=== PATIENT | male | born 1970 | race Caucasian/White ===

== ENCOUNTER 2023-08-24 19:55 | Inpatient (IN) ==
--- NOTE | 2023-08-24 20:44 | Emergency Department Note ---
Impression & Plan Suicidal ideation, Alcohol use disorder, Anemia ED Provider Note HISTORY OF PRESENT ILLNESS: Patient is a 53-year-old male presenting for suicidal ideation. Patient has a history of chronic alcoholism. Reports that he has been going through bouts of sobriety and then drinking again. He states that he has been trying to get into outpatient alcohol rehab and has had significant frustrations given his chronic medical problems. He reports a history of esophageal varices and epilepsy. He states that he became very frustrated with people on the phone at the different rehab facilities telling him that he could not be admitted to their facility. He states that "I would have shot or strangled them if I would have seen them in person." He states that this morning he was feeling so depressed and disappointed with his circumstances that he wanted to end his life. He reports that he wanted to kill himself by overdosing on heroin. Reports he is never taken opioids and never used heroin before, but "I would have used anyway I could to kill myself." He states that he has been sober for the last 5 days until 10 AM this morning when he drank "2 airplane bottles of vodka." He denies any previous suicide attempts. He has required inpatient psychiatric admission before, but does not disclose what his mental health diagnosis is. He denies any physical complaints, such as chest pain or shortness of breath. ROS: as above PHYSICAL EXAM: Constitutional: Patient appears in no acute distress. HENT: Head: Normocephalic and atraumatic. Eyes: EOMI, PERRL Mouth/Throat: Mucous membranes moist. Neck: Trachea midline. Neck supple. Musculoskeletal: No edema, tenderness or deformity noted. Skin: Warm and dry. No rash, erythema, pallor or cyanosis Psychiatric: Appropriate mood and affect for situation. Neurological: Alert and keenly responsive. CN II-XII grossly intact, moving all extremities equally and fully. MDM: - Vitals signs showed bradycardia - History obtained via patient. History as above. - Chronic conditions affecting care: Alcohol use disorder - Differential diagnoses include, but are not limited to: Depression; alcohol intoxication; drug intoxication; UTI - External medical records reviewed. Previous medical record was reviewed, as patient was seen in the emergency department on 08/14/2023 for hematemesis and upper GI bleed. He left AGAINST MEDICAL ADVICE at that time. His hemoglobin was 7.7. - Laboratory workup interpreted by myself showed slight leukopenia (WBC 4.55); anemia (Hgb 7.1 - stable from 08/14/2023 in which Hgb was 7.7); elevated BUN (27); hypocalcemia (Ca 8.5); negative alcohol/salicylate/acetaminophen levels - UA negative for infection - UDS positive for amphetamine, MDMA and barbiturates. - COVID negative - Patient given 25 mg PO Zyprexa in ER, as he was requesting something to "help me calm down." - Patient's previous ER visit note from 08/14/2023 is under . - [facility] casey saw operator discussed options with the patient. He reports that he wants to be discharged home to coordinate getting into a dual treatment program. However, [facility] casey saw operator did discuss that patient has an acute psychiatric pathology and would require inpatient admission. However, he is stating that "you can admit and then I will be discharged so I can go home and do what I said." Given the patient does express suicidal ideation with the plan, a 302 petition was filed by [facility] casey saw operator. Awaiting petition from [facility]. However, given patient's complex medical problems, will need medical admission and inpatient psychiatric consult. Patient does lack insight into his medical problems and his need for inpatient psychiatric admission. He did express suicidal ideation with the plan. High risk for self- harm if discharged. - Prior to disposition, patient's case was discussed with Dr. Li, with plan for 302 and admission to medicine service with psychiatric consult. ASSESSMENT AND PLAN: Diagnosis: suicidal ideation; alcohol use disorder; anemia Past Med/Surg History Problem List (Updated 08/25/23 @ 00:15 by Domi Charles MD) Anemia (Acute) Alcohol use disorder (Acute) Suicidal ideation (Acute) Social History Smoking Status: Current every day smoker Tobacco Type: Cigarettes Preferred Language: Spanish Feels Safe at Home: Yes Allergies Allergies Allergy/AdvReac Type Severity Reaction Status Date / Time haloperidol Allergy Unknown Hives Verified 08/24/23 20:55 metoclopramide Allergy Unknown Hives Verified 08/24/23 20:55 morphine Allergy Unknown Hives Verified 08/24/23 20:55 prochlorperazine Allergy Unknown Hives Verified 08/24/23 20:55 promethazine Allergy Unknown Hives Verified 08/24/23 20:55 Home Meds Home Medications Medication Instructions Recorded Confirmed divalproex 250 mg tablet,delayed 750 mg PO 1XD 08/24/23 08/24/23 release (Depakote) methylphenidate HCl 54 mg 54 mg PO DAILY 08/24/23 08/24/23 tablet,extended release 24 hr (Concerta) pantoprazole 40 mg tablet,delayed 40 mg PO DAILY 08/24/23 08/24/23 release (Protonix) venlafaxine 150 mg 150 mg PO DAILY 08/24/23 08/24/23 capsule,extended release 24 hr (Effexor XR) zolpidem 10 mg tablet (Ambien) 10 mg PO HS PRN Insomnia 08/24/23 08/24/23 Results & Data (ED) Vital Signs Vital Signs - 24 hr 08/24/23 20:02 08/24/23 22:00 08/25/23 00:07 Temperature 36.9 C Temperature Source Temporal Artery Scan Pulse Rate 53 L Pulse Rate [Finger] 77 76 Pulse Rhythm [Finger] Regular Pulse Strength [Finger] Normal Respiratory Rate 20 20 16 Respiratory Effort / Characteristics Non-Labored Spontaneous Respiratory Depth Normal Respiratory Pattern Regular Blood Pressure 135/76 Blood Pressure [Right Arm] 114/74 133/70 Blood Pressure Mean 95 Blood Pressure Mean [Right Arm] 87 91 Blood Pressure Position [Right Arm] Lying Pulse Oximetry 95 100 98 Oxygen Delivery Method Room Air Room Air Sepsis Recent Fever Within 48 Hours No Sepsis New/Unexplained Change in Mental Status N/A Sepsis Action Taken by Nursing No Action Required Laboratory Data 08/24/23 20:34 08/24/23 20:34 Lab Results 08/24/23 08/24/23 08/24/23 Range/Units 20:12 20:34 20:39 WBC 4.55 L (4.8-10.8) K/ul RBC 2.72 L (4.70-6.10) M/uL Hgb 7.1 L (14.0-18.0) g/dl Hct 23.7 L (42.0-52.0) % MCV 87.1 (80.0-100.0) fL MCH 26.1 (25.0-34.0) pg MCHC 30.0 L (32.0-36.0) g/dL RDW Std Deviation 53.8 H (36.4-46.3) fL RDW Coeff of Yeimy 16.9 H (11.5-14.5) % Plt Count 282 (130-400) K/uL MPV 9.5 (9.4-12.4) fL Immature Gran % (Auto) 0.2 % Neut % (Auto) 61.9 % Lymph % (Auto) 25.1 % [place] % (Auto) 7.7 % Eos % (Auto) 4.2 % Baso % (Auto) 0.9 % Neut # (Auto) 2.82 (1.40-6.50) K/uL Lymph # (Auto) 1.14 L (1.20-3.40) K/uL [place] # (Auto) 0.35 (0.11-0.59) K/uL Eos # (Auto) 0.19 (0.00-0.50) K/uL Baso # (Auto) 0.04 (0.00-0.20) K/uL Immature Gran # (Auto) 0.01 (0.01-0.20) K/uL Hypochromasia Present Sodium 138 (136-145) mmol/L Potassium 3.8 (3.5-5.1) mmol/L Chloride 108 H (98-107) mmol/L Carbon Dioxide 25 (21-32) mmol/L Anion Gap 5 (3-11) BUN 27 H (6-23) mg/dl Creatinine 0.74 (0.6-1.4) mg/dl Est Cr Clr Drug Dosing 103.4 ml/min Est GFR ( Amer) 122.1 ml/min Est GFR (Non-Af Amer) 105.3 ml/min BUN/Creatinine Ratio 36.5 H (10-20) Glucose 80 (70-99(Fasting)) mg/dl Calcium 8.5 L (8.6-10.3) mg/dl Total Bilirubin 0.2 (0.2-1.0) mg/dl AST 26 (13-39) U/L ALT 21 (7-52) U/L Alkaline Phosphatase 121 H (34-104) U/L Total Protein 6.3 (6.0-8.3) gm/dl Albumin 4.0 (3.4-5.0) gm/dl Globulin 2.3 L (2.5-4.0) gm/dl Albumin/Globulin Ratio 1.7 (0.9-2) TSH 1.070 (0.300-4.500) uIu/ml Urine Color Yellow Urine Appearance Clear (Clear) Urine pH 5.5 (4.5-7.5) Ur Specific [place] 1.021 (1.000-1.030) Urine Protein Negative (Negative) Urine Glucose (UA) Negative (Negative) Urine Ketones Negative (Negative) Urine Blood Negative (Negative) Urine Nitrite Negative (Negative) Urine Bilirubin Negative (Negative) Urine Urobilinogen Negative (Negative) Ur Leukocyte Esterase Negative (Negative) Salicylates < 3.0 L (3.0-30) mg/dl Urine Opiates Screen Neg (Neg) Ur Methadone, Qual Neg (Neg) Urine Fentanyl Screen Neg (Neg) Acetaminophen < 3 L (10-30) ug/ml Urine Barbiturates Pos H (Neg) Ur Phencyclidine (PCP) Neg (Neg) U Amphetamin/Meth Scrn Pos H (Neg) MDMA (Ecstasy) Screen Pos H (Neg) U Benzodiazepines Scrn Neg (Neg) Ur Cocaine Metabolite Neg (Neg) U Marijuana (THC) Screen Neg (Neg) Ethyl Alcohol mg/dL < 10.0 (<10.0) mg/dl SARS-CoV-2, RNA, NAAT NEGATIVE (NEGATIVE) Administered Medications Discontinued Medications Hydroxyzine HCl (Hydroxyzine Hcl 25 Mg Tab) 25 mg PO NOW STA Stop: 08/24/23 20:45 Last Admin: 08/24/23 20:57 Dose: 25 mg Documented By: TERI Discharge Plan Visit Data Chief Complaint: Mental Health Evaluation Stated Complaint: SUICIDAL IDEATION ED Provider: Domi Charles Discharge Problem: Suicidal ideation, Alcohol use disorder, Anemia Forms Stand Alone Forms: [facility], Suicide Prevention Resources Prescriptions Prescriptions: No Action divalproex [Depakote] 250 mg Tablet,Delayed Release (Dr/Ec) 750 mg PO 1XD venlafaxine [Effexor XR] 150 mg Capsule,Extended Release 24hr 150 mg PO DAILY methylphenidate HCl [Concerta] 54 mg Tablet Extended Release 24hr 54 mg PO DAILY pantoprazole [Protonix] 40 mg Tablet,Delayed Release (Dr/Ec) 40 mg PO DAILY zolpidem [Ambien] 10 mg Tablet 10 mg PO HS PRN (Reason: Insomnia) Referrals Referrals: PCP,NO [Primary Care Provider] -
[2023-08-24 20:52] LABS: Appearance Urine Clear (Clear); Bilirubin Urine Negative (Negative); Blood Urine Negative (Negative); Color Urine Yellow; Glucose Urine UA Negative (Negative); Ketones Urine Negative (Negative); Leukocyte Esterase Urine Negative (Negative); Nitrite Urine Negative (Negative); Protein Urine Negative (Negative); Specific Gravity Urine 1.021 (1.000-1.030); Urobilinogen Urine Negative (Negative); pH Urine 5.5 (4.5-7.5)
[2023-08-24] MEDS: hydrOXYzine HCl 25 MG TAB PO STA (20:57)
[2023-08-24 21:09] LABS: Acetaminophen < 3 ug/ml (10-30); Salicylate < 3.0 mg/dl (3.0-30)
[2023-08-24 21:10] LABS: Albumin Globulin Ratio 1.7 (0.9-2); BUN Creatinine Ratio 36.5 (10-20); Bilirubin,Total 0.2 mg/dl (0.2-1.0); Calcium 8.5 mg/dl (8.6-10.3); Creatinine Clr Calc Pharmacy 103.4 ml/min; Est GFR (African American) 122.1 ml/min; Est GFR (Non-African American) 105.3 ml/min; Globulin 2.3 gm/dl (2.5-4.0); Potassium 3.8 mmol/L (3.5-5.1); Total Protein 6.3 gm/dl (6.0-8.3)
[2023-08-24 21:23] LABS: Amphetamines+Metham, Urine Pos (Neg); Barbiturates, Urine Pos (Neg); Benzodiazepine, Urine Neg (Neg); Cocaine, Urine Neg (Neg); Fentanyl, Urine Neg (Neg); MDMA (Ecstacy), Urine Pos (Neg); Marijuana, Urine Neg (Neg); Methadone, Urine Neg (Neg); Opiate, Urine Neg (Neg); Phencyclidine, Urine Neg (Neg)
[2023-08-24 21:25] LABS: Basophils # (auto) 0.04 K/uL (0.00-0.20); Basophils % (auto) 0.9 %; Eosinophils # (auto) 0.19 K/uL (0.00-0.50); Eosinophils % (auto) 4.2 %; Hematocrit (blood only) 23.7 % (42.0-52.0); Hemoglobin 7.1 g/dl (14.0-18.0); Immature Granulocytes # (auto) 0.01 K/uL (0.01-0.20); Immature Granulocytes % (auto) 0.2 %; Lymphocytes # (auto) 1.14 K/uL (1.20-3.40); Lymphocytes % (auto) 25.1 %; Mean Corpuscular Hemoglobin 26.1 pg (25.0-34.0); Mean Corpuscular Volume 87.1 fL (80.0-100.0); Mean Platelet Volume 9.5 fL (9.4-12.4); Monocytes # (auto) 0.35 K/uL (0.11-0.59); Monocytes % (auto) 7.7 %; Neutrophils # (auto) 2.82 K/uL (1.40-6.50); Neutrophils % (auto) 61.9 %; Platelet Count 282 K/uL (130-400); RDW Coefficient of Variation 16.9 % (11.5-14.5); RDW Standard Deviation 53.8 fL (36.4-46.3); Red Blood Count 2.72 M/uL (4.70-6.10); Thyroid Stimulating Hormone 1.07 uIu/ml (0.300-4.500); White Blood Count 4.55 K/ul (4.8-10.8)
[2023-08-24 22:19] LABS: Hypochromasia Present
[2023-08-25] MEDS: PANTOprazole 40 MG TAB PO STA (00:33)
--- NOTE | 2023-08-25 01:48 | Emergency Department Note ---
ED Visit Note Patient was signed out to me at change of shift by Dr. Charles, pending completion of 302 petition for medical admission and psychiatric evaluation for suicidal thoughts. Of note, there was some difficulty emerging the patient's actual medical record with his current medical record, upon review the patient's hemoglobin on 08/13 was 7.7 and today it is 7.1. Patient does not report any significant GI bleeding recently. Patient presented with suicidal thoughts and stated that he intended to kill himself if he was discharged home by overdosing on heroin. Therefore 302 petition was filed. This was upheld and signed by myself. Patient appears to be mildly agitated on my evaluation, he is otherwise in no acute distress and is resting comfortably in bed. Patient's case was discussed with the on-call hospitalist for [facility], Dr. Scott, and the patient will be medically admitted given his lab abnormalities and we will obtain a psychiatric consult on the inpatient service. .
--- NOTE | 2023-08-25 02:41 | History & Physical Report ---
Date of Service August 25, 2023 Assessment & Plan (1) Suicidal ideation: Plan: Suicidality ADHD, anxiety/mood disorder, personality disorder Anemia, hemoglobin at baseline of 7 from last [facility] ER visit 2 weeks ago Patient refuses to answer queries regarding active GI bleed. PUD status post surgery esophageal varices as per records HCV seizure disorder NHL as per records history of DVT as per records ongoing tobacco/alcohol abuse Substance abuse OBS Medical telemetry Suicide precautions Psych consult re: suicidality PO S at risk protocol, DT precautions Nicotine patch as needed DVT prophylaxis. SCDs Re: GI bleed Full code Text document was generated using EXEND[employer] recognition software. It may contain grammatical or spelling errors. Kindly contact undersigned for clarification of any documentation item in question. History of Present Illness Chief Complaint: Want to end my life as per records Primary Care Provider: NO PCP PARTIAL CHART found under History obtained from ED staff and records. Patient on unreliable historian due to non-cooperation. Medical history significant for PUD status post surgery, esophageal varices as per records, HCV, seizure disorder, NHL as per records, history of DVT as per records, chronic anemia (baseline hemoglobin 8-9), ADHD, anxiety/mood disorder, personality disorder, substance abuse, ongoing tobacco/alcohol abuse. Recent [facility] confinement June 2023 for UGIB. No varices on EGD. Recent [facility] ER visit last 08/14/2023 for acute UGIB. Hemoglobin noted to be 7.7 Patient refused confinement. Subsequent [facility] [place] admission 08/15-08/19 as per records. Patient trying to get to alcohol rehab following [facility] [place]. Patient woke up yesterday morning feeling so depressed and wanting to end his life. Patient consulted [facility] ER. Patient adamantly refuses to talk to providers currently. Medical History as above Surgical History : Billroth procedure, bowel resection, hip surgery, lymphadenectomy Family History : Mood disorder Personal/Social history : Half pack daily, alcohol abuse Allergies Allergy/AdvReac Type Severity Reaction Status Date / Time haloperidol Allergy Unknown Hives Verified 08/24/23 20:55 metoclopramide Allergy Unknown Hives Verified 08/24/23 20:55 morphine Allergy Unknown Hives Verified 08/24/23 20:55 prochlorperazine Allergy Unknown Hives Verified 08/24/23 20:55 promethazine Allergy Unknown Hives Verified 08/24/23 20:55 Home Medications Medication Instructions Recorded Confirmed Type divalproex 250 mg tablet,delayed 750 mg PO 1XD 08/24/23 08/24/23 History release (Depakote) methylphenidate HCl 54 mg 54 mg PO DAILY 08/24/23 08/24/23 History tablet,extended release 24 hr (Concerta) pantoprazole 40 mg tablet,delayed 40 mg PO DAILY 08/24/23 08/24/23 History release (Protonix) venlafaxine 150 mg 150 mg PO DAILY 08/24/23 08/24/23 History capsule,extended release 24 hr (Effexor XR) zolpidem 10 mg tablet (Ambien) 10 mg PO HS PRN Insomnia 08/24/23 08/24/23 History Past Med/Surg History Problem List (Updated 08/25/23 @ 00:15 by Domi Charles MD) Anemia (Acute) Alcohol use disorder (Acute) Suicidal ideation (Acute) Social History Smoking Status: Current every day smoker Tobacco Type: Cigarettes Preferred Language: [place] Feels Safe at Home: Yes Gender Identity: Male Review of Systems Review of Systems: Could not be reliably obtained secondary to noncooperation Physical Exam Physical Exam: GENERAL: Unkempt, withdrawn, covering face with pillow, no respiratory distress SKIN: Pallor, warm HEENT: Pale palpebral conjunctivae, no ptosis, dry buccal mucosa NECK : Supple, no tenderness CHEST : CTA, no tenderness HEART : RRR, no obvious murmurs ABDOMEN: Some distention, nontender EXTREMITIES : No LE swelling/tenderness, no other conspicuous deformities noted NEUROLOGIC : incoherent, no facial asymmetry, gait and stance not assessed Results & Data Results & Data Vital Signs (Past 12 Hours) Vital Signs Temp Pulse Pulse Resp BP BP Pulse Ox 08/25/23 02:23 78 16 124/76 98 08/25/23 00:07 76 16 133/70 98 08/24/23 22:00 77 20 114/74 100 08/24/23 20:02 36.9 C 53 L 20 135/76 95 O2 Del Method 08/25/23 02:23 08/25/23 00:07 08/24/23 22:00 Room Air 08/24/23 20:02 Room Air Laboratory Results Laboratory Results WBC 4.55 K/ul (4.8-10.8) L 08/24/23 20:34 RBC 2.72 M/uL (4.70-6.10) L 08/24/23 20:34 Hgb 7.1 g/dl (14.0-18.0) L 08/24/23 20:34 Hct 23.7 % (42.0-52.0) L 08/24/23 20:34 MCV 87.1 fL (80.0-100.0) 08/24/23 20:34 MCH 26.1 pg (25.0-34.0) 08/24/23 20: MCHC 30.0 g/dL (32.0-36.0) L 08/24/23:34 RDW Std Deviation 53.8 fL (36.4-46.3) H 08/24/23 20:34 RDW Coeff of Yeimy 16.9 % (11.5-14.5) H 08/24/23:34 Plt Count 282 K/uL (130-400) 08/24/23:34 MPV 9.5 fL (9.4-12.4) 08/24/23 20:34 Immature Gran % (Auto) 0.2 % 08/24/23:34 Neut % (Auto) 61.9 % 08/24/23 20:34 Lymph % (Auto) 25.1 % 08/24/23 20:34 [place] % (Auto) 7.7 % 08/24/23 20:34 Eos % (Auto) 4.2 % 08/24/23:34 Baso % (Auto) 0.9 % 08/24/23:34 Neut # (Auto) 2.82 K/uL (1.40-6.50) 08/24/23 20:34 Lymph # (Auto) 1.14 K/uL (1.20-3.40) L 08/24/23 20:34 [place] # (Auto) 0.35 K/uL (0.11-0.59) 08/24/23 20:34 Eos # (Auto) 0.19 K/uL (0.00-0.50) 08/24/23 20:34 Baso # (Auto) 0.04 K/uL (0.00-0.20) 08/24/23 20:34 Immature Gran # (Auto) 0.01 K/uL (0.01-0.20) 08/24/23 20:34 Hypochromasia Present 08/24/23 20:34 Sodium 138 mmol/L (136-145) 08/24/23 20:34 Potassium 3.8 mmol/L (3.5-5.1) 08/24/23 20:34 Chloride 108 mmol/L (98-107) H 08/24/23 20:34 Carbon Dioxide 25 mmol/L (21-32) 08/24/23 20:34 Anion Gap 5 (3-11) 08/24/23 20:34 BUN 27 mg/dl (6-23) H 08/24/23 20:34 Creatinine 0.74 mg/dl (0.6-1.4) 08/24/23 20:34 Est Cr Clr Drug Dosing 103.4 ml/min 08/24/23 20:34 Est GFR ( Amer) 122.1 ml/min 08/24/23 20:34 Est GFR (Non-Af Amer) 105.3 ml/min 08/24/23 20:34 BUN/Creatinine Ratio 36.5 (10-20) H 08/24/23 20:34 Glucose 80 mg/dl (70-99(Fasting)) 08/24/23 20:34 Calcium 8.5 mg/dl (8.6-10.3) L 08/24/23 20:34 Total Bilirubin 0.2 mg/dl (0.2-1.0) 08/24/23 20:34 AST 26 U/L (13-39) 08/24/23 20:34 ALT 21 U/L (7-52) 08/24/23 20:34 Alkaline Phosphatase 121 U/L (34-104) H 08/24/23 20:34 Total Protein 6.3 gm/dl (6.0-8.3) 08/24/23 20:34 Albumin 4.0 gm/dl (3.4-5.0) 08/24/23 20:34 Globulin 2.3 gm/dl (2.5-4.0) L 08/24/23 20:34 Albumin/Globulin Ratio 1.7 (0.9-2) 08/24/23 20:34 TSH 1.070 uIu/ml (0.300-4.500) 08/24/23 20:34 Urine Color Yellow 08/24/23 20:39 Urine Appearance Clear (Clear) 08/24/23 20:39 Urine pH 5.5 (4.5-7.5) 08/24/23 20:39 Ur Specific [place] 1.021 (1.000-1.030) 08/24/23 20:39 Urine Protein Negative (Negative) 08/24/23 20:39 Urine Glucose (UA) Negative (Negative) 08/24/23 20:39 Urine Ketones Negative (Negative) 08/24/23 20:39 Urine Blood Negative (Negative) 08/24/23 20:39 Urine Nitrite Negative (Negative) 08/24/23 20:39 Urine Bilirubin Negative (Negative) 08/24/23 20:39 Urine Urobilinogen Negative (Negative) 08/24/23 20:39 Ur Leukocyte Esterase Negative (Negative) 08/24/23 20:39 Salicylates < 3.0 mg/dl (3.0-30) L 08/24/23 20:34 Urine Opiates Screen Neg (Neg) 08/24/23 20:39 Ur Methadone, Qual Neg (Neg) 08/24/23 20:39 Urine Fentanyl Screen Neg (Neg) 08/24/23 20:39 Acetaminophen < 3 ug/ml (10-30) L 08/24/23 20:34 Urine Barbiturates Pos (Neg) H 08/24/23 20:39 Ur Phencyclidine (PCP) Neg (Neg) 08/24/23 20:39 U Amphetamin/Meth Scrn Pos (Neg) H 08/24/23 20:39 MDMA (Ecstasy) Screen Pos (Neg) H 08/24/23 20:39 U Benzodiazepines Scrn Neg (Neg) 08/24/23 20:39 Ur Cocaine Metabolite Neg (Neg) 08/24/23 20:39 U Marijuana (THC) Screen Neg (Neg) 08/24/23 20:39 Ethyl Alcohol mg/dL < 10.0 mg/dl (<10.0) 08/24/23 20:34 SARS-CoV-2, RNA, NAAT NEGATIVE (NEGATIVE) 08/24/23 20:12 Diagnostic Findings EKG as per my interpretation :
[2023-08-25] MEDS ORDERED: LORazepam 1 MG in SYRINGE 0.5 ML IV PRN (02:48)
--- OUTSIDE RECORDS SUMMARY | 2023-08-25 04:59 | External Medical Summary | Continuity of Care Document ---
Author Name Unknown Organization [facility] Address [address] [place] [phone] Care Team Providers Care Tailer Off Name Role Phone Merlene Chino Primary Care Physician [phone] [id number] Date(s): 08/16/23 - 08/20/[address] [id number] [phone] Encounter Diagnosis Lower GI bleed(Discharge Diagnosis) - 08/17/23 Alcohol use with withdrawal(Discharge Diagnosis) - 08/17/23 Alcohol dependence with withdrawal, unspecified(Final) - Epilepsy, unspecified, not intractable, without status epilepticus(Final) - Blood alcohol level of 20-39 mg/100 ml(Final) - Esophagitis, unspecified with bleeding(Final) - Presence of unspecified artificial hip joint(Final) - Patient's other noncompliance with medication regimen for other reason(Final) - Personal history of Hodgkin lymphoma(Final) - Anxiety disorder, unspecified(Final) - Depression, unspecified(Final) - Gastritis, unspecified, with bleeding(Final) - Other [facility] (current) drug therapy(Final) - Nicotine dependence, unspecified, uncomplicated(Final) - Personality disorder, unspecified(Final) - Abnormal levels of other serum enzymes(Final) - Procedure and treatment not carried out because of patient's decision for other reasons(Final) - Headache, unspecified(Final) - 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) - Cocaine use, unspecified, uncomplicated(Final) - Other stimulant use, unspecified, uncomplicated(Final) - Other psychoactive substance abuse, uncomplicated(Final) - Discharge Disposition: Home or Self Care Attending Physician: MD Arreguin Priyanka Admitting Physician: MD Lars, Lynda Mosley Allergies, Adverse Reactions, Alerts Substance Criticality Severity Reaction Reaction Severity Status Reglan na Active promethazine Other Active Haldol na Active Compazine na Active Functional Status 08/20/23 History of Fall in Last 3 Months Robles N o Presence of Secondary Diagnosis Robles Ye s Use of Ambulatory Aid Robles None/bedrest /nurse assist IV/Heparin Lock Fall Risk Robles Yes Gait/Transferring Fall Risk Robles Weak Mental Status Fall Risk Robles Oriented t o own ability Robles Fall Risk Score 45 Robles Fall Risk Low Risk 08/20/23 Neurological Symptoms None ADLs Minimal assistance Facial Symmetry Symmetric Gait Unable to assess Swallowing Difficulty None Level of Consciousness Neuro Alert Speech Pattern Clear 08/20/23 Hallucinations Present None Medications cholecalciferol 25 mcg (1000 intl units) oral capsule Start: 06/24/23 3:52:00 PM EDT, 2 cap, PO, Daily, Disp# 60 cap, Refills: 2, Pharmacy: [facility] Start Date: 06/24/23 Status: Ordered Depakote ER 250 mg oral tablet, extended release Start: 06/24/23 3:47:00 PM EDT, 3 tab, PO, qhs Start Date: 06/24/23 Status: Ordered folic acid 1 mg oral tablet Start: 03/25/23 2:21:00 PM EST, 1 tab, PO, Daily, Disp# 30 tab, Refills: 0, Pharmacy: [facility] Start Date: 03/25/23 Status: Ordered mirtazapine 15 mg oral tablet Start: 08/17/23 11:00:00 AM EDT, 30 each, 0 Refill(s), take 1 tablet by mouth nightly -INDICATIONS: MAJOR DEPRESSIVE DISORDER Start Date: 08/17/23 Status: Ordered naloxone 4 mg/0.1 mL nasal spray Start: 05/25/22 1:15:00 PM EDT, intranasal, 1 Unknown, 1 Refill(s), Administer 1 spray into affectednostril(s) as needed (opiod reversal, may repeat every 2 to 3 | minutes alternate nostrils). Start Date: 05/25/22 Status: Ordered pantoprazole 40 mg oral delayed release tablet Start: 03/25/23 2:21:00 PM EST, 1 tab, PO, Daily, Disp# 30 tab, Refills: 0, Pharmacy: [facility] Start Date: 03/25/23 Status: Ordered thiamine 100 mg oral tablet Start: 03/25/23 2:21:00 PM EST, 1 tab, PO, Daily, Disp# 30 tab, Pharmacy: [facility] Start Date: 03/25/23 Status: Ordered Tylenol 325 mg oral tablet Start: 05/24/22 10:29:00 AM EDT, 2 tab, PO, q6h, Disp# 60 tab, Refills: 0, PRN: fever/mild pain (1-3), Pharmacy: [facility] #[id number] Start Date: 05/24/22 Status: Ordered venlafaxine 150 mg oral capsule, extended release Start: 03/25/23 2:22:00 PM EST, 1 cap, PO, Daily, Disp# 30 cap, Pharmacy: [facility] Start Date: 03/25/23 Stop Date: 04/24/23 Status: Ordered ZyrTEC 10 mg oral tablet Start: 06/24/23 5:02:00 PM EDT, 1 tab, PO, Daily Start Date: 06/24/23 Status: Ordered Mental Status 08/17/23 Communication Barrier Present No Primary Language Mongolian Problem List Condition Confirmation Course Effective Dates Status Health St atus Informant Alcohol withdrawal Confirmed Active Anxiety Confirmed Active ADHD Confirmed Active Depression Confirmed Active Epilepsy Confirmed Active GI bleed Confirmed Active Hodgkin lymphoma Confirmed Active Diagnosis Diagnosis Type Effective Dates Health Status Clinical Service Informant Lower GI bleed Discharge Diagnosis 08/17/23 Non-Specified Alcohol use with withdrawal Discharge Diagnosis 08/17/23 Non-Specified Procedures Procedure Date Related Diagnosis Body Site Status Esophagogastroduodenoscopy 1 05/21/22 Completed Esophagogastroduodenoscopy 2 02/13/22 Completed REVISE HIP JOINT REPLACEMENT Completed 1auto-populated from documented surgical case 2auto-populated from documented surgical case Results Laboratory List Name Date Complete Blood Count w Differential (CBC w Platelets and Diff) 08/20/23 Complete Blood Count w Differential (CBC w Platelets and Diff) 08/20/23 Comprehensive Metabolic Panel (CMP) Ferritin 08/20/23 Iron Profile 08/20/23 Complete Blood Count w Differential (CBC w Platelets and Diff) 08/19/23 Comprehensive Metabolic Panel (CMP) Complete Blood Count w Differential (CBC w Platelets and Diff) 08/18/23 Comprehensive Metabolic Panel (CMP) Drugs of Abuse w NO confirm, Urine (Urin e Drug Screen, NO confirm, in house) 08/17/23 Urine Analysis w/ Reflexed Microscopic. (Urinalysis w/ Reflexed Microscopic.) 08/17/23 Added on Lab order 08/17/23 Creatine Kinase, Total (CPK, Total) Ferritin 08/17/23 Reticulocyte Panel 08/17/23 Lactic Acid Level 08/17/23 MRSA Surveillance (Nasal Swab) 08/17/23 Alcohol Level (not Legal) (Ethanol Level (not Legal)) 08/17/23 Added on Lab order 08/17/23 Blood Type/Antibody Screen ( for possible transfusion) (Type and Screen (for possible transfusion)) 08/16/23 Lipase Level 08/16/23 Partial Thromboplastin Time (PTT) 08/16/23 Prothrombin Time w/ INR (PT/INR) 08/16/23 Valproic Acid Level (Depakote Level) 08/15 Alcohol Level (not Legal) (ETHANOL, MEDI BECKY) 08/16/23 Most recent to oldest [Reference Range]: 1 2 3 ABO/Rh O NEGATIVE (08/16/23 11:09 PM) Antibody Scr NEGATIVE (08/16/23 11:09 PM) Expires at 0600AM on 08/19/2023 (08/16/23 11:09 PM) # Units 0 (08/16/23 11:09 PM) R Number NRQ (08/16/23 11:09 PM) eGFR CKD-EPI [>60 mL/min/1.73 m2] >90 mL/min/1.73 m2 (08/20/23 9:19 AM) >90 mL/min/1.73 m2 (08/19/23 5:00 AM) >90 mL/min/1.73 m2 (08/18/23 4:43 AM) Methadone (u) NONE DETECTED (08/17/23 2:56 PM) U Buprenorph Lvl NONE DETECTED (08/17/23 2:56 PM) U Fentanyl Scr NONE DETECTED (08/17/23 2:56 PM) Request of Physician CBC CMP (08/17/23 4:36 AM) blood ethanol (08/16/23 11:10 PM) Action Taken YES (08/17/23 4:36 AM) YES (08/16/23 11:10 PM) Methadone Metabolite (u) NONE DETECTED (08/17/23 2:56 PM) Imm. Retics [5.0-25.0 %] 29.7 % *HI* (08/17/23 4:35 AM) Ovalocytes FEW (08/19/23 5:00 AM) Polychromasia INCREASED (08/20/23 9:19 AM) Platelet Morphology NORMAL (08/20/23 9:19 AM) NORMAL (08/19/23 5:00 AM) NORMAL (08/18/23 4:43 AM) Estimated CrCl 92.27 mL/min (08/20/23 10:14 AM) 80.74 mL/min (08/19/23 6:01 AM) 87.72 mL/min (08/18/23 5:36 AM) Retic Hgb [30.8-36.6 pg] 25.0 pg *LOW* (08/17/23 4:35 AM) Oxycodone (u) NONE DETECTED (08/17/23 2:56 PM) MPV [9.0-12.2 fL] REQUEST CREDITED fL 1 (08/20/23 9:20 AM) 9.6 fL (08/20/23 9:19 AM) 9.2 fL (08/19/23 5:00 AM) Immature Gran% REQUEST CREDITED % 2 (08/20/23 9:20 AM) 0.0 % (08/20/23 9:19 AM) 0.0 % (08/19/23 5:00 AM) Neut% REQUEST CREDITED % 3 (08/20/23 9:20 AM) 55.5 % (08/20/23 9:19 AM) 48.6 % (08/19/23 5:00 AM) Lymph% REQUEST CREDITED % 4 (08/20/23 9:20 AM) 33.6 % (08/20/23 9:19 AM) 40.9 % (08/19/23 5:00 AM) Brooke% REQUEST CREDITED % 5 (08/20/23 9:20 AM) 4.5 % (08/20/23 9:19 AM) 2.9 % (08/19/23 5:00 AM) Baso% REQUEST CREDITED % 6 (08/20/23 9:20 AM) 1.8 % (08/20/23 9:19 AM) 0.9 % (08/19/23 5:00 AM) Eos% REQUEST CREDITED % 7 (08/20/23 9:20 AM) 4.6 % (08/20/23 9:19 AM) 6.7 % (08/19/23 5:00 AM) Immat Gran, Abs [0-0.4 K/uL] REQUEST CREDITED K/uL 8 (08/20/23 9:20 AM) Immat Gran, Abs [0.0-0.4 K/uL] 0.00 K/uL (08/20/23 9:19 AM) 0.00 K/uL (08/19/23 5:00 AM) Neut, Abs [2.0-7.7 K/uL] REQUEST CREDITE D K/uL 9 (08/20/23 9:20 AM) 1.53 K/uL *LOW* (08/20/23 9:19 AM) 1.65 K/uL *LOW* (08/19/23 5:00 AM) Lymph, Abs [1.0-3.4 K/uL] REQUEST CREDIT ED K/uL 10 (08/20/23 9:20 AM) 0.93 K/uL *LOW* (08/20/23 9:19 AM) 1.39 K/uL (08/19/23 5:00 AM) Brooke, Abs [0-1.0 K/uL] REQUEST CREDITED K/uL 11 (08/20/23 9:20 AM) 0.12 K/uL (08/20/23 9:19 AM) 0.10 K/uL (08/19/23 5:00 AM) Baso, Abs [0-0.1 K/uL] REQUEST CREDITED K/uL 12 (08/20/23 9:20 AM) 0.05 K/uL (08/20/23 9:19 AM) 0.03 K/uL (08/19/23 5:00 AM) Eos, Abs [0-0.5 K/uL] REQUEST CREDITED K /uL 13 (08/20/23 9:20 AM) 0.13 K/uL (08/20/23 9:19 AM) 0.23 K/uL (08/19/23 5:00 AM) Type of Diff: REQUEST CREDITED 14 (08/20/23 9:20 AM) MANUAL (08/20/23 9:19 AM) MANUAL (08/19/23 5:00 AM) RBC Morphology NORMAL (08/18/23 4:43 AM) RDW [11.5-14.2 %] REQUEST CREDITED % 1 5 (08/20/23 9:20 AM) 17.2 % *HI* (08/20/23 9:19 AM) 17.2 % *HI* (08/19/23 5:00 AM) Component RED CELLS (08/16/23 11:09 PM) MRSA Surveillance, on Admission [MSND] MRSA detected *Abnormal* (08/17/23 4:35 AM) Anion Gap [5-14 mmol/L] 8 mmol/L (08/20/23 9:19 AM) 11 mmol/L (08/19/23 5:00 AM) 9 mmol/L (08/18/23 4:43 AM) Alb [3.5-5.2 g/dL] 3.7 g/dL (08/20/23 9:19 AM) 3.7 g/dL (08/19/23 5:00 AM) 3.6 g/dL (08/18/23 4:43 AM) EtOH med [<10 mg/dL] <10 mg/dL (08/17/23 4:35 AM) 38 mg/dL *HI* (08/16/23 11:09 PM) Alk Phos [40-130 unit/L] 109 unit/L 16 (08/20/23 9:19 AM) 129 unit/L 17 (08/19/23 5:00 AM) 131 unit/L 18 *HI* (08/18/23 4:43 AM) ALT [0-41 unit/L] 21 unit/L (08/20/23 9:19 AM) 20 unit/L (08/19/23 5:00 AM) 16 unit/L (08/18/23 4:43 AM) Amphetamines(u) PRESUMPTIVE POSITIVE DRUG RESULT 19 (08/17/23 2:56 PM) AST [0-40 unit/L] 26 unit/L (08/20/23 9:19 AM) 25 unit/L (08/19/23 5:00 AM) 26 unit/L (08/18/23 4:43 AM) Barbiturates(u) PRESUMPTIVE POSITIVE DRUG RESULT 20 (08/17/23 2:56 PM) Benzodiazepines(u) NONE DETECTED (08/17/23 2:56 PM) Bili (u) [NEG] NEGATIVE (08/17/23 2:56 PM) BUN [6-23 mg/dL] 15 mg/dL (08/20/23 9:19 AM) 20 mg/dL (08/19/23 5:00 AM) 18 mg/dL (08/18/23 4:43 AM) Ca [8.4-10.2 mg/dL] 8.3 mg/dL *LOW* (08/20/23:19 AM) 8.6 mg/dL (08/19/23 5:00 AM) 8.8 mg/dL (08/18/23 4:43 AM) CPK [39-308 unit/L] 403 unit/L *HI* (08/17/23 4:35 AM) Cl- [98-107 mmol/L] 103 mmol/L (08/20/23 9:19 AM) 106 mmol/L (08/19/23 5:00 AM) 107 mmol/L (08/18/23 4:43 AM) HCO3 [22-29 mmol/L] 27 mmol/L (08/20/23 9:19 AM) 25 mmol/L (08/19/23 5:00 AM) 25 mmol/L (08/18/23 4:43 AM) Cocaine(u) PRESUMPTIVE POSITIVE DRUG RESULT 21 (08/17/23 2:56 PM) Cret [0.70-1.30 mg/dL] 0.77 mg/dL (08/20/23 9:19 AM) 0.88 mg/dL (08/19/23 5:00 AM) 0.81 mg/dL (08/18/23 4:43 AM) Iron [50-158 ug/dL] 14 ug/dL *LOW* (08/20/23 9:19 AM) Ferritin [30.0-400.0 ng/mL] 8.8 ng/mL *LOW* (08/20/23 9:19 AM) 13.9 ng/mL *LOW* (08/17/23 4:35 AM) Glu [74-109 mg/dL] 110 mg/dL 22 *HI* (08/20/23 9:19 AM) 180 mg/dL 23 *HI* (08/19/23 5:00 AM) 85 mg/dL 24 (08/18/23 4:43 AM) Hct [39-48 %] REQUEST CREDITED % 2 5 (08/20/23 9:20 AM) 25.7 % *LOW* (08/20/23 9:19 AM) 25.5 % *LOW* (08/19/23 5:00 AM) Hgb [13.0-17.0 g/dL] REQUEST CREDITED g/ dL 26 (08/20/23 9:20 AM) 7.7 g/dL *LOW* (08/20/23 9:19 AM) 7.7 g/dL *LOW* (08/19/23 5:00 AM) INR [0.9-1.1] 1.0 27 (08/16/23 11:09 PM) K [3.5-5.1 mmol/L] 4.3 mmol/L (08/20/23 9:19 AM) 4.5 mmol/L (08/19/23 5:00 AM) 4.4 mmol/L (08/18/23 4:43 AM) Ketones [NEG mg/dL] NEGATIVE mg/dL (08/17/23 2:56 PM) Lactate [0.5-2.2 mmol/L] 0.9 mmol/L (08/17/23 4:35 AM) Lipase [13-60 unit/L] 16 unit/L (08/16/23 11:09 PM) Leuk Est [NEG] NEGATIVE (08/17/23 2:56 PM) Marijuana(u) NONE DETECTED (08/17/23 2:56 PM) MCH [28-33 pg] REQUEST CREDITED pg 28 (08/20/23 9:20 AM) 26.3 pg *LOW* (08/20/23 9:19 AM) 27.3 pg *LOW* (08/19/23 5:00 AM) MCHC [32-36 g/dL] REQUEST CREDITED g/d L 29 (08/20/23 9:20 AM) 30.0 g/dL *LOW* (08/20/23 9:19 AM) 30.2 g/dL *LOW* (08/19/23 5:00 AM) MCV [81-96 fL] REQUEST CREDITED fL 30 (08/20/23 9:20 AM) 87.7 fL (08/20/23 9:19 AM) 90.4 fL 31 (08/19/23 5:00 AM) Na [136-145 mmol/L] 138 mmol/L (08/20/23 9:19 AM) 142 mmol/L (08/19/23 5:00 AM) 141 mmol/L (08/18/23 4:43 AM) Nitrite (u) [NEG] NEGATIVE (08/17/23 2:56 PM) Opiates(u) NONE DETECTED (08/17/23 2:56 PM) Plts [150-350 K/uL] REQUEST CREDITED K/u L 32 (08/20/23 9:20 AM) 243 K/uL (08/20/23 9:19 AM) 263 K/uL (08/19/23 5:00 AM) PT [12.0-14.2 seconds] 13.0 seconds (08/16/23 11:09 PM) PTT [23-35 seconds] 32 seconds (08/16/23 11:09 PM) RBC [4.40-5.60 M/uL] REQUEST CREDITED M/ uL 33 (08/20/23 9:20 AM) 2.93 M/uL *LOW* (08/20/23 9:19 AM) 2.82 M/uL *LOW* (08/19/23 5:00 AM) Retics (abs) [16.7-96.7 K/uL] 44.8 K/uL (08/17/23 4:35 AM) Retic (%) [0.40-2.05 %] 1.54 % (08/17/23 4:35 AM) Fe Sat [14-50 %] 3 % *LOW* (08/20/23 9:19 AM) Smudge Cell [FEW] MODERATE *Abnormal* (08/19/23 5:00 AM) T Bili [0.0-1.2 mg/dL] 0.1 mg/dL (08/20/23 9:19 AM) 0.1 mg/dL (08/19/23 5:00 AM) 0.1 mg/dL (08/18/23 4:43 AM) Total IBC [250-400 ug/dL] 431 ug/dL *HI* (08/20/23 9:19 AM) Prot [6.4-8.3 g/dL] 5.9 g/dL *LOW* (08/20/23 9:19 AM) 5.9 g/dL *LOW* (08/19/23 5:00 AM) 6.0 g/dL *LOW* (08/18/23 4:43 AM) Transferrin [200-360 mg/dL] 365 mg/dL *HI* (08/20/23 9:19 AM) Appear (u) CLEAR (08/17/23 2:56 PM) Color (u) YELLOW (08/17/23 2:56 PM) Glu (u) [NEG mg/dL] NEGATIVE mg/dL (08/17/23 2:56 PM) Hgb (u) [NEG] NEGATIVE (08/17/23 2:56 PM) pH (u) [5.0-8.0 unit] 6.0 unit (08/17/23 2:56 PM) Prot (u) [NEG mg/dL] NEGATIVE mg/dL (08/17/23 2:56 PM) Urobili [0.1-1.0 EU/dL] 0.1-1.0 EU/dL (08/17/23 2:56 PM) SG [1.005-1.030] 1.008 (08/17/23 2:56 PM) Valproate [50-120 ug/mL] <3 ug/mL *LOW* (08/16/23 11:09 PM) WBC [4.0-10.4 K/uL] REQUEST CREDITED K/u L 34 (08/20/23 9:20 AM) 2.76 K/uL *LOW* (08/20/23 9:19 AM) 3.40 K/uL *LOW* (08/19/23 5:00 AM) 1Result Comment: DUPLICATE REQUEST 2Result Comment: DUPLICATE REQUEST 3Result Comment: DUPLICATE REQUEST 4Result Comment: DUPLICATE REQUEST 5Result Comment: DUPLICATE REQUEST 6Result Comment: DUPLICATE REQUEST 7Result Comment: DUPLICATE REQUEST 8Result Comment: DUPLICATE REQUEST 9Result Comment: DUPLICATE REQUEST 10Result Comment: DUPLICATE REQUEST 11Result Comment: DUPLICATE REQUEST 12Result Comment: DUPLICATE REQUEST 13Result Comment: DUPLICATE REQUEST 14Result Comment: DUPLICATE REQUEST 15Result Comment: DUPLICATE REQUEST 16Result Comment: Low levels of ALKP may indicate a deficiency in zinc, magnesium, or malnutritionbutcan also be an indicator of a rare genetic disease hypophosphatasia (HPP). 17Result Comment: Low levels of ALKP may indicate a deficiency in zinc, magnesium, or malnutritionbutcan also be an indicator of a rare genetic disease hypophosphatasia (HPP). 18Result Comment: Low levels of ALKP may indicate a deficiency in zinc, magnesium, or malnutritionbutcan also be an indicator of a rare genetic disease hypophosphatasia (HPP). 19Result Comment: Unconfirmed, intended for Medical treatment purposes only 20Result Comment: Unconfirmed, intended for Medical treatment purposes only 21Result Comment: Unconfirmed, intended for Medical treatment purposes only 22Result Comment: ADA recommendation for FASTING Serum/Plasma Glucose: Normal: 70-100 mg/dL Prediabetes: 100-125 mg/dL Diabetes: 126 mg/dL or higher 23Result Comment: ADA recommendation for FASTING Serum/Plasma Glucose: Normal: 70-100 mg/dL Prediabetes: 100-125 mg/dL Diabetes: 126 mg/dL or higher 24Result Comment: ADA recommendation for FASTING Serum/Plasma Glucose: Normal: 70-100 mg/dL Prediabetes: 100-125 mg/dL Diabetes: 126 mg/dL or higher 25Result Comment: DUPLICATE REQUEST 26Result Comment: DUPLICATE REQUEST 27Result Comment: Suggested therapeutic range for low-intensity Coumadin therapy for venous thromboembolism is INR 2.0-3.0 (ex: atrial fibrillation, history of TIA/stroke). For high risk patients, the suggested therapeutic range is INR 2.5-3.5 (ex: mechanical prosthetic valves). 28Result Comment: DUPLICATE REQUEST 29Result Comment: DUPLICATE REQUEST 30Result Comment: DUPLICATE REQUEST 31Result Comment: CHECKED 32Result Comment: DUPLICATE REQUEST 33Result Comment: DUPLICATE REQUEST 34Result Comment: DUPLICATE REQUEST Vital Signs Most recent to oldest [Reference Range]: 1 2 3 4 Height 170.2 cm (08/17/23 3:03 AM) 170.2 cm (08/16/23 10:06 PM) Patient Weight 56.4 kg (08/17/23 3:03 AM) 58.8 kg (08/16/23 10:06 PM) Body Mass Index 19.47 kg/m2 (08/17/23 3:03 AM) 20.3 kg/m2 (08/16/23 10:06 PM) Temperature [36.5-37.9 DegC] 36.6 DegC (08/20/23 7:55 AM) 36.1 DegC *LOW* (08/20/23 6:25 AM) 36.4 DegC *LOW* (08/20/23 12:41 AM) 36.4 DegC *LOW* (08/20/23 12:41 AM) Heart Rate 67 bpm (08/20/23 7:55 AM) 109 bpm (08/20/23 6:25 AM) 96 bpm (08/20/23 6:25 AM) Respiratory Rate 14 br/min (08/20/23 7:55 AM) 20 br/min (08/20/23 6:25 AM) 36 br/min (08/20/23 6:25 AM) Blood Pressure 100/64mmHg (08/20/23 7:55 AM) 119/83mmHg (08/20/23 6:25 AM) 111/69mmHg (08/20/23 12:41 AM) Mean Blood Pressure 76 mmHg (08/20/23 7:55 AM) 94 mmHg (08/20/23 6:25 AM) 81 mmHg (08/20/23 12:41 AM) Cuff Pulse Pressure 36 mmHg (08/20/23 7:55 AM) 36 mmHg (08/20/23 6:25 AM) 42 mmHg (08/20/23 12:41 AM) BP Location # 1 Right Arm (08/20/23 7:55 AM) Left Arm (08/20/23 6:25 AM) Left Arm (08/20/23 12:41 AM) Left Arm (08/20/23 12:41 AM) Social History Social History Type Response Smoking Status Current every day li ght smoker Sex Male History and physical note * MD Sousa John Charles: MODIFY MD Sousa John Charles: MODIFY DO Reyes Allison: MODIFY, MODIFY DO Reyes Allison: MODIFY, MODIFY Hang DO, Lynette: MODIFY, MODIFY Hang, DO, Lynette: MODIFY, MODIFY Hang, DO, Lynette: MODIFY, MODIFY Amy, , Lynette: MODIFY, MODIFY, PERFORM MD Yao Nadia: PERFORM, MODIFY MD Maximilian, Rebekah: MODIFY Event Display: .HP Authored Date: Name:LYNDA RM IV Patient Number:[id number] :1970 Date of Service:08/17/2023 Chief Complaint Hx of alcoholism and varices. pt reports stopped drinking alcohol about 3 days ago. pt reports having unwitnessed multiple seizures today. pt also states, "I have been shitting blood for the last 3 days." History of Present Illness Lynda Rm is a 53 y/o M with a PMH of alcohol use disorder c/b multiple hospitalizations for alcohol withdrawal within the past year and an unknown amount of prior alcohol withdrawal seizures, epilepsy with well-documented noncompliance with medications, GI bleed, Hodgkin lymphoma, andanxiety/ depression with prior SI/HI who presented on 08/17/2023 to [facility] ED for stooling parisa blood with onsetthree days ago. He explains that he drinks approximately 5-6 mini vodka bottles/day, last drink was08/16 at 1800, said prior to last drink could not remember much of his day other than 2 possible withdrawal seizures and an episode of urinary incontinence. He said that he felt confused afterward which is typical for him after having a seizure. He states that he has a history of alcohol withdrawal seizures andepilepsy but has not been taking his Depakote.He says he hadn't had alcohol in the last 3 days but after the seizures, he took about 2 mini bottles to try to help treat his withdrawal symptoms. He also notes a few days of hematochezia which is painless. He endorses myalgias, headache, anxiety at the time of my evaluation. He denies chest pain, SOB, abdominal pain, nausea, vomiting, diarrhea, constipation, leg swelling, rashes, wounds, and any other complaints. Patient was prompted to visit ED for alcohol detox. Of note, he left AMA on 08/05 after admission for alcohol detox. Drinking pattern: Drinks 5-6 mini bottles of vodkadaily. Has had multiple history of withdrawal including withdrawal seizures. Denies history of DTs. Last Drink:2 mini bottles at 6pm prior to arriving How much:5-6 mini bottles of vodka Prior history of withdrawal: Multiple episodes DTs:Denies Seizures: States history of numerous withdrawal seizures with last being on 08/15 Review of Systems Negative except as stated above. Physical Exam Vitals & Measurements T:37.0C HR:74(Monitored) RR:12 BP:141/92 SpO2:98% Oxygen Therapy:Room Air HT:170.2cm WT:58.8kg WT:58.800kg(Dosing) BMI:20.3 General:Ill appearing. In mild acute distress. Skin:Good turgor, no rash, or abrasions. HEENT:Normocephalic, atraumatic. Neck:Normal ROM. Heart:Regular rate and rhythm. S1 and S2 present. No murmurs, rubs, or gallops. No peripheral edema. Respiratory:Clear lung sounds bilaterally. No wheezes, rales, rhonchi. Normal respiratory effort. Abdomen:Soft, not distended, and no tenderness or guarding by palpation. Back:Spine normal without deformity or tenderness, no CVA tenderness. Neuro:Moving extremities spontaneously. Psychiatric: Tangential speech. Anxious affect. Assessment/Plan 53 y/o M with a PMH of alcohol use disorder c/b multiple hospitalizations for alcohol withdrawal within the past year and an unknown amount of prior alcohol withdrawal seizures, epilepsy with well-documented noncompliance with medications, GI bleed, Hodgkin lymphoma, andanxiety/depression with prior SI/HI who presented on 08/17/2023 to [facility] ED for alcohol detox and admitted to the ICU for several alcohol withdrawal with CIWA of 21. NEUROLOGIC/PYSCH #Alcohol Abuse/Withdrawal, high-risk d/t history of seizures #History of cocaine use BAL 38, last drink 08/16 @1600 -Initiate CIWA protocol -thiamine, folic acid, multivitamin, and vit D supplementation -consider lactic acid -IVF for hydration -fall, seizure, and aspiration precautions -active alcohol withdrawal phenobarbital protocol -consider CHRISS consult given patient is agreeable to it on admission -consider psych consult -Zofran PRN for nausea -continue to monitor on telemetry and cont. pulse ox -QTc interval 445 on last documented EKG 07/2023 -monitor CMP, Mg, Phos; replete electrolytes PRN -obtain CPK/lactic acid i/s/o unknown number of seizures/c/f rhabdomyolysis #Pain Management/Headache -15 mg Toradol PRN -tylenol PRN #Anxiety/Depression -endorsed prior SI/HI -consider psychiatry consult -home reg: venlafaxine 150 mg daily #Epilepsy -patientnon-compliant with valproate -seizure precautions -valproic acid level <3 -consider neurology consultationfor appropriate dosing CARDIOVASCULAR -No acute concerns at this time PULMONARY -No acute concerns at this time GASTROINTESTINAL/NUTRITION #Esophagitis/Gastritis #Concern for history of gastroparesis and esophageal varices #Concern for GI bleed -Upper GI endoscopy completed 05/20/2022 for c/f varices, but there was improper prep and study was aborted; on admission per ED had bleeding per rectum on BALAJI -onpantoprazole 40 mg IV BID RENAL -no acute concerns ENDOCRINE -No acute concerns HEME/ONC #Chronic normocytic Anemia -Hgb on admission: 8.1, MCV 86.5 -obtain reticulocyte panel -trendCBC INFECTIOUS DISEASE -Noacute concerns Feeding:low sodium diet Analgesia: none Sedation: none Thromboprophylaxis:SCD Head of bed elvation: >30 degrees Stress Ulcer prophylaxis:pantoprazole 40 IV BID Glucose control: none needed Dispo: MICU PT/OT: defer at this time Code status: FULL Attestation Discussed with house staff on rounds this am. Patient seen and examined by me. Labs and radiographic studies personally reviewed by me. Agree with evaluation and plan as above in addition to my comments below Patient seen and evaluated by me this morning in ER. On my evaluation he was very anxiouswith tangential thought process. No SI or HI. Earlier this morning he was given IV loading doses of phenobarbital foralcohol withdrawal and transition to p.o. phenobarbital. On my exam he tells me that he does feel likehe would benefit from additional IV phenobarbital, his Andrea score is very elevated, veryanxious. His hemoglobin is 7.8 down from a baseline several months ago around 10. He does reportintermittent episodes of bright red blood and clots per rectum, most recently 2 daysago. Reviewed old imaging with CAT scanin Junedemonstratingdilatedstomach. Had endoscopy performed last year however report seems thatit was of poor quality prep and was unable to be completed. Reading in the chart he has a history of cirrhosis though unclearwherethis diagnosis was made Impression -Alcohol withdrawal: Status post multiple doses of IV phenobarbital, transition to p.o. howeveronmy exam still very anxious with elevated Andrea score and ordered another dose of IV phenobarbital -History of alcohol use disorder:Hasundergone alcohol rehab in the past is interested in pursuing alcohol rehab and detox at this point. -History of seizure disorder onvalproate with reported issues of noncompliance, and low level onadmission -Anemia, secondary to acute blood loss. Chronically hemoglobin around 10 however now down to 7.8.No hemodynamic changes at this time. -Reported history of cirrhosis andvarices: Will have toget any additional outside hospital recordsto further evaluate this -Elevated CPK, will continue to trend Plan -Continue phenobarbital wean for alcohol withdrawal, rescue doses ofas needed IVphenobarbital -Continue thiamine and folate -Will discuss with neurology if we should restart home Depakote -Twice daily PPI -Closely monitor for any additional signs ofbleeding. Will consult GIfor further evaluation -Addiction medicine consult as patient is interested in detox Lynda Sousa MD Pulmonary and Critical Care Medicine Tigertext Enabled Problem List/Past Medical History Ongoing ADHD Alcohol withdrawal Anxiety Depression Epilepsy GI bleed Hodgkin lymphoma Procedure/Surgical History REVISE HIP JOINT REPLACEMENT| Laterality: Left Medications Inpatient pantoprazole(Protonix), 80 mg= 20 mL, IV Push, bid PHENobarbital, 260 mg= 2 mL, IV, q20min PHENobarbital, 130 mg= 1 mL, IV, q20min, PRN PHENobarbital, 64.8 mg= 2 tab, PO, q8h PHENobarbital, 32.4 mg= 1 tab, PO, q8h Home acetaminophen(Tylenol 325 mg oral tablet), 650 mg= 2 tab, PO, q6h, PRN cetirizine(ZyrTEC 10 mg oral tablet), 10 mg= 1 tab, PO, Daily cholecalciferol(cholecalciferol 25 mcg (1000 intl units) oral capsule), 50 mcg= 2 cap, PO, Daily, 2refills clindamycin(clindamycin 300 mg oral capsule), 300 mg= 1 cap, PO, q6h divalproex sodium(Depakote ER 250 mg oral tablet, extended release), 750 mg= 3 tab, PO, qhs folic acid(folic acid 1 mg oral tablet), 1 mg= 1 tab, PO, Daily naloxone(naloxone 4 mg/0.1 mL nasal spray), intranasal pantoprazole(pantoprazole 40 mg oral delayed release tablet), 40 mg= 1 tab, PO, Daily thiamine(thiamine 100 mg oral tablet), 100 mg= 1 tab, PO, Daily venlafaxine(venlafaxine 150 mg oral capsule, extended release), 150 mg= 1 cap, PO, Daily Allergies Compazinena Haldolna Reglanna promethazineOther Social History Smoking Status Current every day light smoker Electronic Signature on File Electronically Reviewed/Signed by: Rebekah Yao MD Author Signature Dt/Tm:08/17/2023 04:32 AM Resident Department of Pediatrics Electronically Reviewed/Signed by: Rebekah Yao MD Cosigner Signature Dt/Tm: 08/17/2023 06:20 AM Resident Department of Pediatrics Electronically Reviewed/Signed by: Solomon Bainsigner Signature Dt/Tm: 08/17/2023 11:30 AM Division of Pulmonary Medicine Electronically Reviewed/Signed by: DO Miguelangel Espinoer Signature Dt/Tm: 08/21/2023 04:38 PM Resident Division of Internal Medicine NO Addiction medicine Consult note * HEBERT Sharma Donald J: PERFORM Event Display: Addiction Medicine Consult Authored Date: [id number] ADDICTION MEDICINE CONSULTATION REPORT Name: LYNDA RM IV Patient Number: [id number] : 1970 Date of Service: 08/20/2023 Patient asked to speak to Addiction Medicine after declining to speak to [facility] D&A representatives from [facility] during the prior 2 evenings. Patient states he wants outpatient D&A treatment in [place] where he has relocated to since last [facility] admission. Patient advised to call [facility] for better advice on local resources. Patient terminated conversation. Primary Team advised. DJD This note is not for billing purposes. Electronic Signature on File Electronically Reviewed/Signed by: HEBERT Ho Author Signature Dt/Tm:08/20/2023 11:17AM Department of Psychiatry DJD .D/C Summary * MD Arreguin Priyanka: MODIFY MD Kallie, Addis: MODIFY Event Display: .D/C Summary Authored Date: [id number] [facility] For medical concerns, call: . Address: [address] [place] [address] [id number] (MOBILE) [phone] (ALTERNATE) :1970 . Date of Admission:08/16/2023 Date of Discharge:08/20/2023 Physician:MD Arreguin Priyanka Service:Internal Medicine Discharge Disposition:Home I,Michael Vann,am scribing for,and in the presence of Addis Arreguin MD. Primary Care Provider/Phone: HEBERT CHINO ANA M (BUSINESS) [phone] (FAX BUSINESS) Principal Diagnosis: Other Diagnoses: Alcohol use with withdrawal Lower GI bleed Major Tests and Procedures: Lab Results Test Name Test Result Date/Time Na 142 mmol/L 08/19/2023 05:00 EDT K 4.5 mmol/L 08/19/2023 05:00 EDT Cl- 106 mmol/L 08/19/2023 05:00 EDT HCO3 25 mmol/L 08/19/2023 05:00 EDT Anion Gap 11 mmol/L 08/19/2023 05:00 EDT BUN 20 mg/dL 08/19/2023 05:00 EDT Cret 0.88 mg/dL 08/19/2023 05:00 EDT Estimated CrCl 80.74 mL/min 08/19/2023 06:01 EDT eGFR CKD-EPI >90 mL/min/1.73 m2 08/19/2023 05:00 EDT Glu 180 mg/dL 08/19/2023 05:00 EDT Ca 8.6 mg/dL 08/19/2023 05:00 EDT WBC 3.40 K/uL 08/19/2023 05:00 EDT Hgb 7.7 g/dL 08/19/2023 05:00 EDT Hct 25.5 % 08/19/2023 05:00 EDT RBC 2.82 M/uL 08/19/2023 05:00 EDT MCV 90.4 fL 08/19/2023 05:00 EDT MCHC 30.2 g/dL 08/19/2023 05:00 EDT MCH 27.3 pg 08/19/2023 05:00 EDT RDW 17.2 % 08/19/2023 05:00 EDT Plts 263 K/uL 08/19/2023 05:00 EDT Platelet Morphology NORMAL 08/19/2023 05:00 EDT MPV 9.2 fL 08/19/2023 05:00 EDT Type of Diff: MANUAL 08/19/2023 05:00 EDT Immature Gran% 0.0 % 08/19/2023 05:00 EDT Neut% 48.6 % 08/19/2023 05:00 EDT Lymph% 40.9 % 08/19/2023 05:00 EDT Brooke% 2.9 % 08/19/2023 05:00 EDT Baso% 0.9 % 08/19/2023 05:00 EDT Eos% 6.7 % 08/19/2023 05:00 EDT Immat Gran, Abs 0.00 K/uL 08/19/2023 05:00 EDT Neut, Abs 1.65 K/uL 08/19/2023 05:00 EDT Lymph, Abs 1.39 K/uL 08/19/2023 05:00 EDT Brooke, Abs 0.10 K/uL 08/19/2023 05:00 EDT Baso, Abs 0.03 K/uL 08/19/2023 05:00 EDT Eos, Abs 0.23 K/uL 08/19/2023 05:00 EDT Smudge Cell MODERATE 08/19/2023 05:00 EDT RBC Morphology NORMAL 08/18/2023 04:43 EDT Ovalocytes FEW 08/19/2023 05:00 EDT ALT 20 unit/L 08/19/2023 05:00 EDT T Bili 0.1 mg/dL 08/19/2023 05:00 EDT Alk Phos 129 unit/L 08/19/2023 05:00 EDT AST 25 unit/L 08/19/2023 05:00 EDT Alb 3.7 g/dL 08/19/2023 05:00 EDT Prot 5.9 g/dL 08/19/2023 05:00 EDT Amphetamines(u) PRESUMPTIVE POSITIVE DRUG RESULT 08/17/2023 14:56 EDT Barbiturates(u) PRESUMPTIVE POSITIVE DRUG RESULT 08/17/2023 14:56 EDT Benzodiazepines(u) NONE DETECTED 08/17/2023 14:56 EDT Cocaine(u) PRESUMPTIVE POSITIVE DRUG RESULT 08/17/2023 14:56 EDT Marijuana(u) NONE DETECTED 08/17/2023 14:56 EDT Opiates(u) NONE DETECTED 08/17/2023 14:56 EDT U Buprenorph Lvl NONE DETECTED 08/17/2023 14:56 EDT Oxycodone (u) NONE DETECTED 08/17/2023 14:56 EDT U Fentanyl Scr NONE DETECTED 08/17/2023 14:56 EDT Methadone (u) NONE DETECTED 08/17/2023 14:56 EDT Methadone Metabolite (u) NONE DETECTED 08/17/2023 14:56 EDT Color (u) YELLOW 08/17/2023 14:56 EDT Appear (u) CLEAR 08/17/2023 14:56 EDT Glu (u) NEGATIVE 08/17/2023 14:56 EDT Bili (u) NEGATIVE 08/17/2023 14:56 EDT Ketones NEGATIVE 08/17/2023 14:56 EDT SG 1.008 08/17/2023 14:56 EDT Hgb (u) NEGATIVE 08/17/2023 14:56 EDT pH (u) 6.0 unit 08/17/2023 14:56 EDT Prot (u) NEGATIVE 08/17/2023 14:56 EDT Urobili 0.1-1.0 08/17/2023 14:56 EDT Nitrite (u) NEGATIVE 08/17/2023 14:56 EDT Leuk Est NEGATIVE 08/17/2023 14:56 EDT Brief History of Present Illness: Per H&P: Lynda Rm is a 53 y/o M with a PMH of alcohol use disorder c/b multiple hospitalizations for alcohol withdrawal within the past year and an unknown amount of prior alcohol withdrawalseizures, epilepsy with well- documented noncompliance with medications, GI bleed, Hodgkin lymphoma, andanxiety/depression with prior SI/HI who presented on 08/17/2023 to [facility] ED for stooling parisa blood with onset three days ago. He explains that he drinks approximately 5-6 mini vodka bottles/day, last drink was 08/16 at 1800, said prior to last drink could not remember much of his day other than 2 possible withdrawal seizures and an episode of urinary incontinence. He said that he felt confused afterward which is typical for him after having a seizure. He states that he has a history of alcoholwithdrawal seizures andepilepsy but has not been taking his Depakote.He says he hadn't had alcohol in the last 3 days but after the seizures, he took about 2 mini bottles to try to help treat his withdrawal symptoms. He also notes a few days of hematochezia which is painless. He endorses myalgias, headache, anxiety at the time of my evaluation. He denies chest pain, SOB, abdominal pain, nausea, vomiting, diarrhea, constipation, leg swelling, rashes, wounds, and any other complaints. Patient was prompted to visit ED for alcohol detox. Of note, he left AMA on 08/05 after admission for alcohol detox. Drinking pattern: Drinks 5-6 mini bottles of vodkadaily. Has had multiple history of withdrawal including withdrawal seizures. Denies history of DTs. Last Drink:2 mini bottles at 6pm prior to arriving How much:5-6 mini bottles of vodka Prior history of withdrawal: Multiple episodes DTs:Denies Seizures: States history of numerous withdrawal seizures with last being on 08/15 Hospital Course: Mr. Lynda Rm is a 53 y/o M with a PMHx of epilepsy with well-documented noncompliance with medications, GI bleed, Hodgkin lymphoma, anxiety/depression with prior SI/HI, and polysubstance use disorder including amphetamines, cocaine, and alcohol with hx of multiple hospitalizations for alcohol withdrawal and seizures who presented on 08/16 for alcohol detox and increased seizure frequency. Patient required admission to the ICU for severe alcohol withdrawal and was initiated on the phenobarbital protocol. Withdrawal symptoms have been well-controlled with transition from IV to PO Phenobarbital and has completed the taper. His valproate level was undetectable on admission; after conversation with neurology, he received a valproic acid load andis currentlyon his home regimen. Although he has a history of suicidality, he has denied active or passive SI currently. Hemoglobin has remained stable and patient denies any bloody/melanotic stools. Patient declined to have inpatient endoscop y/colonoscopy and prefers to follow up outpatient. Patient is medically ready for discharge. PLAN #Alcohol Abuse complicated by withdrawal; including hx of seizures. #History of cocaine and amphetamine use - S/P MICU stay for IV phenobarbital: transitioned to PO and completed taper. - Patient was evaluated by addiction medicine and wants to do an outpatient rehab. [facility] AT [phone] TO DISCUSS OPTIONS FOR OUTPATIENT REHAB PROGRAMS. - c/w Thiamine, folic acid, multivitamin, and vitamin D supplementation on discharge - #Acute on Chronic normocytic Anemia; concerns for GI bleed #H/o esophagitis/gastritis - Anemia isLikely multifactorial from ETOH use, iron deficiency, and chronic blood loss from lower GI bleed (no witnessed episodes).Baseline HB more recently is 8-9.(Previous baseline 9-10). - Patient refusedinpatient interventionsandwants to followupoutpatient.Remained hemodynamically stablewithoutanybloodystools oremesisinpatient.Advise PCPf/u. CHRONIC MEDICAL CONDITIONS #Anxiety/Depression; Personality disorder NOS:Endorsed prior SI/HI, none currently. C/w venlafaxine 150 mg daily, mirtazapine 15mg daily #Epilepsy: Continue Depakote 750 mg QHS Exam on Discharge: Vitals & Measurements: T:36.6C TMIN:36.1C TMAX:36.6C HR:67(Monitored) RR:14 BP:100/64 SpO2:94% Oxygen Therapy:Room Air General:Lying in bed in NAD. Eyes:Anicteric, conjunctiva without injection, no noted nystagmus. ENT:MMM. Neck supple, no adenopathy. CV:RRR, S1 S2 present with no murmur, gallops, rubs. No noted edema. Lungs:CTA B/L. No increased WOB. On RA. Abdomen:Soft, NTND, no palpable hepatosplenomegaly. Normoactive BS. MSK:Moving limbs spontaneously. Neuro:No facial asymmetry at rest or with activation. No focal deficits. AOx3. Psych:Appropriate and cooperative at time of eval. Congruent affect with mood. Skin:Warm, dry, intact, with no noted rash. Discharge Medications: 1.Acetaminophen (Tylenol 325 mg oral tablet) 650 mg (2 tab) by mouth every 6 hours, as needed for fever/mild pain (1-3). 2.Naloxone (naloxone 4 mg/0.1 mL nasal spray) in the nose . 1 Unknown, 1 Refill(s), Administer1 spray into affected nostril(s) as needed (opiod reversal, may repeat every 2 to 3 | minutes alternate nostrils).. 3.Pantoprazole (pantoprazole 40 mg oral delayed release tablet) 40 mg (1 tab) by mouth once daily. 4.Thiamine (thiamine 100 mg oral tablet) 100 mg (1 tab) by mouth once daily. 5.Folic acid (folic acid 1 mg oral tablet) 1 mg (1 tab) by mouth once daily. 6.Venlafaxine (venlafaxine 150 mg oral capsule, extended release) 150 mg (1 cap) by mouth once daily. 7.Divalproex sodium (Depakote ER 250 mg oral tablet, extended release) 750 mg (3 tab) by mouth at bedtime. 8.Cholecalciferol (cholecalciferol 25 mcg (1000 intl units) oral capsule) 50 mcg (2 cap) by mouth once daily. 9.Cetirizine (ZyrTEC 10 mg oral tablet) 10 mg (1 tab) by mouth once daily. 10.Mirtazapine (mirtazapine 15 mg oral tablet) . 30 each, 0 Refill(s), take 1 tablet by mouth nightly -INDICATIONS: MAJOR DEPRESSIVE DISORDER. Allergies and Sensitivities: Compazinena Haldolna Reglanna promethazineOther Tests Pending: None Discharge Services: No Post-Acute Placement(s) Listed No Post-Acute Service(s) Listed Care Instructions: Please bring this discharge summary with you to your next office appointment so that your provider can review it at that time Follow up appointments: Keep all your follow up appointments as already scheduled. Please follow-up with your primary care provider within 1 week of discharge. If you do not have the appointment details (date and time) at the time of discharge, someone from [facility] will contact you. If you do not hear from us or directly from the clinic within 2-3 business days, please call us at [phone]. Further instructions will be per your primary care provider. Please call your primary care providerwith any questions or concerns regarding results and follow up. Medications: Please review your medications and ask your physician if you have any questions. Your medication list has been reviewed and reconciled upon discharge to ensure accuracy and continuity of care. You are provided with a list of all your current medications at this time. Please review closely and make note of any changes. Take all of your medications exactly as prescribed. Tell your primary care provider if you cannot afford your medications. Call your primary care provider if you are having any side effects or any other problems. Call your primary care provider before taking any over the counter medications or supplements, including herbals and vitamins, because some of these may interact with your current medications and/or make your symptoms worse. PLEASE CALL THE [facility]/DRUG AND ALCOHOL REHAB OFFICE AT [phone] TO DISCUSS OPTIONS FOR OUTPATIENT REHAB PROGRAMS. . Advance Directive:None I personally spent45 minutes in discharge planning. I have personally performed the physical exam, history and medical decision making activities for the service. I verify that the history, physical exam and medical decision making as documented in the note by the scribe are accurate. Electronic Signature on File Electronically Reviewed/Signed by: Michael Vann Author Signature Dt/Tm:08/20/2023 08:36 AM Electronically Reviewed/Signed by: Addis Arreguin MD Cosigner Signature Dt/Tm: 08/20/2023 11:14 AM Division of Internal Medicine - Hospitalist KARINA Emergency department Summary note * MD Nunez Rahul Milind: MODIFY MD Nunez Rahul Milind: MODIFY, MODIFY Event Display: ED Summary Authored Date: [id number] Basic Information Time Seen: MD Floyd Matthew 08/16/2023 22:34 Chief Complaint Hx of alcoholism and varices. pt reports stopped drinking alcohol about 3 days ago. pt reports having unwitnessed multiple seizures today. pt also states, "I have been shitting blood for the last 3 days." History of Present Illness The patient is a 53-year-old malewith history of alcohol withdrawal,GI bleed,varices, who presents to the emergency departmentfor 3 days of potential alcohol withdrawal. The patient reportsthat he had a small amount of vodkaearlier todaydescribing it as to "of the little vodkabottles that you find on airplanes". However, other than this, he reports that he has had no alcohol intake for the past 3 days. He reports that he has a history of alcohol withdrawal seizures,and reports that he has seized an unknown number of times over the past 3 days. In addition to this,he reports that over the past 3 days, he has noticedblood in his toilet bowl whenever he goes to the bathroom. He reports that it isfree blood, not mixed in with the feces. He is unsure, butdenies any vomiting or vomiting blood. He does endorse a history of esophageal varices. He reports that he has a history of alcohol withdrawal hallucinations, and reports that he was having auditory hallucinationswhile in the emergency department. Patient reports typically "5-6 drinks of alcohol per day". Review of Systems Additional ROS info: Except as noted in the above Review of Systems and in the History of Present Illness all other systems have been reviewed and are negative or noncontributory. Physical Exam Vitals & Measurements T:37.0C HR:104(Monitored) RR:18 BP:131/94 SpO2:100% Oxygen Therapy:Room Air HT:170.2cm WT:58.8kg WT:58.800kg(Dosing) BMI:20.3 General:Alert, extremely nervous appearance patient. Skin:Warm, dry. Head:Normocephalic, atraumatic. Neck:Trachea midline. Eye:Normal conjunctiva, Sclera: Clear. Cardiovascular:Regular rate and rhythm, Normal peripheral perfusion. Respiratory:Lungs are clear to auscultation, respirations are non-labored. Chest wall:No deformity. Gastrointestinal:Soft, Non distended, No significant tenderness. BALAJI exam shows gross blood Extremities:No gross deformity or trauma. Neurological:Normal speech observed, Level of consciousness: Appropriate for age. Grossly tremulous throughout Psychiatric:Cooperative, nervous affect. Medical Decision Making The patient is a 53-year-old male presents emergency departmentfor concerns over alcohol withdrawal. He had from a small amount of alcohol earlier today, patient has gone 3 days without alcohol,and is also complaining of possible lower GI bleed. Given this,labs ordered, as well as Protonixfor GI bleed. CIWA protocol was started, and as patient had a CIWA score of 21, MICU was consulted for possible admission. Ultimately, MICU saw patient and agreed for admission. Assessment/Plan The patient is a 53-year-old male who presents to the EDfor concerns of alcohol withdrawal and lower GI bleed. Ultimately, patient givenoctreotide push, labs drawn,started on CIWA protocol, and MICU admitted. Alcohol use with withdrawal Lower GI bleed Plan: 1. Admission to MICU for further evaluation workup Signed by Dr. Mark Floyd, PGY 2 Medication Reconciliation Unchanged acetaminophen (Tylenol 325 mg oral tablet)2 tab(s) by mouth every 6 hours as needed fever/mild pain(1-3). Refills: 0. cetirizine (ZyrTEC 10 mg oral tablet)1 tab(s) by mouth once daily. cholecalciferol (cholecalciferol 25 mcg (1000 intl units) oral capsule)2 cap by mouth once daily. Refills: 2. clindamycin (clindamycin 300 mg oral capsule)1 cap by mouth every 6 hours for 5 Days. Refills: 0. divalproex sodium (Depakote ER 250 mg oral tablet, extended release)3 tab(s) by mouth at bedtime. folic acid (folic acid 1 mg oral tablet)1 tab(s) by mouth once daily. Refills: 0. naloxone (naloxone 4 mg/0.1 mL nasal spray)in the nose. 1 Unknown, 1 Refill(s), Administer 1 spray into affected nostril(s) as needed (opiod reversal, may repeat every 2 to 3 | minutes alternate nostrils).. pantoprazole (pantoprazole 40 mg oral delayed release tablet)1 tab(s) by mouth once daily. Refills:0. thiamine (thiamine 100 mg oral tablet)1 tab(s) by mouth once daily. Refills: 0. venlafaxine (venlafaxine 150 mg oral capsule, extended release)1 cap by mouth once daily for 30 Days. Refills: 0. Attestation I personally performed a history and physical exam and discussed the management plan with the resident. I independently confirmed boss portions of the history and physical exam, and agree with resident note which I have reviewed and edited to reflect my findings. - MD Enrique Problem List/Past Medical History Ongoing ADHD Alcohol withdrawal Anxiety Depression Epilepsy GI bleed Hodgkin lymphoma Procedure/Surgical History REVISE HIP JOINT REPLACEMENT| Laterality: Left Medication Administration Administered: Medications: PHENobarbital, 64.8 mg, PO (08/16/2023 23:36 EDT) Benadryl, 25 mg, IV (08/17/2023 00:28 EDT) Tylenol, 1000 mg, PO (08/17/2023 00:28 EDT) cefTRIAXone, 2000 mg, IV (08/17/2023 00:30 EDT) octreotide, 50 mcg, IV Push (08/17/2023 00:30 EDT) Toradol, 15 mg, IV Push (08/17/2023 03:42 EDT) PHENobarbital, 130 mg, IV (08/17/2023 05:36 EDT) mupirocin 2% nasal ointment, 1 appl, each nostril (08/17/2023 05:37 EDT) Protonix, 40 mg, IV Push (08/17/2023 05:37 EDT) Tylenol, 650 mg, PO (08/17/2023 05:41 EDT) Not Administered: Medications: PHENobarbital (Not Appropriate at this Time) PHENobarbital (Not Appropriate at this Time) Tylenol (Completed by Nursing) Allergies Compazinena Haldolna Reglanna promethazineOther Lab Results CBC LATEST RESULTS HISTORICAL RESULTS WBC 08/17/23 04:35 3.56 K/uL Low 08/03/23 3.99 Low Hgb 08/17/23 04:35 7.8 g/dL Low 08/03/23 8.6 Low Hct 08/17/23 04:35 25.2 % Low 08/03/23 28.7 Low RBC 08/17/23 04:35 2.88 M/uL Low 08/03/23 3.18 Low MCV 08/17/23 04:35 87.5 fL 08/03/23 90.3 MCHC 08/17/23 04:35 31.0 g/dL Low 08/03/23 30.0 Low MCH 08/17/23 04:35 27.1 pg Low 08/03/23 27.0 Low RDW 08/17/23 04:35 17.2 % High 03/26/23 REQUEST CREDITED % Plts 08/17/23 04:35 241 K/uL 08/03/23 253 MPV 08/17/23 04:35 9.2 fL 08/03/23 9.4 Blood Gases LATEST RESULTS HISTORICAL RESULTS Lactate 08/17/23 04:35 0.9 mmol/L 02/18/22 2.4 mmol/L High Cardiac/Lipi LATEST RESULTS HISTORICAL RESULTS CPK 08/17/23 04:35 403 unit/L High 02/18/22 482 unit/L High Heme/Onc LATEST RESULTS HISTORICAL RESULTS Retic Hgb 08/17/23 04:35 25.0 pg Low Retic (%) 08/17/23 04:35 1.54 % Imm. Retics 08/17/23 04:35 29.7 % High Ferritin 08/17/23 04:35 13.9 ng/mL Low 03/22/23 14.8 ng/mL Low Retics (abs) 08/17/23 04:35 44.8 K/uL Toxicology LATEST RESULTS HISTORICAL RESULTS EtOH med 08/17/23 04:35 <10 mg/dL 03/22/23 146 mg/dL High Added Tests LATEST RESULTS HISTORICAL RESULTS Request of Physician 08/17/23 04:36 CBC CMP 03/22/23 Iron profile ferritin B12 folate Action Taken 08/17/23 04:36 YES 03/22/23 REQUESTED TESTS ADDED EXCEPT Electronic Signature on File Electronically Reviewed/Signed by: Mark Floyd MD Author Signature Dt/Tm:08/17/2023 06:54 AM Resident Department of Emergency Medicine Electronically Reviewed/Signed by: Sergey Nunez MD Cosigner Signature Dt/Tm: 08/17/2023 08:19AM Department of Emergency Medicine [place] * JORGE Leonard, Regina: MODIFY, KATERINA Miller MD, Gee Smith: MODIFY Event Display: ED Summary Authored Date: Name:LYNDA RM IV Patient Number:[id number] :1970 Date of Service:08/16/2023 Care initiation note Limited HPI: 53 yo male stopped drinking cold turkey 3 days ago and began with seizures earlier this evening.took 2 shots of vodka which controlled the seizure but is concerned it could start again. he does have epilepsy and is on Depakote. says he is compliant with meds recently but did not take last three days . Drinks 4-5 airline size bottles of vodka daily. pt is also having blood in stool x 3 days. notes toilet bowl dark red. he is interested in detox. + body aches. feels confusion and has some amnesia to recent events which he says is common for him post ictal does not wish his info to be released to his mother unclear if passively si or hi On limited exam: General- alert, no acute distress. Fully dressed sitting in a chair. Cardiovascular- normal peripheral perfusion. Lungs- nonlabored respirations. Neuro- alert and oriented without focal neurological deficit. Additional- T:37.0 C HR:104 RR:18 SpO2:100% BP:131/94 HT:170.2 cm WT:58.8 kg BMI:20.3 Assessment/plan: Appropriate labs and imaging ordered based on limited HPI and exam Plan for further history, evaluation, treatment and placement in10 This note was transcribed using voice recognition software. Because of this technology, there are often unintended grammatical, spelling, and other job press feeder errors. Please disregard these errors. This patient was evaluated only briefly in the care initiation area. A limited HPI and limited exam were performed and appropriate imaging and lab work was ordered if indicated based on a broad range of differentials. Once the patient is placed in a treatment room, a further evaluation and detailed history and physical exam should be performed to narrow the differentials and the patient's primary complaint. Attending note: Patient seen and examined by the IRENE in triage for purposes of careinitiation. Was not seen by me. However I was available for immediate consultation or assistance if requested or required. Electronic Signature on File Electronically Reviewed/Signed by: Regina Leonard PA-C Author Signature Dt/Tm:08/16/2023 10:18 PM Department of Emergency Medicine Electronically Reviewed/Signed by: Gee Miller MD Cosigner Signature Dt/Tm: 08/18/2023 01:17 PM Department of Emergency Medicine LG Discharge instructions * MD Arreguin Priyanka: MODIFY MD Arreguin Priyanka: MODIFY Event Display: Patient Discharge Instructions Authored Date: [id number] LYNDA RM IV :1970 Visit Date:08/16/2023 Patient Discharge Instructions [facility] For medical concerns, call: . Date of Admission:08/16/2023 Date of Discharge:08/20/2023 Physician:MD Arreguin Priyanka Service:Internal Medicine Discharge Disposition:Home I,Michael Vann,am scribing for,and in the presence of Addis Arreguin MD. I have personally performed the physical exam, history and medical decision making activities for the service. I verify that the history, physical exam and medical decision making as documented inthe note by the scribe are accurate. . Advance Directive:None Reason for Hospitalization Your Diagnoses Alcohol use with withdrawal Lower GI bleed My Health Patient Portal: [facility] [employer] makes it easy for you to manage your health information online. [employer] [place] [employer] is a free service that provides you instant, secure access to your medical information anytime, anywhere. Sign in or set up your account today at [email or web address] Thank you for allowing us to assist you with your healthcare needs. If you need additional community resources, [facility] can help at https://www.pa211.org. 211 can assist you in connecting with social programs based on your unique needs and locations. 211 is an anonymous search that can help you locate resources for: Food, Housing, Transportation, Goods, Education and Healthcare. Medications Patient is enrolled in Rx-to-Go Program New medications will be delivered from [facility] to patient's room at discharge: Mon-Sun from 9AM-5 PM. Medications MUST be PICKED UP at [facility] if patient is discharged Mon-Sun after 5 PM or anytime on holidays. Please note, the [facility] closes at 8 PM on weekdays and 5:30 PM on Saturdays, Sundays, and holidays. What How Much When Instructions Next Dose Unchanged mirtazapine (mirtazapine 15 mg oral tablet) 30 each, 0 Refill(s), take 1 tablet by mouth nightly -INDICATIONS: MAJOR DEPRESSIVE DISORDER Unchanged acetaminophen (Tylenol 325 mg oral tablet) 2 tab(s) by mouth Every 6 hours as needed for fever/mild pain (1-3) Unchanged cetirizine (ZyrTEC 10 mg oral tablet) 1 tab(s) by mouth Once daily Unchanged cholecalciferol (cholecalciferol 25 mcg (1000 intl units) oral capsule) 2 cap by mouth Once daily Unchanged divalproex sodium (Depakote ER 250 mg oral tablet, extended release) 3 tab(s) by mouth At bedtime Unchanged folic acid (folic acid 1 mg oral tablet) 1 tab(s) by mouth Once daily Unchanged naloxone (naloxone 4 mg/ 0.1 mL nasal spray) in the nose 1 Unknown, 1 Refill(s), Administer 1 spray into affected nostril(s) as needed (opiod reversal, may repeat every 2 to 3 | minutes alternate nostrils). Unchanged pantoprazole (pantoprazole 40 mg oral delayed release tablet) 1 tab(s) by mouth Once daily Unchanged thiamine (thiamine 100 mg oral tablet) 1 tab(s) by mouth Once daily Unchanged venlafaxine (venlafaxine 150 mg oral capsule, extended release) 1 cap by mouth Once daily Duration: 30 Days Allergies Compazinena Haldolna Reglanna promethazineOther What to do next Instructions From Your Doctor Please bring this discharge summary with you to your next office appointment so that your provider can review it at that time Follow up appointments: Keep all your follow up appointments as already scheduled. Please follow-up with your primary care provider within 1 week of discharge. If you do not have the appointment details (date and time) at the time of discharge, someone from [facility] will contact you. If you do not hear from us or directly from the clinic within 2-3 business days, please call us at [phone]. Further instructions will be per your primary care provider. Please call your primary care providerwith any questions or concerns regarding results and follow up. Medications: Please review your medications and ask your physician if you have any questions. Your medication list has been reviewed and reconciled upon discharge to ensure accuracy and continuity of care. You are provided with a list of all your current medications at this time. Please review closely and make note of any changes. Take all of your medications exactly as prescribed. Tell your primary care provider if you cannot afford your medications. Call your primary care provider if you are having any side effects or any other problems. Call your primary care provider before taking any over the counter medications or supplements, including herbals and vitamins, because some of these may interact with your current medications and/or make your symptoms worse. PLEASE CALL THE [facility]UG AND ALCOHOL REHAB OFFICE AT [phone] TO DISCUSS OPTIONS FOR OUTPATIENT REHAB PROGRAMS. If you notice the following symptoms Worsening symptoms: Please call your primary care provider for symptoms including, but not limited to: fevers (temperatures >100.4 degrees F or 38.1 degrees C), chills, intractable nausea or vomiting, diarrhea, rash,shortness of breath, bleeding, pain, or if you experience any worsening of the symptoms that brought you to the hospital. For EMERGENCY and VERY SERIOUS health-related issues, such as chest pain, shortness of breath, or sudden onset of the symptoms that brought you to the hospital, you may need to call 911 or go directly to the Emergency Room. Contact the [facility] at . If unable to contact your physician and you feel it is an emergency, go to the nearest Emergency Room or call 911 Diet Instructions regular diet Activity Instructions As tolerated Follow-Up Appointments You Need to Schedule the Following Appointments Follow Up withHEBERT Chino Ana M When:Within 5 to 7 days Where:[facility] [address] [place] [address] [place] [address]- Additional Information: Call your doctor to make an appointment The Following Services Have Been Arranged for You No Post-Acute Placement(s) Listed No Post-Acute Service(s) Listed Test Results Test Name Test Result Date/Time Na 142 mmol/L 08/19/2023 05:00 EDT K 4.5 mmol/L 08/19/2023 05:00 EDT Cl- 106 mmol/L 08/19/2023 05:00 EDT HCO3 25 mmol/L 08/19/2023 05:00 EDT Anion Gap 11 mmol/L 08/19/2023 05:00 EDT BUN 20 mg/dL 08/19/2023 05:00 EDT Cret 0.88 mg/dL 08/19/2023 05:00 EDT Estimated CrCl 80.74 mL/min 08/19/2023 06:01 EDT eGFR CKD-EPI >90 mL/min/1.73 m2 08/19/2023 05:00 EDT Glu 180 mg/dL 08/19/2023 05:00 EDT Ca 8.6 mg/dL 08/19/2023 05:00 EDT WBC 3.40 K/uL 08/19/2023 05:00 EDT Hgb 7.7 g/dL 08/19/2023 05:00 EDT Hct 25.5 % 08/19/2023 05:00 EDT RBC 2.82 M/uL 08/19/2023 05:00 EDT MCV 90.4 fL 08/19/2023 05:00 EDT MCHC 30.2 g/dL 08/19/2023 05:00 EDT MCH 27.3 pg 08/19/2023 05:00 EDT RDW 17.2 % 08/19/2023 05:00 EDT Plts 263 K/uL 08/19/2023 05:00 EDT Platelet Morphology NORMAL 08/19/2023 05:00 EDT MPV 9.2 fL 08/19/2023 05:00 EDT Type of Diff: MANUAL 08/19/2023 05:00 EDT Immature Gran% 0.0 % 08/19/2023 05:00 EDT Neut% 48.6 % 08/19/2023 05:00 EDT Lymph% 40.9 % 08/19/2023 05:00 EDT Brooke% 2.9 % 08/19/2023 05:00 EDT Baso% 0.9 % 08/19/2023 05:00 EDT Eos% 6.7 % 08/19/2023 05:00 EDT Immat Gran, Abs 0.00 K/uL 08/19/2023 05:00 EDT Neut, Abs 1.65 K/uL 08/19/2023 05:00 EDT Lymph, Abs 1.39 K/uL 08/19/2023 05:00 EDT Brooke, Abs 0.10 K/uL 08/19/2023 05:00 EDT Baso, Abs 0.03 K/uL 08/19/2023 05:00 EDT Eos, Abs 0.23 K/uL 08/19/2023 05:00 EDT Smudge Cell MODERATE 08/19/2023 05:00 EDT RBC Morphology NORMAL 08/18/2023 04:43 EDT Ovalocytes FEW 08/19/2023 05:00 EDT ALT 20 unit/L 08/19/2023 05:00 EDT T Bili 0.1 mg/dL 08/19/2023 05:00 EDT Alk Phos 129 unit/L 08/19/2023 05:00 EDT AST 25 unit/L 08/19/2023 05:00 EDT Alb 3.7 g/dL 08/19/2023 05:00 EDT Prot 5.9 g/dL 08/19/2023 05:00 EDT Amphetamines(u) PRESUMPTIVE POSITIVE DRUG RESULT 08/17/2023 14:56 EDT Barbiturates(u) PRESUMPTIVE POSITIVE DRUG RESULT 08/17/2023 14:56 EDT Benzodiazepines(u) NONE DETECTED 08/17/2023 14:56 EDT Cocaine(u) PRESUMPTIVE POSITIVE DRUG RESULT 08/17/2023 14:56 EDT Marijuana(u) NONE DETECTED 08/17/2023 14:56 EDT Opiates(u) NONE DETECTED 08/17/2023 14:56 EDT U Buprenorph Lvl NONE DETECTED 08/17/2023 14:56 EDT Oxycodone (u) NONE DETECTED 08/17/2023 14:56 EDT U Fentanyl Scr NONE DETECTED 08/17/2023 14:56 EDT Methadone (u) NONE DETECTED 08/17/2023 14:56 EDT Methadone Metabolite (u) NONE DETECTED 08/17/2023 14:56 EDT Color (u) YELLOW 08/17/2023 14:56 EDT Appear (u) CLEAR 08/17/2023 14:56 EDT Glu (u) NEGATIVE 08/17/2023 14:56 EDT Bili (u) NEGATIVE 08/17/2023 14:56 EDT Ketones NEGATIVE 08/17/2023 14:56 EDT SG 1.008 08/17/2023 14:56 EDT Hgb (u) NEGATIVE 08/17/2023 14:56 EDT pH (u) 6.0 unit 08/17/2023 14:56 EDT Prot (u) NEGATIVE 08/17/2023 14:56 EDT Urobili 0.1-1.0 08/17/2023 14:56 EDT Nitrite (u) NEGATIVE 08/17/2023 14:56 EDT Leuk Est NEGATIVE 08/17/2023 14:56 EDT Tests Pending None Procedures Performed No procedures found Special Instructions Common Emergency Awareness Tips Suicide Prevention: Are you or someone you love at the risk of suicide? Seek help as soon as possible by contacting a mental health professional or Dial 988 for National Suicide Prevention Lifeline. Call 911 immediately if: experiencing any of the warning signs and symptoms of stroke: B.E. F.A.S.T. Balance: is there trouble with walking or coordination Eyes: is there double vision or visual loss Face: Smile, do both sides of face move equally Arm: Raise arms, do both arms move equally Speech: Is speech slurred or inappropriate Time: Time is critical, call 911 immediately Heart Attack Signs Chest discomfort: Most heart attacks involve discomfort in the center of the chest and lasts more than a few minutes, or goes away and comes back. It can feel like uncomfortable pressure, squeezing, fullness or pain. Discomfort in upper body: Symptoms can include pain or discomfort in one or both arms, back, neck, jaw or stomach. Shortness of breath: With or without discomfort. Other signs: Breaking out in a cold sweat, nausea, or lightheaded. Remember, MINUTES DO MATTER. If you experience any of these heart attack warning signs, call to get immediate medical attention! Education Materials Alcohol Withdrawal Syndrome Alcohol withdrawal syndrome is a group of symptoms that can happen when a person who drinks heavilyand regularly stops drinking or drinks less. This condition may be mild or severe. It can also be life-threatening. What are the causes? Alcohol withdrawal syndrome happens when a person who has been drinking a lot of alcohol for a longtime stops drinking. What increases the risk? You are more likely to get alcohol withdrawal syndrome if: You drink more alcohol than is recommended. The limit is: 01 drink a day for women who are not . 02 drinks a day for men. You have used alcohol for a long time. You have had alcohol withdrawal syndrome in the past. You have had a seizure in the past when you stopped drinking. You are an older person. You use drugs. You have long-term (chronic) disease, such as heart or lung problems. You have depression. You are not eating well. What are the signs or symptoms? Symptoms of this condition include: Shaking. Sweating. Headache. Alcohol cravings. Feeling fearful, upset, grouchy, or depressed. Trouble sleeping or nightmares. Not being hungry (loss of appetite). Moderate symptoms of this condition include: Big changes in mood (mood swings). Trouble thinking clearly. Being bothered by light and sounds. Fast or uneven heartbeats (palpitations). Vomiting. Some symptoms are serious and must be treated right away. These symptoms are called delirium tremens, or DTs. Get help right away if you have symptoms of DTs. Symptoms include: High blood pressure. Fast heartbeat. Trouble breathing. Seizures. Seeing, hearing, feeling, smelling, or tasting things that are not there (hallucinations). How is this treated? Treatment may involve: Checking your blood pressure, pulse, and breathing. IV fluids to keep you hydrated. Medicines to treat your symptoms. Medicine to reduce anxiety. Medicine to prevent or control seizures. Multivitamins and B vitamins. Having a doctor check on you daily. If you need help to stop drinking, your doctor may recommend: Medicines. Counseling. Support groups. Follow these instructions at home: Take [id number] and prescription medicines only as told by your doctor. Do not drink alcohol. Do not drive until your doctor says that it is safe. Have someone stay with you or be available in case you need help. This should be someone you trust.This person can help you with your symptoms and can also help you to not drink. Drink enough fluid to keep your pee (urine) pale yellow. Think about joining a support group or a treatment program to help you stop drinking. Contact a doctor if: Your symptoms get worse. You cannot eat or drink without vomiting. You cannot stop drinking alcohol. Get help right away if: You have fast or uneven heartbeats. You have chest pain. You have trouble breathing. You are told you had a seizure. You see, hear, feel, smell, or taste something that is not there. You get very confused. These symptoms may be an emergency. Get help right away. Call 911. Do not wait to see if the symptoms will go away. Do not drive yourself to the hospital. Summary Alcohol withdrawal syndrome is a group of symptoms that can happen when a person who drinks heavilyand regularly stops drinking or drinks less. Delirium tremens (DTs) is a group of life-threatening symptoms. You should get help right away if you have these symptoms. Think about joining an alcohol support group or a treatment program. This information is not intended to replace advice given to you by your health care provider. Make sure you discuss any questions you have with your health care provider. Document Revised: 04/11/2022 Document Reviewed: 04/11/2022 [employer] Patient Education 2022 [employer]. Patient Care team information Care Team Personnel Name: HEBERT Chino Ana M Position: Referring DIRECT Member Role: Primary Care Provider Address: Address: [address] [place] [address] [place] Name: Paddy Dempsey Amy E Position: Pharmacist Member Role: Pharmacy - Lifetime Address: Address: [place] [address] [place] Name: Paddy Larry Yehuala K Position: Pharmacist Member Role: Pharmacy - Lifetime Name: Paddy Hyde Keri Position: Pharmacist Member Role: Pharmacy - Lifetime Name: Paddy Mcdonough Ann Position: Pharmacist Member Role: Pharmacy - Lifetime Name: Paddy Mckeon Kyle Position: Pharmacist Member Role: Pharmacy - Lifetime Address: Address: [address] [place] [address] [place] Name: KRYSTINA Munroe Jennifer L Position: RN Member Role: Direct Care Nurse Name: MD Sousa John Charles Position: Physician - Pulmonary Med Member Role: Admitting Physician Address: Address: [address] [place] [address] [address] [place] [address] [place] Name: Jessika Crawley Position: Admissions I Name: R.E.S. Not Needed Position: Resident Care Team Related Persons Name: LYNDA RM III
--- OUTSIDE RECORDS SUMMARY | 2023-08-25 04:59 | External Medical Summary | Summary of Care ---
Author Name Unknown Organization [facility] Address [address] [place] [address] Phone [phone] Care Team Providers Care Manager Utility Name Role Phone Farooq Rodriguez MD Primary Care Provide r Encounter Details Date Type Department Care Team (Late st Contact Info) Description 08/21/2023 Population Health External Data Unspecified Department Allergies Active Allergy Reactions Criticality Noted Date Comments Prochlorperazine Edisylate 7 Famotidine Dystonia 01/22/2019 Haloperidol 01/19/2017 Hydroxyzine Medium 06/30/2019 Other reaction(s): Throat Swelling, Throat Swelling Propofol Rash 01/21/2017 Quetiapine Dystonia,Other (Please comment) Low 10/12/2016 Metoclopramide Hcl 01/19/2017 documented as of this encounter (statuses as of 08/21/2023) Medications Medication Sig Dispensed Refills Start Date End Date Status Vitamin B-12 1000 MCG Oral Tablet Take 1 Tab by mouth daily. 60 Tab 2 12/07/2019 Active Additional Information Patient not taking.Reported on 05/19/2020 Multi-Vitamins Oral Tablet Take 1 Tab by mouth daily at noon. 30 Tab 2 12/07/2019 Active Additional Information Patient not taking.Reported on 05/19/2020 Omeprazole 40 MG Oral Capsule Delayed Release (PriLOSEC) Take 1 Cap by mouth daily. 30 Cap 5 12/07/2019 Active Additional Information Patient not taking.Reported on 05/19/2020 Xarelto Starter Pack 15 & 20 MG Oral Tablet Therapy Pack (Rivaroxaban) Take one 15 mg tab by mouth twice daily with meals for 21 days, then one 20 mg tab daily at dinner 1 Each 05/26/2020 Active Zolpidem Tartrate 10 MG Oral Tablet (Ambien) Take 1 Tab by mouth at bedtime as needed for Sleep. 30 Tab 05/26/2020 Active buPROPion HCl ER (SR) 150 MG Oral Tablet Extended Release 12 Hour (Wellbutrin SR) Take 1 Tab by mouth 2 times a day. (take morning and afternoon; help depression, focus and concentration) 60 Tab 05/26/2020 Active Amoxicillin 500 MG Oral Capsule (Amoxil) Take 1 Cap by mouth 2 times a day. (10 day course to treat possible tooth infection.) 20 Cap 05/26/2020 Active documented as of this encounter (statuses as of 08/21/2023) Active Problems Problem Noted Date Diagnosed Date COVID-19 05/26/2020 Major depressive disorder, r ecurrent severe without psychotic features 05/20/2020 Methamphetamine use disorder, moderate 1 History of DVT (deep vein thrombosis) 12/04/2019 Hodgkin lymphoma 12/04/2019 Stimulant use disorder 10/04/2019 Overview: Hx crushing and snorting ritalin and other stimulants. Cluster B personality disorder 06/22/2019 Chronic arthralgias of knees and hips 06/20/2019 Overview: Last Assessment & Plan: He follows with orthopedics his 1 hip is shorter than the neck is. He was asking for Ultram but I did discuss with patient the Holter lower seizure threshold the patient understood I stated to him that I will put him on Celebrex I placed him on Celebrex 100 mg p.o. B.i.d. As refused labs previous creatinine I have is angina which was normal he does not have any history listed of any chronic kidney disease or ulcers. Alcohol use disorder, moderate, dependence 01/15 History of peptic ulcer disease 11/04/2018 History of hepatitis C 09/11/2017 Overview: Viral load nondetected in May 2017. Cleared infection without treatment. GI bleed due to NSAIDs 02/04/2017 Overview: Last Assessment & Plan: Recurrent issue for hematemesis and BRBPR - treated here and multiple outside facilities for this but leaves AMA. Underwent EGD 12/2 which showed mild gastritis. No active bleed or varices. Billroth-I noted. Pt had another EGD at [facility] on 12/2018 CTA showed was negative for active bleed. Appreciate GI consultation --patient went for EGD on 01/23/2019, unable to complete the procedure due to presence of food in the stomach. ----- patient went for EGD plus colonoscopy done today-- NO ulcer, no bleeding. No active bleeding or tumor found on colonoscopy. No further recommendation from GI. Advancing diet Discharge plan Prilosec 40 mg daily ADHD 01/20/2017 Drug-seeking behavior documented as of this encounter (statuses as of 08/21/2023) Resolved Problems Problem Noted Date Diagnosed Date Resolved Date Acute blood loss anemia 06/24/2019 04/0 10/2020 Overview: Last Assessment & Plan: Recent hospitalization at [place] for melenic stools and coffee ground vomitus Reported having taken 5818-8251 mg of ibuprofen per day for 5 days History of ibuprofen misuse during teenage years for tension headaches with major GI bleeds and partial gastrectomy (per patient) Hemoglobin on 06/23 was 10.7. Patient received IV Venofer x1 with increase to 11.4. Hemoglobin prior to recent discharge was 10.3. Iron panel - iron 59, wilfredo 28, iron sat 11, TIBC 516 CBC is ordered for tomorrow. He will need follow up with PCP on discharge. Duodenitis 06/24/2019 05/20/2020 Overview: Last Assessment & Plan: Patient reports a history of this during his last scope back in September. Reports that this was secondary to Ibuprofen misuse EGD: Shows diffuse gastritis, normal duodenum Plan 1. 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 Suspect this is chronic. Patient denies any symptoms per Cocaine use disorder, moderate, dependence 01/15/2019 11/04/2019 Normocytic anemia due to blood loss 01/11/2019 05/20/2020 Overview: Last Assessment & Plan: Self reports his hemoglobin remained at 10 when hospitalized. Hb on admission 10.7 and is hemodynamically stable. No further episodes of bleeding while being observed. -check anemia panel. See plan for GI bleed. - Hb has improved since admission Suicide attempt 10/31/2018 05/20/2020 NSAID long-term use 03/11/2017 05/21/19 21 Acute upper gastrointestinal hemorrhage 03/11/2017 05/20/2020 Overview: Added automatically from request for surgery [id number] Last Assessment & Plan: Recurrent issue; reports small amount hematemesis and BRBPR when wiping. Similar episode when diagnosed with NSAID-induced duodenitis Denies history of esophageal varices Was hospitalized at [facility] for GI bleed; no EGD done as he hemoglobin remained stable at 10. Plan -consent obtained, transfuse PRN if hb < 7 or becomes symptomatic. Trend H&H q 8 hours. - GI on board. EGD showed gastritis. No source of bleeding identified. - NPO after midnight. Plan for colonoscopy tomorrow. - PPI IV BID, No nsaids - PRN zofran for nausea GI bleed 01/20/2017 05/20/2020 Seizure disorder 01/20/2017 05/20/2020 Major depressive disorder, r ecurrent severe without psychotic features 01/20/2017 11/04/2019 Insomnia 01/20/2017 01/14/2019 Iron deficiency 10/18/2016 05/20/2020 NSAID induced gastritis 10/13 NSAID overdose, intentional self-harm, subsequent encounter 11/04/2019 documented as of this encounter (statuses as of 08/21/2023) Immunizations Name Administration Dates Next Due Seasonal Influenza, PF, 6 M & above, IM , (FluLaval or Fluzone) 05/26/2020(Deferred: Patient Refused - " I don't want that") documented as of this encounter Social History Tobacco Use Types Packs/Day Years Used Date Smoking Tobacco: Never Smokeless Tobacco: Never Alcohol Use Standard Drinks/Week Comments Yes 8 (1 standard drink = 0.6 oz pur e alcohol) socially AUDIT-C Answer Date Recorded Frequency of Alcohol Consumption 4 or more times a week 12/04/2019 Average Number of Drinks 3 or 4 020 Frequency of Binge Drinking Monthly 11/12 Utilities Answer Date Recorded Do you have trouble paying y our heating, water, or electric bill? (Adult - for ages 18 years and over) Not on file 07/30/2023 Is your family able to pay t he heat, water, or electric bill? (Household - for ages 0-17 years) Not on file 07/30/2023 Does your family have access to good internet? (Household - for ages 0-17 years) Not on file 07/30/2023 Social Connections Answer Date Recorded How often do you feel lonely or isolated from those around you? (Adult - for ages 18 years and over) Not on file 07/30/2023 Sex and Gender Information Value Date Recorded Sex Assigned at Not on file Gender Identity Not on file Sexual Orientation Not on file Job Start Date Occupation Industry Not on file Not on file Not on file documented as of this encounter Functional Status Functional Status Response Date of Assess ment Are you deaf or do you have serious difficulty h earing? No 12/04/2019 Are you blind or do you have serious difficulty seeing, even when wearing glasses? Yes 12/04/2019 Do you have serious difficul ty walking or climbing stairs? (5 years old or older) No 12/04/2019 Do you have difficulty dress ing or bathing? (5 years old or older) No 11/02/2019 Because of a physical, menta l, or emotional condition, do you have difficulty doing errands alone such as visiting a doctor s office or shopping? (15 years old or older) No 12/04/19 20 Cognitive Status Response Date of Assessm ent Because of a physical, menta l, or emotional condition, do you have serious difficulty concentrating, remembering, or making decisions? (5 years old or older) No 12/04/2019 documented as of this encounter Plan of Treatment Health Maintenance Due Date Last Done Comments Depression Monitoring 1982 DTaP,Tdap,and Td Vaccines (1 - Tdap) 1989 Hepatitis B Vaccine (1 of 3 - 19+ 3-dose series) 1989 Zoster Vaccines (1 of 2) 1989 Cologuard 05/29/2015 Fecal Occult Blood Test 09/19/2022 09/20/19 22, 09/08/2021, 03/03/2018, Additional history exists COVID-19 Vaccine (2 - Pfizer risk series) 02/06/2023 01/16/2023 Sigmoidoscopy 03/22/2023 03/22/2018, 03/22/2018 Influenza Vaccine (FLU shot) (#1) 2023 11/23/2020, 11/23/2020, 12/12/2018, Additional history exists Lipid Panel 12/13/2025 12/13/2020, 12/13, 08/20/2019 Colonoscopy 11/03/2029 11/04/2019, 10/13, 01/21/2017, Additional history exists Colorectal Cancer Screening 11/03/2029 Hepatitis C Screening Completed 11/27/2018 HIV Screening Completed 05/18/2022 Pneumococcal Vaccine: Pediatrics (0 to 5 Years) and At-Risk Patients (6 to 64 Years) Completed 01/16/2023, 12/29/2019 HPV (Gardasil) Vaccine Aged Out No lo nger eligible based on patient's age to complete this topic MENINGOCOCCAL (MENACTRA/MENVEO) Aged Out No longer eligible based on patient's age to complete this topic documented as of this encounter Medical Devices Not on filedocumented as of this encounter Advance Directives * Full Code (Latest Code Status on File) Date Activated Date Inactivated Comments 05/19/2020 7:01 PM 05/26/2020 7:45 PM This order re flects the patients wishes and were consensually agreed upon. * Full Code Date Activated Date Inactivated Comments 12/07/2019 3:11 PM 12/09/2019 4:54 PM This order reflects the patients wishes and were consensually agreed upon. * Full Code Date Activated Date Inactivated Comments 12/03/2019 11:57 PM 12/07/2019 2:36 PM This orde r reflects the patients wishes and were consensually agreed upon. * Limited Code Date Activated Date Inactivated Comments 11/02/2019 11:33 PM 11/05/2019 4:25 PM This order reflects the patients wishes and were consensually agreed upon. Question Answer Comments Discussion of Advance Directives occurred with: Patient Intubation? No Cardiac Compressions? Yes * Full Code Date Activated Date Inactivated Comments 11/02/2019 11:12 PM 11/02/2019 11:33 PM This order reflects the patients wishes and were consensually agreed upon. Question Answer Comments Discussion of Advance Directives occurred with: Patient Care Teams Manager Utility Relationship Specialty Start Date End Date Farooq Rodriguez MD [address] [id number] PCP - General Family Medicine 12/03/19 documented as of this encounter
--- OUTSIDE RECORDS SUMMARY | 2023-08-25 05:00 | External Medical Summary ---
Author Name Unknown Address Unknown Organization [facility] [address] [place] [id number] Laboratory Report Ordering Provider Test Date Status Kenyatta Colvin 08/03/2023 12:08:00 Final Observation Date Value Abnormality Reference (Units ) Status Leukocytes [#/volume] in Blood by Automated count 08/03/2023 12:20:12 3.99 Below low normal 4.00-10.40 (K/uL) Final Erythrocytes [#/volume] in Blood by Automated count 08/03/2023 12:20:12 3.18 Below low normal 4.40-5.60 (M/uL) Final Hemoglobin [Mass/volume] in Blood 08/03/2023 12:20:12 8.6 Below low normal 13.0-17.0 (g/dL) Final Hematocrit [Volume Fraction] of Blood by Automated count 08/03/2023 12:20:12 28.7 Below low normal 35.0-44.0 (%) Final MCV [Entitic volume] by Automated count 08/03/2023 12:20:12 90.3 81.0-96.0 (fL) Final MCH [Entitic mass] by Automated count 08/03/2023 12:20:12 27.0 Below low normal 28.0-33.0 (pg) Final MCHC [Mass/volume] by Automated count 08/03/2023 12:20:12 30.0 Below low normal 32.0-36.0 (g/dL) Final Erythrocyte distribution width [Ratio] by Automated count 08/03/2023 12:20:12 17.6 Above high normal 11.5-14.2 (%) Final Erythrocyte distribution width [Entitic volume] by Automated count 08/03/2023 12:20:12 58 Final Platelets [#/volume] in Blood by Automated count 08/03/2023 12:20:12 253 150-350 (K/uL) Final Platelet mean volume [Entitic volume] in Blood by Automated count 08/03/2023 12:20:12 9.4 9.0-12.2 (fL) Final Nucleated erythrocytes/100 cells in Bone marrow by Manual count 08/03/2023 12:20:12 0 (/100 WBCs) Final Nucleated erythrocytes [#/volume] in Blood by Manual count 08/03/2023 12:20:12 0.00 (K/uL) Final Performing Location [facility] [address] [address]
--- OUTSIDE RECORDS SUMMARY | 2023-08-25 05:00 | External Medical Summary | Continuity of Care Document ---
Author Name Unknown Organization [facility] Address [address] [place] [id number] Care Team Providers Care Glass Glazier Name Role Phone Merlene Chino Primary Care Physician [phone] [facility]counter [facility] [id number] Date(s): 07/31/23 - 08/06/23 [facility] [address] [place] [id number] us Encounter Diagnosis Passive suicidal ideations(Discharge Diagnosis) - 08/01/23 Hypokalemia(Discharge Diagnosis) - 08/01/23 Acute alcoholic hepatitis(Discharge Diagnosis) - 08/01/23 Pulmonary nodule, right(Discharge Diagnosis) - 08/01/23 Amphetamine or stimulant drug abuse(Discharge Diagnosis) - 08/01/23 Cocaine abuse(Discharge Diagnosis) - 08/01/23 Noncompliance w/medication treatment due to intermit use of medication(Discharge Diagnosis) - 08/01/23 BRBPR (bright red blood per rectum)(Discharge Diagnosis) - 08/01/23 Aspiration pneumonitis(Discharge Diagnosis) - 08/01/23 Esophagitis(Discharge Diagnosis) - 08/01/23 Constipation(Discharge Diagnosis) - 08/01/23 Alcohol abuse with withdrawal and perceptual disturbance(Discharge Diagnosis) - 08/01/23 Acute on chronic blood loss anemia(Discharge Diagnosis) - 08/01/23 Withdrawal seizures(Discharge Diagnosis) - 08/01/23 Alcohol dependence with withdrawal, unspecified(Final) - Cocaine abuse, uncomplicated(Final) - Alcohol dependence with intoxication, unspecified(Final) - Acute posthemorrhagic anemia(Final) - Hypokalemia(Final) - Other stimulant abuse with stimulant-induced psychotic disorder, unspecified (Final) - Major depressive disorder, 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) - Narcissistic personality disorder(Final) - Secondary esophageal varices without bleeding(Final) - Pneumonitis due to inhalation of food and vomit(Final) - Constipation, unspecified(Final) - Alcoholic hepatitis without ascites(Final) - Unspecified cirrhosis of liver(Final) - Fatty (change of) liver, not elsewhere classified(Final) - Suicidal ideations(Final) - Patient's other noncompliance with medication regimen for other reason(Final) - Procedure and treatment not carried out because of patient's decision for other reasons(Final) - Unemployment, unspecified(Final) - Personal history of Hodgkin lymphoma(Final) - Personal history of suicidal behavior(Final) - Presence of left artificial hip joint(Final) - Anxiety disorder, unspecified(Final) - Solitary pulmonary nodule(Final) - Attention-deficit hyperactivity disorder, unspecified type(Final) - Encounter for screening for COVID-19(Final) - Epileptic seizures related to external causes, not intractable, without status epilepticus(Final) - Other esophagitis without bleeding(Final) - Discharge Disposition: Left Against Medical Advice Attending Physician: MD Shanda, Sham Admitting Physician: MD [place] Amanda Katherine Berg Allergies, Adverse Reactions, Alerts Substance Criticality Severity Reaction Reaction Severity Status Compazine na Active Reglan na Active Haldol na Active promethazine Other Active Functional Status 08/06/23 ADLs Independent Gait Steady Level of Consciousness Neuro Alert Speech Pattern Clear 08/06/23 Neurological Symptoms None Facial Symmetry Symmetric Swallowing Difficulty Other: 08/06/23 History of Fall in Last 3 Months Robles N o Presence of Secondary Diagnosis Robles Ye s Use of Ambulatory Aid Robles None/bedrest /nurse assist IV/Heparin Lock Fall Risk Robles Yes Gait/Transferring Fall Risk Robles Normal /bedrest/immobile Mental Status Fall Risk Robles Oriented t o own ability Robles Fall Risk Score 35 Robles Fall Risk Low Risk 08/06/23 Hallucinations Present None Medications cholecalciferol 25 mcg (1000 intl units) oral capsule Start: 06/24/23 3:52:00 PM EDT, 2 cap, PO, Daily, Disp# 60 cap, Refills: 2, Pharmacy: [facility] Start Date: 06/24/23 Status: Ordered clindamycin 300 mg oral capsule Start: 06/24/23 3:55:00 PM EDT, 1 cap, PO, q6h, Disp# 20 cap, Pharmacy: [facility] Start Date: 06/24/23 Stop Date: 06/29/23 Status: Ordered Depakote ER 250 mg oral tablet, extended release Start: 06/24/23 3:47:00 PM EDT, 3 tab, PO, qhs Start Date: 06/24/23 Status: Ordered folic acid 1 mg oral tablet Start: 03/25/23 2:21:00 PM EST, 1 tab, PO, Daily, Disp# 30 tab, Refills: 0, Pharmacy: [facility] Start Date: 03/25/23 Status: Ordered naloxone 4 mg/0.1 mL nasal [...] Daily, Disp# 30 tab, Refills: 0, Pharmacy: [facility] Start Date: 03/25/23 Status: Ordered thiamine 100 mg oral tablet Start: 03/25/23 2:21:00 PM EST, 1 tab, PO, Daily, Disp# 30 tab, Pharmacy: [facility] Start Date: 03/25/23 Status: Ordered Tylenol 325 mg oral tablet Start: 05/24/22 10:29:00 AM EDT, 2 tab, PO, q6h, Disp# 60 tab, Refills: 0, PRN: fever/mild pain (1-3), [facility]: [id number] Start Date: 05/24/22 Status: Ordered venlafaxine 150 mg oral capsule, extended release Start: 03/25/23 2:22:00 PM EST, 1 cap, PO, Daily, Disp# 30 cap, Pharmacy: [facility] Start Date: 03/25/23 Stop Date: 04/24/23 Status: Ordered ZyrTEC 10 mg oral tablet Start: 06/24/23 5:02:00 PM EDT, 1 tab, PO, Daily Start Date: 06/24/23 Status: Ordered Mental Status 08/05/23 Primary Language Armenian 08/01/23 Communication Barrier Present No Problem List Condition Confirmation Course Effective Dates Status Health atus Informant Alcohol withdrawal Confirmed Active Anxiety Confirmed Active ADHD Confirmed Active Depression Confirmed Active Epilepsy Confirmed Active GI bleed Confirmed Active Hodgkin lymphoma Confirmed Active Diagnosis Diagnosis Type Effective Dates Health Status Clinical Service Informant Aspiration pneumonitis Discharge Diagnosis 08/01/23 Non-Specified Hypokalemia Discharge Diagnosis 08/01/23 Non-Specified Alcohol abuse with withdrawal and perceptual disturbance Discharge Diagnosis 08/01/23 Non-Specified BRBPR (bright red blood per rectum) Discharge Diagnosis 08/01/23 Non-Specified Acute on chronic blood loss anemia Discharge Diagnosis 08/01/23 Non-Specified Passive suicidal ideations Discharge Diagnosis 08/01/23 Non-Specified Acute alcoholic hepatitis Discharge Diagnosis 08/01/23 Non-Specified Pulmonary nodule, right Discharge Diagnosis 08/01/23 Non-Specified Amphetamine or stimulant drug abuse Discharge Diagnosis 08/01/23 Non-Specified Cocaine abuse Discharge Diagnosis 08/01/23 Non-Specified Noncompliance w/medication treatment due to intermit use of medication Discharge Diagnosis 08/01/23 Non-Specified Esophagitis Discharge Diagnosis 08/01/23 Non-Specified Constipation Discharge Diagnosis 08/01/23 Non-Specified Withdrawal seizures Discharge Diagnosis 08/01/23 Non-Specified Procedures Procedure Date Related Diagnosis Body Site Status Esophagogastroduodenoscopy 1 05/21/22 Completed Esophagogastroduodenoscopy 2 02/13/22 Completed REVISE HIP JOINT REPLACEMENT Completed 1auto-populated from documented surgical case 2auto-populated from documented surgical case Results Laboratory List Name Date Automated Differential. 08/03/23 CBC w/ Diff. 08/03/23 Extra Green (LIHEP). 08/03/23 Automated Differential. 08/02/23 CBC w/ Diff. 08/02/23 Automated Differential. 08/02/23 Basic Metabolic Panel. (BMP.) 08/02/23 CBC w/ Diff. 08/02/23 Extra Lavender.. 08/02/23 Hepatic Function Panel. 08/02/23 Iron Level and TIBC. 08/02/23 Vitamin B1 (Thiamine) Blood,LC/MS/MS-Qst 08/02/23 Vitamin B12 and Folate Levels. 08/02/23 .Manual Diff NC. 08/01/23 Basic Metabolic Panel. (BMP.) 08/01/23 CBC w/ Diff. 08/01/23 Hepatic Function Panel. (Liver Panel.) Magnesium Level. 08/01/23 Magnesium Level. 08/01/23 Drug Screen Urine.(HSM) 07/31/23 .Antibody Screen Gel. 07/31/23 Alcohol Level. (Ethanol Level, ETOH Leve l.) 07/31/23 Blood Type ABO/Rh. 07/31/23 Comprehensive Metabolic Panel. (CMP.) NT-Pro BNP. (BNP, NT-Pro.) 07/31/23 Prothrombin Time/INR and PTT. (PT (with INR) and PTT.) 07/31/23 Troponin T (5th Gen). 07/31/23 Valproic Acid Level. 07/31/23 SARS-CoV2/FLU A/B and RSV by PCR. 4 Most recent to oldest [Reference Range]: 1 2 3 Green ([place] Heparin) Collected *NA* (08/03/23 12:08 PM) Lavender Collected *NA* (08/02/23 7:37 AM) ABO/Rh O NEG *Unknown* (07/31/23 9:19 PM) Troponin T (5th Gen) [0-22 ng/L] 11 ng/L (07/31/23 9:19 PM) eGFR CKD-EPI [>=60 mL/min/1.73 m2] >90 mL/min/1.73 m2 (08/02/23 7:37 AM) >90 mL/min/1.73 m2 (08/01/23 4:09 AM) >90 mL/min/1.73 m2 (07/31/23 9:19 PM) U Hydrocodone Scr [Not Detected] Not Detected 1 (07/31/23 11:37 PM) Methadone (u) [Not Detected] Not Detected (07/31/23 11:37 PM) U Fentanyl Scr Not Detected 2 (07/31/23 11:37 PM) Target Cells Few (08/01/23 4:09 AM) Estimated CrCl 114.93 mL/min (08/02/23 8:28 AM) 85.85 mL/min (08/01/23 4:43 AM) 75.80 mL/min (07/31/23 10:14 PM) RDW-CV [11.5-14.2 %] 17.6 % *HI* (08/03/23 12:08 PM) 17.3 % *HI* (08/02/23 12:37 PM) 17.3 % *HI* (08/02/23 7:37 AM) RDW-SD 58 *NA* (08/03/23 12:08 PM) 55 *NA* (08/02/23 12:37 PM) 55 *NA* (08/02/23 7:37 AM) Nuc RBC Relative Count 0 /100 WBCs *NA* (08/03/23 12:08 PM) 0 /100 WBCs *NA* (08/02/23 12:37 PM) 0 /100 WBCs *NA* (08/02/23 7:37 AM) Nuc RBC Abs Count 0.00 K/uL *NA* (08/03/23 12:08 PM) 0.00 K/uL *NA* (08/02/23 12:37 PM) 0.00 K/uL *NA* (08/02/23 7:37 AM) Plt Slide Rev Reviewed (08/01/23 4:09 AM) Elliptocyte Few (08/01/23 4:09 AM) Slide Review Manual Diff 3 *NA* (08/01/23 4:09 AM) Vitamin B1 (Thiamine), LC/MS/MS [78-185 nmol/L] 175 nmol/L 4 *NA* (08/02/23 7:37 AM) NT ProBNP [<=124 pg/mL] 68 pg/mL (07/31/23 9:19 PM) Vitamin B12 Level [211-946 pg/mL] 592 pg/mL (08/02/23 7:37 AM) Oxycodone (u) [Not Detected] Not Detected (07/31/23 11:37 PM) U THC Screen [Not Detected] Not Detected (07/31/23 11:37 PM) CO2 [22-29 mmol/L] 26 mmol/L (08/02/23 7:37 AM) 23 mmol/L (08/01/23 4:09 AM) 21 mmol/L *LOW* (07/31/23 9:19 PM) Ethanol Level. [<=10.1 mg/dL] 54.0 mg/dL *HI* (07/31/23 9:19 PM) MPV [9.0-12.2 fL] 9.4 fL (08/03/23 12:08 PM) 9.0 fL (08/02/23 12:37 PM) 8.8 fL *LOW* (08/02/23 7:37 AM) Immature Gran% 0.3 % *NA* (08/03/23 12:08 PM) 0.0 % *NA* (08/02/23 12:37 PM) 0.0 % *NA* (08/02/23 7:37 AM) Neut% 61.6 % *NA* (08/03/23 12:08 PM) 53.4 % *NA* (08/02/23 12:37 PM) 57.3 % *NA* (08/02/23 7:37 AM) Lymph% 26.1 % *NA* (08/03/23 12:08 PM) 32.0 % *NA* (08/02/23 12:37 PM) 27.1 % *NA* (08/02/23 7:37 AM) Sequoyah% 6.0 % *NA* (08/03/23 12:08 PM) 6.4 % *NA* (08/02/23 12:37 PM) 6.7 % *NA* (08/02/23 7:37 AM) Baso% 0.5 % *NA* (08/03/23 12:08 PM) 0.7 % *NA* (08/02/23 12:37 PM) 0.7 % *NA* (08/02/23 7:37 AM) Eos% 5.5 % *NA* (08/03/23 12:08 PM) 7.5 % *NA* (08/02/23 12:37 PM) 8.2 % *NA* (08/02/23 7:37 AM) Immat Gran, Abs [0.00-0.40 K/uL] 0.01 K/uL (08/03/23 12:08 PM) 0.00 K/uL (08/02/23 12:37 PM) 0.00 K/uL (08/02/23 7:37 AM) Neut, Abs [2.00-7.70 K/uL] 2.46 K/uL (08/03/23 12:08 PM) 1.50 K/uL *LOW* (08/02/23 12:37 PM) 1.54 K/uL *LOW* (08/02/23 7:37 AM) Lymph, Abs [1.00-3.40 K/uL] 1.04 K/uL (08/03/23 12:08 PM) 0.90 K/uL *LOW* (08/02/23 12:37 PM) 0.73 K/uL *LOW* (08/02/23 7:37 AM) Sequoyah, Abs [0.00-1.00 K/uL] 0.24 K/uL (08/03/23 12:08 PM) 0.18 K/uL (08/02/23 12:37 PM) 0.18 K/uL (08/02/23 7:37 AM) Baso, Abs [0.00-0.10 K/uL] 0.02 K/uL (08/03/23 12:08 PM) 0.02 K/uL (08/02/23 12:37 PM) 0.02 K/uL (08/02/23 7:37 AM) Eos, Abs [0.00-0.50 K/uL] 0.22 K/uL (08/03/23 12:08 PM) 0.21 K/uL (08/02/23 12:37 PM) 0.22 K/uL (08/02/23 7:37 AM) RBC Morphology See Findings (08/01/23 4:09 AM) Anion Gap [5-14 mmol/L] 7 mmol/L (08/02/23 7:37 AM) 6 mmol/L (08/01/23 4:09 AM) 13 mmol/L (07/31/23 9:19 PM) Alb [3.5-5.2 g/dL] 3.5 g/dL (08/02/23 7:37 AM) 3.3 g/dL *LOW* (08/01/23 4:09 AM) 3.9 g/dL (07/31/23 9:19 PM) Alk Phos [40-130 unit/L] 111 unit/L (08/02/23 7:37 AM) 130 unit/L (08/01/23 4:09 AM) 148 unit/L *HI* (07/31/23 9:19 PM) ALT [0-41 unit/L] 42 unit/L *HI* (08/02/23 7:37 AM) 55 unit/L *HI* (08/01/23 4:09 AM) 72 unit/L *HI* (07/31/23 9:19 PM) Amphetamines(u) [Not Detected] Presumptive Pos *Abnormal* (07/31/23 11:37 PM) AST [0-40 unit/L] 40 unit/L (08/02/23 7:37 AM) 91 unit/L *HI* (08/01/23 4:09 AM) 175 unit/L *HI* (07/31/23 9:19 PM) Benzodiazepines(u) [Not Detected] Not Detected (07/31/23 11:37 PM) BUN [6-23 mg/dL] 12 mg/dL (08/02/23 7:37 AM) 23 mg/dL (08/01/23 4:09 AM) 28 mg/dL *HI* (07/31/23 9:19 PM) Ca [8.4-10.2 mg/dL] 7.9 mg/dL *LOW* (08/02/23 7:37 AM) 7.6 mg/dL *LOW* (08/01/23 4:09 AM) 8.5 mg/dL (07/31/23 9:19 PM) Cl- [98-107 mmol/L] 109 mmol/L *HI* (08/02/23 7:37 AM) 107 mmol/L (08/01/23 4:09 AM) 108 mmol/L *HI* (07/31/23 9:19 PM) Cocaine(u) [Not Detected] Presumptive Po s *Abnormal* (07/31/23 11:37 PM) Cret [0.70-1.30 mg/dL] 0.62 mg/dL *LOW* (08/02/23 7:37 AM) 0.83 mg/dL (08/01/23 4:09 AM) 0.94 mg/dL (07/31/23 9:19 PM) D Bili [<=0.3 mg/dL] <0.2 mg/dL (08/02/23 7:37 AM) <0.2 mg/dL (08/01/23 4:09 AM) Aniso Slight *Abnormal* (08/01/23 4:09 AM) Eos% Man 10.0 % *NA* (08/01/23 4:09 AM) Iron [45-176 mcg/dL] 35 mcg/dL *LOW* (08/02/23 7:37 AM) Folate [>=4.5 ng/mL] 9.5 ng/mL (08/02/23 7:37 AM) Glu [74-109 mg/dL] 114 mg/dL *HI* (08/02/23 7:37 AM) 187 mg/dL *HI* (08/01/23 4:09 AM) 109 mg/dL (07/31/23 9:19 PM) Hct [35.0-44.0 %] 28.7 % *LOW* (08/03/23 12:08 PM) 29.6 % *LOW* (08/02/23 12:37 PM) 28.8 % *LOW* (08/02/23 7:37 AM) Hgb [13.0-17.0 g/dL] 8.6 g/dL *LOW* (08/03/23 12:08 PM) 9.1 g/dL *LOW* (08/02/23 12:37 PM) 8.9 g/dL *LOW* (08/02/23 7:37 AM) RSV, Rapid Antigen [Negative] Negative (07/31/23 7:52 PM) Influenza Type A, Rapid Antigen [Negative] Negative 5 (07/31/23 7:52 PM) Influenza Type B, Rapid Antigen [Negative] Negative (07/31/23 7:52 PM) INR [0.9-1.1] 1.0 6 (07/31/23 9:19 PM) K [3.5-5.1 mmol/L] 3.9 mmol/L (08/02/23 7:37 AM) 4.3 mmol/L (08/01/23 4:09 AM) 3.3 mmol/L *LOW* (07/31/23 9:19 PM) Lymph% Man 43.0 % *NA* (08/01/23 4:09 AM) MCH [28.0-33.0 pg] 27.0 pg *LOW* (08/03/23 12:08 PM) 27.1 pg *LOW* (08/02/23 12:37 PM) 26.9 pg *LOW* (08/02/23 7:37 AM) MCHC [32.0-36.0 g/dL] 30.0 g/dL *LOW* (08/03/23 12:08 PM) 30.7 g/dL *LOW* (08/02/23 12:37 PM) 30.9 g/dL *LOW* (08/02/23 7:37 AM) MCV [81.0-96.0 fL] 90.3 fL (08/03/23 12:08 PM) 88.1 fL (08/02/23 12:37 PM) 87.0 fL (08/02/23 7:37 AM) Mg [1.6-2.6 mg/dL] 1.9 mg/dL (08/01/23 4:09 AM) 1.9 mg/dL (08/01/23 12:31 AM) Sequoyah% Man 4.0 % *NA* (08/01/23 4:09 AM) Na [136-145 mmol/L] 142 mmol/L (08/02/23 7:37 AM) 136 mmol/L (08/01/23 4:09 AM) 142 mmol/L (07/31/23 9:19 PM) Neut% Man 43.0 % *NA* (08/01/23 4:09 AM) Opiates(u) [Not Detected] Not Detected (07/31/23 11:37 PM) Plts [150-350 K/uL] 253 K/uL (08/03/23 12:08 PM) 226 K/uL (08/02/23 12:37 PM) 232 K/uL (08/02/23 7:37 AM) Antibody Screen Gel Negative ABSC (07/31/23 9:19 PM) PT [12.0-14.2 seconds] 13.0 seconds (07/31/23 9:19 PM) PTT [23-35 seconds] 35 seconds (07/31/23 9:19 PM) RBC [4.40-5.60 M/uL] 3.18 M/uL *LOW* (08/03/23 12:08 PM) 3.36 M/uL *LOW* (08/02/23 12:37 PM) 3.31 M/uL *LOW* (08/02/23 7:37 AM) COVID-19 Coronavirus PCR [Not Detected] Not Detected 7 (07/31/23 7:52 PM) Rouleaux Present *Abnormal* (08/01/23 4:09 AM) Fe Sat [15-55 %] 10 % *LOW* (08/02/23 7:37 AM) COVID-19 Source Nasopharyngeal (07/31/23 7:52 PM) T Bili [0.0-1.2 mg/dL] 0.3 mg/dL (08/02/23 7:37 AM) <0.1 mg/dL 8 (08/01/23 4:09 AM) <0.1 mg/dL (07/31/23 9:19 PM) Total IBC [236-425 ug/dL] 341 ug/dL (08/02/23 7:37 AM) Prot [6.4-8.3 g/dL] 5.7 g/dL *LOW* (08/02/23 7:37 AM) 5.2 g/dL *LOW* (08/01/23 4:09 AM) 6.1 g/dL *LOW* (07/31/23 9:19 PM) Transferrin [200.0-360.0 mg/dL] 289.0 mg/dL (08/02/23 7:37 AM) Valproate [50-120 ug/mL] <3 ug/mL *LOW* (07/31/23 9:19 PM) WBC [4.00-10.40 K/uL] 3.99 K/uL *LOW* (08/03/23 12:08 PM) 2.81 K/uL *LOW* (08/02/23 12:37 PM) 2.69 K/uL *LOW* (08/02/23 7:37 AM) Congregate Care Setting-QST Not Given (07/31/23 7:52 PM) Date of Symptom Onset-QST unknown *NA* (07/31/23 7:52 PM) Employed in Healthcare?-QST Not Given (07/31/23 7:52 PM) Ethnicity-QST Not Given (07/31/23 7:52 PM) First Test?-QST Not Given (07/31/23 7:52 PM) Hospitalized?-QST Not Given (07/31/23 7:52 PM) ICU?-QST Not Given (07/31/23 7:52 PM) ?(QST) Not Given (07/31/23 7:52 PM) Race-QST Not Given (07/31/23 7:52 PM) Symptomatic?-QST Not Given (07/31/23 7:52 PM) 1Interpretive Data: Drug Level Amphetamines 500 ng/mL Benzodiazepines 100 ng/mL Cannabinoids 50 ng/mL Cocain Metabolite 150 ng/mL Hydrocodone 100 ng/mL Methadone Metabolite 100 ng/mL Morphine/ Codeine 300 ng/mL Oxycodone 100 ng/mL The above screening results are presumptive and can only be used for medical purposes. Confirmatorytesting is available upon request. Intended for medical treatment only. 2Interpretive Data: Fentanyl Assay Cutoff >=5 ng/mL The above screening results are presumptive and can only be used for medical purposes. Confirmatorytesting is available upon request. Intended for medical treatment only. 3Result Comment: Leukocytopenia Neutropenia Anemia 4Result Comment: . Vitamin supplementation within 24 hours prior to blood draw may affect the accuracy of the results. . This test was developed and its analytical performance characteristics have been determined by [facility] [place], [place]. It has not been cleared or approved by the U.S. Food and Drug Administration. This assay has been validated pursuant to the CLIA regulations and is used for clinical purposes. . Lab test performed by: Lab [facility]: [id number] [employer] [address] [place], [place] 5Result Comment: No Influenza A Detected. A negative result does not rule out the possibility of influenza infection as the sensitivity of this test is approximately 98%. Patients being admitted to [facility] should have the RVP assay ordered. 6Interpretive Data: Suggested therapeutic range for low-intensity Coumadin therapy for venous thromboembolism is INR 2.0-3.0 (ex: atrial fibrillation, history of TIA/stroke). For high risk patients, the suggested therapeutic range is INR 2.5-3.5 (ex: mechanical prosthetic valves). 7Interpretive Data: This assay has been granted an Emergency Use Authorization (EUA) by the U.S. Food and drug Administration. The performance of the assay ([employer]) has been verified by the [facility] laboratory. Reported to [facility] 8Result Comment: Result of TBIL lower than DBIL. Radiology Reports * Exam Date Time Procedure Performing Provider Status 07/31/23 10:[address] Angio Abdomen and Pelvis Dora Flores; Modified Notes: (CT Angio Abdomen and Pelvis) Reason For Exam: hematochezia Report EXAM: 1. CTA CHEST WITHOUT AND WITH CONTRAST 2. CTA ABDOMEN PELVIS WITHOUT AND WITH CONTRAST HISTORY: History of varices, GI bleed. Chest and abdominal pain. No trauma. COMPARISON: 05/19/2022 CT TECHNIQUE: 1. CTA chest without and with intravenous contrast was performed. MIP images were obtained and reviewed. 2. CTA abdomen pelvis without and with intravenous contrast was performed. MIP images were obtainedand reviewed. Number of previous CTs and/or Cardiac NM exams performed in last 12 months (per [facility] MIPS Quality Measure 360): 1 CONTRAST: 75 mL Omnipaque 350 intravenously. FINDINGS: CTA CHEST: PULMONARY ARTERIES: The main pulmonary artery is normal in size. Well opacified. There is no filling defect. No acute pulmonary embolus. AORTA: Thoracic aorta is normal in size. No thoracic aortic aneurysm or dissection. HEART: The heart is normal in size. No pericardial effusion. Coronary artery calcifications are present. MEDIASTINUM/TRINI: Small bilateral hilar and subcarinal lymph nodes are present, not pathologically enlarged. There is circumferential thickening of the esophagus, suggesting esophagitis. Surgical clips are present adjacent to the distal esophagus, similar to the prior exam. CHEST WALL/AXILLA: There is no chest wall mass or adenopathy. Multiple collateral vessels are present in the chest wall. LUNGS/PLEURA: Bilateral lower lobe atelectasis is present. Right lower lobe consolidation, pneumonia is noted. No other airspace consolidation or pleural effusion. There is a right upper lobe nodule adjacent to the fissure on series 4, image 33, measuring 9 x 6 mm, similar to the prior exam. MUSCULOSKELETAL: Degenerative changes of the spine are present. No acute osseous abnormality identified. CTA ABDOMEN PELVIS: LIVER: The liver is normal in size and enhancement. No hepatic lesion or intrahepatic biliary dilation. GALLBLADDER/BILE DUCTS: Gallbladder is contracted, without stones or surrounding inflammation. No choledocholithiasis or biliary obstruction. PANCREAS: Normal size and enhancement. No pancreatic lesion or surrounding inflammation. GI TRACT: Stomach is distended with a large amount of food material. Bowel is not obstructed. Moderate fecal loading of the colon is present, constipation. No inflammatory change of the bowel. No pneumatosis or pneumoperitoneum. There is no abnormal enhancement of the bowel. No contrast extravasation or hemorrhage identified. Appendix is unremarkable SPLEEN: Normal in size and enhancement. No splenic lesion. LYMPH NODES: No significant adenopathy. ADRENAL GLANDS: Unremarkable. KIDNEYS/URETERS: Kidneys enhance symmetrically. No hydronephrosis or obstructing calculus. No renal, ureteral or bladder calculus. URINARY BLADDER: Unremarkable REPRODUCTIVE ORGANS: Prostate gland is normal in size VASCULATURE: The abdominal aorta and the IVC are normal in size. There is no abdominal aortic aneurysm or dissection. There is an IVC filter in place. MISCELLANEOUS: No significant free fluid identified. No free air. MUSCULOSKELETAL: Degenerative changes of the spine and hips are present. Surgical changes of previous left hip ORIF is present. No new osseous abnormality. IMPRESSION: CTA CHEST: 1. No pulmonary embolus. 2. Right lower lobe consolidation, pneumonia. 3. Mild circumferential thickening of the esophagus, suggesting esophagitis. 4. Stable right upper lobe pulmonary nodule. Based on Fleischner Society 2017 Guidelines, given stability to date, follow-up non-contrast chest CT at 12 - 18 months is considered optional for low-risk patients, but is recommended for high-risk patients. CTA ABDOMEN AND PELVIS: 1. No abdominal aortic aneurysm or dissection. 2. Moderate fecal loading of the colon, constipation. No bowel obstruction or inflammation. 3. No acute abdominal or pelvic abnormality. Workstation ID: [id number] Dictated by:MD Ryan Patricia A Dictated DT/TM:07/31/2023 11:19 Signed by:MD Ryan Patricia A Signed (Electronic Signature):07/31/2023 11:18 * Exam Date Time Procedure Performing Provider Status 07/31/23 10:[address] Angio Chest Navid Flores; Final Notes: (CT Angio Chest) Reason For Exam: hx of varices. GI bleed Report EXAM: 1. CTA CHEST WITHOUT AND WITH CONTRAST 2. CTA ABDOMEN PELVIS WITHOUT AND WITH CONTRAST HISTORY: History of varices, GI bleed. Chest and abdominal pain. No trauma. COMPARISON: 05/19/2022 CT TECHNIQUE: 1. CTA chest without and with intravenous contrast was performed. MIP images were obtained and reviewed. 2. CTA abdomen pelvis without and with intravenous contrast was performed. MIP images were obtainedand reviewed. Number of previous CTs and/or Cardiac NM exams performed in last 12 months (per [facility] MIPS Quality Measure 360): 1 CONTRAST: 75 mL Omnipaque 350 intravenously. FINDINGS: CTA CHEST: PULMONARY ARTERIES: The main pulmonary artery is normal in size. Well opacified. There is no filling defect. No acute pulmonary embolus. AORTA: Thoracic aorta is normal in size. No thoracic aortic aneurysm or dissection. HEART: The heart is normal in size. No pericardial effusion. Coronary artery calcifications are present. MEDIASTINUM/TRINI: Small bilateral hilar and subcarinal lymph nodes are present, not pathologically enlarged. There is circumferential thickening of the esophagus, suggesting esophagitis. Surgical clips are present adjacent to the distal esophagus, similar to the prior exam. CHEST WALL/AXILLA: There is no chest wall mass or adenopathy. Multiple collateral vessels are present in the chest wall. LUNGS/PLEURA: Bilateral lower lobe atelectasis is present. Right lower lobe consolidation, pneumonia is noted. No other airspace consolidation or pleural effusion. There is a right upper lobe nodule adjacent to the fissure on series 4, image 33, measuring 9 x 6 mm, similar to the prior exam. MUSCULOSKELETAL: Degenerative changes of the spine are present. No acute osseous abnormality identified. CTA ABDOMEN PELVIS: LIVER: The liver is normal in size and enhancement. No hepatic lesion or intrahepatic biliary dilation. GALLBLADDER/BILE DUCTS: Gallbladder is contracted, without stones or surrounding inflammation. No choledocholithiasis or biliary obstruction. PANCREAS: Normal size and enhancement. No pancreatic lesion or surrounding inflammation. GI TRACT: Stomach is distended with a large amount of food material. Bowel is not obstructed. Moderate fecal loading of the colon is present, constipation. No inflammatory change of the bowel. No pneumatosis or pneumoperitoneum. There is no abnormal enhancement of the bowel. No contrast extravasation or hemorrhage identified. Appendix is unremarkable SPLEEN: Normal in size and enhancement. No splenic lesion. LYMPH NODES: No significant adenopathy. ADRENAL GLANDS: Unremarkable. KIDNEYS/URETERS: Kidneys enhance symmetrically. No hydronephrosis or obstructing calculus. No renal, ureteral or bladder calculus. URINARY BLADDER: Unremarkable REPRODUCTIVE ORGANS: Prostate gland is normal in size VASCULATURE: The abdominal aorta and the IVC are normal in size. There is no abdominal aortic aneurysm or dissection. There is an IVC filter in place. MISCELLANEOUS: No significant free fluid identified. No free air. MUSCULOSKELETAL: Degenerative changes of the spine and hips are present. Surgical changes of previous left hip ORIF is present. No new osseous abnormality. IMPRESSION: CTA CHEST: 1. No pulmonary embolus. 2. Right lower lobe consolidation, pneumonia. 3. Mild circumferential thickening of the esophagus, suggesting esophagitis. 4. Stable right upper lobe pulmonary nodule. Based on Fleischner Society 2017 Guidelines, given stability to date, follow-up non-contrast chest CT at 12 - 18 months is considered optional for low-risk patients, but is recommended for high-risk patients. CTA ABDOMEN AND PELVIS: 1. No abdominal aortic aneurysm or dissection. 2. Moderate fecal loading of the colon, constipation. No bowel obstruction or inflammation. 3. No acute abdominal or pelvic abnormality. Workstation ID: [id number] Dictated by:MD Ryan Patricia A Dictated DT/TM:07/31/2023 11:19 Signed by:MD Ryan Patricia A Signed (Electronic Signature):07/31/2023 11:18 Vital Signs Most recent to oldest [Reference Range]: 1 2 3 Height 171 cm (07/31/23 7:01 PM) Patient Weight 64.3 kg (08/06/23 4:16 AM) 61.5 kg (08/04/23 5:16 AM) 56.5 kg (08/02/23 4:00 AM) Body Mass Index 20.17 kg/m2 (07/31/23 7:01 PM) Temperature [36.5-37.9 DegC] 36.9 DegC (08/06/23 8:41 AM) 36.4 DegC *LOW* (08/06/23 4:15 AM) 36.6 DegC (08/06/23 12:44 AM) Heart Rate 80 bpm (08/06/23 4:15 AM) 91 bpm (08/06/23 12:44 AM) 88 bpm (08/05/23 7:59 PM) Respiratory Rate 20 br/min (08/06/23 8:41 AM) 18 br/min (08/06/23 4:15 AM) 18 br/min (08/06/23 12:44 AM) Blood Pressure 124/68mmHg (08/06/23 8:41 AM) 117/78mmHg (08/06/23 4:15 AM) 121/74mmHg (08/06/23 12:44 AM) Mean Blood Pressure 81 mmHg (08/06/23 8:41 AM) 88 mmHg (08/06/23 4:15 AM) 87 mmHg (08/06/23 12:44 AM) Cuff Pulse Pressure 56 mmHg (08/06/23 8:41 AM) 39 mmHg (08/06/23 4:15 AM) 47 mmHg (08/06/23 12:44 AM) BP Location # 1 Right Arm (08/06/23 8:41 AM) Right Arm (08/06/23 4:15 AM) Right Arm (08/06/23 12:44 AM) Social History Social History Type Response Smoking Status Never smoked cigaret anyi Sex Male Radiology * MD Hardy Priya: PERFORM, VERIFY Event Display: EKG Authored Date: [id number] PROCEDURE DATE: [id number] Sinus rhythm ECG now within normal limits Comparison Summary: Descriptive differences only Summary: Normal ECG Compared with:05/25/2022 1:10 PM; 05/21/2022 1:13 AM; 11/04/2019 12:49 PM Electronically Signed By: Antony Zabala MD Date: 08/01/2023 Time: 06:35 * MD Hardy Priya: VERIFY, PERFORM Event Display: EKG Authored Date: [id number] History and physical note * MD Felix, Humera Hennessy: PERFORM Event Display: H&P Authored Date: [id number] Name:LYNDA DIALLO IV Patient Number:[id number] :1970 Date of Service:08/01/2023 Chief Complaint Patient reporting he was sober x 3 days, had a seizure this morning .Drank 2 beers today, typicallydrinks 5 shots of vodka/day and 1-2 beers. Pt. also reporting CP, blood in stool , and passive SI. Took meth 3 days ago. History of Present Illness 53-year-old male with longstanding history ofalcohol abuse with prior history ofreportedwithdrawal seizures, epilepsy withwell-documented prior noncompliance with medications,anxiety/depression with priorSI/SAalso with prior noncompliance with medications,who reportedly presented tot ED after claiming to have had a withdrawal seizurein the morningprior to presentationas well as reportedly endorsingchest pain, BRBPR, and passive SI. Patient was not cooperative with my evaluation, wanting to be left alone to sleep, and would not allowme to ask questions or provideanswers, and also limited exam. Most of history was therefore obtained from discussion with ED physician as well asreview of his chart and prior hospitalizations. Patient has previously claimedhistory of esophageal variceswhen he has presented withrectal bleeding/melena in the past. Last EGD that I could find was completed in May 2022 and aborted due to significant amount of food in the stomach. [place] prior to repeat EGD being performed and patient has well-documented history of frequently leaving AMA prior tofull evaluations being able to be completed. I could find no objective proof of history of varicesbut it is documented withprior presentations thathe has a reported history of varices. He also extensive psychiatric historyas well assubstance abuseincluding alcohol,cocaine, methamphetamine. Nursing reported that patient was found to have a razorhidden in his sockwhen being evaluated due to hisreported SI, and ED physicianreported that in the pastpatient has been discovered tocut himse lf withrazors in the area to mimic GI bleedingthough I have not found documentation of this myself. Patient was placed on a one-to-one in the ED due to thereported SI andfinding of a razorwhich raises concern foractive SI. As above, patient had reported to the EDproviderthat he stopped drinking a few days ago andordered aseizurethis morning, after which he supposedly woke up and tookmultiple doses of hisDepakote which he had not been compliant with (unclear exactly how much he took, asED provider told mepatient stated he took 3 750 mg tablets, but review ofRx historyand medication history lis tshim being onthree 250 mg tablets nightlyalthough does have a recentexternal Rx for 500 mgtablets). Patient been apparentlyalso drink 48 ounces of beerto self treat his withdrawal, and thendecided to come to the EDthis evening. Unclear why he would not havesought evaluation immediately after thereported seizure. Patient has had no witnessed seizure activity in the ED and CIWAsstill in the single digits even after he had been in the ED for severalhoursthoughEDphysician told me patient was claiming to be having hallucinations. Review of Systems Unable to obtain due to patient refusing to answer questions. Physical Exam Vitals & Measurements T:36.8C HR:70(Monitored) RR:16 BP:128/81 SpO2:100% Oxygen Therapy:Room Air HT:171cm WT:58.970kg(Dosing) WT:58.97kg BMI:20.17 General:Thin patient, in no acute distress. Head:Normocephalic, atraumatic Eyes: No scleral injection or discharge. ENT: Slightly drymucous membranes. No external ear lesions. Lungs:Normal respiratory effort,unable to adequately auscultate due to patient uncooperativeness with exam. Cardiac: Regular rate and rhythm, rest of examlimited due to patient uncooperativeness Abdomen:Patient refused exam MSK: Extremities spontaneously Neurologic:Sleeping, awoketo voice,refused any further exam Psych:Uncooperativewith history and exam Diagnostic Results (07/31/2023 22:[address] Angio Abdomen and Pelvis) Reason For Exam hematochezia Report EXAM: 1. CTA CHEST WITHOUT AND WITH CONTRAST 2. CTA ABDOMEN PELVIS WITHOUT AND WITH CONTRAST HISTORY: History of varices, GI bleed. Chest and abdominal pain. No trauma. COMPARISON: 05/19/2022 CT TECHNIQUE: 1. CTA chest without and with intravenous contrast was performed. MIP images were obtained and reviewed. 2. CTA abdomen pelvis without and with intravenous contrast was performed. MIP images were obtainedand reviewed. Number of previous CTs and/or Cardiac NM exams performed in last 12 months (per CMS MIPS Quality Measure 360): 1 CONTRAST: 75 mL Omnipaque 350 intravenously. FINDINGS: CTA CHEST: PULMONARY ARTERIES: The main pulmonary artery is normal in size. Well opacified. There is no filling defect. No acute pulmonary embolus. AORTA: Thoracic aorta is normal in size. No thoracic aortic aneurysm or dissection. HEART: The heart is normal in size. No pericardial effusion. Coronary artery calcifications arepresent. MEDIASTINUM/TRINI: Small bilateral hilar and subcarinal lymph nodes are present, not pathologically enlarged. There is circumferential thickening of the esophagus, suggesting esophagitis. Surgicalclips are present adjacent to the distal esophagus, similar to the prior exam. CHEST WALL/AXILLA: There is no chest wall mass or adenopathy. Multiple collateral vessels are present in the chest wall. LUNGS/PLEURA: Bilateral lower lobe atelectasis is present. Right lower lobe consolidation, pneumonia is noted. No other airspace consolidation or pleural effusion. There is a right upper lobe nodule adjacent to the fissure on series 4, image 33, measuring 9 x 6 mm, similar to the prior exam. MUSCULOSKELETAL: Degenerative changes of the spine are present. No acute osseous abnormality identified. CTA ABDOMEN PELVIS: LIVER: The liver is normal in size and enhancement. No hepatic lesion or intrahepatic biliary dilation. GALLBLADDER/BILE DUCTS: Gallbladder is contracted, without stones or surrounding inflammation. Nocholedocholithiasis or biliary obstruction. PANCREAS: Normal size and enhancement. No pancreatic lesion or surrounding inflammation. GI TRACT: Stomach is distended with a large amount of food material. Bowel is not obstructed. Moderate fecal loading of the colon is present, constipation. No inflammatory change of the bowel. No pneumatosis or pneumoperitoneum. There is no abnormal enhancement of the bowel. No contrastextravasation or hemorrhage identified. Appendix is unremarkable SPLEEN: Normal in size and enhancement. No splenic lesion. LYMPH NODES: No significant adenopathy. ADRENAL GLANDS: Unremarkable. KIDNEYS/URETERS: Kidneys enhance symmetrically. No hydronephrosis or obstructing calculus. No renal, ureteral or bladder calculus. URINARY BLADDER: Unremarkable REPRODUCTIVE ORGANS: Prostate gland is normal in size VASCULATURE: The abdominal aorta and the IVC are normal in size. There is no abdominal aortic aneurysm or dissection. There is an IVC filter in place. MISCELLANEOUS: No significant free fluid identified. No free air. MUSCULOSKELETAL: Degenerative changes of the spine and hips are present. Surgical changes of previous left hip ORIF is present. No new osseous abnormality. IMPRESSION: CTA CHEST: 1. No pulmonary embolus. 2. Right lower lobe consolidation, pneumonia. 3. Mild circumferential thickening of the esophagus, suggesting esophagitis. 4. Stable right upper lobe pulmonary nodule. Based on Fleischner Society 2017 Guidelines, given stability to date, follow-up non-contrast chest CT at 12 - 18 months is considered optional for low-risk patients, but is recommended for high-risk patients. CTA ABDOMEN AND PELVIS: 1. No abdominal aortic aneurysm or dissection. 2. Moderate fecal loading of the colon, constipation. No bowel obstruction or inflammation. 3. No acute abdominal or pelvic abnormality. [1] EKG personally reviewed, NSR withQTc 436 ms on my direct calculation Assessment/Plan 1.Alcohol abuse with withdrawal and perceptual disturbance Patient claimed he had a withdrawal seizure earlier this morningand review of chart shows he haspreviously claimed history of withdrawal seizuresthough in the records I reviewed did not see any mention of him having an actual seizure during prior admissions.Currently has not had any seizure activity in the ED. CIWA Due to his reported history of seizure/severe withdrawal andhas had prior ICU stays, will start on50 mg Librium every 6 hours scheduledas well as as needed Ativan for withdrawal symptoms Dailyfolate/multivitamin/thiamine Monitor on telemetry Continuous pulse ox Seizure precautions Due to are vital signs and neurochecks Psychiatry consult 2.Acute on chronic blood loss anemia Patient reportedBRBPRthough refused examination. Does though have a drop in hemoglobin from10.2to 8.2on presentation this evening. Managementsuspected/potential GI bleed as below Trend H/H;transfuse if hemoglobin drops below 7 3.BRBPR (bright red blood per rectum) Due to patient's initialreport of esophageal varices and initially unable to findany definitiveevidence to the contrary(though also unable to find any evidence to confirm), and with him havinga 2 point drop in his hemoglobinto 8.2 from 10.2last month,I did feel it prudentto at leastinitially place himon bothProtonix drip andoctreotide drip withSBP prophylaxis until I couldhopefullydetermine one way or anotherif he did indeed havevariceal history. CT this evening did not show an active source of bleedingthough did reveal esophagitis. On further reviewofhis chart,prior CBCs have sometimes shown hepatic steatosis and other times have commented on theliver being normal, and no imaging has mentioned the presence of varices. As noted in the HPI, EGD from May 2022was limited due to the presence of foodbut no varices were noted on thebrief portion they were able to complete. I subsequentlyfound the followingnoted in thedischarge summary fromJanuary based on this,will presume patient does not have varices and will discontinuethe octreotide especially as he only has1 IV due to being a difficult stickand refusing further IV attempts. Will continue the Protonix. After chart review patient did not haveworkup for cirrhosis. Also patient has had prior EGD in February which showed noesophageal varices,slightly limited study done in e tofood bolus butagain no varices were seen. Patient has noteddiagnosis ofcirrhosis but does onlyhavehepatic steatosis onCT scans and does not appear to have had further evaluation to diagnose cirrhosis. Would benefit from outpatient workupregardingCT findings of hepatic steatosis. [2] Continue Protonix drip; can stop octreotide at this time GI consult N.p.o.except meds Trend H/H Will perform rectal exam if patient becomes cooperative 4.Aspiration pneumonitis CT notable for questionable right lower lobe pneumonia. Although patient is uncooperative with exam/history, did not note anycoughing whenI was attempting to evaluate patient. He also did not seem dyspneicand has no leukocytosis (current leukopeniais overall stable from prior levels).I am more suspicious therefore forthis being an aspiration pneumonitisespecially if he did haveseizure activity as he claims. Suspect pneumonitis and not pneumonia, will hold on antibiotics Continuous pulse ox Aspiration precautions 5.Hypokalemia Potassium low at 3.3,only20 mEq p.o. KCl given in the ED so we will administer an additional total20 mEq IV Continue to monitor and replete as needed 6.Acute alcoholic hepatitis New LFT elevationswith ALT 72, AST 175, alk phos mildly elevated 148. Prior levelswere normalso suspect this is related to his alcohol intake/acute alcohol hepatitisespecially with the2:1 ratio of AST to ALT. Continueto trend LFTs Gentle IV fluids Encourage complete alcohol cessation 7.Esophagitis Likely related to alcohol use. On Protonix drip as well forGI bleed;encourage compliance withoral Protonix on discharge 8.Pulmonary nodule, right Incidental on CT,repeatCT in 12 to 18 months recommended 9.Constipation Also incidentally noted on CT,whichdoes raise suspicion for accuracy of his reportedGI bleeding but cannot deny the fact that he has a drop in hemoglobin from prior. Bowel regimen 10.Amphetamine or stimulant drug abuse Psychiatry consult, encourage cessation 11.Cocaine abuse Psychiatry consult, encourage cessation 12.Noncompliance w/medication treatment due to intermit use of medication Well-documentedthat he is noncompliant with medications including his Depakote for his reportedhistory of epilepsy. Unclear exactly what dose he already took todayas reported to the ED providerand he refused to answer questions for me to be able to determine hishome medications. Depakote level is undetectableconfirmingnoncompliance. Neurology consult to assist withappropriate dosing of his antiepileptic(s) 13.Passive suicidal ideations Psychiatry consult, one-to-one Due to patient's refusal toanswer questionsand allowexam, extensiveand prolonged chart review was needed as well as discussion with ED physicianin order to obtainaccurate history and determine appropriate plan. I personally spenta total [id number] on this encounterto include:p ersonallyreviewing relevantimaging, labs, documentation (including any available outside records); obtaining history/performing physical exam; counseling patientand/or familyon diagnosis and plan of care;ordering appropriatemedications/labs/imaging;discussion and coordination of care with other providers/staff;documentingin EHR. Attestation Note completed with dictation software. Though I have proofread the note, inadvertent dictation errors may still remain. Problem List/Past Medical History Ongoing ADHD Alcohol withdrawal Anxiety Depression Epilepsy GI bleed Hodgkin lymphoma Procedure/Surgical History REV[employer] HIP JOINT REPLACEMENT| Laterality: Left Medications Inpatient acetaminophen(Tylenol), 650 mg= 2 tab, PO, q4h, PRN chlordiazePOXIDE(Librium), 50 mg= 2 cap, PO, q6h folic acid, 1 mg= 1 tab, PO, Daily LORazepam(Ativan), 1 mg= 0.5 mL, IV Push, q1h, PRN multivitamin, 1 tab, PO, Daily ondansetron(Zofran), 4 mg= 2 mL, IV Push, q6h, PRN pantoprazole 80 mg [8 mg/HR] + Sodium Chloride 0.9% 80 mL(pantoprazole for infusion 80 mg [8 mg/HR]+ sodium chloride 0.9% (normalized drips) 80 mL), 100 mL, Rate: 10 mL/HR, Order Calculation Weight:58.97 kg, IV Drip, STAT, 08/01/23 0:20:00 EDT, 60 day, Hard Stop, 09/30/23 0:19:00 EDT polyethylene glycol 3350(MiraLax), 17 g, PO, Daily, PRN senna, 8.6 mg= 1 tab, PO, Daily Sodium Chloride 0.9% 1,000 mL(NS 1,000 mL), 1000 mL, IV Fluid thiamine, 100 mg= 1 tab, PO, Daily Home acetaminophen(Tylenol 325 mg oral tablet), 650 [...] Haldolna Reglanna promethazineOther Social History Smoking Status Never smoked cigarettes Lab Results Lab Results - Last 24hrs Na: 142 mmol/L (07/31/23 21:19:00) K:3.3 mmol/LLow (07/31/23 21:19:00) Cl-:108 mmol/LHigh (07/31/23 21:19:00) CO2:21 mmol/LLow (07/31/23 21:19:00) Anion Gap: 13 mmol/L (07/31/23:19:00) BUN:28 mg/dLHigh (07/31/23:19:00) Cret: 0.94 mg/dL (07/31/23:19:00) Estimated CrCl: 75.8 mL/min (07/31/23 22:14:36) eGFR CKD-EPI: >90 (07/31/23:19:00) Glu: 109 mg/dL (07/31/23:19:00) Ca: 8.5 mg/dL (07/31/23:19:00) M.9 mg/dL (08/01/23 00:31:00) WBC:3.11 K/uLLow (07/31/23:19:00) Hgb:8 g/dLLow (08/01/23 00:31:00) Hct:26 %Low (08/01/23 00:31:00) RBC:2.96 M/uLLow (07/31/23:19:00) MCV: 87.8 fL (07/31/23:19:00) MCHC:31.5 g/dLLow (07/31/23:19:00) MCH:27.7 pgLow (07/31/23::00) RDW-CV:17.2 %High (07/31/23::00) RDW-SD: 55 (07/31/23:19:00) Plts: 257 K/uL (07/31/23:19:00) Nuc RBC Relative Count: 0 /100 WBCs (07/31/23:19:00) Nuc RBC Abs Count: 0 K/uL (07/31/23:19:00) MPV: 9.1 fL (07/31/23:19:00) Immature Gran%: 0.3 % (07/31/23:19:00) Neut%: 38 % (07/31/23:19:00) Lymph%: 47.6 % (07/31/23:19:00) Sequoyah%: 7.7 % (07/31/23:19:00) Baso%: 0.6 % (07/31/23:19:00) Eos%: 5.8 % (07/31/23 21:19:00) Immat Gran, Abs: 0.01 K/uL (07/31/23:19:00) Neut, Abs:1.18 K/uLLow (07/31/23:19:00) Lymph, Abs: 1.48 K/uL (07/31/23:19:00) Sequoyah, Abs: 0.24 K/uL (07/31/23:19:00) Baso, Abs: 0.02 K/uL (07/31/23 21:19:00) Eos, Abs: 0.18 K/uL (07/31/23:19:00) INR: 1 (07/31/23:19:00) PTT: 35 seconds (07/31/23:19:00) PT: 13 seconds (07/31/23:19:00) Valproate:<3Low (07/31/23:19:00) ALT:72 unit/LHigh (07/31/23:19:00) T Bili: <0.1 (07/31/23:19:00) Alk Phos:148 unit/LHigh (07/31/23:19:00) AST:175 unit/LHigh (07/31/23:19:00) Alb: 3.9 g/dL (07/31/23:19:00) Prot:6.1 g/dLLow (07/31/23:19:00) Troponin T (5th Gen): 11 ng/L (07/31/23:19:00) NT ProBNP: 68 pg/mL (07/31/23 21:19:00) Influenza Type A, Rapid Antigen: Negative GenExp (07/31/23 19:52:00) Influenza Type B, Rapid Antigen: Negative GenExp (07/31/23 19:52:00) COVID-19 Source: Nasopharyngeal Qst (07/31/23 19:52:00) COVID-19 Coronavirus PCR: NEGATIVE GenExpert (07/31/23 19:52:00) RSV, Rapid Antigen: Negative GenExp (07/31/23 19:52:00) Congregate Care Setting-QST: Not Given (07/31/23:52:00) Date of Symptom Onset-QST: unknown (07/31/23:52:00) Employed in Healthcare?-QST: Not Given (07/31/23:52:00) Ethnicity-QST: Not Given (07/31/23:52:00) First Test?-QST: Not Given (07/31/23:52:00) Hospitalized?-QST: Not Given (07/31/23:52:00) ICU?-QST: Not Given (07/31/23:52:00) ?(QST): Not Given (07/31/23:52:00) Race-QST: Not Given (07/31/23:52:00) Symptomatic?-QST: Not Given (07/31/23:52:00) Ethanol Level.:54 mg/dLHigh (07/31/23:19:00) Amphetamines(u): HPD Abnormal (07/31/23 23:37:00) Benzodiazepines(u): ND (07/31/23 23:37:00) Cocaine(u): HPD Abnormal (07/31/23 23:37:00) Opiates(u): ND (07/31/23 23:37:00) Oxycodone (u): ND (07/31/23 23:37:00) U Fentanyl Scr: ND (07/31/23 23:37:00) Methadone (u): ND (07/31/23 23:37:00) U THC Screen: ND (07/31/23 23:37:00) U Hydrocodone Scr: ND (07/31/23 23:37:00) ABO/Rh: O NEG (07/31/23:19:00) Antibody Screen Gel: Negative [facility] (07/31/23:19:00) [1]CT Angio Abdomen and Pelvis; MD Connor, Judy Mejia 07/31/2023 22:40 EDT [2]Discharge Summary; DO Daniels Smriti 02/01/2023 17:21 EST Electronic Signature on File Electronically Reviewed/Signed by: Humera Washington MD Author Signature Dt/Tm:08/01/2023 04:23 AM [facility] Hospitalist MANDY Note * MD Jeffry, Charlie Diane: MODIFY, PERFORM, MODIFY, MODIFY Event Display: Psychiatry Consult Authored Date: [id number] Chief Complaint Patient reporting he was sober x 3 days, had a seizure this morning .Drank 2 beers today, typicallydrinks 5 shots of vodka/day and 1-2 beers. Pt. also reporting CP, blood in stool , and passive SI. Took meth 3 days ago. Reason for Consultation alcoholism/reported suicidal ideation History of Present Illness This is a 53 y/o male with hx. seizures, s/p hodgkins lymphoma. He admits to drinking vodka and beer daily. His toxicology was positive for amphetamines and cocaine, however he would not admit this to me. He has been hospitalized psychiatrically several times in the past, he admits to 3X in the last 3 months, last hospitalized at [facility] a month ago.He was in [facility] in Mar 2023 for alcohol detoxwith phenobarbital. He is on Effexor XR 150mg which he has mic on for several years however he admits to non-compliance with his medications. He had a seizure this AM and was brought to the ER and admitted to the ICU through the ER. When seen today, he was minimally cooperative, irritable, kept his eyes closed throughout the evaluation but did answer most of my questions. He admitted to being depressed, denied anxiety. States that his sleep and nasir have been poor, denied weight loss. He denied ever making a suicide attempt in the past, denied current suicidality or plan currently however the record states he has made at least 2 prior suicide attempts by overdose, He also did not appear to be psychotic, was not actively hallucinating, was not paranoid or delusional, speech was goal directed. Review of Systems c/o unspecified pain, stated feeling like "crap". PAST PSYCHIATRIC HISTORY: Outpatient treatment: none Previous psychiatric hospitalizations:3X in last 3 months Previous suicidal attempts:denies Past medication trials: Effexor ECT none CURRENT OUTPATIENT PSYCHIATRIC PROVIDERS:none currently SUBSTANCE USE ASSESSMENT DRUG AND ALCOHOL ASSESSMENT: abused cocaine and meth/drinks vodka plus beer daily TOBACCO: never smoked cigs ALCOHOL/ DRUGS/LEGAL HISTORY: states was in alf a year ago, would not say why, is on probation FAMILY PSYCHIATRIC HISTORY: denies PERSONAL, FAMILY, AND SOCIAL HISTORY OCCUPATIONAL HISTORY: works [employer] for 10 years CURRENT LIVING SITUATION: Current living situationlives alone Marital Status single, never Current support relationships?unknown Children?none PSYCHOSOCIAL STRESSORS:chronicsubstance use/abuse, chronic medical problems, limited support Constitutional: General Appearance:- 53year old, male, Psychiatric: Personal Presentation:candid and minimally cooperative Behavior:calm Speech:normal, rate, tone and volume Mood:depressed Associations:intact Thought Process:goal directed and logical Abstract Reasoning:not tested Thought Content:denies suicidal ideations, homicidal ideations, auditory hallucinations, visualhallucinations, delusions, impulsivity to act out or preoccupation with violence Orientation:alert and oriented to person, place, time and situation Recent and remote memory as evidenced by recall of recent circumstances and remote life events: intact Language as evidenced by ability to repeat phrase and name object: not tested Fund of knowledge as evidenced by vocabulary and current/historical events: intact Attention span/concentration as evidenced by: ability to sustain attention to examiner - intactand following conversation - intact Insight:impaired Judgment:impaired Physical Exam Vitals & Measurements T:36.0C TMIN:35.7C TMAX:36.1C HR:66(Monitored) RR:14 BP:112/83 SpO2:100% Oxygen Therapy:Room Air WT:56.5kg Input and Output - Last 24 hours (Last 8 hours) Total In: 1270 (53) Total Out: 1600 (0) Total Balance: -330 (53) NS 1,000 mL:1210 (0) Urine Voided:1600 (0) MED INTAKE:60 (53) Diagnostic Results tox positive for cocaine, methamphetamines, ETOH=0.054 Assessment/Plan 1) Major depression, recurrent, severe without psychotic features-on Effexor XR 150 mg daily although admits non-compliance with medication 2) Alcohol withdrawal seizures/alcohol abuse-abuse of methamphetamines and cocaine-patient willing to consider going into inpatient rehab, needs social work consult when medically stable and able to participate 3) Reported suicidal ideation-patient had razor blades in his sock probably to cut cocaine, denies suicidal ideation and plan. Will follow up with him on Saturday for reevaluation as patient was guarded, irritable.Will D/C 302 petition as was initiated for medical purposes but canreinitiate it if warranted.Patient should pursue dual inpatient rehabandSW can give him referrals for inpatient dual diagnosis services when medically cleared to do so. Should maintain 1:1 for safety until can further evaluate. Attestation I spent 20 minutes with the patient and another 20 minutes in documentation and coordination of care. Problem List/Past Medical History Ongoing ADHD Alcohol withdrawal Anxiety Depression Epilepsy GI bleed Hodgkin lymphoma Procedure/Surgical History REVISE HIP JOINT REPLACEMENT| Laterality: Left Medications Inpatient acetaminophen(Tylenol), 650 mg= 2 tab, PO, q4h, PRN chlordiazePOXIDE(Librium), 50 mg= 2 cap, PO, q6h cholecalciferol, 50 mcg= 2 tab, PO, Daily diphenhydrAMINE(Benadryl), 50 mg= 1 mL, IV, q4h, PRN divalproex sodium(divalproex sodium extended release), 750 mg= 3 tab, PO, qhs folic acid, 1 mg= 1 tab, PO, Daily LORazepam(Ativan), 2 mg= 1 mL, IV Push, q1h, PRN multivitamin, 1 tab, PO, Daily mupirocin topical(mupirocin 2% nasal ointment), 1 appl, each nostril, bid pantoprazole 80 mg [8 mg/HR] + Sodium Chloride 0.9% 80 mL(pantoprazole for infusion 80 mg [8 mg/HR]+ sodium chloride 0.9% (normalized drips) 80 mL), 100 mL, Rate: 10 mL/HR, Order Calculation Weight:58.97 kg, IV Drip, STAT, 08/01/23 0:20:00 EDT, 60 day, Hard Stop, 09/30/23 0:19:00 EDT polyethylene glycol 3350(MiraLax), 17 g, PO, Daily, PRN senna, 8.6 mg= 1 tab, PO, Daily Sodium Chloride 0.9% 1,000 mL(NS 1,000 mL), 1000 mL, IV Fluid thiamine, 100 mg= 1 tab, PO, Daily venlafaxine(venlafaxine extended release), 150 mg= 1 cap, PO, Daily Home acetaminophen(Tylenol 325 mg oral tablet), 650 [...] Haldolna Reglanna promethazineOther Social History Smoking Status Never smoked cigarettes Electronic Signature on File Electronically Reviewed/Signed by: Charlie Teran MD Author Signature Dt/Tm:08/02/2023 06:22 PM Behavioral Health Electronically Reviewed/Signed by: Charlie Teran MD Cosigner Signature Dt/Tm: 08/03/2023 02:24PM Behavioral Health Electronically Reviewed/Signed by: Charlie Teran MD Cosigner Signature Dt/Tm: 08/04/2023 01:48AM Behavioral Health Electronically Reviewed/Signed by: Charlie Teran MD Cosigner Signature Dt/Tm: 08/04/2023 02:13AM Behavioral Health [facility] * MD Young, Kay: PERFORM Event Display: Psychiatry Consult Authored Date: Name:LYNDA DIALLO IV Patient Number:[id number] :1970 Date of Service:08/01/2023 Chief Complaint Patient reporting he was sober x 3 days, had a seizure this morning .Drank 2 beers today, typicallydrinks 5 shots of vodka/day and 1-2 beers. Pt. also reporting CP, blood in stool , and passive SI. Took meth 3 days ago. History of Present Illness Per Chart: 53-year-old male with longstanding history of alcohol abuse with prior history of reported withdrawal seizures, epilepsy with well-documented prior noncompliance with medications, anxiety/depression with prior SI/SA also with prior noncompliance with medications, who reportedly presentedto the ED after claiming to have had a withdrawal seizure in the morning prior to presentation as well as reportedly endorsing chest pain, BRBPR, and passive SI. Pt has prior hospitalization for similar on 06/23/23- , who was admitted to [facility] on 06/23/2023 under 201 voluntary commitment for what appears to be a picture of acute psychosis. Evaluation is pertinent for subjective reports of worsening depression and PDW stemming from paranoid delusions alongside observable tangentiality, pressured speech and psychomotor agitation. It is unclear at this time if this is due to a primary psychiatric illness as he reports significant alcohol/marijuana/cocaine/stimulant use recently Patient seen for evaluation via tele-psych. Patient is very agitated about having psychiatry consulted without his permission. He says this was aunilateral arrogant decision makingjohan dare you not involve me in this decision. Because of your amateur decision making I will not talk to this psychiatrist.Patient moves screen and states that he will not speak to any other doctor or the psychiatrist. Patient berates the nurse standing in the room and also refuse Patient has prior ER visits with similar presentation, in context of substance use and noncompliance with treatment. Patient refuses consult and covers his head with sheet. Spoke with Dr You- patient was reported to have razor blades and making comments about harming himself on arrival. Patient has been uncooperative and requires admission for withdrawal and seizures. Patient is attempting to leave AMA and does not want medical or psychiatric treatment. He is stating that he does not want anyone to speak to his mother either. Information obtained from chart review Past Psychiatric History: Yes, multiple admissions for a few days at [facility], with the last admission occurring 2 months ago. Diagnoses: ADHD, MDD PHP/IOP: Denies. History of Suicide attempts: Denies. History of self-injurious behavior: Denies. History of violence: Denies. Outpatient provider: Psychiatrist Dr. Valentín Ramirez. Outpatient therapist: Does not have a therapist. ECT/TMS trials: Denies. Psychotropic medication trials: Patient provides dosages inconsistent with fill history. Per fill history, the patient has been taking Depakote 750 mg, twice daily, Ritalin LA 20 mg, daily, Remeron 15 mg, at bedtime, Multivitamin, daily, Pantoprazole 40 mg, daily, Thiamine 100 mg, daily, Venlafaxine 150 mg, daily. 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 Education: BA in Armenian and history. 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 Legal: Assault charge/probation in [facility]. Relationships: , no kids. Current living situation: Lives in [facility] [place] (Sober living in [place]) for the past 3 weeks. Social support: Friends in [place], father, and sister. : Denies. Substance Use: Tobacco: 1 pack per day. Alcohol: Yes, alcohol; was sober for 2.5 month relapsed Recreational drug use: Marijuana, Adderall, and cocaine and meth Rehab: 6 admissions during lifetime, with the last admission being 2 months ago. DUI: Denies. Review of Systems:Applicable Constitutional:normal Eyes:normal ENT:normal Neck:normal Respiratory:normal Chest/Breast:normal Cardiovascular:normal GI:normal Genitourinary:normal Skin:normal Lymphatic:normal Musculoskeletal:normal Neurological:normal Other: _ All other systems are negative Mental Status Examination: Appearance: _ groomed _ poor hygiene _x disheveled _ bizarre Eye contact: _ good _ fair _x poor _ none Psychomotor activity: _ normal _x agitated _ slow _ other: Behavior: _ friendly _ cooperative _x hostile _ suspicious _ guarded _ agitated _ bizarre Speech: _ clear _ pressured _ soft _ disorganized _ monotone _ aphasic _ slurred _ dysarthric _ slowed x_ loud _ prolonged speech latency Affect: _ appropriate _ inappropriate _ full _ euthymic _ flat _ blunted _x labile _ depressed _ anxious _ constricted _ intense _ elevated _ expansive _ other: Mood: _ depressed _ anxious _x angry _x irritable _ euphoric _ other in patient's words: Thought process: _ linear _ loose _ FOI _ tangential _ circumstantial _ perseverative _x illogical Thought content: _ normal _ delusional (_ paranoid; _ grandiose; _ presybeterian; _x other:EFLIZ Suicidal:no Homicidal:no Orientation:x4 Cognition: level of alertness: _x alert _ drowsy _ obtunded _ comatose _ unable to assess due to: Insight: _ intact x_ impaired _ mild _ moderate _ severe Judgement: _ intact x_ impaired _ mild _ moderate _ severe Attention span: _ intact _x distractible Clinical Screens/Measuring tools: Suicide Risk Screening (Rotan/asQ): Rotan Suicide Risk:Low Risk Suicide Screen Ongoing CSSRS Wish to be : Lifetime, yes (06/22/23 22:06:00) Suicide Reassessment- unable to assess- per chart review on last visit (Data Documented on: 06/22/2023 22:06) Suicide Risk Level:Low Risk Suicide Known Risk Factors:Previous Attempts Suicidal Behavior:None Deterrents to suicide or self-harm:Support of family or significant other, Access to help Review of Systems unable to assesss Physical Exam Vitals & Measurements T:36.8C HR:73(Monitored) RR:18 BP:123/92 SpO2:100% Oxygen Therapy:Room Air HT:171cm WT:58.970kg(Dosing) WT:58.97kg BMI:20.17 Assessment/Plan While the patient's hospitalization is significantly driven by substance use, he demonstrates characterological traits that are also contribute to his hospitalization thus it is unclear at this time if this is due to a primary psychiatric illness or significant alcohol/marijuana/cocaine/stimulant use recently. Per prior hospitalizationThe patient's pattern of recounting his numerous achievements and abilities, belief that only high status individuals can understand his situation, expectation of favorable treatment, exported nature to have his needs met, they are good behaviors are consistent with narcissistic personality disorder. Patient is unable to understand medical, mental health and substance use problems, proposed treatments, alternatives to proposed treatments, option of refusing proposed treatments, and cannot appreciate foreseeable consequences of accepting and/or withholding proposed treatments. Pt history of agitation and lability likely characterological in nature , per chart diagnosed with narcissistic personality disorder. Pt tends to become threatening and agitated when demands are not met, however patient demonstrates poor impulse control and insight. Patient needs further treatment to stabilize her behavior to function in the community.Pt hasprior visits where by pt recants SI after he is sober Diagnosis: substance induced psychosis/mood disorder alcohol intoxication cocaine use meth use Mood disorder, nos Personality disorder Recommendation/Plan: Initiate 302- patient requires medical clearance, will be admitted to medical floor. Psych to evaluate once medically stable to determine need for psychiatric admission collateral from mother continue home psychiatric medications if not contraindicated depakote level elopement and safety precautions seizure precautions 1. Medication Management: _ informed consent for psychotropic medication obtained NA 2. Psychotherapy:NA 3. Patient Caregiver/Family Education/Discussed with staff name: Dr You 4. Follow up/Disposition:Admit to medical floor on 302 Telehealth Attestation: I have confirmed the patients name and date of . [_x] The provider initiated this visit after explaining the need for this visit to the patient, whohas consented to this virtual visit. This visit was conducted via [_] live audio/video technology[ _ ] Telephone, and was not related to a visit or procedure that occurred within the past 7 days. 1.Alcohol abuse with withdrawal and perceptual disturbance 2.Acute on chronic blood loss anemia 3.Withdrawal seizures 4.BRBPR (bright red blood per rectum) 5.Aspiration pneumonitis 6.Hypokalemia 7.Acute alcoholic hepatitis 8.Esophagitis 9.Pulmonary nodule, right 10.Constipation 11.Amphetamine or stimulant drug abuse 12.Cocaine abuse 13.Noncompliance w/medication treatment due to intermit use of medication 14.Passive suicidal ideations Attestation I spent a total [id number] on the date of the service which included preparing to see the patient, [id number] patient care, completing clinical documentation, performing a medically appropriate examination, communicating with other HCPs (not separately reported), and independently interpreting results (not separately reported). Problem List/Past Medical History Ongoing ADHD Alcohol withdrawal Anxiety Depression Epilepsy GI bleed Hodgkin lymphoma Procedure/Surgical History REVISE HIP JOINT REPLACEMENT| Laterality: Left Medications Inpatient acetaminophen(Tylenol), 650 mg= 2 tab, PO, q4h, PRN chlordiazePOXIDE(Librium), 50 mg= 2 cap, PO, q6h cholecalciferol, 50 mcg= 2 tab, PO, Daily diphenhydrAMINE(Benadryl), 50 mg= 1 mL, IV, q4h, PRN divalproex sodium(Depakote ER), 750 mg= 3 tab, PO, qAM folic acid, 1 mg= 1 tab, PO, Daily LORazepam(Ativan), 1 mg= 0.5 mL, IV Push, q1h, PRN multivitamin, 1 tab, PO, Daily pantoprazole 80 mg [8 mg/HR] + Sodium Chloride 0.9% 80 mL(pantoprazole for infusion 80 mg [8 mg/HR]+ sodium chloride 0.9% (normalized drips) 80 mL), 100 mL, Rate: 10 mL/HR, Order Calculation Weight:58.97 kg, IV Drip, STAT, 08/01/23 0:20:00 EDT, 60 day, Hard Stop, 09/30/23 0:19:00 EDT polyethylene glycol 3350(MiraLax), 17 g, PO, Daily, PRN senna, 8.6 mg= 1 tab, PO, Daily Sodium Chloride 0.9% 1,000 mL(NS 1,000 mL), 1000 mL, IV Fluid thiamine, 100 mg= 1 tab, PO, Daily venlafaxine(venlafaxine extended release), 150 mg= 1 cap, PO, Daily Home acetaminophen(Tylenol 325 mg oral tablet), 650 [...] Haldolna Reglanna promethazineOther Social History Smoking Status Never smoked cigarettes Electronic Signature on File Electronically Reviewed/Signed by: Kay Vidal MD Author Signature Dt/Tm:08/01/2023 12:17 PM Psychiatry AD Neurology Consult note * JORGE Davidson John: PERFORM JORGE Davidson John: PERFORM Event Display: Neurology Consult Authored Date: Chief Complaint Patient reporting he was sober x 3 days, had a seizure this morning .Drank 2 beers today, typicallydrinks 5 shots of vodka/day and 1-2 beers. Pt. also reporting CP, blood in stool , and passive SI. Took meth 3 days ago. Reason for Consultation Seizures History of Present Illness This is a [id number] a past medical historyof alcohol abuse,alcoholichepatitis,cocaine abuse, amphetamine useand anemiawho presentsto [facility]withconcerns for seizures. Neurology was consulted to evaluate the patientfor seizures. According to patient,he believes that he had a seizureas he stateshe has beenwithdrawingfrom alcoholand he has been off of his seizure medications for the past 5 days. Patient is unable to give me much information with regards to seizuresand began to requestthat I give him his seizure medication at this time. Patient appears to be back to his baseline. In the ED, patient'sethanol level was 54and valproic acid was less than 3. Review of Systems Reviewed all 14 basedROS with the patient & reported to be negativeexcept as mentioned above. Physical Exam Vitals & Measurements T:36.8C HR:73(Monitored) RR:18 BP:123/92 SpO2:100% Oxygen Therapy:Room Air WT:58.970kg(Dosing) WT:58.97kg Input and Output - Last 24 hours (Last 8 hours) Total In: 1276 (31) Total Out: 0 (0) Total Balance: 1276 (31) MED INTAKE:1276 (31) The patient is alert, comfortable and cooperative with exam. Patient's appearance is consistent with stated age. Head is normocephalic and atraumatic. Neck is supple without bruits or lymphadenopathy. NEUROLOGICAL EXAMINATION: MENTAL STATUS: Alert and orientated x3, well spoken, fluent and appropriate with no aphasia or dysarthria with also repetition intact. The patient follows all commands, simple crossed and complex. CRANIAL NERVES: Visual vizcarra are full to confrontation. Visual acuity is grossly intact. Pupils are equal and reactive to light and accommodation. EOM are intact. Sensation to V1-V3 is intact. Jawmovement is intact and symmetrical. Face appears symmetrical and bilaterally. Hearing is intact to finger rub bilaterally. Palate elevates symmetrically and tongue is midline. Trapezoids and SCM muscles are full power. MOTOR: Tone is normal. There is no pronator drift. Fine finger movements are intact and symmetrical. Strength is symmetrical and 5/5 bilaterally. Assessment/Plan 1.Alcohol abuse with withdrawal and perceptual disturbance Chronic. Although patient claims that he is currently going through alcohol withdrawalit doesappear thathe was still intoxicatedupon arrival to the emergency department. Continue monitoring with CIWA protocol. Recommend for patient to continuethiamine and folic acid. If concernfor withdrawal seizures 2.Withdrawal seizures Patient seizures likely due tomedication noncompliance. Valproic acid level<3 Recommend patientbe restarted back on hisDepakotewhich is at 750 mg extended release at bedtime for now.Patientwould benefit fromfollowing up with neurology outpatientfor a ambulatoryEEGto further characterize patient's seizuresand need foradditional medication if patient continues to have seizures. Ultimatelywith regards to and concerns for withdrawal seizures the besttreatment would be to completelydiscontinue the use of alcoholand illicit drugs. No EEG recommended at this time. Neurology attending addendum---reviewed history and exam above by Lynda PATEL. Discussed plan of care with him and agree with assessment and plan above. Continue home dose ofDepakote for now.Patient anemic. Check [id number] and thiamine levels. Vitamin supplementation. If patient has any seizures considerchanging [id number] EC twice daily. Continue CIWA protocol. Attestation I, Tyler Allen MD performed in its entirety the substantive portion of the this visit medical decision making.Reviewed lab work, imaging studies and prior records which are available in [facility]. During this visit the physician conventions assistant spent35 minutes in direct patient care and the physician spent 20 minute in direct patient care. This accumulates to 55 minutes total patient care time. Problem List/Past Medical History Ongoing ADHD Alcohol withdrawal Anxiety Depression Epilepsy GI bleed Hodgkin lymphoma Procedure/Surgical History REVISE HIP JOINT REPLACEMENT| Laterality: Left Medications Inpatient acetaminophen(Tylenol), 650 mg= 2 tab, PO, q4h, PRN chlordiazePOXIDE(Librium), 50 mg= 2 cap, PO, q6h cholecalciferol, 50 mcg= 2 tab, PO, Daily diphenhydrAMINE(Benadryl), 50 mg= 1 mL, IV, q4h, PRN divalproex sodium(Depakote ER), 750 mg= 3 tab, PO, qAM folic acid, 1 mg= 1 tab, PO, Daily LORazepam(Ativan), 1 mg= 0.5 mL, IV Push, q1h, PRN multivitamin, 1 tab, PO, Daily pantoprazole 80 mg [8 mg/HR] + Sodium Chloride 0.9% 80 mL(pantoprazole for infusion 80 mg [8 mg/HR]+ sodium chloride 0.9% (normalized drips) 80 mL), 100 mL, Rate: 10 mL/HR, Order Calculation Weight:58.97 kg, IV Drip, STAT, 08/01/23 0:20:00 EDT, 60 day, Hard Stop, 09/30/23 0:19:00 EDT polyethylene glycol 3350(MiraLax), 17 g, PO, Daily, PRN senna, 8.6 mg= 1 tab, PO, Daily Sodium Chloride 0.9% 1,000 mL(NS 1,000 mL), 1000 mL, IV Fluid thiamine, 100 mg= 1 tab, PO, Daily venlafaxine(venlafaxine extended release), 150 mg= 1 cap, PO, Daily Home acetaminophen(Tylenol 325 mg oral tablet), 650 [...] Haldolna Reglanna promethazineOther Social History Smoking Status Never smoked cigarettes Lab Results Test Name Test Result Date/Time Na 136 mmol/L 08/01/2023 04:09 EDT K 4.3 mmol/L 08/01/2023 04:09 EDT Cl- 107 mmol/L 08/01/2023 04:09 EDT CO2 23 mmol/L 08/01/2023 04:09 EDT Anion Gap 6 mmol/L 08/01/2023 04:09 EDT BUN 23 mg/dL 08/01/2023 04:09 EDT Cret 0.83 mg/dL 08/01/2023 04:09 EDT eGFR CKD-EPI >90 mL/min/1.73 m2 08/01/2023 04:09 EDT Glu 187 mg/dL 08/01/2023 04:09 EDT Ca 7.6 mg/dL 08/01/2023 04:09 EDT Mg 1.9 mg/dL 08/01/2023 04:09 EDT WBC 2.42 K/uL 08/01/2023 04:09 EDT Hgb 7.9 g/dL 08/01/2023 04:09 EDT Hct 26.4 % 08/01/2023 04:09 EDT RBC 2.96 M/uL 08/01/2023 04:09 EDT MCV 89.2 fL 08/01/2023 04:09 EDT MCHC 29.9 g/dL 08/01/2023 04:09 EDT MCH 26.7 pg 08/01/2023 04:09 EDT RDW-CV 17.3 % 08/01/2023 04:09 EDT RDW-SD 56 08/01/2023 04:09 EDT Plts 224 K/uL 08/01/2023 04:09 EDT Nuc RBC Relative Count 0 /100 WBCs 08/01/2023 04:09 EDT Nuc RBC Abs Count 0.00 K/uL 08/01/2023 04:09 EDT Plt Slide Rev Reviewed 08/01/2023 04:09 EDT MPV 8.8 fL 08/01/2023 04:09 EDT Neut% Man 43.0 % 08/01/2023 04:09 EDT Lymph% Man 43.0 % 08/01/2023 04:09 EDT Sequoyah% Man 4.0 % 08/01/2023 04:09 EDT Eos% Man 10.0 % 08/01/2023 04:09 EDT RBC Morphology See Findings 08/01/2023 04:09 EDT Rouleaux Present 08/01/2023 04:09 EDT Aniso Slight 08/01/2023 04:09 EDT Target Cells Few 08/01/2023 04:09 EDT Elliptocyte Few 08/01/2023 04:09 EDT Slide Review Manual Diff 08/01/2023 04:09 EDT Valproate <3 ug/mL 07/31/2023 21:19 EDT ALT 55 unit/L 08/01/2023 04:09 EDT T Bili <0.1 mg/dL 08/01/2023 04:09 EDT D Bili <0.2 mg/dL 08/01/2023 04:09 EDT Alk Phos 130 unit/L 08/01/2023 04:09 EDT AST 91 unit/L 08/01/2023 04:09 EDT Alb 3.3 g/dL 08/01/2023 04:09 EDT Prot 5.2 g/dL 08/01/2023 04:09 EDT Ethanol Level. 54.0 mg/dL 07/31/2023 21:19 EDT Amphetamines(u) Presumptive Pos 07/31/2023 23:37 EDT Benzodiazepines(u) Not Detected 07/31/2023 23:37 EDT Cocaine(u) Presumptive Pos 07/31/2023 23:37 EDT Opiates(u) Not Detected 07/31/2023 23:37 EDT Oxycodone (u) Not Detected 07/31/2023 23:37 EDT U Fentanyl Scr Not Detected 07/31/2023 23:37 EDT Methadone (u) Not Detected 07/31/2023 23:37 EDT U THC Screen Not Detected 07/31/2023 23:37 EDT U Hydrocodone Scr Not Detected 07/31/2023 23:37 EDT Electronic Signature on File Electronically Reviewed/Signed by: Lynda Davidson PA-C Author Signature Dt/Tm:08/01/2023 11:08 AM Neurology Electronically Reviewed/Signed by: Tyler Allen MD Cosigner Signature Dt/Tm: 08/01/2023 01:57PM Neurology TREY .D/C Summary * MD Land Sham: PERFORM Event Display: .D/C Summary Authored Date: [id number] [facility] For questions or further information, call: . Address: [address] [place], [place] [id number] (MOBILE) [phone] (ALTERNATE) :1970 . Date of Admission:07/31/2023 Date of Discharge:08/07/2023 Physician:MD Land Sham Service:Hospitalist Discharge Disposition:Left Against Medical Advice Primary Care Provider/Phone: HEBERT CHINO ANA M ([facility]) [phone] (FAX BUSINESS) Principal Diagnosis: Alcohol abuse with withdrawal and perceptual disturbance Other Diagnoses: Withdrawal seizures Acute on chronic blood loss anemia BRBPR (bright red blood per rectum) Aspiration pneumonitis Hypokalemia Acute alcoholic hepatitis Esophagitis Pulmonary nodule, right Constipation Amphetamine or stimulant drug abuse Cocaine abuse Noncompliance w/medication treatment due to intermit use of medication Passive suicidal ideations Hospital Course: 53-year-old male with past medical history ofalcohol abuse,alcohol withdrawal seizures,depression/anxiety, ADHD, gastritis, Hodgkin's lymphoma, previous HCVspontaneously cleared,priorsuicidal ideation, noncompliance to medicationspresented initiallywith concerns forwithdrawal seizures. Patient also reportedsome bleeding per rectum. Patient's alcohol level was highon arrival. Patient was started on CIWA protocol.Patient's valproic acid levelcame back low. Neurology team recommended to resume home dose of valproic acid.Patient was also having some suicidal ideationso psych team was consulted. Initiallythey recommended inpatient admission however later onon follow-upon 08/01psych team cleared the patient.Patient's withdrawal symptoms improvedand initially was on Libriumwhich was tapered down.Later on during hospital staypatient made remarksthat he is not feeling safewith thoughts of hurting himselfso psych team was reconsultedand patient was reevaluated by psych team.During psych evaluation patient reported that he isfeeling betterand he is no longer havingsuicidal thoughtsbut he is interested inalcohol rehab.Case management team was involvedand they were working onarrangementforalcohol rehabhoweverlater on patient decidedthat he no longer wants to stay in the hospitaland wanted to sign out AMA.Patient reported that he does not want tostay in the hospital anymoreandhe did not want to wait for the providerto have further discussion.Patient was [id number] decided to leave AGAINST MEDICAL ADVICE.Patient even did not want to wait forhis paperwork.Patient left AMA. Alcohol abuse/withdrawal Librium was tapered off of Librium as pt is no longer having withdrawal symptoms Seizure disorder/alcohol withdrawal seizures Likely due to medication noncompliance [id number] mg daily Follow-up with neurology as outpatient Passive/active suicidal ideation As mentioned above patient wascleared by psych teamon 08/01 howeverpatient again makingcommentsof feelingunsafeand thoughts of hurting himself Psych team evaluated patient on 08/04and they did not recommendinpatient psych admission Acute on chronic anemia/bleeding per rectum H&H remained stable No longer having bleeding Right pulmonary nodule Will need repeatrepeat CT chest in 12 months Exam on Discharge: Constitutional: Not in distress (Exam done in the morning) CVS: S1S2 normal, No M/G/R Resp: CTA b/l Abdomen: Soft,NT/ND Extremities: No edema Discharge Medications: DO NOT PRINT! (Discharge Medication Listis incomplete) Please complete Discharge Medication Reconciliation and refresh the Medication List section in the Discharge Instructions/Summary. Allergies and Sensitivities: Compazinena Haldolna Reglanna promethazineOther Tests Pending: None Discharge Services: No Post-Acute Placement(s) Listed No Post-Acute Service(s) Listed . Advance Directive:None I personally spent>35 minutes in discharge planning. [employer] voice recognition software was utilized to create this note, however it does come with its inherent inaccuracies and flaws which may have been introduced by this software system. I have made reasonable effort in my part to assure accuracy of my note. There may still be errors in note note which may have not been noticed, however, this does not in any way reflect the quality of care provided to my patients. Electronic Signature on File Electronically Reviewed/Signed by: Tyron Land MD Author Signature Dt/Tm:08/07/2023 03:40 PM [facility] Hospitalist [facility] Emergency department Summary note * MD Oneil Peter Jacob: PERFORM, MODIFY, SIGN, VERIFY, MODIFY, MODIFY Event Display: ED Summary Authored Date: [id number] Patient: LYNDA DIALLO IV Age: 53 years Sex: Male : 1970 Associated Diagnoses: None Author: MD Oneil Peter Jacob Basic Information Time seen: Date 07/31/2023. History source: Patient. History limitation: None. History of Present Illness The patient presents with alcohol withdrawal. The patient is a 53-year-old male presenting today with concerns for alcohol withdrawal. He reports he has been binging for the past 3 weeks. He had beensober for the past 3 days. This morning he reports he had a seizure. He reports she has a history of both epilepsy and alcohol withdrawal seizures. He was on Depakote but has not been taking it. Since the seizure this morning, he reports next 3 doses of 750 mg of Depakote. Has not had any additional seizures. He also had 48 ounces of beer which helped reduce his symptoms of shaking, anxiety, nausea. Patient notes he has also been using a lot of amphetamines. He reports mild chest discomfort, mild dyspnea with exertion. Patient reports blood in the stool. He reports this is chronic for him. Denies SI or HI.. Review of Systems Constitutional symptoms: No fever, no chills. Skin symptoms: No rash, Eye symptoms: Vision unchanged. ENMT symptoms: No sore throat, Respiratory symptoms: No shortness of breath, no cough. Cardiovascular symptoms: Chest pain, No palpitations, Gastrointestinal symptoms: Nausea, rectal bleeding, no abdominal pain, no vomiting. Genitourinary symptoms: No dysuria, Neurologic symptoms: Dizziness, No headache, Endocrine symptoms: No polyuria, Past Medical/ Family/ Social History Medical history Gastrointestinal: cirrhosis, varices. Neurological: seizure. Psychiatric: alcohol abuse, substance abuse. Surgical history: Negative. Social history: Alcohol use: Regularly, Drug use: Cocaine, methamphetamines. Problem list: Active Problems (7) ADHD Alcohol withdrawal Anxiety Depression Epilepsy GI bleed Hodgkin lymphoma . Physical Examination Vital Signs Vital Signs 07/31/2023 20:00 EDT Temperature Central Warm 07/31/2023 19:06 EDT MEWS Score 1 07/31/2023 19:01 EDT Temperature 36.8 DegC Temperature Route Temporal Heart Rate 88 bpm Heart Rate Method Radial Respiratory Rate 22 br/min Systolic Blood Pressure 119 mmHg Diastolic Blood Pressure 62 mmHg BP Location # 1 Right Arm Mean Blood Pressure 77 mmHg Oxygen Therapy Room Air SpO2 98 % . General: Alert, no acute distress. Skin: Warm, dry, intact. Head: Normocephalic, atraumatic. Neck: Trachea midline. Eye: Pupils are equal, round and reactive to light, normal conjunctiva, No nystagmus. Ears, nose, mouth and throat: Oral mucosa moist, No tongue fasciculations. Cardiovascular: Regular rate and rhythm, Normal peripheral perfusion. Respiratory: Lungs are clear to auscultation, respirations are non-labored, breath sounds are equal. Gastrointestinal: Soft, Nontender, Non distended, Normal bowel sounds. Back: Normal range of motion. Musculoskeletal: No swelling, no deformity. Neurological: Alert and oriented to person, place, time, and situation, No focal neurological deficit observed, normal speech observed, No tremors or asterixis. Lymphatics: No lymphadenopathy. Psychiatric: Cooperative, Abnormal / Psychotic thoughts: not suicidal, not homicidal. Medical Decision Making Rationale: The patient is a 53-year-old male with history of alcoholism, cirrhosis with varices, polysubstance abuse, presenting today reporting transfer alcohol withdrawal and alcohol withdrawal seizure. Patient self medicated with 3 dose of Depakote and 48 ounces of beer. Currently has minimal signs of withdrawal. However I am still concerned given his seizure. Will check valproate level. Will obtain labs for alcohol level, renal function, electrolyte abnormalities. Will check EKG and troponin for evidence of ACS. Patient refused phlebotomy or nursing to obtain labs or IVs I placed with ultrasound. I placed a 20-gauge IV in the right AC under dynamic ultrasound guidance on the first attempt without complication. Patient's labs came back showing a drop in hemoglobin. IV Protonix was ordered. Will obtain a CT angiogram of the chest, abdomen and pelvis. Patient has not had any hematemesis.. Electrocardiogram: EKG reviewed and interpreted by myself. Shows normal sinus rhythm 88 bpm. PA interval and QRS within normal limits. QTc borderline at [address] elevations noted.. Results review: Lab results : Laboratory 07/31/2023 22:14 EDT Estimated CrCl 75.80 mL/min 07/31/2023 21:19 EDT Na 142 mmol/L K 3.3 mmol/L LOW Cl- 108 mmol/L HI CO2 21 mmol/L LOW Anion Gap 13 mmol/L BUN 28 mg/dL HI Cret 0.94 mg/dL eGFR CKD-EPI >90 mL/min/1.73 m2 Glu 109 mg/dL Ca 8.5 mg/dL WBC 3.11 K/uL LOW Hgb 8.2 g/dL LOW Hct 26.0 % LOW RBC 2.96 M/uL LOW MCV 87.8 fL MCHC 31.5 g/dL LOW MCH 27.7 pg LOW RDW-CV 17.2 % HI RDW-SD 55 NA Plts 257 K/uL Nuc RBC Relative Count 0 /100 WBCs NA Nuc RBC Abs Count 0.00 K/uL NA MPV 9.1 fL Immature Gran% 0.3 % NA Neut% 38.0 % NA Lymph% 47.6 % NA Sequoyah% 7.7 % NA Baso% 0.6 % NA Eos% 5.8 % NA Immat Gran, Abs 0.01 K/uL Neut, Abs 1.18 K/uL LOW Lymph, Abs 1.48 K/uL Sequoyah, Abs 0.24 K/uL Baso, Abs 0.02 K/uL Eos, Abs 0.18 K/uL INR 1.0 PTT 35 seconds PT 13.0 seconds Valproate <3 ug/mL LOW ALT 72 unit/L HI T Bili <0.1 mg/dL Alk Phos 148 unit/L HI AST 175 unit/L HI Alb 3.9 g/dL Prot 6.1 g/dL LOW Troponin T (5th Gen) 11 ng/L NT ProBNP 68 pg/mL Ethanol Level. 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 Impression and Plan Diagnosis Alcohol withdrawal seizure ([id number] F10.939) Plan Condition: Guarded. Disposition: Patient care transitioned to: Time: 07/31/2023 23:00:00, DO Molina Andrew D. Electronic Signature on File Electronically Reviewed/Signed by: Junaid Oneil MD Author Signature Dt/Tm:07/31/2023 11:22 PM Emergency Medicine Patient Care team information Care Team Personnel Name: HEBERT Chino Ana M Position: Referring DIRECT Member Role: Primary Care Provider Address: Address: [address] [place] [address] [place] Name: Paddy Dempsey Amy E Position: Pharmacist Member Role: Pharmacy - Lifetime Address: Address: [address] [address] [place] Name: Paddy Larry Yehuala K Position: Pharmacist Member Role: Pharmacy - Lifetime Name: Paddy Hyde Keri Position: Pharmacist Member Role: Pharmacy - Lifetime Name: Paddy Mckeon Kyle Position: Pharmacist Member Role: Pharmacy - Lifetime Address: Address: [address] [place] [address] [place] [address] Name: DO Molina Andrew D Position: Physician - [facility] Med SA Member Role: * Quality Review (1 day after created) Address: Address: [address] [place] [address] [place] [address] Name: Sanya, Automotive Project Engineer Position: Automotive Project Engineer Care Team Related Persons Name: LYNDA DIALLO III
--- OUTSIDE RECORDS SUMMARY | 2023-08-25 05:00 | External Medical Summary | Summary of Care ---
Author Name Unknown Organization [facility] Address [address] [place] [address] Phone [phone] Care Team Providers Care Rn Unit Manager Name Role Phone Farooq Rodriguez MD Primary Care Provide r Encounter Details Date Type Department Care Team (Late st Contact Info) Description 08/07/2023 Population Health External Data Unspecified Department Allergies Active Allergy Reactions Criticality Noted Date Comments Prochlorperazine Edisylate 7 Famotidine Dystonia 01/22/2019 Haloperidol 01/19/2017 Hydroxyzine Medium 06/30/2019 Other reaction(s): Throat Swelling, Throat Swelling Propofol Rash 01/21/2017 Quetiapine Dystonia,Other (Please comment) Low 10/12/2016 Metoclopramide Hcl 01/19/2017 documented as of this encounter (statuses as of 08/07/2023) Medications Medication Sig Dispensed Refills Start Date [...] as of this encounter (statuses as of 08/07/2023) Active Problems Problem Noted Date Diagnosed Date [...] Billroth-I noted. Pt had another EGD at [facility] on 12/2018 CTA showed was negative for [...] as of this encounter (statuses as of 08/07/2023) Resolved Problems Problem Noted Date Diagnosed Date Resolved Date Acute blood loss anemia 06/24/2019 04/10/2020 Overview: Last Assessment & Plan: Recent hospitalization at [facility] for melenic stools and coffee ground vomitus Reported having taken 8519-9630 mg of ibuprofen per day for 5 [...] Overview: Added automatically from request for surgery [id number] Last Assessment & Plan: Recurrent issue; reports small amount hematemesis and BRBPR when wiping. Similar episode when diagnosed with NSAID-induced duodenitis Denies history of esophageal varices Was hospitalized at [facility] for GI bleed; no EGD [...] as of this encounter (statuses as of 08/07/2023) Immunizations Name Administration Dates Next Due Seasonal [...] Health Maintenance Due Date Last Done Comments COVID-19 Vaccine (#1) 05/29/1975 Depression Monitoring 1982 HIV Screening 1985 DTaP,Tdap,and Td Vaccines (1 - Tdap) 1989 Hepatitis B (1 of 3 - 19+ 3-dose series) 1989 Zoster Vaccines (1 of 2) 1989 Cologuard 05/29/2015 Pneumococcal Vaccine: Pediatrics (0 to 5 Years) and At-Risk Patients (6 to 64 Years) (2 of 2 - PPSV23 or PCV20) 02/23/2020 12/29/2019 Fecal Occult Blood Test 09/19/2022 09/20/19 22, 09/08/2021, 03/03/2018, Additional history exists Sigmoidoscopy 03/22/2023 03/22/2018, 03/22/2018 Influenza Vaccine (FLU shot) (Season Ended) 2023 11/23/2020, 11/23/2020, 12/12/2018, Additional history exists Lipid Panel 12/13/2025 12/13/2020, 12/13, 08/20/2019 Colonoscopy 11/03/2029 11/04/2019, 10/13, 01/21/2017, Additional history exists Colorectal Cancer Screening 11/03/2029 Hepatitis C Screening Completed 11/27/2018 GARDASIL-HPV IMMUNIZATION SERIES Aged Out No longer eligible based on [...] Advance Directives occurred with: Patient Care Teams Rn Unit Manager Relationship Specialty Start Date End Date Farooq Rodriguez MD [address] [id number] PCP - General Family Medicine 12/03/19 documented as of this encounter
--- OUTSIDE RECORDS SUMMARY | 2023-08-25 05:00 | External Medical Summary ---
Author Name Unknown Address Unknown Organization [facility] [employer] Chemistry:[facility] [facility] [address] [place] [address] Laboratory Report Ordering Provider Test Date Status Kenyatta Colvin 08/02/2023 07:37:00 Final Observation Date Value Abnormality Reference (Units ) Status Glucose [Mass/volume] in Serum or Plasma 08/02/2023 08:28:48 114 Above high normal 74-109 (mg/dL) Final Urea nitrogen [Mass/volume] in Serum or Plasma 08/02/2023 08:28:49 12 6-23 (mg/dL) Final Creatinine [Mass/volume] in Serum or Plasma 08/02/2023 08:28:47 0.62 Below low normal 0.70-1.30 (mg/dL) Final GLOMERULAR FILTRATION RATE/1.73 SQ M.PREDICTED:ARVRAT:PT :SER/PLAS/BLD:QN:CREA TININE AND CYSTATIN C-BASED FORMULA (CKD-EPI 2020) 08/02/2023 08:28:47 >90 >=60 (mL/min/1.73 m2) Final Sodium [Moles/volume] in Serum or Plasma 08/02/2023 08:28:48 142 136-145 (mmol/L) Final Potassium [Moles/volume] in Serum or Plasma 08/02/2023 08:28:48 3.9 3.5-5.1 (mmol/L) Final Chloride [Moles/volume] in Serum or Plasma 08/02/2023 08:28:49 109 Above high normal 98-107 (mmol/L) Final Carbon dioxide, total [Moles/volume] in Serum or Plasma 08/02/2023 08:28:47 26 22-29 (mmol/L) Final Anion gap 3 in Serum or Plasma 08/02/2023 08:28:49 7 5-14 (mmol/L) Final Calcium [Mass/volume] in Serum or Plasma 08/02/2023 08:28:49 7.9 Below low normal 8.4-10.2 (mg/dL) Final Performing Location [facility] Chief Port Director ry [address] [place] [address]
--- OUTSIDE RECORDS SUMMARY | 2023-08-25 05:00 | External Medical Summary ---
Author Name Unknown Address Unknown Organization [facility] [employer] Chemistry:[facility] [employer] Chemistry [address] [place] [address] Laboratory Report Ordering Provider Test Date Status Kenyatta Colvin 08/02/2023 07:37:00 Final Observation Date Value Abnormality Reference (Units ) Status Iron [Mass/volume] in Serum or Plasma 08/02/2023 08:28:48 35 Below low normal 45-176 (mcg/dL) Final Transferrin [Mass/volume] in Serum or Plasma 08/02/2023 08:28:49 289.0 200.0-360.0 (mg/dL) Final Iron binding capacity.unsaturated [Mass/volume] in Serum or Plasma 08/02/2023 08:28:49 341 236-425 (ug/dL) Final Iron saturation [Mass Fraction] in Serum or Plasma 08/02/2023 08:28:48 10 Below low normal 15-55 (%) Final Performing Location [facility] [employer] News Reporter ry [address] [place] [address]
--- OUTSIDE RECORDS SUMMARY | 2023-08-25 05:00 | External Medical Summary ---
Author Name Unknown Address Unknown Organization [facility] [employer] Chemistry:[facility] [employer] [facility] [address] [place] [address] Laboratory Report Ordering Provider Test Date Status Kenyatta Colvin 08/02/2023 07:37:00 Final Observation Date Value Abnormality Reference (Units ) Status Protein [Mass/volume] in Serum or Plasma 08/02/2023 08:28:48 5.7 Below low normal 6.4-8.3 (g/dL) Final Albumin [Mass/volume] in Serum or Plasma by Bromocresol green (BCG) dye binding method 08/02/2023 08:28:47 3.5 3.5-5.2 (g/dL) Final Bilirubin.total [Mass/volume] in Serum or Plasma 08/02/2023 08:28:48 0.3 0.0-1.2 (mg/dL) Final Bilirubin.direct [Mass/volume] in Serum or Plasma 08/02/2023 08:28:47 <0.2 <=0.3 (mg/dL) Final Aspartate aminotransferase [Enzymatic activity/volume] in Serum or Plasma 08/02/2023 08:28:49 40 0-40 (unit/L) Final Alanine aminotransferase [Enzymatic activity/volume] in Serum or Plasma 08/02/2023 08:28:49 42 Above high normal 0-41 (unit/L) Final Alkaline phosphatase [Enzymatic activity/volume] in Serum or Plasma 08/02/2023 08:28:48 111 40-130 (unit/L) Final Performing Location [facility] [employer] Drug Coordinator ry [address] [place] [address] [place] [address]
--- OUTSIDE RECORDS SUMMARY | 2023-08-25 05:00 | External Medical Summary ---
Author Name Unknown Address Unknown Organization [facility]\:[facility]\ [address] [place] [address] Laboratory Report Ordering Provider Test Date Status Alejandro Scott 08/02/2023 07:37:00 Final Pt refusing rn aware will te xt lead if agreeable ADC 08/01/2023 19:20:02 EDT Observation Date Value Abnormality Reference (Units ) Status Thiamine [Moles/volume] in Blood 08/09/2023 06:05:31 175 78-185 (nmol/L) Final .
Vitamin supplementatio n within 24 hours prior to
blood draw may affect the accuracy of the results.
.
This test was developed and its analytical performance
characteristics have been determined by [facility] [place], [place]. It has
not been cleared or approved by the U.S. Food and Drug
Administration. This assay has been validated pursuant
to the CLIA regulations and is used for clinical
purposes.
.
Lab test performed by:
Lab Mnemonic: [id number]
[facility]
[id number] [facility]
[place], [place] [address] Performing Location [facility] \ [address] [place] [address]
--- OUTSIDE RECORDS SUMMARY | 2023-08-25 05:00 | External Medical Summary ---
Author Name Unknown Address Unknown Organization [facility] [address] [place] [address] Laboratory Report Ordering Provider Test Date Status Kenyatta Colvin 08/02/2023 12:37:00 Final Observation Date Value Abnormality Reference (Units ) Status Leukocytes [#/volume] in Blood by Automated count 08/02/2023 12:56:39 2.81 Below low normal 4.00-10.40 (K/uL) Final Erythrocytes [#/volume] in Blood by Automated count 08/02/2023 12:56:39 3.36 Below low normal 4.40-5.60 (M/uL) Final Hemoglobin [Mass/volume] in Blood 08/02/2023 12:56:39 9.1 Below low normal 13.0-17.0 (g/dL) Final Hematocrit [Volume Fraction] of Blood by Automated count 08/02/2023 12:56:39 29.6 Below low normal 35.0-44.0 (%) Final MCV [Entitic volume] by Automated count 08/02/2023 12:56:39 88.1 81.0-96.0 (fL) Final MCH [Entitic mass] by Automated count 08/02/2023 12:56:39 27.1 Below low normal 28.0-33.0 (pg) Final MCHC [Mass/volume] by Automated count 08/02/2023 12:56:39 30.7 Below low normal 32.0-36.0 (g/dL) Final Erythrocyte distribution width [Ratio] by Automated count 08/02/2023 12:56:39 17.3 Above high normal 11.5-14.2 (%) Final Erythrocyte distribution width [Entitic volume] by Automated count 08/02/2023 12:56:39 55 Final Platelets [#/volume] in Blood by Automated count 08/02/2023 12:56:39 226 150-350 (K/uL) Final Platelet mean volume [Entitic volume] in Blood by Automated count 08/02/2023 12:56:39 9.0 9.0-12.2 (fL) Final Nucleated erythrocytes/100 cells in Bone marrow by Manual count 08/02/2023 12:56:39 0 (/100 WBCs) Final Nucleated erythrocytes [#/volume] in Blood by Manual count 08/02/2023 12:56:39 0.00 (K/uL) Final Performing Location [facility] [address] [address]
--- OUTSIDE RECORDS SUMMARY | 2023-08-25 05:00 | External Medical Summary ---
Author Name Unknown Address Unknown Organization [facility] [address] [place] [address] Laboratory Report Ordering Provider Test Date Status Kenyatta Colvin 08/03/2023 12:08:00 Final Observation Date Value Abnormality Reference (Units ) Status Green ([place] Heparin) 08/03/2023 12:11:48 Collected^Milagros ected Final Performing Location [facility] [address] [place] [address]
--- OUTSIDE RECORDS SUMMARY | 2023-08-25 05:00 | External Medical Summary ---
Author Name Unknown Address Unknown Organization [facility] [address] [place] [address] Laboratory Report Ordering Provider Test Date Status Kenyatta Colvin 08/02/2023 07:37:00 Final Observation Date Value Abnormality Reference (Units ) Status Neutrophils/100 leukocytes in Blood by Automated count 08/02/2023 08:09:46 57.3 (%) Final Lymphocytes/100 leukocytes in Blood by Automated count 08/02/2023 08:09:46 27.1 (%) Final Monocytes/100 leukocytes in Blood by Automated count 08/02/2023 08:09:46 6.7 (%) Final Eosinophils/100 leukocytes in Blood by Automated count 08/02/2023 08:09:46 8.2 (%) Final Basophils/100 leukocytes in Blood by Automated count 08/02/2023 08:09:46 0.7 (%) Final Immature granulocytes/100 leukocytes in Blood 08/02/2023 08:09:46 0.0 (%) Final Neutrophils [#/volume] in Blood by Automated count 08/02/2023 08:09:46 1.54 Below low normal 2.00-7.70 (K/uL) Final Lymphocytes [#/volume] in Blood by Automated count 08/02/2023 08:09:46 0.73 Below low normal 1.00-3.40 (K/uL) Final Monocytes [#/volume] in Blood by Automated count 08/02/2023 08:09:46 0.18 0.00-1.00 (K/uL) Final Eosinophils [#/volume] in Blood by Automated count 08/02/2023 08:09:46 0.22 0.00-0.50 (K/uL) Final Basophils [#/volume] in Blood by Automated count 08/02/2023 08:09:46 0.02 0.00-0.10 (K/uL) Final Immature granulocytes [#/volume] in Blood by Automated count 08/02/2023 08:09:46 0.00 0.00-0.40 (K/uL) Final Performing Location [facility] [address] [address]
--- OUTSIDE RECORDS SUMMARY | 2023-08-25 05:00 | External Medical Summary ---
Author Name Unknown Address Unknown Organization [facility] [address] [place] [address] Laboratory Report Ordering Provider Test Date Status Onel Candelaria 08/02/2023 07:37:00 Final Observation Date Value Abnormality Reference (Units ) Status Crayn 08/02/2023 07:47:58 Collected^Collecte d Final Performing Location [facility] [address] [place] [address]
--- OUTSIDE RECORDS SUMMARY | 2023-08-25 05:00 | External Medical Summary | Summary of Care ---
Author Name Unknown Organization [facility] Address [address] [place] [address] Phone [phone] Care Team Providers Care Elevator Service Technician Name Role Phone Farooq Rodriguez MD Primary Care Provide r Encounter Details Date Type Department Care Team (Late st Contact Info) Description 08/16/2023 Population Health External Data Unspecified Department Allergies Active Allergy Reactions Criticality Noted Date Comments Prochlorperazine Edisylate 7 Famotidine Dystonia 01/22/2019 Haloperidol 01/19/2017 Hydroxyzine Medium 06/30/2019 Other reaction(s): Throat Swelling, Throat Swelling Propofol Rash 01/21/2017 Quetiapine Dystonia,Other (Please comment) Low 10/12/2016 Metoclopramide Hcl 01/19/2017 documented as of this encounter (statuses as of 08/16/2023) Medications Medication Sig Dispensed Refills Start Date [...] as of this encounter (statuses as of 08/16/2023) Active Problems Problem Noted Date Diagnosed Date [...] Billroth-I noted. Pt had another EGD at [facility] on 12/2018 CTA showed was negative for [...] as of this encounter (statuses as of 08/16/2023) Resolved Problems Problem Noted Date Diagnosed Date Resolved Date Acute blood loss anemia 06/24/2019 04/10/2020 Overview: Last Assessment & Plan: Recent hospitalization at [facility] for melenic stools and coffee ground vomitus Reported having taken [id number] mg of ibuprofen per day for 5 [...] Overview: Added automatically from request for surgery [id number] Last Assessment & Plan: Recurrent issue; reports small amount hematemesis and BRBPR when wiping. Similar episode when diagnosed with NSAID-induced duodenitis Denies history of esophageal varices Was hospitalized at [facility] for GI bleed; no EGD [...] as of this encounter (statuses as of 08/16/2023) Immunizations Name Administration Dates Next Due Seasonal [...] 02/23/2020 12/29/2019 Fecal Occult Blood Test 09/19/2022 09/20/19, 09/08/2021, 03/03/2018, Additional history exists Sigmoidoscopy 03/22/2023 03/22/2018, 03/22/2018 Influenza Vaccine (FLU shot) (#1) 2023 11/23/2020, 11/23/2020, 12/12/2018, Additional history exists Lipid Panel 12/13/2025 12/13/2020, 12/13, 08/20/2019 Colonoscopy 11/03/2029 11/04/2019, 10/13, 01/21/2017, Additional history exists Colorectal Cancer Screening 11/03/2029 Hepatitis C Screening Completed 11/27/2018 HPV (Gardasil) Vaccine Aged Out No lo [...] Advance Directives occurred with: Patient Care Teams Elevator Service Technician Relationship Specialty Start Date End Date Farooq Rodriguez MD [address] [id number] PCP - General Family Medicine 12/03/19 documented as of this encounter
--- OUTSIDE RECORDS SUMMARY | 2023-08-25 05:00 | External Medical Summary ---
Author Name Unknown Address Unknown Organization [facility] [address] [place] [address] Laboratory Report Ordering Provider Test Date Status Kenyatta Colvin 08/02/2023 07:37:00 Final Observation Date Value Abnormality Reference (Units ) Status Leukocytes [#/volume] in Blood by Automated count 08/02/2023 08:09:46 2.69 Below low normal 4.00-10.40 (K/uL) Final Erythrocytes [#/volume] in Blood by Automated count 08/02/2023 08:09:46 3.31 Below low normal 4.40-5.60 (M/uL) Final Hemoglobin [Mass/volume] in Blood 08/02/2023 08:09:46 8.9 Below low normal 13.0-17.0 (g/dL) Final Hematocrit [Volume Fraction] of Blood by Automated count 08/02/2023 08:09:46 28.8 Below low normal 35.0-44.0 (%) Final MCV [Entitic volume] by Automated count 08/02/2023 08:09:46 87.0 81.0-96.0 (fL) Final MCH [Entitic mass] by Automated count 08/02/2023 08:09:46 26.9 Below low normal 28.0-33.0 (pg) Final MCHC [Mass/volume] by Automated count 08/02/2023 08:09:46 30.9 Below low normal 32.0-36.0 (g/dL) Final Erythrocyte distribution width [Ratio] by Automated count 08/02/2023 08:09:46 17.3 Above high normal 11.5-14.2 (%) Final Platelets [#/volume] in Blood by Automated count 08/02/2023 08:09:46 232 150-350 (K/uL) Final Erythrocyte distribution width [Entitic volume] by Automated count 08/02/2023 08:09:46 55 Final Platelet mean volume [Entitic volume] in Blood by Automated count 08/02/2023 08:09:46 8.8 Below low normal 9.0-12.2 (fL) Final Nucleated erythrocytes/100 cells in Bone marrow by Manual count 08/02/2023 08:09:46 0 (/100 WBCs) Final Nucleated erythrocytes [#/volume] in Blood by Manual count 08/02/2023 08:09:46 0.00 (K/uL) Final Performing Location [facility] [address] [address]
--- OUTSIDE RECORDS SUMMARY | 2023-08-25 05:00 | External Medical Summary ---
Author Name Unknown Address Unknown Organization [facility] [address] [place] [address] Laboratory Report Ordering Provider Test Date Status Kenyatta Colvin 08/02/2023 12:37:00 Final Observation Date Value Abnormality Reference (Units ) Status Neutrophils/100 leukocytes in Blood by Automated count 08/02/2023 12:56:39 53.4 (%) Final Lymphocytes/100 leukocytes in Blood by Automated count 08/02/2023 12:56:39 32.0 (%) Final Monocytes/100 leukocytes in Blood by Automated count 08/02/2023 12:56:39 6.4 (%) Final Eosinophils/100 leukocytes in Blood by Automated count 08/02/2023 12:56:39 7.5 (%) Final Basophils/100 leukocytes in Blood by Automated count 08/02/2023 12:56:39 0.7 (%) Final Immature granulocytes/100 leukocytes in Blood 08/02/2023 12:56:39 0.0 (%) Final Neutrophils [#/volume] in Blood by Automated count 08/02/2023 12:56:39 1.50 Below low normal 2.00-7.70 (K/uL) Final Lymphocytes [#/volume] in Blood by Automated count 08/02/2023 12:56:39 0.90 Below low normal 1.00-3.40 (K/uL) Final Monocytes [#/volume] in Blood by Automated count 08/02/2023 12:56:39 0.18 0.00-1.00 (K/uL) Final Eosinophils [#/volume] in Blood by Automated count 08/02/2023 12:56:39 0.21 0.00-0.50 (K/uL) Final Basophils [#/volume] in Blood by Automated count 08/02/2023 12:56:39 0.02 0.00-0.10 (K/uL) Final Immature granulocytes [#/volume] in Blood by Automated count 08/02/2023 12:56:39 0.00 0.00-0.40 (K/uL) Final Performing Location [facility] [address] [place] [address]
--- OUTSIDE RECORDS SUMMARY | 2023-08-25 05:00 | External Medical Summary ---
Author Name Unknown Address Unknown Organization [facility] [address] [place] [address] Laboratory Report Ordering Provider Test Date Status TylerStephonkizzy 08/02/2023 07:37:00 Final Observation Date Value Abnormality Reference (Units ) Status Cobalamin (Vitamin B12) [Mass/volume] in Serum or Plasma 08/02/2023 08:47:27 592 211-946 (pg/mL) Final Folate [Mass/volume] in Serum or Plasma 08/02/2023 08:47:27 9.5 >=4.5 (ng/mL) Final Performing Location [facility] [employer] [address] [place] [address]
--- OUTSIDE RECORDS SUMMARY | 2023-08-25 05:00 | External Medical Summary ---
Author Name Unknown Address Unknown Organization [facility] [address] [place] [address] Laboratory Report Ordering Provider Test Date Status Kenyatta Colvin 08/03/2023 12:08:00 Final Observation Date Value Abnormality Reference (Units ) Status Neutrophils/100 leukocytes in Blood by Automated count 08/03/2023 12:20:12 61.6 (%) Final Lymphocytes/100 leukocytes in Blood by Automated count 08/03/2023 12:20:12 26.1 (%) Final Monocytes/100 leukocytes in Blood by Automated count 08/03/2023 12:20:12 6.0 (%) Final Eosinophils/100 leukocytes in Blood by Automated count 08/03/2023 12:20:12 5.5 (%) Final Basophils/100 leukocytes in Blood by Automated count 08/03/2023 12:20:12 0.5 (%) Final Immature granulocytes/100 leukocytes in Blood 08/03/2023 12:20:12 0.3 (%) Final Neutrophils [#/volume] in Blood by Automated count 08/03/2023 12:20:12 2.46 2.00-7.70 (K/uL) Final Lymphocytes [#/volume] in Blood by Automated count 08/03/2023 12:20:12 1.04 1.00-3.40 (K/uL) Final Monocytes [#/volume] in Blood by Automated count 08/03/2023 12:20:12 0.24 0.00-1.00 (K/uL) Final Eosinophils [#/volume] in Blood by Automated count 08/03/2023 12:20:12 0.22 0.00-0.50 (K/uL) Final Basophils [#/volume] in Blood by Automated count 08/03/2023 12:20:12 0.02 0.00-0.10 (K/uL) Final Immature granulocytes [#/volume] in Blood by Automated count 08/03/2023 12:20:12 0.01 0.00-0.40 (K/uL) Final Performing Location [facility] [address] [place] [address]
--- OUTSIDE RECORDS SUMMARY | 2023-08-25 05:01 | External Medical Summary ---
Author Name Unknown Address Unknown Organization [facility] [address] [place] [address] Laboratory Report Ordering Provider Test Date Status Clarice Quiroga 07/31/2023 21:19:00 Final Observation Date Value Abnormality Reference (Units ) Status Troponin T.cardiac [Mass/volume] in Serum or Plasma 07/31/2023 22:14:35 11 0-22 (ng/L) Final Performing Location [facility] [employer] [facility] [address] [place] [address]
--- OUTSIDE RECORDS SUMMARY | 2023-08-25 05:01 | External Medical Summary | Continuity of Care Document ---
Author Name Unknown Organization [facility] Address [address] [place] [id number] Care Team Providers Care Security Business Analyst Name Role Phone Merlene Lima Primary Care Physician [id number] [phone] Encounter [facility] [id number] Date(s): 06/22/23 - 06/22/23 [facility] [address] [place] [address] [place] Encounter Diagnosis Suicidal ideation(Discharge Diagnosis) - 06/22/23 Discharge Disposition: Home or Self Care Attending Physician: MD Patiño Monica C Allergies, Adverse Reactions, Alerts Substance Criticality Severity Reaction Reaction Severity Status Reglan na Active promethazine Other Active Haldol na Active Compazine na Active Functional Status 06/22/23 History of Fall in Last 3 Months Robles N o Presence of Secondary Diagnosis Robles Ye s Use of Ambulatory Aid Robles None/bedrest /nurse assist IV/Heparin Lock Fall Risk Robles No Gait/Transferring Fall Risk Robles Normal /bedrest/immobile Mental Status Fall Risk Robles Oriented t o own ability Robles Fall Risk Score 15 Robles Fall Risk No Risk Medications cholecalciferol 25 mcg (1000 intl units) oral capsule Start: 06/24/23 3:52:00 PM EDT, 2 cap, PO, Daily, Disp# 60 cap, Refills: 2, Pharmacy: [facility] Start Date: 06/24/23 Status: Ordered clindamycin 300 mg oral capsule Start: 06/24/23 3:55:00 PM EDT, 1 cap, PO, q6h, Disp# 20 cap, Pharmacy: [facility] Start Date: 06/24/23 Stop Date: 06/29/23 Status: Ordered Depakote ER 250 mg oral tablet, extended release Start: 06/24/23 3:47:00 PM EDT, 3 tab, PO, qhs Start Date: 06/24/23 Status: Ordered folic acid 1 mg oral tablet Start: 03/25/23 2:21:00 PM EST, 1 tab, PO, Daily, Disp# 30 tab, Refills: 0, Pharmacy: [facility] Start Date: 03/25/23 Status: Ordered naloxone 4 [...] Daily, Disp# 30 tab, Refills: 0, Pharmacy: [facility] Start Date: 03/25/23 Status: Ordered thiamine 100 mg oral tablet Start: 03/25/23 2:21:00 PM EST, 1 tab, PO, Daily, Disp# 30 tab, Pharmacy: [facility] Start Date: 03/25/23 Status: Ordered Tylenol 325 mg oral tablet Start: 05/24/22 10:29:00 AM EDT, 2 tab, PO, q6h, Disp# 60 tab, Refills: 0, PRN: fever/mild pain (1-3), Pharmacy: [id number] Start Date: 05/24/22 Status: Ordered venlafaxine 150 mg oral capsule, extended release Start: 03/25/23 2:22:00 PM EST, 1 cap, PO, Daily, Disp# 30 cap, Pharmacy: [facility] Start Date: 03/25/23 Stop Date: 04/24/23 Status: Ordered ZyrTEC 10 mg oral tablet Start: 06/24/23 5:02:00 PM EDT, 1 tab, PO, Daily Start Date: 06/24/23 Status: Ordered Problem List Condition Confirmation Course Effective Dates Status Health St atus Informant Alcohol withdrawal Confirmed Active Anxiety Confirmed Active ADHD Confirmed Active Depression Confirmed Active Epilepsy Confirmed Active GI bleed Confirmed Active Hodgkin lymphoma Confirmed Active Diagnosis Diagnosis Type Effective Dates Health Status inical Service Informant Suicidal ideation Discharge Diagnosis 06/22/23 Non-Specified Procedures Procedure Date Related Diagnosis Body Site Status Esophagogastroduodenoscopy 1 05/21/22 Completed Esophagogastroduodenoscopy 2 02/13/22 Completed [employer] JOINT REPLACEMENT Completed 1auto-populated from documented surgical case 2auto-populated from documented surgical case Results Laboratory List Name Date Acetaminophen Level. 06/22/23 Alcohol Level. 06/22/23 Automated Differential. 06/22/23 CBC w/ Diff. 06/22/23 Comprehensive Metabolic Panel. (CMP.) 01/04 Salicylate Level. 06/22/23 TSH Reflex T4F. 06/22/23 Drug Screen Urine.([facility]) 06/22/23 SARS-CoV2/FLU A/B and RSV by PCR. (COVID -19/FluAB/RSV.) 06/22/23 Most recent to oldest [Reference Range]: 1 eGFR CKD-EPI [>=60 mL/min/1.73 m2] >90 m L/min/1.73 m2 (06/22/23 2:11 AM) U Hydrocodone Scr [Not Detected] Not Det ected 1 (06/22/23 1:44 AM) Methadone (u) [Not Detected] Not Detecte d (06/22/23 1:44 AM) U Fentanyl Scr Not Detected 2 (06/22/23 1:44 AM) Estimated CrCl 101.35 mL/min (06/22/23 2:52 AM) RDW-CV [11.5-14.2 %] 17.2 % *HI* (06/22/23 2:11 AM) RDW-SD 55 *NA* (06/22/23 2:11 AM) Nuc RBC Relative Count 0 /100 WBCs *NA* (06/22/23 2:11 AM) Nuc RBC Abs Count 0.00 K/uL *NA* (06/22/23 2:11 AM) Salicylate Lvl [<=19.9 mg/dL] <1.0 mg/dL (06/22/23 2:11 AM) Oxycodone (u) [Not Detected] Not Detecte d (06/22/23 1:44 AM) U THC Screen [Not Detected] Not Detected (06/22/23 1:44 AM) CO2 [22-29 mmol/L] 25 mmol/L (06/22/23 2:11 AM) Ethanol Level. [<=10.1 mg/dL] <10.0 mg/d L (06/22/23 2:11 AM) MPV [9.0-12.2 fL] 8.7 fL *LOW* (06/22/23 2:11 AM) Immature Gran% 0.5 % *NA* (06/22/23 2:11 AM) Neut% 76.2 % *NA* (06/22/23 2:11 AM) Lymph% 14.8 % *NA* (06/22/23 2:11 AM) [place]% 5.8 % *NA* (06/22/23 2:11 AM) Baso% 0.5 % *NA* (06/22/23:11 AM) Eos% 2.2 % *NA* (06/22/23:11 AM) Immat Gran, Abs [0.00-0.40 K/uL] 0.03 K/ uL (06/22/23 2:11 AM) Neut, Abs [2.00-7.70 K/uL] 4.82 K/uL (06/22/23 2:11 AM) Lymph, Abs [1.00-3.40 K/uL] 0.94 K/uL *LOW* (06/22/23 2:11 AM) [place], Abs [0.00-1.00 K/uL] 0.37 K/uL (06/22/23 2:11 AM) Baso, Abs [0.00-0.10 K/uL] 0.03 K/uL (06/22/23 2:11 AM) Eos, Abs [0.00-0.50 K/uL] 0.14 K/uL (06/22/23 2:11 AM) Acetaminophen [10.0-30.0 ug/mL] <5.0 ug/ mL *LOW* (06/22/23:11 AM) Anion Gap [5-14 mmol/L] 14 mmol/L (06/22/23 2:11 AM) Alb [3.5-5.2 g/dL] 4.0 g/dL (06/22/23 2:11 AM) Alk Phos [40-130 unit/L] 115 unit/L (06/22/23 2:11 AM) ALT [0-41 unit/L] 16 unit/L (06/22/23 2:11 AM) Amphetamines(u) [Not Detected] Presumpti ve Pos *Abnormal* (06/22/23:44 AM) AST [0-40 unit/L] 20 unit/L (06/22/23 2:11 AM) Benzodiazepines(u) [Not Detected] Not De tected (06/22/23:44 AM) BUN [6-23 mg/dL] 12 mg/dL (06/22/23 2:11 AM) Ca [8.4-10.2 mg/dL] 9.8 mg/dL (06/22/23 2:11 AM) Cl- [98-107 mmol/L] 99 mmol/L (06/22/23: AM) Cocaine(u) [Not Detected] Not Detected (06/22/23:44 AM) Cret [0.70-1.30 mg/dL] 0.73 mg/dL (06/22/23 2:11 AM) Glu [74-109 mg/dL] 112 mg/dL *HI* (06/22/23 2:11 AM) Hct [35.0-44.0 %] 32.4 % *LOW* (06/22/23 2: AM) Hgb [13.0-17.0 g/dL] 10.2 g/dL *LOW* (06/22/23 2:11 AM) RSV, Rapid Antigen [Negative] Negative (06/22/23:44 AM) Influenza Type A, Rapid Antigen [Negativ e] Negative 3 (06/22/23 1:44 AM) Influenza Type B, Rapid Antigen [Negativ e] Negative (06/22/23 1:44 AM) K [3.5-5.1 mmol/L] 4.1 mmol/L (06/22/23 2:11 AM) MCH [28.0-33.0 pg] 27.6 pg *LOW* (06/22/23 2:11 AM) MCHC [32.0-36.0 g/dL] 31.5 g/dL *LOW* (06/22/23 2:11 AM) MCV [81.0-96.0 fL] 87.8 fL (06/22/23 2:11 AM) Na [136-145 mmol/L] 138 mmol/L (06/22/23 2:11 AM) Opiates(u) [Not Detected] Not Detected (06/22/23 1:44 AM) Plts [150-350 K/uL] 381 K/uL *HI* (06/22/23 2:11 AM) RBC [4.40-5.60 M/uL] 3.69 M/uL *LOW* (06/22/23 2:11 AM) COVID-19 Coronavirus PCR [Not Detected] Not Detected 4 (06/22/23 1:44 AM) COVID-19 Source Nasal Swab (06/22/23 1:44 AM) T Bili [0.0-1.2 mg/dL] 0.3 mg/dL (06/22/23 2:11 AM) Prot [6.4-8.3 g/dL] 7.3 g/dL (06/22/23 2:11 AM) TSH [0.30-4.20 uIU/mL] 0.41 uIU/mL (06/22/23 2:11 AM) WBC [4.00-10.40 K/uL] 6.33 K/uL (06/22/23 2:11 AM) Congregate Care Setting-QST Not Given (06/22/23 1:44 AM) Date of Symptom Onset-QST n/a *NA* (06/22/23 1:44 AM) Employed in Healthcare?-QST No (06/22/23 1:44 AM) Ethnicity-QST Not Given (06/22/23 1:44 AM) First Test?-QST Not Given (06/22/23 1:44 AM) Hospitalized?-QST Not Given (06/22/23 1:44 AM) ICU?-QST Not Given (06/22/23 1:44 AM) ?(QST) Not Given (06/22/23 1:44 AM) Race-QST Not Given (06/22/23 1:44 AM) Symptomatic?-QST No (06/22/23 1:44 AM) 1Interpretive Data: Drug Level Amphetamines 500 ng/mL [...] Intended for medical treatment only. 3Result Comment: No Influenza A Detected. A negative result does not rule out the possibility of influenza infection as the sensitivity of this test is approximately 98%. Patients being admitted to [facility] should have the RVP assay ordered. 4Interpretive Data: This assay has been granted an Emergency Use Authorization (EUA) by the U.S. Food and drug Administration. The performance of the assay ([employer]) has been verified by the [facility] laboratory. Reported to [place] Department of Health Vital Signs Most recent to oldest [Reference Range]: 1 2 3 Height 170.18 cm (06/22/23 12:17 AM) Patient Weight 61.23 kg (06/22/23 12:17 AM) Body Mass Index 21.14 kg/m2 (06/22/23 12:17 AM) Temperature [36.5-37.9 DegC] 36.6 DegC (06/22/23 7:00 PM) 36.7 DegC (06/22/23 1:51 PM) 36.8 DegC (06/22/23 12:17 AM) Heart Rate 90 bpm (06/22/23 7:00 PM) 97 bpm (06/22/23 1:51 PM) 101 bpm (06/22/23 12:17 AM) Respiratory Rate 18 br/min (06/22/23 7:00 PM) 15 br/min (06/22/23 1:51 PM) 16 br/min (06/22/23 12:17 AM) Blood Pressure 135/85mmHg (06/22/23 7:00 PM) 133/90mmHg (06/22/23 1:51 PM) 130/99mmHg (06/22/23 12:17 AM) Mean Blood Pressure 98 mmHg (06/22/23 7:00 PM) 100 mmHg (06/22/23 1:51 PM) 109 mmHg (06/22/23 12:17 AM) Cuff Pulse Pressure 50 mmHg (06/22/23 7:00 PM) 43 mmHg (06/22/23 1:51 PM) BP Location # 1 Left Arm, Non-invasive (06/22/23 7:00 PM) Left Arm, Non-invasive (06/22/23 1:51 PM) Social History Social History Type Response Smoking Status Current every day he abram smoker Sex Male Emergency department Summary note * MD Zuleyma, Dylan Euceda: VERIFY, PERFORM, SIGN Event Display: ED Summary Authored Date: [id number] Patient: LYNDA DIALLO IV Age: 53 years Sex: Male : 1970 Associated Diagnoses: None Author: MD Zuleyma, Dylan Euceda Basic Information Addendum: Assumed care from: Dr. Stahl. Medical Decision Making Documents reviewed: Emergency department nurses' notes, emergency department records, prior records. Results review: Lab results : Laboratory 06/22/2023 02:52 EDT Estimated CrCl 101.35 mL/min 06/22/2023 02:11 EDT Na 138 mmol/L K 4.1 mmol/L Cl- 99 mmol/L CO2 25 mmol/L Anion Gap 14 mmol/L BUN 12 mg/dL Cret 0.73 mg/dL eGFR CKD-EPI >90 mL/min/1.73 m2 Glu 112 mg/dL HI Ca 9.8 mg/dL WBC 6.33 K/uL Hgb 10.2 g/dL LOW Hct 32.4 % LOW RBC 3.69 M/uL LOW MCV 87.8 fL MCHC 31.5 g/dL LOW MCH 27.6 pg LOW RDW-CV 17.2 % HI RDW-SD 55 NA Plts 381 K/uL HI Nuc RBC Relative Count 0 /100 WBCs NA Nuc RBC Abs Count 0.00 K/uL NA MPV 8.7 fL LOW Immature Gran% 0.5 % NA Neut% 76.2 % NA Lymph% 14.8 % NA [place]% 5.8 % NA Baso% 0.5 % NA Eos% 2.2 % NA Immat Gran, Abs 0.03 K/uL Neut, Abs 4.82 K/uL Lymph, Abs 0.94 K/uL LOW [place], Abs 0.37 K/uL Baso, Abs 0.03 K/uL Eos, Abs 0.14 K/uL Acetaminophen <5.0 ug/mL LOW Salicylate Lvl <1.0 mg/dL ALT 16 unit/L T Bili 0.3 mg/dL Alk Phos 115 unit/L AST 20 unit/L Alb 4.0 g/dL Prot 7.3 g/dL TSH 0.41 uIU/mL Ethanol Level. <10.0 mg/dL 06/22/2023 01:44 EDT Influenza Type A, Rapid Antigen Negative Influenza Type B, Rapid Antigen Negative COVID-19 Source Nasal Swab COVID-19 Coronavirus PCR Not Detected RSV, Rapid Antigen Negative [facility]-QST Not Given Date of Symptom Onset-QST n/a Employed in Healthcare?-QST No Ethnicity-QST Not Given First Test?-QST Not Given Hospitalized?-QST Not Given ICU?-QST Not Given ?(QST) Not Given Race-QST Not Given Symptomatic?-QST No Amphetamines(u) Presumptive Pos Benzodiazepines(u) Not Detected Cocaine(u) Not Detected Opiates(u) Not Detected Oxycodone (u) Not Detected U Fentanyl Scr Not Detected Methadone (u) Not Detected U THC Screen Not Detected U Hydrocodone Scr Not Detected . Notes: Patient is frequently wandering around the emergency department asking to use the phone. He was repeatedly calling the police earlier in the day when given a phone. Patient is fixated on usingthe phone but shows no violent behavior.. Impression and Plan Diagnosis Suicidal ideation ([id number] R45.851) Plan Condition: Unchanged. Disposition: Patient care transitioned to: Signed out to Dr. Denis pending placement. Electronic Signature on File Electronically Reviewed/Signed by: Dylan Amor MD Author Signature Dt/Tm:06/22/2023 02:39 PM Emergency Medicine [facility] * MD Kaylyn, Jodie Guerrier: MODIFY, MODIFY, SIGN, VERIFY, SIGN, MODIFY, PERFORM, MODIFY, MODIFY, MODIFY, MODIFY Event Display: ED Summary Authored Date: [id number] Patient: LYNDA DIALLO IV Age: 53 years Sex: Male : 1970 Associated Diagnoses: None Author: MD Kaylyn, Jodie Guerrier Basic Information Time seen: Date & time 06/22/2023 02:05:00. History source: Patient. Arrival mode: Private vehicle. History limitation: None. History of Present Illness Patient is a very pleasant 53-year-old male who presents to the emergency department with suicidal ideation. Patient states that he has been having some issues with alcohol and drug use recently. Patient states he has been taking amphetamines and drinking heavily. He notes that this been going on for the past week and a half. He states that he was previously 2 months sober however unfortunately something happened in his life in which she believes a group of people are trying to expose him, he states that he is not sure who this group is but they have a Facebook post/page and if he found out who was responsible for the group he would shoot them. Patient also states that he bought a bag of IV heroin in order to kill himself. Patient denies any recent medication overdoses including with Tylenol, he denies any self harming behaviors. Patient states that he has been inpatient before. Patientnotes he has a history of epilepsy that is not well-managed with Depakote. Patient also notes he has been treated for anxiety and depression but no history of bipolar or schizophrenia.. Health Status Allergies: Allergic Reactions (Selected) Severity Not Documented Compazine- Na. Haldol- Na. Promethazine- Other. Reglan- Na.. Past Medical/ Family/ Social History Medical history Reviewed as documented in chart. Surgical history: Esophagogastroduodenoscopy on 05/21/2022 at 51 Years. Comments: 05/21/2022 15:46 CAREY Mendoza RN, Radha Moreland auto-populated from documented surgical case Esophagogastroduodenoscopy on 02/13/2022 at 51 Years. Comments: 02/13/2022 10:52 TEDDY Mendoza RN, Mary J auto-populated from documented surgical case. Family history: No family history items have been selected or recorded.. Problem list: Active Problems (7) ADHD Alcohol withdrawal Anxiety Depression Epilepsy GI bleed Hodgkin lymphoma . Physical Examination Vital Signs Vital Signs 06/22/2023 00:20 EDT MEWS Score 1 06/22/2023 00:17 EDT Temperature 36.8 DegC Temperature Route Temporal Heart Rate 101 bpm Respiratory Rate 16 br/min Systolic Blood Pressure 130 mmHg Diastolic Blood Pressure 99 mmHg Mean Blood Pressure 109 mmHg Oxygen Therapy Room air SpO2 100 % . Measurements 06/22/2023 00:20 EDT Osteoporosis Screening Tool 1.65 06/22/2023 00:17 EDT Height 170.18 cm Height Method Patient stated Patient Weight 61.23 kg Weight 61.230 kg Weight Method Standing Scale Body Mass Index 21.14 kg/m2 . General: Alert, no acute distress. Skin: Warm, dry, intact. Head: Normocephalic. Eye: Normal conjunctiva. Respiratory: Respirations are non-labored, Symmetrical chest wall expansion. Neurological: Alert and oriented to person, place, time, and situation, normal speech observed. Psychiatric: Cooperative. Medical Decision Making Rationale: Patient is a very pleasant 53-year-old male who presents to the emergency department with suicidal and homicidal thoughts. Patient does have a plan for suicide, we will obtain psychiatric screening labs, and plan for crisis consultation, 201 versus 302. Results review: Lab results : Laboratory 06/22/2023 02:52 EDT Estimated CrCl 101.35 mL/min 06/22/2023 02:11 EDT Na 138 mmol/L K 4.1 mmol/L Cl- 99 mmol/L CO2 25 mmol/L Anion Gap 14 mmol/L BUN 12 mg/dL Cret 0.73 mg/dL eGFR CKD-EPI >90 mL/min/1.73 m2 Glu 112 mg/dL HI Ca 9.8 mg/dL WBC 6.33 K/uL Hgb 10.2 g/dL LOW Hct 32.4 % LOW RBC 3.69 M/uL LOW MCV 87.8 fL MCHC 31.5 g/dL LOW MCH 27.6 pg LOW RDW-CV 17.2 % HI RDW-SD 55 NA Plts 381 K/uL HI Nuc RBC Relative Count 0 /100 WBCs NA Nuc RBC Abs Count 0.00 K/uL NA MPV 8.7 fL LOW Immature Gran% 0.5 % NA Neut% 76.2 % NA Lymph% 14.8 % NA [place]% 5.8 % NA Baso% 0.5 % NA Eos% 2.2 % NA Immat Gran, Abs 0.03 K/uL Neut, Abs 4.82 K/uL Lymph, Abs 0.94 K/uL LOW [place], Abs 0.37 K/uL Baso, Abs 0.03 K/uL Eos, Abs 0.14 K/uL Acetaminophen <5.0 ug/mL LOW Salicylate Lvl <1.0 mg/dL ALT 16 unit/L T Bili 0.3 mg/dL Alk Phos 115 unit/L AST 20 unit/L Alb 4.0 g/dL Prot 7.3 g/dL TSH 0.41 uIU/mL Ethanol Level. <10.0 mg/dL 06/22/2023 01:44 EDT Influenza Type A, Rapid Antigen Negative Influenza Type B, Rapid Antigen Negative COVID-19 Source Nasal Swab COVID-19 Coronavirus PCR Not Detected RSV, Rapid Antigen Negative [facility] Care Setting-QST Not Given Date of Symptom Onset-QST n/a Employed in Healthcare?-QST No Ethnicity-QST Not Given First Test?-QST Not Given Hospitalized?-QST Not Given ICU?-QST Not Given ?(QST) Not Given Race-QST Not Given Symptomatic?-QST No Amphetamines(u) Presumptive Pos Benzodiazepines(u) Not Detected Cocaine(u) Not Detected Opiates(u) Not Detected Oxycodone (u) Not Detected U Fentanyl Scr Not Detected Methadone (u) Not Detected U THC Screen Not Detected U Hydrocodone Scr Not Detected , Interpretation Labs unremarkable. Reexamination/ Reevaluation Time: 06/22/2023 04:28:00 . Notes: Crisis called, deli worker attempted to speak with the patient regarding the statements made to me, but the patient became very irate with deli worker stating that he was "standing over him" and was angry that he was being asked to speak in a hallway chair. I went to reevaluate the patient in a private area with the deli worker present, and patient did emphasize that he would like brandie placed in our behavioral health unit, but states that he believes he may have been too hasty andseeking care as he did not does not feel comfortable. I explained to the patient that unfortunatelyI was very concerned about his risk for suicide and could not let him leave the emergency department at this time, patient then stated that he would be amenable to placement in our behavioral health unit and also requested Ativan and Tylenol and other medications.. Impression and Plan Diagnosis Suicidal ideation ([id number] R45.851) Plan Condition: Guarded. Disposition: Patient care transitioned to: Time: 06/22/2023 04:29:00, Maribeth Parry MD, Chauncey Walker. Electronic Signature on File Electronically Reviewed/Signed by: Jodie Patiño MD Author Signature Dt/Tm:06/22/2023 04:29 AM Department of Emergency Medicine [facility] * MD Kaylyn, Jodie Guerrier: PERFORM Event Display: ED Summary Authored Date: [id number] signed Electronic Signature on File Electronically Reviewed/Signed by: Jodie Patiño MD Author Signature Dt/Tm:06/22/2023 04:46 AM Department of Emergency Medicine [facility] Patient Care team information Care Team Personnel Name: HEBERT Lima Ana M Position: Referring DIRECT Member Role: Primary Care Provider Address: Address: [address] [place] [address] [place] Name: Paddy Dempsey Amy E Position: Pharmacist Member Role: Pharmacy - Lifetime Address: Address: [place] [address] [place] Name: Paddy Larry Yehuala K Position: Pharmacist Member Role: Pharmacy - Lifetime Name: Paddy Hyde Keri Position: Pharmacist Member Role: Pharmacy - Lifetime Name: Paddy Mckeon Kyle Position: Pharmacist Member Role: Pharmacy - Lifetime Address: Address: [address] [place] [address] [place] Name: MD Cira, Keron Nolan Position: Physician - Emerg Med SA Member Role: Covering (3 days after created) Address: Address: [address] [place] [address] [place] Name: KRYSTINA Arroyo, Hilary Serrano Position: RN - C Member Role: Registered Nurse Name: MD Zuleyma, Dylan Euceda Position: Physician - Emerg Med SA Member Role: * Quality Review (1 day after created) Address: Address: [address] [place] [address] [place] Care Team Related Persons Name: LYNDA DIALLO III
--- OUTSIDE RECORDS SUMMARY | 2023-08-25 05:01 | External Medical Summary ---
Author Name Unknown Address Unknown Organization [facility] [employer] [facility] [employer] [facility] [address] [place] [id number] Laboratory Report Ordering Provider Test Date Status Kaylyn Feliciano 06/22/2023 02:11:00 Final missed x1, patient asked for 15-20 min break, let RN Jimmie know, he said ok 06/22/2023 01:42:00 EDITH Observation Date Value Abnormality Reference (Units ) Status Acetaminophen [Mass/volume] in Serum or Plasma 06/22/2023 02:59:48 <5.0 Below low normal 10.0-30.0 (ug/mL) Final Performing Location [facility] [employer] [facility] [address] [place] [id number]
--- OUTSIDE RECORDS SUMMARY | 2023-08-25 05:01 | External Medical Summary ---
Author Name Unknown Address Unknown Organization [facility] [address] [place] [address] Laboratory Report Ordering Provider Test Date Status Kaylyn Feliciano 06/22/2023 02:11:00 Final Observation Date Value Abnormality Reference (Units ) Status Neutrophils/100 leukocytes in Blood by Automated count 06/22/2023 02:18:43 76.2 (%) Final Lymphocytes/100 leukocytes in Blood by Automated count 06/22/2023 02:18:43 14.8 (%) Final Monocytes/100 leukocytes in Blood by Automated count 06/22/2023 02:18:43 5.8 (%) Final Eosinophils/100 leukocytes in Blood by Automated count 06/22/2023 02:18:43 2.2 (%) Final Basophils/100 leukocytes in Blood by Automated count 06/22/2023 02:18:43 0.5 (%) Final Immature granulocytes/100 leukocytes in Blood 06/22/2023 02:18:43 0.5 (%) Final Neutrophils [#/volume] in Blood by Automated count 06/22/2023 02:18:43 4.82 2.00-7.70 (K/uL) Final Lymphocytes [#/volume] in Blood by Automated count 06/22/2023 02:18:43 0.94 Below low normal 1.00-3.40 (K/uL) Final Monocytes [#/volume] in Blood by Automated count 06/22/2023 02:18:43 0.37 0.00-1.00 (K/uL) Final Eosinophils [#/volume] in Blood by Automated count 06/22/2023 02:18:43 0.14 0.00-0.50 (K/uL) Final Basophils [#/volume] in Blood by Automated count 06/22/2023 02:18:43 0.03 0.00-0.10 (K/uL) Final Immature granulocytes [#/volume] in Blood by Automated count 06/22/2023 02:18:43 0.03 0.00-0.40 (K/uL) Final Performing Location [facility] [address] [address]
--- OUTSIDE RECORDS SUMMARY | 2023-08-25 05:01 | External Medical Summary ---
Author Name Unknown Address Unknown Organization [facility] [employer] [facility] [facility] [employer] [facility] [address] [place] [address] Laboratory Report Ordering Provider Test Date Status Kaylyn Feliciano 06/22/2023 01:44:00 Final Observation Date Value Abnormality Reference (Units ) Status Specimen source identified 06/22/2023 02:30:06 Nasal Swab^Nasal Swab Final Whether this is the patient's first test for condition of interest 06/22/2023 02:30:06 Not Given^Not Given Final Whether the patient has symptoms related to condition of interest 06/22/2023 02:30:06 No^No Final Date and time of symptom onset 06/22/2023 02:30:06 n/a Final Whether patient is employed in a healthcare setting 06/22/2023 02:30:06 No^No Final Whether patient resides in a congregate care setting 06/22/2023 02:30:06 Not Given^Not Given Final Whether the patient was hospitalized for condition of interest 06/22/2023 02:30:06 Not Given^Not Given Final Whether the patient was admitted to intensive care unit (ICU) for condition of interest 06/22/2023 02:30:06 Not Given^Not Given Final Are you currently [PhenX] 06/22/2023 02:30:06 Not Given^Not Given Final Race 06/22/2023 02:30:06 Not Given^Not Given Final Race or ethnicity 06/22/2023 02:30:06 Not Given^Not Given Final SARS-CoV-2 (COVID-19) RNA [Presence] in Nasopharynx by MILAD[facility] with probe detection 06/22/2023 02:30:06 Not Detected^Not Detected Not Detected Final This assay has been granted an Emergency Use Authorization (EUA) by the U.S. Food and drug Administration. The performance of the assay (GENWI) has been verified by the [facility] Vi[facility] laboratory. Reported to [place] Department of Health Influenza virus A RNA [Presence] in Upper respiratory specimen by MILADY with probe detection 06/22/2023 02:30:06 Negative^Negative Negative Final No Influenza A Detected. A n egative result does not rule out the possibility of influenza infection as the sensitivity of this test is approximately 98%. Patients being admitted to [facility] should have the RVP assay ordered. Haemophilus influenzae B DNA [Presence] in Specimen by MILADY with probe detection 06/22/2023 02:30:06 Negative^Negative Negative Final Respiratory syncytial virus RNA [Presence] in Respiratory specimen by MILADY with probe detection 06/22/2023 02:30:06 Negative^Negative Negative Fin al Performing Location [facility] [employer] [address] [place] [address]
--- OUTSIDE RECORDS SUMMARY | 2023-08-25 05:01 | External Medical Summary | Summary of Care ---
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 Role Phone Farooq Rodriguez MD Primary Care Provide r Encounter Details Date Type Department Care Team (Late st Contact Info) Description 07/24/2023 Population Health External Data Unspecified Department Allergies Active Allergy Reactions Criticality Noted Date Comments Prochlorperazine Edisylate 7 Famotidine Dystonia 01/22/2019 Haloperidol 01/19/2017 Hydroxyzine Medium 06/30/2019 Other reaction(s): Throat Swelling, Throat Swelling Propofol Rash 01/21/2017 Quetiapine Dystonia,Other (Please comment) Low 10/12/2016 Metoclopramide Hcl 01/19/2017 documented as of this encounter (statuses as of 07/24/2023) Medications Medication Sig Dispensed Refills Start Date [...] as of this encounter (statuses as of 07/24/2023) Active Problems Problem Noted Date Diagnosed Date [...] Billroth-I noted. Pt had another EGD at [facility] on 12/2018 CTA showed was negative [...] as of this encounter (statuses as of 07/24/2023) Resolved Problems Problem Noted Date Diagnosed Date Resolved Date Acute blood loss anemia 06/24/2019 04/10/2020 Overview: Last Assessment & Plan: Recent hospitalization at [facility] for melenic stools and coffee ground vomitus Reported having taken [id number] mg of ibuprofen per day for 5 [...] Overview: Added automatically from request for surgery [id number] Last Assessment & Plan: Recurrent issue; reports small amount hematemesis and BRBPR when wiping. Similar episode when diagnosed with NSAID-induced duodenitis Denies history of esophageal varices Was hospitalized at [facility] for GI bleed; no EGD [...] as of this encounter (statuses as of 07/24/2023) Immunizations Name Administration Dates Next Due Seasonal [...] 020 Frequency of Binge Drinking Monthly 11/12 Sex and Gender Information Value Date Recorded [...] Advance Directives occurred with: Patient Care Teams Sheet Metal Duct Worker Supervisor Relationship Specialty Start Date End Date Farooq Rodriguez MD [facility] [id number] PCP - General Family Medicine 12/03/19 documented as of this encounter
--- OUTSIDE RECORDS SUMMARY | 2023-08-25 05:01 | External Medical Summary ---
Author Name Unknown Address Unknown Organization [facility] [employer] [facility] [facility] [address] [place] [address] Laboratory Report Ordering Provider Test Date Status Clarice Quiroga 07/31/2023 19:52:00 Final Observation Date Value Abnormality Reference (Units ) Status Specimen source identified 07/31/2023 21:46:10 Nasopharyngeal^N asopharyngeal Final Whether this is the patient's first test for condition of interest 07/31/2023 21:46:10 Not Given^Not Given Final Whether the patient has symptoms related to condition of interest 07/31/2023 21:46:10 Not Given^Not Given Final Date and time of symptom onset 07/31/2023 21:46:10 unknown Final Whether patient is employed in a healthcare setting 07/31/2023 21:46:10 Not Given^Not Given Final Whether patient resides in a congregate care setting 07/31/2023 21:46:10 Not Given^Not Given Final Whether the patient was hospitalized for condition of interest 07/31/2023 21:46:10 Not Given^Not Given Final Whether the patient was admitted to intensive care unit (ICU) for condition of interest 07/31/2023 21:46:10 Not Given^Not Given Final Are you currently [PhenX] 07/31/2023 21:46:10 Not Given^Not Given Final Race 07/31/2023 21:46:10 Not Given^Not Given Final Race or ethnicity 07/31/2023 21:46:10 Not Given^Not Given Final SARS-CoV-2 (COVID-19) RNA [Presence] in Nasopharynx by MIALDY with probe detection 07/31/2023 21:46:10 Not Detected^Not Detected Not Detected Final This assay has been granted an Emergency Use Authorization (EUA) by the U.S. Food and drug Administration. The performance of the assay (GoodRx) has been verified by the [facility]rology laboratory. Reported to [place] Department of Health Influenza virus A RNA [Presence] in Upper respiratory specimen by MILADY with probe detection 07/31/2023 21:46:10 Negative^Negative Negative Final No Influenza A Detected. A n egative result does not rule out the possibility of influenza infection as the sensitivity of this test is approximately 98%. Patients being admitted to [facility] should have the RVP assay ordered. Haemophilus influenzae B DNA [Presence] in Specimen by MILADY with probe detection 07/31/2023 21:46:10 Negative^Negative Negative Final Respiratory syncytial virus RNA [Presence] in Respiratory specimen by MILADY with probe detection 07/31/2023 21:46:10 Negative^Negative Negative Fin al Performing Location [facility] [employer] [facility] [address] [place] [address]
--- OUTSIDE RECORDS SUMMARY | 2023-08-25 05:01 | External Medical Summary ---
Author Name Unknown Address Unknown Organization [facility] Autom ated Subsection:[facility] Automated Subsection Laboratory Report Ordering Provider Test Date Status Clarcie Quiroga 07/31/2023 21:19:00 Final Observation Date Value Abnormality Reference (Units ) Status ABO/Rh 07/31/2023 22:13:19 O NEG Final Performing Location [facility] Automated Sub section
--- OUTSIDE RECORDS SUMMARY | 2023-08-25 05:01 | External Medical Summary ---
Author Name Unknown Address Unknown Organization [facility] [employer] Chemistry:[facility] [employer] [facility] [address] [place] [address] Laboratory Report Ordering Provider Test Date Status Kaylyn Feliciano 06/22/2023 02:11:00 Final Observation Date Value Abnormality Reference (Units ) Status Salicylates [Mass/volume] in Serum or Plasma 06/22/2023 02:44:17 <1.0 <=19.9 (mg/dL) Final Performing Location [facility] [employer] Bottle Washer Machine [employer] [address] [place] [address]
--- OUTSIDE RECORDS SUMMARY | 2023-08-25 05:01 | External Medical Summary ---
Author Name Unknown Address Unknown Organization [facility] [email or web address] Hematology:[facility] [facility] [address] [place] [address] Laboratory Report Ordering Provider Test Date Status Felix Grubbs 08/01/2023 00:31:00 Final Observation Date Value Abnormality Reference (Units ) Status Hemoglobin [Mass/volume] in Blood 08/01/2023 00:59:26 8.0 Below low normal 13.0-17.0 (g/dL) Final Performing Location [facility] [address] [place] [address]
--- OUTSIDE RECORDS SUMMARY | 2023-08-25 05:01 | External Medical Summary ---
Author Name Unknown Address Unknown Organization [facility] Hemat[facility] [employer] [facility] [address] [place] [address] Laboratory Report Ordering Provider Test Date Status Clarice Quiroga 07/31/2023 21:19:00 Final pt refused until talk to Dr. corwin duval said okay. 07/31/2023 20:02:43 EDT TUT Observation Date Value Abnormality Reference (Units ) Status Leukocytes [#/volume] in Blood by Automated count 07/31/2023 21:52:57 3.11 Below low normal 4.00-10.40 (K/uL) Final Erythrocytes [#/volume] in Blood by Automated count 07/31/2023 21:52:57 2.96 Below low normal 4.40-5.60 (M/uL) Final Hemoglobin [Mass/volume] in Blood 07/31/2023 21:52:57 8.2 Below low normal 13.0-17.0 (g/dL) Final Hematocrit [Volume Fraction] of Blood by Automated count 07/31/2023 21:52:57 26.0 Below low normal 35.0-44.0 (%) Final MCV [Entitic volume] by Automated count 07/31/2023 21:52:57 87.8 81.0-96.0 (fL) Final MCH [Entitic mass] by Automated count 07/31/2023 21:52:57 27.7 Below low normal 28.0-33.0 (pg) Final MCHC [Mass/volume] by Automated count 07/31/2023 21:52:57 31.5 Below low normal 32.0-36.0 (g/dL) Final Erythrocyte distribution width [Ratio] by Automated count 07/31/2023 21:52:57 17.2 Above high normal 11.5-14.2 (%) Final Platelets [#/volume] in Blood by Automated count 07/31/2023 21:52:57 257 150-350 (K/uL) Final Erythrocyte distribution width [Entitic volume] by Automated count 07/31/2023 21:52:57 55 Final Platelet mean volume [Entitic volume] in Blood by Automated count 07/31/2023 21:52:57 9.1 9.0-12.2 (fL) Final Nucleated erythrocytes/100 cells in Bone marrow by Manual count 07/31/2023 21:52:57 0 (/100 WBCs) Final Nucleated erythrocytes [#/volume] in Blood by Manual count 07/31/2023 21:52:57 0.00 (K/uL) Final Performing Location [facility] Hematol [facility] [address] [place] [address]
--- OUTSIDE RECORDS SUMMARY | 2023-08-25 05:01 | External Medical Summary ---
Author Name Unknown Address Unknown Organization [facility] [employer] Coagulation:[facility] [facility] [address] [place] [address] Laboratory Report Ordering Provider Test Date Status Clarice Quiroga 07/31/2023 21:19:00 Final Observation Date Value Abnormality Reference (Units ) Status Prothrombin time (PT) 07/31/2023 22:08:56 13.0 12.0-14.2 (seconds) Final INR in Platelet poor plasma by Coagulation assay 07/31/2023 22:08:56 1.0 0.9-1.1 Final Suggested therapeutic range for low-intensity Coumadin therapy for venous thromboembolism is INR 2.0-3.0 (ex: atrial fibrillation, history of TIA/stroke).

For high risk patients, the suggested therapeutic range is INR 2.5-3.5 (ex: mechanical prosthetic valves). aPTT panel - Platelet poor plasma 07/31/2023 22:08:56 35 23-35 (seconds) Final Performing Location [facility] [address] [place] [address]
--- OUTSIDE RECORDS SUMMARY | 2023-08-25 05:01 | External Medical Summary ---
Author Name Unknown Address Unknown Organization [facility] [employer] Chemistry:[facility] [employer] [facility] [address] [place] [address] Laboratory Report Ordering Provider Test Date Status Felix Grubbs 08/01/2023 04:09:00 Final Observation Date Value Abnormality Reference (Units ) Status Glucose [Mass/volume] in Serum or Plasma 08/01/2023 04:43:21 187 Above high normal 74-109 (mg/dL) Final Urea nitrogen [Mass/volume] in Serum or Plasma 08/01/2023 04:43:23 23 6-23 (mg/dL) Final Creatinine [Mass/volume] in Serum or Plasma 08/01/2023 04:43:21 0.83 0.70-1.30 (mg/dL) Final GLOMERULAR FILTRATION RATE/1.73 SQ M.PREDICTED:ARVRAT:PT :SER/PLAS/BLD:QN:CREA TININE AND CYSTATIN C-BASED FORMULA (CKD-EPI 2020) 08/01/2023 04:43:21 >90 >=60 (mL/min/1.73 m2) Final Sodium [Moles/volume] in Serum or Plasma 08/01/2023 04:43:21 136 136-145 (mmol/L) Final Potassium [Moles/volume] in Serum or Plasma 08/01/2023 04:43:21 4.3 3.5-5.1 (mmol/L) Final Chloride [Moles/volume] in Serum or Plasma 08/01/2023 04:43:23 107 98-107 (mmol/L) Final Carbon dioxide, total [Moles/volume] in Serum or Plasma 08/01/2023 04:43:21 23 22-29 (mmol/L) Final Anion gap 3 in Serum or Plasma 08/01/2023 04:43:23 6 5-14 (mmol/L) Final Calcium [Mass/volume] in Serum or Plasma 08/01/2023 04:43:23 7.6 Below low normal 8.4-10.2 (mg/dL) Final Performing Location [facility] [employer] De [employer] Installer [employer] [address] [place] [address]
--- OUTSIDE RECORDS SUMMARY | 2023-08-25 05:01 | External Medical Summary ---
Author Name Unknown Address Unknown Organization [facility] [employer] Chemistry:[facility] [employer] [facility] [address] [place] [address] Laboratory Report Ordering Provider Test Date Status Kaylyn Feliciano 06/22/2023 02:11:00 Final Observation Date Value Abnormality Reference (Units ) Status Thyrotropin [Units/volume] in Serum or Plasma 06/22/2023 02:52:18 0.41 0.30-4.20 (uIU/mL) Final Performing Location [facility] [employer] Cloth Spreader [employer] [address] [place] [address]
--- OUTSIDE RECORDS SUMMARY | 2023-08-25 05:01 | External Medical Summary ---
Author Name Unknown Address Unknown Organization [facility] [employer] Chemistry:[facility] [employer] [facility] [address] [place] [address] Laboratory Report Ordering Provider Test Date Status Felix Grubbs 08/01/2023 04:09:00 Final Observation Date Value Abnormality Reference (Units ) Status Magnesium [Mass/volume] in Serum or Plasma 08/01/2023 04:43:21 1.9 1.6-2.6 (mg/dL) Final Performing Location [facility] [employer] Officer ry [address] [place] [address]
--- OUTSIDE RECORDS SUMMARY | 2023-08-25 05:01 | External Medical Summary ---
Author Name Unknown Address Unknown Organization [facility] [employer] Hematology:[facility] [employer] [facility] [address] [place] [address] Laboratory Report Ordering Provider Test Date Status Kaylyn Feliciano 06/22/2023 02:11:00 Final Observation Date Value Abnormality Reference (Units ) Status Leukocytes [#/volume] in Blood by Automated count 06/22/2023 02:18:43 6.33 4.00-10.40 (K/uL) Final Erythrocytes [#/volume] in Blood by Automated count 06/22/2023 02:18:43 3.69 Below low normal 4.40-5.60 (M/uL) Final Hemoglobin [Mass/volume] in Blood 06/22/2023 02:18:43 10.2 Below low normal 13.0-17.0 (g/dL) Final Hematocrit [Volume Fraction] of Blood by Automated count 06/22/2023 02:18:43 32.4 Below low normal 35.0-44.0 (%) Final MCV [Entitic volume] by Automated count 06/22/2023 02:18:43 87.8 81.0-96.0 (fL) Final MCH [Entitic mass] by Automated count 06/22/2023 02:18:43 27.6 Below low normal 28.0-33.0 (pg) Final MCHC [Mass/volume] by Automated count 06/22/2023 02:18:43 31.5 Below low normal 32.0-36.0 (g/dL) Final Erythrocyte distribution width [Ratio] by Automated count 06/22/2023 02:18:43 17.2 Above high normal 11.5-14.2 (%) Final Platelets [#/volume] in Blood by Automated count 06/22/2023 02:18:43 381 Above high normal 150-350 (K/uL) Final Erythrocyte distribution width [Entitic volume] by Automated count 06/22/2023 02:18:43 55 Final Platelet mean volume [Entitic volume] in Blood by Automated count 06/22/2023 02:18:43 8.7 Below low normal 9.0-12.2 (fL) Final Nucleated erythrocytes/100 cells in Bone marrow by Manual count 06/22/2023 02:18:43 0 (/100 WBCs) Final Nucleated erythrocytes [#/volume] in Blood by Manual count 06/22/2023 02:18:43 0.00 (K/uL) Final Performing Location [facility] [employer] Hematol [facility] [address] [address]
--- OUTSIDE RECORDS SUMMARY | 2023-08-25 05:01 | External Medical Summary | Continuity of Care Document ---
Author Name Unknown Organization [facility] Address [address] [place] [address] [phone] Care Team Providers Care Leasing Property Manager Name Role Phone Merlene Chino Primary Care Physician [phone] Encounter [facility] [id number] Date(s): 03/22/23 - 03/26/[address] [id number] [phone] Encounter Diagnosis Hematemesis(Discharge Diagnosis) - 03/22/23 Alcohol use with withdrawal(Discharge Diagnosis) - 03/22/23 Substance use disorder(Discharge Diagnosis) - 03/25/23 Anxiety(Discharge Diagnosis) - 03/25/23 Bipolar disorder(Discharge Diagnosis) - 03/25/23 Epilepsy(Discharge Diagnosis) - 03/25/23 Discharge Disposition: Home or Self Care Attending Physician: MD Estephania, Ovidio Espino Admitting Physician: Jimmy Beck MD, Mali Moreland Allergies, Adverse Reactions, Alerts Substance Reaction Severity Status Reglan na Active promethazine Other Active Haldol na Active Compazine na Active Functional Status 03/26/23 History of Fall in Last 3 Months Robles N o Presence of Secondary Diagnosis Robles Ye s Use of Ambulatory Aid Robles None/bedrest /nurse assist IV/Heparin Lock Fall Risk Robles No Gait/Transferring Fall Risk Rboles Normal /bedrest/immobile Mental Status Fall Risk Robles Oriented t o own ability Robles Fall Risk Score 15 Robles Fall Risk No Risk 03/26/23 Neurological Symptoms None ADLs Minimal assistance Facial Symmetry Symmetric Gait Steady Swallowing Difficulty None Level of Consciousness Neuro Alert, Active, Irritable Speech Pattern Clear 03/24/23 Hallucinations Present None Medications Depakote 500 mg oral delayed release tablet Start: 03/25/23 14:21:00 EST, 1 tab, PO, bid, Disp# 60 tab, Pharmacy: [facility] Start Date: 03/25/23 Stop Date: 04/24/23 Status: Ordered folic acid 1 mg oral tablet Start: 03/25/23 14:21:00 EST, 1 tab, PO, Daily, Disp# 30 tab, Refills: 0, Pharmacy: [facility] Start Date: 03/25/23 Status: Ordered meloxicam 15 mg oral tablet Start: 03/25/23 14:24:00 EST, 1 tab, PO, Daily, Disp# 7 tab, Pharmacy: [facility] Start Date: 03/25/23 Stop Date: 04/01/23 Status: Ordered methylphenidate 20 mg oral tablet Start: 03/26/23 12:48:00 EST, 1 tab, PO, Daily, Disp# 10 tab, Refills: 0 Start Date: 03/26/23 Stop Date: 04/05/23 Status: Ordered naloxone 4 mg/0.1 mL nasal spray Start: 05/25/22 13:15:00 EDT, intranasal, 1 Unknown, 1 Refill(s), Administer 1 spray into affected nostril(s) as needed (opiod reversal, may repeat every 2 to 3 | minutes alternate nostrils). Start Date: 05/25/22 Status: Ordered pantoprazole 40 mg oral delayed release tablet Start: 03/25/23 14:21:00 EST, 1 tab, PO, Daily, Disp# 30 tab, Refills: 0, Pharmacy: [facility] Start Date: 03/25/23 Status: Ordered thiamine 100 mg oral tablet Start: 03/25/23 14:21:00 EST, 1 tab, PO, Daily, Disp# 30 tab, Pharmacy: [facility] Start Date: 03/25/23 Status: Ordered Tylenol 325 mg oral tablet Start: 05/24/22 10:29:00 EDT, 2 tab, PO, q6h, Disp# 60 tab, Refills: 0, PRN: fever/mild pain (1-3),[facility]acy: [id number] Start Date: 05/24/22 Status: Ordered venlafaxine 150 mg oral capsule, extended release Start: 03/25/23 14:22:00 EST, 1 cap, PO, Daily, Disp# 30 cap, Pharmacy: [facility] Start Date: 03/25/23 Stop Date: 04/24/23 Status: Ordered Mental Status 03/23/23 Primary Language Czech Problem List Condition Confirmation Course Effective Dates Status Health St atus Informant Alcohol withdrawal Confirmed Active Anxiety Confirmed Active ADHD Confirmed Active Depression Confirmed Active Epilepsy Confirmed Active GI bleed Confirmed Active Hodgkin lymphoma Confirmed Active Diagnosis Diagnosis Type Effective Dates Health Status Clinical Service Informant Alcohol use with withdrawal Discharge Diagnosis 03/22/23 Non-Specified Hematemesis Discharge Diagnosis 03/22/23 Non-Specified Epilepsy Discharge Diagnosis 03/25/23 Non-Specified Bipolar disorder Discharge Diagnosis 03/25/23 Non-Specified Anxiety Discharge Diagnosis 03/25/23 Non-Specified Substance use disorder Discharge Diagnosis 03/25/23 Non-Specified Procedures Procedure Date Related Diagnosis Body Site Status Esophagogastroduodenoscopy 1 05/21/22 Completed Esophagogastroduodenoscopy 2 02/13/22 Completed 1auto-populated from documented surgical case 2auto-populated from documented surgical case Results Laboratory List Name Date Basic Metabolic Panel (BMP) 03/26/23 Complete Blood Count (CBC w Platelets) Basic Metabolic Panel (BMP) 03/25/23 Complete Blood Count w Differential (CBC w Platelets and Diff) 03/25/23 Basic Metabolic Panel (BMP) 03/25/23 Complete Blood Count (CBC w Platelets) Added on Lab order 03/22/23 Drugs of Abuse w NO confirm, Urine (Urin e Drug Screen, NO confirm, in house) 03/22/23 Urine Analysis w/ Reflexed Microscopic. (Urinalysis w/ Reflexed Microscopic.) 03/22/23 Specimen Type (SPECIMEN TYPE) 03/22/23 Blood Type/Antibody Screen ( for possible transfusion) (Type and Screen (for possible transfusion)) 03/22/23 Lipase Level 03/22/23 Magnesium Level 03/22/23 Phosphorus Level 03/22/23 Prothrombin Time w/ INR (PT/INR) 03/22/23 Alcohol Level (not Legal) (Ethanol Level (not Legal)) 03/22/23 Complete Blood Count w Differential (CBC w Platelets and Diff) 03/22/23 Comprehensive Metabolic Panel (CMP) Ferritin (FERRITIN) 03/22/23 Iron Profile (IRON PROFILE) 03/22/23 Vitamin B12 Level (VITAMIN B12) 03/22/23 Most recent to oldest [Reference Range]: 1 2 3 ABO/Rh O NEGATIVE (03/22/23 7:09 PM) Antibody Scr NEGATIVE (03/22/23 7:09 PM) Expires at 0600AM on 03/25/2023 (03/22/23 7:09 PM) # Units 4 (03/22/23 7:09 PM) R Number NRQ (03/22/23 7:09 PM) eGFR CKD-EPI [>60 mL/min/1.73 m2] REQUEST CREDITED mL/min/1.73 m2 1 (03/26/23 5:00 AM) >90 mL/min/1.73 m2 (03/25/23 11:05 AM) CANCELLED BY MD/NURSING UNIT mL/min/1.73 m2 2 (03/25/23 5:00 AM) Request of Physician Iron profile ferrit in B12 folate (03/22/23 7:10 PM) Action Taken REQUESTED TESTS ADDE D EXCEPT 3 (03/22/23 7:10 PM) Ovalocytes FEW (03/25/23 11:05 AM) Polychromasia INCREASED (03/25/23 11:05 AM) Platelet Morphology NORMAL (03/25/23 11:05 AM) Estimated CrCl 93.97 mL/min (03/25/23 12:22 PM) 106.33 mL/min (03/22/23 8:55 PM) MPV [9.0-12.2 fL] REQUEST CREDITED fL 4 (03/26/23 5:00 AM) 9.9 fL (03/25/23 11:05 AM) CANCELLED BY MD/NURSING UNIT fL 5 (03/25/23 5:00 AM) Immature Gran% 0.0 % (03/25/23 11:05 AM) 0.2 % (03/22/23 7:08 PM) Neut% 54.1 % (03/25/23 11:05 AM) 66.6 % (03/22/23 7:08 PM) Lymph% 35.1 % (03/25/23 11:05 AM) 24.7 % (03/22/23 7:08 PM) Bourbon% 5.4 % (03/25/23 11:05 AM) 6.9 % (03/22/23 7:08 PM) Baso% 2.7 % (03/25/23 11:05 AM) 0.8 % (03/22/23 7:08 PM) Eos% 2.7 % (03/25/23 11:05 AM) 0.8 % (03/22/23 7:08 PM) Immat Gran, Abs [0.0-0.4 K/uL] 0.00 K/uL (03/25/23 11:05 AM) Immat Gran, Abs [0-0.4 K/uL] 0.01 K/uL (03/22/23 7:08 PM) Neut, Abs [2.0-7.7 K/uL] 1.72 K/uL *LOW* (03/25/23 11:05 AM) 3.46 K/uL (03/22/23 7:08 PM) Lymph, Abs [1.0-3.4 K/uL] 1.12 K/uL (03/25/23 11:05 AM) 1.28 K/uL (03/22/23 7:08 PM) Bourbon, Abs [0-1.0 K/uL] 0.17 K/uL (03/25/23 11:05 AM) 0.36 K/uL (03/22/23 7:08 PM) Baso, Abs [0-0.1 K/uL] 0.09 K/uL (03/25/23 11:05 AM) 0.04 K/uL (03/22/23 7:08 PM) Eos, Abs [0-0.5 K/uL] 0.09 K/uL (03/25/23 11:05 AM) 0.04 K/uL (03/22/23 7:08 PM) Type of Diff: MANUAL (03/25/23 11:05 AM) AUTO (03/22/23 7:08 PM) RDW [11.5-14.2 %] REQUEST CREDITED % 6 (03/26/23 5:00 AM) 14.6 % *HI* (03/25/23 11:05 AM) CANCELLED BY MD/NURSING UNIT % 7 (03/25/23 5:00 AM) Component RED CELLS (03/22/23 7:09 PM) Anion Gap [5-14 mmol/L] REQUEST CREDITED mmol/L 8 (03/26/23 5:00 AM) 11 mmol/L (03/25/23 11:05 AM) CANCELLED BY MD/NURSING UNIT mmol/L 9 (03/25/23 5:00 AM) Alb [3.5-5.2 g/dL] 4.1 g/dL (03/22/23 7:08 PM) EtOH med [<10 mg/dL] 146 mg/dL *HI* (03/22/23 7:08 PM) Alk Phos [40-130 unit/L] 104 unit/L (03/22/23 7:08 PM) ALT [0-41 unit/L] 14 unit/L (03/22/23 7:08 PM) Amphetamines(u) PRESUMPTIVE POSITIVE DRUG RESULT 10 (03/22/23 7:22 PM) AST [0-40 unit/L] 19 unit/L (03/22/23 7:08 PM) B12 [211-946 pg/mL] 504 pg/mL (03/22/23 7:08 PM) Barbiturates(u) NONE DETECTED (03/22/23 7:22 PM) Benzodiazepines(u) NONE DETECTED (03/22/23 7:22 PM) Bili (u) [NEG] NEGATIVE 11 (03/22/23 7:22 PM) BUN [6-23 mg/dL] REQUEST CREDITED mg/ dL 12 (03/26/23 5:00 AM) 11 mg/dL (03/25/23 11:05 AM) CANCELLED BY MD/NURSING UNIT mg/dL 13 (03/25/23 5:00 AM) Ca [8.4-10.2 mg/dL] REQUEST CREDITED mg/ dL 14 (03/26/23 5:00 AM) 8.4 mg/dL (03/25/23 11:05 AM) CANCELLED BY MD/NURSING UNIT mg/dL 15 (03/25/23 5:00 AM) Cl- [98-107 mmol/L] REQUEST CREDITED mmo l/L 16 (03/26/23 5:00 AM) 106 mmol/L (03/25/23 11:05 AM) CANCELLED BY MD/NURSING UNIT mmol/L 17 (03/25/23 5:00 AM) HCO3 [22-29 mmol/L] REQUEST CREDITED mmo l/L 18 (03/26/23 5:00 AM) 21 mmol/L *LOW* (03/25/23 11:05 AM) CANCELLED BY MD/NURSING UNIT mmol/L 19 (03/25/23 5:00 AM) Cocaine(u) PRESUMPTIVE POSITIVE DRUG RESULT 20 (03/22/23 7:22 PM) Cret [0.70-1.30 mg/dL] REQUEST CREDITED mg/dL 21 (03/26/23 5:00 AM) 0.86 mg/dL (03/25/23 11:05 AM) CANCELLED BY MD/NURSING UNIT mg/dL 22 (03/25/23 5:00 AM) BF Source Urine in a sterile specimen cup (03/22/23 7:22 PM) Iron [50-158 ug/dL] 19 ug/dL *LOW* (03/22/23 7:08 PM) Ferritin [30.0-400.0 ng/mL] 14.8 ng/mL *LOW* (03/22/23 7:08 PM) Glu [74-109 mg/dL] REQUEST CREDITED mg/ dL 23 (03/26/23 5:00 AM) 151 mg/dL 24 *HI* (03/25/23 11:05 AM) CANCELLED BY MD/NURSING UNIT mg/dL 25 (03/25/23 5:00 AM) Hct [39-48 %] REQUEST CREDITED % 2 6 (03/26/23 5:00 AM) 33.5 % *LOW* (03/25/23 11:05 AM) CANCELLED BY MD/NURSING UNIT % 27 (03/25/23 5:00 AM) Hgb [13.0-17.0 g/dL] REQUEST CREDITED g/ dL 28 (03/26/23 5:00 AM) 10.3 g/dL *LOW* (03/25/23 11:05 AM) CANCELLED BY MD/NURSING UNIT g/dL 29 (03/25/23 5:00 AM) INR [0.9-1.1] 1.0 30 (03/22/23 7:08 PM) K [3.5-5.1 mmol/L] REQUEST CREDITED mmo l/L 31 (03/26/23 5:00 AM) 5.9 mmol/L 32 *HI* (03/25/23 11:05 AM) CANCELLED BY MD/NURSING UNIT mmol/L 33 (03/25/23 5:00 AM) Ketones [NEG mg/dL] NEGATIVE mg/dL (03/22/23 7:22 PM) Lipase [13-60 unit/L] 19 unit/L (03/22/23 7:08 PM) Leuk Est [NEG] NEGATIVE 34 (03/22/23 7:22 PM) Marijuana(u) NONE DETECTED (03/22/23 7:22 PM) MCH [28-33 pg] REQUEST CREDITED pg 35 (03/26/23 5:00 AM) 27.5 pg *LOW* (03/25/23 11:05 AM) CANCELLED BY MD/NURSING UNIT pg 36 (03/25/23 5:00 AM) MCHC [32-36 g/dL] REQUEST CREDITED g/d L 37 (03/26/23 5:00 AM) 30.7 g/dL *LOW* (03/25/23 11:05 AM) CANCELLED BY MD/NURSING UNIT g/dL 38 (03/25/23 5:00 AM) MCV [81-96 fL] REQUEST CREDITED fL 39 (03/26/23 5:00 AM) 89.6 fL (03/25/23 11:05 AM) CANCELLED BY MD/NURSING UNIT fL 40 (03/25/23 5:00 AM) Mg [1.6-2.6 mg/dL] 2.4 mg/dL (03/22/23 7:08 PM) Na [136-145 mmol/L] REQUEST CREDITED mmo l/L 41 (03/26/23 5:00 AM) 138 mmol/L (03/25/23 11:05 AM) CANCELLED BY MD/NURSING UNIT mmol/L 42 (03/25/23 5:00 AM) Nitrite (u) [NEG] NEGATIVE 43 (03/22/23 7:22 PM) Opiates(u) NONE DETECTED (03/22/23 7:22 PM) PO4 [2.5-4.5 mg/dL] 2.7 mg/dL (03/22/23 7:08 PM) Plts [150-350 K/uL] REQUEST CREDITED K/u L 44 (03/26/23 5:00 AM) 295 K/uL (03/25/23 11:05 AM) CANCELLED BY MD/NURSING UNIT K/uL 45 (03/25/23 5:00 AM) PT [12.0-14.2 seconds] 13.0 seconds (03/22/23 7:08 PM) RBC [4.40-5.60 M/uL] REQUEST CREDITED M/ uL 46 (03/26/23 5:00 AM) 3.74 M/uL *LOW* (03/25/23 11:05 AM) CANCELLED BY MD/NURSING UNIT M/uL 47 (03/25/23 5:00 AM) Fe Sat [14-50 %] 5 % *LOW* (03/22/23 7:08 PM) Smudge Cell [FEW] MODERATE *Abnormal* (03/25/23 11:05 AM) T Bili [0.0-1.2 mg/dL] 0.1 mg/dL (03/22/23 7:08 PM) Total IBC [250-400 ug/dL] 376 ug/dL (03/22/23 7:08 PM) Prot [6.4-8.3 g/dL] 6.6 g/dL (03/22/23 7:08 PM) Transferrin [200-360 mg/dL] 319 mg/dL (03/22/23 7:08 PM) Appear (u) CLEAR (03/22/23 7:22 PM) Color (u) YELLOW (03/22/23 7:22 PM) Glu (u) [NEG mg/dL] NEGATIVE mg/dL 48 (03/22/23 7:22 PM) Hgb (u) [NEG] NEGATIVE 49 (03/22/23 7:22 PM) pH (u) [5.0-8.0 unit] 5.0 unit (03/22/23 7:22 PM) Prot (u) [NEG mg/dL] NEGATIVE mg/dL (03/22/23 7:22 PM) Urobili [0.1-1.0 EU/dL] 0.1-1.0 EU/dL (03/22/23 7:22 PM) SG [1.005-1.030] 1.013 (03/22/23 7:22 PM) WBC [4.0-10.4 K/uL] REQUEST CREDITED K/u L 50 (03/26/23 5:00 AM) 3.18 K/uL *LOW* (03/25/23 11:05 AM) CANCELLED BY MD/NURSING UNIT K/uL 51 (03/25/23 5:00 AM) 1Result Comment: PATIENT REFUSED COLLECTION 2Result Comment: NICOLE FLAHERTY 3Result Comment: FOL NO RED RECEIVED 4Result Comment: PATIENT REFUSED COLLECTION 5Result Comment: NICOLE FLAHERTY 6Result Comment: PATIENT REFUSED COLLECTION 7Result Comment: NICOLE FLAHERTY 8Result Comment: PATIENT REFUSED COLLECTION 9Result Comment: NICOLE FLAHERTY 10Result Comment: Unconfirmed, intended for Medical treatment purposes only 11Result Comment: POSSIBLE INTERFERING SUBSTANCE. ASCORBIC ACID DETECTED IN URINE. RESULTS MAY BEUNRELIABLE. 12Result Comment: PATIENT REFUSED COLLECTION 13Result Comment: NICOLE FLAHERTY 14Result Comment: PATIENT REFUSED COLLECTION 15Result Comment: NICOLE FLAHERTY 16Result Comment: PATIENT REFUSED COLLECTION 17Result Comment: NICOLE FLAHERTY 18Result Comment: PATIENT REFUSED COLLECTION 19Result Comment: NICOLE FLAHERTY 20Result Comment: Unconfirmed, intended for Medical treatment purposes only 21Result Comment: PATIENT REFUSED COLLECTION 22Result Comment: NICOLE FLAHERTY 23Result Comment: PATIENT REFUSED COLLECTION 24Result Comment: ADA recommendation for FASTING Serum/Plasma Glucose: Normal: 70-100 mg/dL Prediabetes: 100-125 mg/dL Diabetes: 126 mg/dL or higher 25Result Comment: NICOLE FLAHERTY 26Result Comment: PATIENT REFUSED COLLECTION 27Result Comment: NICOLE FLAHERTY 28Result Comment: PATIENT REFUSED COLLECTION 29Result Comment: NICOLE FLAHERTY 30Result Comment: Suggested therapeutic range for low-intensity Coumadin therapy for venous thromboembolism is INR 2.0-3.0 (ex: atrial fibrillation, history of TIA/stroke). For high risk patients, the suggested therapeutic range is INR 2.5-3.5 (ex: mechanical prosthetic valves). 31Result Comment: PATIENT REFUSED COLLECTION 32Result Comment: HEMOLYZED SPECIMEN CHECKED 33Result Comment: NICOLE FLAHERTY 34Result Comment: POSSIBLE INTERFERING SUBSTANCE. ASCORBIC ACID DETECTED IN URINE. RESULTS MAY BEUNRELIABLE. 35Result Comment: PATIENT REFUSED COLLECTION 36Result Comment: NICOLE FLAHERTY 37Result Comment: PATIENT REFUSED COLLECTION 38Result Comment: NICOLE FLAHERTY 39Result Comment: PATIENT REFUSED COLLECTION 40Result Comment: NICOLE FLAHERTY 41Result Comment: PATIENT REFUSED COLLECTION 42Result Comment: NICOLE FLAHERTY 43Result Comment: POSSIBLE INTERFERING SUBSTANCE. ASCORBIC ACID DETECTED IN URINE. RESULTS MAY BEUNRELIABLE. 44Result Comment: PATIENT REFUSED COLLECTION 45Result Comment: NICOLE FLAHERTY 46Result Comment: PATIENT REFUSED COLLECTION 47Result Comment: NICOLE FLAHERTY 48Result Comment: POSSIBLE INTERFERING SUBSTANCE. ASCORBIC ACID DETECTED IN URINE. RESULTS MAY BEUNRELIABLE. 49Result Comment: POSSIBLE INTERFERING SUBSTANCE. ASCORBIC ACID DETECTED IN URINE. RESULTS MAY BEUNRELIABLE. 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 Normal cardiomediastinal silhouette and pulmonary vasculature. Curvilinear radiodensity projected superior to the left mainstem bronchus. Hypoinflated lungs. No focal parenchymal opacity. No large pleural effusion. No pneumothorax. Mild cortical irregularity of the right fifth rib and left seventh rib laterally. Healed left ninth rib fracture deformities. Degenerative changes of the chest. IMPRESSION: 1. Mild cortical irregularity of the right fifth rib and left seventh rib laterally, recommend correlation with point tenderness for possible nondisplaced fracture. 2. Curvilinear radiodensity projected superior to the left mainstem bronchus, likely external to the patient. Lateral chest radiograph can be offered for confirmation. 3. Healed left ninth rib fracture deformities. Dr. Junaid Sheridan is the dictating resident. Finalized reports status indicates that the attending hasreviewed the images and report, and agrees with the interpretation. Preliminary report status should be regarded as NOT interpreted by the attending radiologist. Workstation ID: [id number] Final Dictated by:DO Sheridan Peter Dictated DT/TM:03/22/2023 10:21 Resident:DO Sheridan Peter Signed by:MD Knox Cristy N Signed (Electronic Signature):03/22/2023 10:20 Vital Signs Most recent to oldest [Reference Range]: 1 2 3 Height 170.2 cm (03/22/23 6:09 PM) Patient Weight 64.0 kg (03/24/23 4:03 AM) 69.5 kg (03/23/23 12:30 AM) 67.9 kg (03/22/23 6:09 PM) Body Mass Index 23.44 kg/m2 (03/22/23 6:09 PM) Temperature [36.5-37.9 DegC] 36.6 DegC (03/26/23 11:14 AM) 36.0 DegC *LOW* (03/26/23 8:29 AM) 36.0 DegC *LOW* (03/25/23 8:02 PM) Heart Rate 65 bpm (03/24/23 7:30 PM) 75 bpm (03/24/23 3:30 PM) 82 bpm (03/24/23 1:10 PM) Respiratory Rate 18 br/min (03/25/23 10:11 AM) 20 br/min (03/24/23 7:30 PM) 22 br/min (03/24/23 3:30 PM) Blood Pressure 122/70mmHg (03/26/23 11:14 AM) 117/77mmHg (03/26/23 8:29 AM) 112/69mmHg (03/25/23 8:02 PM) Mean Blood Pressure 86 mmHg (03/26/23 11:14 AM) 89 mmHg (03/26/23 8:29 AM) 83 mmHg (03/25/23 8:02 PM) Cuff Pulse Pressure 52 mmHg (03/26/23 11:14 AM) 40 mmHg (03/26/23 8:29 AM) 43 mmHg (03/25/23 8:02 PM) BP Location # 1 Left Arm, Non-invasive (03/26/23 11:14 AM) Left Arm, Non-invasive (03/26/23 8:29 AM) Right Arm (03/25/23 8:02 PM) Social History Social History Type Response Smoking Status Patient refused to a nswer Sex Male Addiction medicine Consult note * MD Godfrey Jonathan J: MODIFY MD Godfrey Jonathan J: MODIFY, MODIFY, MODIFY, MODIFY Event Display: Addiction Medicine Consult Authored Date: [id number] ADDICTION MEDICINE CONSULTATION REPORT Name: LYNDA RM IV Patient Number: [id number] : 1970 Date of Service: 03/26/2023 "This note was written by a medical student. Preliminary report status should be regarded as NOT reviewed by an attending physician. Finalized report status indicates that the attending has reviewed the note and agrees with the plan." Requesting Service: Internal Medicine Reason for Consultation: Recommendations regarding addiction treatment Hospital Course: Lynda Rm IV is a 52 year old male with PMH Hodgkins lymphoma, gastritis, previous HCV infection, epilepsy (non-adherent with medications), alcohol use disorder, stimulant use disorder (cocaine), psychiatric history of MDD, MADI, ADHD, cluster B personality traits who presented to the ED on 03/22/22 due seizure with concern for alcohol withdrawal. Of note, he has had multiple hospitalizationsfor alcohol withdrawal, including most recently in January 2023 and again in February 2023. When hepresented during this admission, he was belligerently drunk, slurring speech, endorsing visual hallucinations, and reported seizure a couple hours prior to presentation, which was accompanied by LOC and urinary incontinence. Seizure was likely epileptic, as patient is non- adherent with medications.CIWA-Ar 7 upon arrival. Last drink 1200 vs 1600 on 03/22. He was admitted to MICU for IV to PO phenobarb taper and is now downgraded to [facility] for continued phenobarb taper, which is nearing completion and expected to finish today 03/26. He has been continued on home Depakote. Pt is known to our Peer Informatica Mdm Developer but our team has not had a formal consult with him. Attempted to see patient today 03/26 for treatment recommendations however he was resistant to engaging with us, stating that he already knows his level of care and what he needs. He is not interested in i npatient rehab and only wishes to do outpatient counseling in [place]. He is set to be discharged backto [facility] today however transportation is lacking today due to the snow. SW working onmaking sure his available bed can be saved for him until tomorrow. I have seen and examined the patient, reviewed the database, discussed the case and reviewed the note with medical student Anna Fuentes. I agree with the plan and findings as above. Electronic Signature on File Electronically Reviewed/Signed by: Anna Fuentes Author Signature Dt/Tm:03/26/2023 11:51 AM Medical Student Electronically Reviewed/Signed by: MD Munir Guerraigner Signature Dt/Tm: 03/27/2023 09:59 AM Tube Blower Internal Medicine/Infectious Disease/Addiction Medicine [address] [id number] [facility] .D/C Summary * MD Best Michael P: PERFORM Event Display: .D/C Summary Authored Date: [id number] [facility] For medical concerns, call: . Address: [address] [place] [address] [id number] (MOBILE) :1970 . Date of Admission:03/22/2023 Date of Discharge:03/26/2023 Physician:MD Best Michael P Service:Internal Medicine Discharge Disposition:Home or Self Care Primary Care Provider/Phone: HEBERT CHINO ANA M (BUSINESS) [phone] (FAX BUSINESS) Principal Diagnosis: Alcohol use with withdrawal Other Diagnoses: Substance use disorder Anxiety Bipolar disorder Epilepsy Hematemesis Major Tests and Procedures: (03/22/2023 21:23 EST XR Chest 1 View) FINDINGS: Supine AP chest radiograph. Normal cardiomediastinal silhouette and pulmonary vasculature. Curvilinear radiodensity projected superior to the left mainstem bronchus. Hypoinflated lungs. No focal parenchymal opacity. No large pleural effusion. No pneumothorax. Mild cortical irregularity of the right fifth rib and left seventh rib laterally. Healed left ninth rib fracture deformities. Degenerative changes of the chest. IMPRESSION: 1. Mild cortical irregularity of the right fifth rib and left seventh rib laterally, recommend correlation with point tenderness for possible nondisplaced fracture. 2. Curvilinear radiodensity projected superior to the left mainstem bronchus, likely external to the patient. Lateral chest radiograph can be offered for confirmation. 3. Healed left ninth rib fracture deformities. [1] Lab Results Test Name Test Result Date/Time Na 138 mmol/L 03/25/2023 11:05 EST K 5.9 mmol/L 03/25/2023 11:05 EST Cl- 106 mmol/L 03/25/2023 11:05 EST HCO3 21 mmol/L 03/25/2023 11:05 EST Anion Gap 11 mmol/L 03/25/2023 11:05 EST BUN 11 mg/dL 03/25/2023 11:05 EST Cret 0.86 mg/dL 03/25/2023 11:05 EST eGFR CKD-EPI >90 mL/min/1.73 m2 03/25/2023 11:05 EST Glu 151 mg/dL 03/25/2023 11:05 EST Ca 8.4 mg/dL 03/25/2023 11:05 EST WBC 3.18 K/uL 03/25/2023 11:05 EST Hgb 10.3 g/dL 03/25/2023 11:05 EST Hct 33.5 % 03/25/2023 11:05 EST RBC 3.74 M/uL 03/25/2023 11:05 EST MCV 89.6 fL 03/25/2023 11:05 EST MCHC 30.7 g/dL 03/25/2023 11:05 EST MCH 27.5 pg 03/25/2023 11:05 EST RDW 14.6 % 03/25/2023 11:05 EST Plts 295 K/uL 03/25/2023 11:05 EST Platelet Morphology NORMAL 03/25/2023 11:05 EST MPV 9.9 fL 03/25/2023 11:05 EST Type of Diff: MANUAL 03/25/2023 11:05 EST Immature Gran% 0.0 % 03/25/2023 11:05 EST Neut% 54.1 % 03/25/2023 11:05 EST Lymph% 35.1 % 03/25/2023 11:05 EST [place]% 5.4 % 03/25/2023 11:05 EST Baso% 2.7 % 03/25/2023 11:05 EST Eos% 2.7 % 03/25/2023 11:05 EST Immat Gran, Abs 0.00 K/uL 03/25/2023 11:05 EST Neut, Abs 1.72 K/uL 03/25/2023 11:05 EST Lymph, Abs 1.12 K/uL 03/25/2023 11:05 EST [place], Abs 0.17 K/uL 03/25/2023 11:05 EST Baso, Abs 0.09 K/uL 03/25/2023 11:05 EST Eos, Abs 0.09 K/uL 03/25/2023 11:05 EST Smudge Cell MODERATE 03/25/2023 11:05 EST Polychromasia INCREASED 03/25/2023 11:05 EST Ovalocytes FEW 03/25/2023 11:05 EST Hospital Course: Lynda Rm is a 52 y/o M with history significant for AUD, stimulant use disorder (cocaine), MDD, MADI, ADHD, gastritis, epilepsy w/ noncompliance to antiseizure meds, Hodgkin's lymphoma, previous HCV infection spontaneously cleared in 2018, who presented to the ED due to concern for seizure / to alcohol withdrawal. He was initially admitted to the MICU for IV phenobarbital, and was able to be transitioned to P.O phenobarb taper. He tolerated this well with no withdrawal or seizure. He was evaluated by Addiction medicine during his stay and was provided with resources for outpatient alcohol use disorder treatment per his request, as he declined inpatient rehabilitation. 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 He was ultimately cleared for discharge by Addiction medicine and completed his phenobarbital, and was discharged torocky comfort for outpatient follow up. Notably, patient has distant history of gastritis. He was advised against NSAID use at home at time of discharge, but does have meloxicam available as he reported use of high amounts of ibuprofen when Meloxicam is not available. Given the relatively high risk of GI bleed with ibuprofen as compared to meloxicam he was provided with 1 week of meloxicam until he could further discuss with his PCP. He was continued on pantoprazole treatment. Exam on Discharge: Vitals & Measurements: T:36.6C TMIN:36.0C TMAX:36.6C BP:122/70 Oxygen Therapy:Room air General:Awake, alert, no acute distress, lying comfortably in bed HEENT:EOMI, Mucous membranes moist Neck:Supple, trachea midline Cardiac:S1,S2-heard, no murmur, rubs, or gallops Pulmonary:Air entry equal b/l, no Wheezing or rhonchi noted Abdomen:Soft, non tender, non-distended Extremities:no pedal edema noted, moving all extremities equally Neuro:Awake, alert, no focal deficits Psych:pressured speech, denies SI, HI, splitting Discharge Medications: 1.Acetaminophen (Tylenol 325 mg oral [...] mg (1 tab) by mouth once daily. 5.Meloxicam (meloxicam 15 mg oral tablet) 15 mg (1 tab) by mouth once daily. 6.Divalproex sodium (Depakote 500 mg oral delayed release tablet) 500 mg (1 tab) by mouth 2 times daily. 7.Folic acid (folic acid 1 mg oral tablet) 1 mg (1 tab) by mouth once daily. 8.Venlafaxine (venlafaxine 150 mg oral capsule, extended release) 150 mg (1 cap) by mouth once daily. 9.Methylphenidate (methylphenidate 20 mg oral tablet) 20 mg (1 tab) by mouth once daily. Allergies and Sensitivities: Compazinena Haldolna Reglanna promethazineOther Tests Pending: None Follow-Up Tests and Studies After Discharge: None Scheduled Appointments: Follow up with PCP on Saturday04/05/23 Discharge Services: No Post-Acute Placement(s) Listed No Post-Acute Service(s) Listed Care Instructions: You were admitted to [facility] for treatment of alcohol withdrawal. You completed phenobarbital protocol without withdrawal and will be discharged to continue your home medications as prescribed. You have been provided with resources for alcohol use in [place] that you may pursue by the Addiction medicine team. Please follow up with your PCP as scheduled next Saturday. A discharge summary will be sent to your primary care physician to ensure continuity of care. Please bring this discharge summary with you to your next office appointment so that your provider canreview it at that time. Follow-up appointments: 1. Keep all your follow-up appointments as already scheduled. If you cannot make an appointment, notify your provider. 2.Please follow up with your PCP within 1 week of discharge. Medications: - Your medication list has been reviewed and reconciled upon discharge to ensure accuracy and continuity of care. - You are provided with a list of all your current medications at this time. Please review closely and make note of any changes. - Please take all of your medications exactly as prescribed. - Tell your primary care provider if you cannot afford your medications. - Call your primary care provider if you are having any side effects or any other problems. - Call your primary care provider before taking any over the counter medications or supplements, including herbals and vitamins, because some of these may interact with your current medications and/or make your symptoms worse. It was our pleasure to care for you during your hospitalization. Immunizations Received this Hospital Stay: None Isolation: None . Advance Directive:Unable to Obtain Information I personally spent37 minutes in discharge planning. [1]XR Chest 1 View; MD Abilio, Hailey N 03/22/2023 21:23 EST Electronic Signature on File Electronically Reviewed/Signed by: Ovidio Best MD Author Signature Dt/Tm:03/26/2023 04:06 PM Division of Internal Medicine - Hospitalist [facility] Emergency department Summary note * MD Mena Christian: PERFORM, MODIFY, MODIFY MD Joon, Comfort Mejia: MODIFY Event Display: ED Summary Authored Date: [id number] Basic Information Time Seen: MD Mena Christian 03/22/2023 18:27 Chief Complaint alcohol withdrawal. seizure today at noon from withdrawal resulting in a fall now with left rib pain. last drink 24 hours ago before the seizure. Pt did start to drink after seizure. bloody bowel movements since this morning. +abdominal pain. History of Present Illness Lynda is a 52-year-old male with a past medical history of alcohol withdrawal, reportedalcohol withdrawal seizures,upper and lower GI bleeding, Hodgkin lymphoma, anxiety, depression, presenting tothe emergency department todaydue to concerns for alcohol withdrawal. Patienthad beensober for short period of time, went on a 3-day rudd, stopped drinking,hadwhat he believes to be a seizure today and woke up incontinent,and thenbegan drinking once more, last drink around noon.Patient denyingheadache, chest pain other than some right-sided rib discomfort, endorsing abdominal pain that does not move elsewhere. He reportsretching withsmall amounts of emesis, a few episodes, as well as melena in his stools. He is not on any anticoagulation. He reports a history of ICU stay in the past for GI bleeding. He denies problems with his pancreas in the past. Review of Systems Negative other than mentioned in HPI above. Physical Exam Vitals & Measurements T:36.5C HR:84(Monitored) RR:20 BP:137/97 SpO2:96% Oxygen Therapy:Room air HT:170.2cm WT:67.9kg WT:67.900kg(Dosing) BMI:23.44 General:Alert,oriented to person,situation,does not know the specific hospital Skin:Warm, dry. No diaphoresis. Head:Normocephalic, atraumatic. Dried blood noted under thelip. Neck:Trachea midline. No stridor. Eye:Normal conjunctiva, Sclera: Clear. Cardiovascular:Regular rate and rhythm, Normal peripheral perfusion. No murmur, rub, gallop Respiratory:Lungs are clear to auscultation, respirations are non-labored. No wheezing, stridor, rhonchi Chest wall:No deformity. Gastrointestinal:Soft, Non distended, No significant tenderness. No palpable masses, visible hernias, overlying skin erythema or ecchymosis. Extremities:No gross deformity or trauma. No asymmetry. Neurological:Normal speech observed, Level of consciousness: Appropriate for age. Psychiatric:Tangential thinking,easily distractible,agitated Procedure Upon my evaluation, this patient had a high probability of imminent or life- threatening deterioration due to, seizure and concern for alcohol withdrawal which required my direct attention, intervention, and personal management. I have personally provided 35 minutes of critical care time exclusiveof time spent on separately billable procedures. Time includes review of laboratory data, radiology results, discussion with consultants, and monitoring for potential decompensation. Interventions were performed as documented above. Comfort Dupree MD, MPH Medical Decision Making Hemodynamically stable on arrival, exam as above,agitated,easily distractible, concerns foralcohol withdrawal, patient reporting urinary incontinence, amnestic toeventprior to arrival,concerning for alcohol withdrawal seizure. History of alcohol withdrawal seizures. Patient reports history ofesophageal varices,unable to verifywith records at this time given the acuity of thepresentation and situation. Difficult access,however 1IV was able to be placed in theright upper extremity, plans to obtain second large-bore. Patient was crossmatched for 4 units of bloodin case of massive bleeding,basic blood work checked. Ceftriaxone started, as well as octreotideadministration and subsequent octreotide drip. Ceftriaxone also administered, as well as1 L normal saline. Given the concern foractive bleeding, reported history of cirrhosis, GI was consulted, medical ICUcalled for admission. Patient started on IV phenobarbitalprotocol, given concerns for p.o. intolerance withpossibility ofcontinued upper GI bleeding with hematemesis,patient alsowith reported alcohol withdrawal seizure prior to arrival to the emergency department. Please see the inpatient medical ICU team note for remainder the patient's care and disposition, as well as the GI team note. Assessment/Plan Alcohol withdrawal,concern for upper GI bleed -Vitals and exam as above -Diagnostics and therapeutics as above -Internal medicine for admission Medication Reconciliation Unchanged acetaminophen (Tylenol 325 mg oral tablet)2 tab(s) by mouth every 6 hours as needed fever/mild pain(1-3). Refills: 0. divalproex sodium (Depakote 500 mg oral delayed release tablet)1 tab(s) by mouth 2 times daily for 30 Days. Refills: 0. folic acid (folic acid 1 mg oral tablet)1 tab(s) by mouth once daily. Refills: 0. meloxicam (meloxicam 15 mg oral tablet)1 tab(s) by mouth once daily for 7 Days. Refills: 0. naloxone (naloxone 4 mg/0.1 mL [...] mouth once daily. Refills: 0. venlafaxine (venlafaxine 75 mg oral tablet, extended release)1 tab(s) by mouth once daily for 30 Days. Refills: 0. Attestation This patient was seen and evaluated along with the resident. I agree with above history, physical examination and medical decision-making. I participated in the following activities of this patients care: the medical history, the physical exam, medical decision making. I personally performed: supervision of the patient's care, the medical history, the physical exam, the medical decision making. The case was discussed with: the resident. I agree with the E&M service. Results interpretation: I agree with the study interpretation in this patient's care and the documentation. Comfort Dupree MD, MPH Problem List/Past Medical History Ongoing ADHD Alcohol withdrawal Anxiety Depression Epilepsy GI bleed Hodgkin lymphoma Allergies Compazinena Haldolna Reglanna promethazineOther Electronic Signature on File Electronically Reviewed/Signed by: Farooq Mena MD Author Signature Dt/Tm:03/24/2023 06:20 AM Resident Department of Emergency Medicine Electronically Reviewed/Signed by: Comfort Dupree MD Cosigner Signature Dt/Tm: 03/24/2023 06:13 PM Department of Emergency Medicine CB Discharge instructions * MD Best Michael P: MODIFY, PERFORM Event Display: Patient Discharge Instructions Authored Date: [id number] YOEL NOAH LYNDA Burch :1970 Visit Date:03/22/2023 Patient Discharge Instructions [facility] For medical concerns, call: . Date of Admission:03/22/2023 Date of Discharge:03/26/2023 Physician:MD Best Michael P Service:Internal Medicine Discharge Disposition:Home . Advance Directive:Unable to Obtain Information Reason for Hospitalization Your Diagnoses Alcohol use with withdrawal Anxiety Bipolar disorder Epilepsy Hematemesis Substance use disorder My Health Patient Portal: [employer] makes it easy for you to manage your health information online. [employer] is a free service that provides you instant, secure access to your medical information anytime, anywhere. Sign in or set up your account today at [email or web address] Thank you for allowing us to assist you with your healthcare needs. If you need additional community resources, [facility] can help at https://www.pa211.org. 211 can assist you in connecting with social programs based on your unique needs and locations. 211 is an anonymous search that can help you locate resources for: Food, Housing, Transportation, Goods, Education and Healthcare. Medications Patient is enrolled in Rx-to-Go Program New medications will be delivered from [facility] to patient's room at discharge: Mon-Sat from 9AM-5 PM. Medications MUST be PICKED UP at [facility] if patient is discharged Mon-Sun after 5 PM or anytime on holidays. Please note, the [facility] closes at 8 PM on and 5:30 PM on Saturdays, Sundays, and holidays. What How Much When Instructions Next Dose New methylphenidate (methylphenidate 20 mg oral tablet) 1 tab(s) by mouth Once daily Duration: 10 Days Printed Prescription Changed venlafaxine (venlafaxine 150 mg oral capsule, extended release) 1 cap by mouth Once daily Duration: 30 Days Pickup at [facility] Unchanged acetaminophen (Tylenol 325 mg oral tablet) 2 tab(s) by mouth Every 6 hours as needed for fever/mild pain (1-3) Unchanged divalproex sodium (Depakote 500 mg oral delayed release tablet) 1 tab(s) by mouth 2 times daily Duration: 30 Days Pickup at [facility] Unchanged folic acid (folic acid 1 mg oral tablet) 1 tab(s) by mouth Once daily Pickup at [facility] Unchanged meloxicam (meloxicam 15 mg oral tablet) 1 tab(s) by mouth Once daily Duration: 7 Days Pickup at [facility] Unchanged naloxone (naloxone 4 mg/ 0.1 mL nasal spray) in the nose 1 Unknown, 1 Refill(s), Administer 1 spray into affected nostril(s) as needed (opiod reversal, may repeat every 2 to 3 | minutes alternate nostrils). Unchanged pantoprazole (pantoprazole 40 mg oral delayed release tablet) 1 tab(s) by mouth Once daily Pickup at [facility] Unchanged thiamine (thiamine 100 mg oral tablet) 1 tab(s) by mouth Once daily Pickup at [facility] Information [facility]: [address] [place] [address] [facility] [phone] Allergies Compazinena Haldolna Reglanna promethazineOther What to do next Instructions From Your Doctor You were admitted to [facility] for treatment of alcohol withdrawal. You completed phenobarbital protocol without withdrawal and will be discharged to continue your home medications as prescribed. You have been provided with resources for alcohol use in [place] that you may pursue by the Addiction medicine team. Please follow up with your PCP as scheduled next Saturday. A discharge summary will be sent to your primary care physician to ensure continuity of care. Please bring this discharge summary with you to your next office appointment so that your provider canreview it at that time. Follow-up appointments: 1. Keep all your follow-up appointments as already scheduled. If you cannot make an appointment, notify your provider. 2.Please follow up with your PCP within 1 week of discharge. Medications: - Your medication list has been reviewed and reconciled upon discharge to ensure accuracy and continuity of care. - You are provided with a list of all your current medications at this time. Please review closely and make note of any changes. - Please take all of your medications exactly as prescribed. - Tell your primary care provider if you cannot afford your medications. - Call your primary care provider if you are having any side effects or any other problems. - Call your primary care provider before taking any over the counter medications or supplements, including herbals and vitamins, because some of these may interact with your current medications and/or make your symptoms worse. It was our pleasure to care for you during your hospitalization. If you notice the following symptoms Please callyour PCPduring normal business hours for symptoms including fevers (temperature>100.4 F or 38.1C), chills, intractable nausea, vomiting, diarrhea, rash, shortness of breath, bleeding, pain, redness, or other new or concerning symptoms. Foremergency and very serious health related issues please contact the careline at the number below. Depending on the issue, you may be directed to go to the emergency room. For other serious health issues such as chest pain and/or shortness of breath you may need to call 911 of go directly to the emergency room. Contact our Careline at . If unable to contact your physician and you feel it is an emergency, go to the nearest Emergency Room or call 911 Diet Instructions Please resume regular diet as tolerated. Activity Instructions Resume regular activity as tolerated. Follow-Up Appointments The Following Services Have Been Arranged for You No Post-Acute Placement(s) Listed No Post-Acute Service(s) Listed Test Results Test Name Test Result Date/Time Na 138 mmol/L 03/25/2023 11:05 EST K 5.9 mmol/L 03/25/2023 11:05 EST Cl- 106 mmol/L 03/25/2023 11:05 EST HCO3 21 mmol/L 03/25/2023 11:05 EST Anion Gap 11 mmol/L 03/25/2023 11:05 EST BUN 11 mg/dL 03/25/2023 11:05 EST Cret 0.86 mg/dL 03/25/2023 11:05 EST eGFR CKD-EPI >90 mL/min/1.73 m2 03/25/2023 11:05 EST Glu 151 mg/dL 03/25/2023 11:05 EST Ca 8.4 mg/dL 03/25/2023 11:05 EST WBC 3.18 K/uL 03/25/2023 11:05 EST Hgb 10.3 g/dL 03/25/2023 11:05 EST Hct 33.5 % 03/25/2023 11:05 EST RBC 3.74 M/uL 03/25/2023 11:05 EST MCV 89.6 fL 03/25/2023 11:05 EST MCHC 30.7 g/dL 03/25/2023 11:05 EST MCH 27.5 pg 03/25/2023 11:05 EST RDW 14.6 % 03/25/2023 11:05 EST Plts 295 K/uL 03/25/2023 11:05 EST Platelet Morphology NORMAL 03/25/2023 11:05 EST MPV 9.9 fL 03/25/2023 11:05 EST Type of Diff: MANUAL 03/25/2023 11:05 EST Immature Gran% 0.0 % 03/25/2023 11:05 EST Neut% 54.1 % 03/25/2023 11:05 EST Lymph% 35.1 % 03/25/2023 11:05 EST Bourbon% 5.4 % 03/25/2023 11:05 EST Baso% 2.7 % 03/25/2023 11:05 EST Eos% 2.7 % 03/25/2023 11:05 EST Immat Gran, Abs 0.00 K/uL 03/25/2023 11:05 EST Neut, Abs 1.72 K/uL 03/25/2023 11:05 EST Lymph, Abs 1.12 K/uL 03/25/2023 11:05 EST Bourbon, Abs 0.17 K/uL 03/25/2023 11:05 EST Baso, Abs 0.09 K/uL 03/25/2023 11:05 EST Eos, Abs 0.09 K/uL 03/25/2023 11:05 EST Smudge Cell MODERATE 03/25/2023 11:05 EST Polychromasia INCREASED 03/25/2023 11:05 EST Ovalocytes FEW 03/25/2023 11:05 EST Tests Pending None Procedures Performed None Immunizations This Visit None Special Instructions Common Emergency Awareness Tips Suicide [...] signs, call to get immediate medical attention! Patient Care team information Care Team Personnel Name: HEBERT Chino Ana M Position: Referring DIRECT Member Role: Primary Care Provider Address: Address: [address] [place] [address] [place] Name: Paddy Dempsey Amy E Position: Pharmacist Member Role: Pharmacy - Lifetime Address: Address: [address] [address] [place] Name: Paddy Hyde Keri Position: Pharmacist Member Role: Pharmacy - Lifetime Name: Paddy Mckeon Kyle Position: Pharmacist Member Role: Pharmacy - Lifetime Address: Address: [address] [place] [address] [place] Name: R.E.S. Not Needed Position: Resident Name: Jimmy Beck MD, Mali Moreland Position: Physician - Pulmonary Med Member Role: Admitting Physician Address: Address: [address] [place] [address] [address] [place] [address] [place] Care Team Related Persons Name: LYNDA RM III
--- OUTSIDE RECORDS SUMMARY | 2023-08-25 05:01 | External Medical Summary ---
Author Name Unknown Address Unknown Organization [facility] [employer] [facility] [employer] [facility] [address] [place] [address] Laboratory Report Ordering Provider Test Date Status Kaylyn Feliciano 06/22/2023 02:11:00 Final Observation Date Value Abnormality Reference (Units ) Status Glucose [Mass/volume] in Serum or Plasma 06/22/2023 02:52:18 112 Above high normal 74-109 (mg/dL) Final Urea nitrogen [Mass/volume] in Serum or Plasma 06/22/2023 02:52:18 12 6-23 (mg/dL) Final Creatinine [Mass/volume] in Serum or Plasma 06/22/2023 02:52:18 0.73 0.70-1.30 (mg/dL) Final GLOMERULAR FILTRATION RATE/1.73 SQ M.PREDICTED:ARVRAT:PT:SER /PLAS/BLD:QN:CREATININE AND CYSTATIN C-BASED FORMULA (CKD-EPI 2020) 06/22/2023 02:52:20 >90 >=60 (mL/min/1.73 m2) Final Sodium [Moles/volume] in Serum or Plasma 06/22/2023 02:52:18 138 136-145 (mmol/L) Final Potassium [Moles/volume] in Serum or Plasma 06/22/2023 02:52:18 4.1 3.5-5.1 (mmol/L) Final Chloride [Moles/volume] in Serum or Plasma 06/22/2023 02:52:18 99 98-107 (mmol/L) Final Carbon dioxide, total [Moles/volume] in Serum or Plasma 06/22/2023 02:52:18 25 22-29 (mmol/L) Final Anion gap 3 in Serum or Plasma 06/22/2023 02:52:20 14 5-14 (mmol/L) Final Calcium [Mass/volume] in Serum or Plasma 06/22/2023 02:52:18 9.8 8.4-10.2 (mg/dL) Final Protein [Mass/volume] in Serum or Plasma 06/22/2023 02:52:18 7.3 6.4-8.3 (g/dL) Final Albumin [Mass/volume] in Serum or Plasma by Bromocresol green (BCG) dye binding method 06/22/2023 02:52:18 4.0 3.5-5.2 (g/dL) Final Bilirubin.total [Mass/volume] in Serum or Plasma 06/22/2023 02:52:18 0.3 0.0-1.2 (mg/dL) Final Aspartate aminotransferase [Enzymatic activity/volume] in Serum or Plasma 06/22/2023 02:52:18 20 0-40 (unit/L) Final Alanine aminotransferase [Enzymatic activity/volume] in Serum or Plasma 06/22/2023 02:52:18 16 0-41 (unit/L) Final Alkaline phosphatase [Enzymatic activity/volume] in Serum or Plasma 06/22/2023 02:52:18 115 40-130 (unit/L) Final Performing Location [facility] [employer] Emissions Technician ry [address] [place] [id number]
--- OUTSIDE RECORDS SUMMARY | 2023-08-25 05:01 | External Medical Summary ---
Author Name Unknown Address Unknown Organization [facility] [employer] [facility] [employer] [facility] [address] [place] [address] [place] [address] Laboratory Report Ordering Provider Test Date Status Clarice Quiroga 07/31/2023 21:19:00 Final Observation Date Value Abnormality Reference (Units ) Status Natriuretic peptide.B prohormone N-Terminal [Mass/volume] in Blood by Immunoassay 07/31/2023 22:26:05 68 <=124 (pg/mL) Final Performing Location [facility] [employer] Sales Advisor ry [address] [place] [address]
--- OUTSIDE RECORDS SUMMARY | 2023-08-25 05:01 | External Medical Summary ---
Author Name Unknown Address Unknown Organization [facility] [address] [place] [address] Laboratory Report Ordering Provider Test Date Status Clarice Quiroga 07/31/2023 21:19:00 Final Observation Date Value Abnormality Reference (Units ) Status Neutrophils/100 leukocytes in Blood by Automated count 07/31/2023 21:52:57 38.0 (%) Final Lymphocytes/100 leukocytes in Blood by Automated count 07/31/2023 21:52:57 47.6 (%) Final Monocytes/100 leukocytes in Blood by Automated count 07/31/2023 21:52:57 7.7 (%) Final Eosinophils/100 leukocytes in Blood by Automated count 07/31/2023 21:52:57 5.8 (%) Final Basophils/100 leukocytes in Blood by Automated count 07/31/2023 21:52:57 0.6 (%) Final Immature granulocytes/100 leukocytes in Blood 07/31/2023 21:52:57 0.3 (%) Final Neutrophils [#/volume] in Blood by Automated count 07/31/2023 21:52:57 1.18 Below low normal 2.00-7.70 (K/uL) Final Lymphocytes [#/volume] in Blood by Automated count 07/31/2023 21:52:57 1.48 1.00-3.40 (K/uL) Final Monocytes [#/volume] in Blood by Automated count 07/31/2023 21:52:57 0.24 0.00-1.00 (K/uL) Final Eosinophils [#/volume] in Blood by Automated count 07/31/2023 21:52:57 0.18 0.00-0.50 (K/uL) Final Basophils [#/volume] in Blood by Automated count 07/31/2023 21:52:57 0.02 0.00-0.10 (K/uL) Final Immature granulocytes [#/volume] in Blood by Automated count 07/31/2023 21:52:57 0.01 0.00-0.40 (K/uL) Final Performing Location [facility] [address] [place] [address]
--- OUTSIDE RECORDS SUMMARY | 2023-08-25 05:01 | External Medical Summary ---
Author Name Unknown Address Unknown Organization [facility] [address] [place] [address] Laboratory Report Ordering Provider Test Date Status Clarice Quiroga 07/31/2023 21:19:00 Final Observation Date Value Abnormality Reference (Units ) Status Ethanol [Mass/volume] in Serum or Plasma 07/31/2023 22:14:35 54.0 Above high normal <=10.1 (mg/dL) Final Performing Location [facility] [employer] Mixer [employer] [address] [place] [address]
--- OUTSIDE RECORDS SUMMARY | 2023-08-25 05:01 | External Medical Summary ---
Author Name Unknown Address Unknown Organization [facility] [address] [place] [address] Laboratory Report Ordering Provider Test Date Status Felix Grubbs 08/01/2023 04:09:00 Final Order added by [id number] ENTIAL Observation Date Value Abnormality Reference (Units ) Status Neutrophils/100 leukocytes in Blood by Manual count 08/01/2023 05:42:02 43.0 (%) Final Lymphocytes [#/volume] in Blood by Manual count 08/01/2023 05:42:02 43.0 (%) Final Monocytes/100 leukocytes in Blood by Manual count 08/01/2023 05:42:02 4.0 (%) Final Eosinophils [#/volume] in Blood 08/01/2023 05:42:02 10.0 (%) Final Platelet morphology finding [Identifier] in Blood 08/01/2023 05:42:02 Reviewed^Reviewe d Final Erythrocyte morphology finding [Identifier] in Blood 08/01/2023 05:42:02 See Findings^See Findings Final Anisocytosis [Presence] in Blood by Light microscopy 08/01/2023 05:42:02 Slight^Slight Abnormal Final Target cells [Presence] in Blood by Light microscopy 08/01/2023 05:42:02 Few^Few Final Elliptocytes [Presence] in Blood by Light microscopy 08/01/2023 05:42:02 Few^Few Final Rouleaux [Presence] in Blood by Light microscopy 08/01/2023 05:42:02 Present^Present Abnormal Final Performing Location [facility] [address] [place] [address]
--- OUTSIDE RECORDS SUMMARY | 2023-08-25 05:01 | External Medical Summary ---
Author Name Unknown Address Unknown Organization [facility] [facility] [address] [place] [address] Laboratory Report Ordering Provider Test Date Status Clarice Quiroga 07/31/2023 23:37:00 Final Observation Date Value Abnormality Reference (Units) Status Amphetamine [Presence] in Urine by Screen method 08/01/2023 00:11:38 Presumptive Pos^Presumptive Pos Abnormal Not Detected Final Benzodiazepines [Presence] in Urine by Screen method 08/01/2023 00:11:38 Not Detected^Not Detected Not Detected Final Cannabinoids [Presence] in Urine by Screen method 08/01/2023 00:11:38 Not Detected^Not Detected Not Detected Final Benzoylecgonine [Presence] in Urine 08/01/2023 00:11:38 Presumptive Pos^Presumptive Pos Abnormal Not Detected Final HYDROcodone [Presence] in Urine by Screen method 08/01/2023 00:11:38 Not Detected^Not Detected Not Detected Final Drug Level
Amphetamines 500 ng/mL
Benzodiazepines 100 ng/mL
Cannabinoids 50 ng/mL
Cocain Metabolite 150 ng/mL
Hydrocodone 100 ng/mL
Methadone Metabolite 100 ng/mL
Morphine/ Codeine 300 ng/mL
Oxycodone 100 ng/mL

The above screening results are presumptive and can only be used for medical purposes. Confirmatory testing is available upon request.
Intended for medical treatment only. U Fentanyl Scr 08/01/2023 00:11:38 Not Detected^Not Detected Final Fentanyl Assay Cutoff >=5 ng /mL
The above screening results are presumptive and can only be used for medical purposes. Confirmatory testing is available upon request. Intended for medical treatment only. Methadone [Presence] in Urine 08/01/2023 00:11:38 Not Detected^Not Detected Not Detected Final Opiates [Presence] in Urine by Screen method 08/01/2023 00:11:38 Not Detected^Not Detected Not Detected Final oxyCODONE [Presence] in Urine 08/01/2023 00:11:38 Not Detected^Not Detected Not Detected Final Performing Location [facility] Architect [employer] [address] [place] [address]
--- OUTSIDE RECORDS SUMMARY | 2023-08-25 05:01 | External Medical Summary | Continuity of Care Document ---
Author Name Unknown Organization [facility] Address [address] [place] [id number] Care Team Providers Care [place] Machine Operator Name Role Phone Merlene Lima Primary Care Physician [phone] Encounter [facility] [id number] Date(s): 06/27/23 - 06/28/[address] [phone] Discharge Disposition: Home or Self Care Attending Physician: MD Enrique, Sergey Richardson Allergies, Adverse Reactions, Alerts Substance Criticality Severity Reaction Reaction Severity Status promethazine Other Active Haldol na Active Compazine na Active Reglan na Active Medications cholecalciferol 25 mcg (1000 intl units) oral capsule Start: 06/24/23 3:52:00 PM EDT, 2 cap, PO, Daily, Disp# 60 cap, Refills: 2, Pharmacy: [facility] Start Date: 06/24/23 Status: Ordered clindamycin 300 mg oral capsule Start: 06/24/23 3:55:00 PM EDT, 1 cap, PO, q6h, Disp# 20 cap, Pharmacy: [facility] Start Date: 06/24/23 Stop Date: 06/29/23 Status: Ordered Depakote ER 250 mg oral tablet, extended release Start: 06/24/23 3:47:00 PM EDT, 3 tab, PO, qhs Start Date: 06/24/23 Status: Ordered folic acid 1 mg oral tablet Start: 03/25/23 2:21:00 PM EST, 1 tab, PO, Daily, Disp# 30 tab, Refills: 0, Pharmacy: [facility] Start Date: 03/25/23 Status: Ordered naloxone [...] Daily, Disp# 30 tab, Refills: 0, Pharmacy: [facility] Start Date: 03/25/23 Status: Ordered thiamine 100 mg oral tablet Start: 03/25/23 2:21:00 PM EST, 1 tab, PO, Daily, Disp# 30 tab, Pharmacy: [facility] Start Date: 03/25/23 Status: Ordered Tylenol 325 mg oral tablet Start: 05/24/22 10:29:00 AM EDT, 2 tab, PO, q6h, Disp# 60 tab, Refills: 0, PRN: fever/mild pain (1-3), Pharmacy: [id number] Start Date: 05/24/22 Status: Ordered venlafaxine 150 mg oral capsule, extended release Start: 03/25/23 2:22:00 PM EST, 1 cap, PO, Daily, Disp# 30 cap, Pharmacy: [facility] Start Date: 03/25/23 Stop Date: 04/24/23 [...] bleed Confirmed Active Hodgkin lymphoma Confirmed Active Procedures Procedure Date Related Diagnosis Body Site Status Esophagogastroduodenoscopy 1 05/21/22 Completed Esophagogastroduodenoscopy 2 02/13/22 Completed REVISE HIP JOINT REPLACEMENT Completed 1auto-populated from documented surgical case 2auto-populated from documented surgical case Vital Signs Most recent to oldest [Reference Range]: 1 Height 177 cm (06/27/23 10:45 PM) Patient Weight 58.1 kg (06/27/23 10:45 PM) Body Mass Index 18.55 kg/m2 (06/27/23 10:45 PM) Temperature [36.5-37.9 DegC] 36.4 DegC *LOW* (06/27/23 10:45 PM) Heart Rate 89 bpm (06/27/23 10:45 PM) Respiratory Rate 18 br/min (06/27/23 10:45 PM) Blood Pressure 146/93mmHg (06/27/23 10:45 PM) Mean Blood Pressure 108 mmHg (06/27/23 10:45 PM) Social History Social History Type Response Smoking Status Current every day he abram smoker Sex Male Patient Care team information Care Team Personnel Name: HEBERT Lima Ana M Position: Referring DIRECT Member Role: Primary Care Provider Address: Address: [address] [place] [address] Name: Paddy Dempsey Amy E Position: Pharmacist Member Role: Pharmacy - Lifetime Address: Address: [place] [address] [place] Name: Paddy Larry Yehuala K Position: Pharmacist Member Role: Pharmacy - Lifetime Name: Paddy Hyde Keri Position: Pharmacist Member Role: Pharmacy - Lifetime Name: Paddy Mckeon Kyle Position: Pharmacist Member Role: Pharmacy - Lifetime Address: Address: [address] [place] [address] Care Team Related Persons Name: LYNDA DIALLO III"
--- OUTSIDE RECORDS SUMMARY | 2023-08-25 05:01 | External Medical Summary ---
Author Name Unknown Address Unknown Organization [facility] [address] [place] [address] Laboratory Report Ordering Provider Test Date Status Felix Grubbs 08/01/2023 00:31:00 Final Observation Date Value Abnormality Reference (Units ) Status Magnesium [Mass/volume] in Serum or Plasma 08/01/2023 00:58:58 1.9 1.6-2.6 (mg/dL) Final Performing Location [facility] [employer] Plating Engineer [facility] [address] [place] [address]
--- OUTSIDE RECORDS SUMMARY | 2023-08-25 05:01 | External Medical Summary ---
Author Name Unknown Address Unknown Organization [facility] [address] [place] [address] Laboratory Report Ordering Provider Test Date Status Felix Grubbs 08/01/2023 04:09:00 Final Observation Date Value Abnormality Reference (Units ) Status Protein [Mass/volume] in Serum or Plasma 08/01/2023 04:43:21 5.2 Below low normal 6.4-8.3 (g/dL) Final Albumin [Mass/volume] in Serum or Plasma by Bromocresol green (BCG) dye binding method 08/01/2023 04:43:21 3.3 Below low normal 3.5-5.2 (g/dL) Final Bilirubin.total [Mass/volume] in Serum or Plasma 08/01/2023 04:43:21 <0.1 0.0-1.2 (mg/dL) Final Result of TBIL lower than DB IL. Bilirubin.direct [Mass/volume] in Serum or Plasma 08/01/2023 04:43:21 <0.2 <=0.3 (mg/dL) Final Aspartate aminotransferase [Enzymatic activity/volume] in Serum or Plasma 08/01/2023 04:43:23 91 Above high normal 0-40 (unit/L) Final Alanine aminotransferase [Enzymatic activity/volume] in Serum or Plasma 08/01/2023 04:43:23 55 Above high normal 0-41 (unit/L) Final Alkaline phosphatase [Enzymatic activity/volume] in Serum or Plasma 08/01/2023 04:43:21 130 40-130 (unit/L) Final Performing Location [facility] [employer] Buyer [employer] [address] [place] [address]
--- OUTSIDE RECORDS SUMMARY | 2023-08-25 05:01 | External Medical Summary ---
Author Name Unknown Address Unknown Organization [facility] [address] [place] [address] Laboratory Report Ordering Provider Test Date Status Kaylyn Feliciano 06/22/2023 01:44:00 Final Observation Date Value Abnormality Reference (Units) Status Amphetamine [Presence] in Urine by Screen method 06/22/2023 02:12:07 Presumptive Pos^Presumptive Pos Abnormal Not Detected Final Benzodiazepines [Presence] in Urine by Screen method 06/22/2023 02:12:07 Not Detected^Not Detected Not Detected Final Cannabinoids [Presence] in Urine by Screen method 06/22/2023 02:12:07 Not Detected^Not Detected Not Detected Final Benzoylecgonine [Presence] in Urine 06/22/2023 02:12:07 Not Detected^Not Detected Not Detected Final HYDROcodone [Presence] in Urine by Screen method 06/22/2023 02:12:07 Not Detected^Not Detected Not Detected Final Drug Level
Amphetamines 500 ng/mL
Benzodiazepines 100 ng/mL
Cannabinoids 50 ng/mL
Cocain Metabolite 150 ng/mL
Hydrocodone 100 ng/mL
Methadone Metabolite 100 ng/mL
Morphine/ Codeine 300 ng/mL
Oxycodone 100 ng/mL

The above screening results are presumptive and can only be used for medical purposes. Confirmatory testing is available upon request.
Intended for medical treatment only. U Fentanyl Scr 06/22/2023 02:12:07 Not Detected^Not Detected Final Fentanyl Assay Cutoff >=5 ng /mL
The above screening results are presumptive and can only be used for medical purposes. Confirmatory testing is available upon request. Intended for medical treatment only. Methadone [Presence] in Urine 06/22/2023 02:12:07 Not Detected^Not Detected Not Detected Final Opiates [Presence] in Urine by Screen method 06/22/2023 02:12:07 Not Detected^Not Detected Not Detected Final oxyCODONE [Presence] in Urine 06/22/2023 02:12:07 Not Detected^Not Detected Not Detected Final Performing Location [facility] Lumber Stacker [facility] [address] [place] [address]
--- OUTSIDE RECORDS SUMMARY | 2023-08-25 05:01 | External Medical Summary ---
Author Name Unknown Address Unknown Organization [facility] Subsection:[facility] Automated Subsection Laboratory Report Ordering Provider Test Date Status Clarice Quiroga 07/31/2023 21:19:00 Final Observation Date Value Abnormality Reference (Units ) Status Blood group antibody screen.cell I [Presence] in Serum or Plasma 07/31/2023 22:30:36 0^0 Final Blood group antibody screen.cell II [Presence] in Serum or Plasma 07/31/2023 22:30:36 0^0 Final SC3 Gel 07/31/2023 22:30:36 0^0 Final Antibody Screen Gel 07/31/2023 22:30:36 Negative ABSC^NEG Final Performing Location [facility] Automated Sub section
--- OUTSIDE RECORDS SUMMARY | 2023-08-25 05:01 | External Medical Summary ---
Author Name Unknown Address Unknown Organization [facility] [address] [place] [address] Laboratory Report Ordering Provider Test Date Status Felix Grubbs 08/01/2023 04:09:00 Final Observation Date Value Abnormality Reference (Units) Status Leukocytes [#/volume] in Blood by Automated count 08/01/2023 04:54:53 2.42 Below low normal 4.00-10.40 (K/uL) Final Erythrocytes [#/volume] in Blood by Automated count 08/01/2023 04:54:53 2.96 Below low normal 4.40-5.60 (M/uL) Final Hemoglobin [Mass/volume] in Blood 08/01/2023 04:54:53 7.9 Below low normal 13.0-17.0 (g/dL) Final Hematocrit [Volume Fraction] of Blood by Automated count 08/01/2023 04:54:53 26.4 Below low normal 35.0-44.0 (%) Final MCV [Entitic volume] by Automated count 08/01/2023 04:54:53 89.2 81.0-96.0 (fL) Final MCH [Entitic mass] by Automated count 08/01/2023 04:54:53 26.7 Below low normal 28.0-33.0 (pg) Final MCHC [Mass/volume] by Automated count 08/01/2023 04:54:53 29.9 Below low normal 32.0-36.0 (g/dL) Final Erythrocyte distribution width [Ratio] by Automated count 08/01/2023 04:54:53 17.3 Above high normal 11.5-14.2 (%) Final Platelets [#/volume] in Blood by Automated count 08/01/2023 04:54:53 224 150-350 (K/uL) Final Erythrocyte distribution width [Entitic volume] by Automated count 08/01/2023 04:54:53 56 Final Platelet mean volume [Entitic volume] in Blood by Automated count 08/01/2023 04:54:53 8.8 Below low normal 9.0-12.2 (fL) Final Nucleated erythrocytes/100 cells in Bone marrow by Manual count 08/01/2023 04:54:53 0 (/100 WBCs) Final Nucleated erythrocytes [#/volume] in Blood by Manual count 08/01/2023 04:54:53 0.00 (K/uL) Final Recreation Therapy Aides Teacher review of results 08/01/2023 04:54:53 Manual Diff^Manual Diff Final Leukocytopenia
Neutropen ia
Anemia Performing Location [facility] [address] [place] [address]
--- OUTSIDE RECORDS SUMMARY | 2023-08-25 05:01 | External Medical Summary ---
Author Name Unknown Address Unknown Organization [facility] [address] [place] [address] Laboratory Report Ordering Provider Test Date Status Kaylyn Feliciano 06/22/2023 02:11:00 Final Observation Date Value Abnormality Reference (Units ) Status Ethanol [Mass/volume] in Serum or Plasma 06/22/2023 02:52:18 <10.0 <=10.1 (mg/dL) Final Performing Location [facility] [employer] Winder ry [address] [place] [address]
--- OUTSIDE RECORDS SUMMARY | 2023-08-25 05:01 | External Medical Summary ---
Author Name Unknown Address Unknown Organization [facility] [employer] [facility] [facility] [address] [place] [address] Laboratory Report Ordering Provider Test Date Status Felix Grubbs 08/01/2023 00:31:00 Final Observation Date Value Abnormality Reference (Units ) Status Hematocrit [Volume Fraction] of Blood by Automated count 08/01/2023 00:59:26 26.0 Below low normal 35.0-44.0 (%) Final Performing Location [facility] [employer] [facility] [address] [place] [address]
--- OUTSIDE RECORDS SUMMARY | 2023-08-25 05:01 | External Medical Summary ---
Author Name Unknown Address Unknown Organization [facility] [employer] [facility] [address] [place] [address] Laboratory Report Ordering Provider Test Date Status Clarice Quiroga 07/31/2023 21:19:00 Final Observation Date Value Abnormality Reference (Units ) Status Glucose [Mass/volume] in Serum or Plasma 07/31/2023 22:14:35 109 74-109 (mg/dL) Final Urea nitrogen [Mass/volume] in Serum or Plasma 07/31/2023 22:14:35 28 Above high normal 6-23 (mg/dL) Final Creatinine [Mass/volume] in Serum or Plasma 07/31/2023 22:14:35 0.94 0.70-1.30 (mg/dL) Final GLOMERULAR FILTRATION RATE/1.73 SQ M.PREDICTED:ARVRAT:PT:SER /PLAS/BLD:QN:CREATININE AND CYSTATIN C-BASED FORMULA (CKD-EPI 2020) 07/31/2023 22:14:37 >90 >=60 (mL/min/1.73 m2) Final Sodium [Moles/volume] in Serum or Plasma 07/31/2023 22:14:35 142 136-145 (mmol/L) Final Potassium [Moles/volume] in Serum or Plasma 07/31/2023 22:14:35 3.3 Below low normal 3.5-5.1 (mmol/L) Final Chloride [Moles/volume] in Serum or Plasma 07/31/2023 22:14:35 108 Above high normal 98-107 (mmol/L) Final Carbon dioxide, total [Moles/volume] in Serum or Plasma 07/31/2023 22:14:35 21 Below low normal 22-29 (mmol/L) Final Anion gap 3 in Serum or Plasma 07/31/2023 22:14:37 13 5-14 (mmol/L) Final Calcium [Mass/volume] in Serum or Plasma 07/31/2023 22:14:35 8.5 8.4-10.2 (mg/dL) Final Protein [Mass/volume] in Serum or Plasma 07/31/2023 22:14:35 6.1 Below low normal 6.4-8.3 (g/dL) Final Albumin [Mass/volume] in Serum or Plasma by Bromocresol green (BCG) dye binding method 07/31/2023 22:14:35 3.9 3.5-5.2 (g/dL) Final Bilirubin.total [Mass/volume] in Serum or Plasma 07/31/2023 22:14:35 <0.1 0.0-1.2 (mg/dL) Final Aspartate aminotransferase [Enzymatic activity/volume] in Serum or Plasma 07/31/2023 22:14:35 175 Above high normal 0-40 (unit/L) Final Alanine aminotransferase [Enzymatic activity/volume] in Serum or Plasma 07/31/2023 22:14:35 72 Above high normal 0-41 (unit/L) Final Alkaline phosphatase [Enzymatic activity/volume] in Serum or Plasma 07/31/2023 22:14:35 148 Above high normal 40-130 (unit/L) Final Performing Location [facility] [employer] Wrapper Stripper ry [address] [place] [address]
--- OUTSIDE RECORDS SUMMARY | 2023-08-25 05:01 | External Medical Summary ---
Author Name Unknown Address Unknown Organization [facility] [employer] [facility] [address] [place] [address] [place] [address] Laboratory Report Ordering Provider Test Date Status Clarice Quiroga 07/31/2023 21:19:00 Final Observation Date Value Abnormality Reference (Units ) Status Valproate [Mass/volume] in Serum or Plasma 07/31/2023 22:11:04 <3 Below low normal 50-120 (ug/mL) Final Performing Location [facility] [employer] Chair ry [address] [place] [address]
[2023-08-25] MEDS: THIAMINE HCL 100 MG in SYRINGE 9 ML IV STA (07:04)
[2023-08-25] MEDS: ONDANSETRON INJ 2 MG/ML 2 ML VIAL IV SCH (07:04)
[2023-08-25] MEDS: VENLAFAXINE HCL XR 150 MG CAPXR PO SCH (08:08)
[2023-08-25] MEDS: MULTIVITAMIN TAB PO SCH (08:09)
[2023-08-25] MEDS: DIVALPROEX EXTENDED RELEASE 250 MG TABCR PO SCH (08:09)
[2023-08-25] MEDS: FOLIC ACID 1 MG TAB PO SCH (08:09)
[2023-08-25] MEDS: THIAMINE HCL 100 MG TAB PO SCH (08:09)
[2023-08-25] MEDS ORDERED: DIVALPROEX EXTENDED RELEASE 500 MG TAB PO SCH (09:00)
[2023-08-25 09:44] LABS: Ferritin 5.3 ng/ml (8-388)
[2023-08-25] MEDS: PANTOprazole 40 MG TAB PO SCH (09:50)
[2023-08-25 11:41] LABS: Folate (Folic Acid),Ser orPlas 12.08 ng/ml (>5.38)
[2023-08-25] MEDS: IRON SUCROSE 300 MG in SODIUM CHLORIDE 0.9% 250 ML IV SCH (13:20)
--- NOTE | 2023-08-25 13:53 | Communication Note ---
Date of Service: August 25, 2023 Attempted to interview patient. Pt upset and denies attempts to interview him. Attempted to reassure him and deescalate however pt unwilling to answer quest ions. Will revisit when patient is more amenable.
--- NOTE | 2023-08-25 14:30 | Communication Note ---
Date of Service: August 25, 2023 Patient has been refusing to take medications and blood work today. Patient refused to be examined by me and also refuses to discuss. I personally reviewed the chart. Patient currently unwilling to answer any questions and refuses care. Psychiatry was refused evaluation as well per record. Patient currently under suicidal precautions.
[2023-08-26] MEDS: ACETAMINOPHEN 325 MG TAB PO PRN (08:20)
--- OUTSIDE RECORDS SUMMARY | 2023-08-26 10:56 | External Medical Summary | Summary of Care ---
Author Name Unknown Organization [facility] Address [address] [place] [address] Phone [phone] Care Team Providers Care Care Navigator Name Role Phone Farooq Rodriguez MD Primary Care Provide r Encounter Details Date Type Department Care Team (Late st Contact Info) Description 08/26/2023 Population Health External Data Unspecified Department Allergies Active Allergy Reactions Criticality Noted Date Comments Prochlorperazine Edisylate 7 Famotidine Dystonia 01/22/2019 Haloperidol 01/19/2017 Hydroxyzine Medium 06/30/2019 Other reaction(s): Throat Swelling, Throat Swelling Propofol Rash 01/21/2017 Quetiapine Dystonia,Other (Please comment) Low 10/12/2016 Metoclopramide Hcl 01/19/2017 documented as of this encounter (statuses as of 08/26/2023) Medications Medication Sig Dispensed Refills Start Date [...] as of this encounter (statuses as of 08/26/2023) Active Problems Problem Noted Date Diagnosed Date [...] Billroth-I noted. Pt had another EGD at [facility] on 12/2018 CTA showed was negative [...] as of this encounter (statuses as of 08/26/2023) Resolved Problems Problem Noted Date Diagnosed Date Resolved Date Acute blood loss anemia 06/24/2019 04/0 10/2020 Overview: Last Assessment & Plan: Recent hospitalization at [facility] for melenic stools and coffee ground vomitus Reported having taken [id number] mg of ibuprofen per day for 5 [...] Overview: Added automatically from request for surgery [id number] Last Assessment & Plan: Recurrent issue; reports small amount hematemesis and BRBPR when wiping. Similar episode when diagnosed with NSAID-induced duodenitis Denies history of esophageal varices Was hospitalized at [facility] for GI bleed; no EGD done as [...] as of this encounter (statuses as of 08/26/2023) Immunizations Name Administration Dates Next Due Seasonal [...] Pfizer risk series) 02/06/2023 01/16/2023 Sigmoidoscopy 03/22/2023 03/22/2018 Influenza Vaccine (FLU shot) (#1) 2023 [...] Advance Directives occurred with: Patient Care Teams Care Navigator Relationship Specialty Start Date End Date Farooq Rodriguez MD [address] [place] [address] PCP - General Family Medicine 12/03/19 documented as of this encounter
[2023-08-26] MEDS: oxyCODONE HCL IR 5 MG TAB (IMMEDIATE RELEASE) PO PRN (12:03)
[2023-08-26] MEDS: IBUPROFEN 200 MG TAB PO ONE (12:04)
--- NOTE | 2023-08-26 15:20 | Communication Note ---
Date of Service: August 26, 2023 Pt defiant on approach demanding interview be short. Nursing reports indicate patient has been asking for food, headache treatment, and has been sleeping. He reports wanting to leave. It was explained I must ask him questions to clear him for discharge from a psychiatric perspective. He reports coming in with SI and plan to OD on heroin. He reports having suicidal ideation currently. He denies making progress towards this plan. Reports living by himself and does not clarify further. He becomes angry when further questions are asked and postures aggressively towards me and the nurse liaison. He threatens to attack us and appears ready to throw coffee over us. Appears agitated, angry and demands us to leave. Attempted to reassure the patient and state importance of interview however denies further questions. MSE: disheveled appearance; loud slurred speech; no motor abnormalities identified; angry, irritable mood; congruent and reactive affect; linear thought process; poor insight and judgement. Chart review:Last seen by psychiatry consults 07/05/23, at times patient presented in a similar demeanor and disinterested about psychiatric care. At that time denied SI, HI. Concern for personality elements. Mental status findings at that time were negative for hallucinations, he had a goal directed thought process, and no gross memory impairements. A: Does not appear to be a manic or psychotic state as evidenced by mental status findings and nursing reports. Concern for antisocial personality traits. He appears goal directed for self preservation evidenced by self nourishment and requesting medication for symptom control. He does not present motivation to receive medical care at this time. No signs of substance intoxication. At this time unwilling to engage in conversation regarding safety planning, however patient did not present imminent plan to harm self or others when asked.
--- NOTE | 2023-08-26 17:15 | Hospitalist Progress Note ---
Date of Service August 26, 2023 Assessment & Plan (1) Suicidal ideation: Plan: Suicidality ADHD Anxiety/mood disorder, personality disorder Uncooperative with medical care Has been refusing blood work, medications, vitals Reluctant to be examined Suicidal precautions Psychiatry on board Refused to involve in conversation Normocytic anemia Iron deficiency Normal B12, folate levels No obvious bleeding issues currently Has been refusing iron supplements, Venofer Also refuses further workup H/O peptic ulcer disease/esophageal varices As per record Refuses PPI, further workup Other medical problems HCV seizure disorder NHL as per records H/O DVT ongoing tobacco/alcohol abuse Substance abuse Monitor for withdrawal DVT pX: SCDs Re:Anemia CODE STATUS full code Disposition Cannot leave AGAINST MEDICAL ADVICE Admission and Anticipated Discharge Date Admission Date: August 25, 2023 Subjective Patient refused to be evaluated He has been refusing all vitals, blood draws, medications. Staff also noted him to be verbally combative Discussed with psychiatry today Tried to reach family over the phone--unsuccessful Reported having headache to immigration officer of Systems Review of Systems: Other Physical Exam Physical Exam: Refused Exam
[2023-08-26] MEDS ORDERED: LORazepam 3 MG in SYRINGE 1.5 ML IV PRN (19:23)
[2023-08-26] MEDS ORDERED: LORazepam 2 MG in SYRINGE 1 ML IV PRN (19:23)
[2023-08-26] MEDS ORDERED: GABAPENTIN 1200MG ALCOHOL WITHDRAWAL LOAD PO STA (19:23)
[2023-08-26] MEDS ORDERED: LORazepam 1 MG in SYRINGE 0.5 ML IV PRN (19:23)
[2023-08-26] MEDS ORDERED: Ativan IV Alcohol Withdrawal--Active Protocol IV PRN (19:23)
[2023-08-26] MEDS ORDERED: LORazepam 2 MG/1 ML VIAL IM PRN (19:28)
[2023-08-26] MEDS: LORazepam 1 MG/1 ML SYR ED Inj Use IM STA (20:10)
[2023-08-26] MEDS: GABAPENTIN 600 MG TAB PO STA (20:14)
[2023-08-26] MEDS: ZOLPIDEM TARTRATE 5 MG TAB PO PRN (21:37)
[2023-08-26] MEDS: oxyCODONE HCL IR 5 MG TAB (IMMEDIATE RELEASE) PO STA (22:45)
[2023-08-26] MEDS: LORazepam 0.5 MG TAB PO PRN (23:23)
[2023-08-27] MEDS: HYDROCORTISONE HC 2.5% CRM 30GM TUBE EXT PRN (00:04)
[2023-08-27] MEDS: GABAPENTIN 600 MG TAB PO SCH ×2 (01:10→16:30)
[2023-08-27] MEDS ORDERED: SODIUM CHLORIDE 0.9% 250 ML IV PRN (11:51)
[2023-08-27] MEDS ORDERED: PANTOPRAZOLE BOLUS/DRIP IV STA (11:52)
[2023-08-27] MEDS: diphenhydrAMINE 50 MG/ML VIAL IV ONE (13:03)
[2023-08-27] MEDS: MoRPHine SULFATE 2 MG/ML CARP IV STA (13:06)
[2023-08-27] MEDS: IRON SUCROSE 300 MG in SODIUM CHLORIDE 0.9% 250 ML IV ONE (13:13)
[2023-08-27] MEDS: NSS + 20MEQ KCL 20 MEQ/1,000 ML BAG IV SCH (13:18)
[2023-08-27] MEDS: PANTOprazole 80 MG in DEXTROSE 5% 100 ML IV ONE (13:20)
[2023-08-27 13:37] LABS: Hematocrit (blood only) 24.9 % (42.0-52.0); Hemoglobin 7.5 g/dl (14.0-18.0); Mean Corpuscular Hemoglobin 26.3 pg (25.0-34.0); Mean Corpuscular Hgb Conc 30.1 g/dL (32.0-36.0); Mean Corpuscular Volume 87.4 fL (80.0-100.0); Mean Platelet Volume 9.6 fL (9.4-12.4); Platelet Count 280 K/uL (130-400); RDW Coefficient of Variation 16.8 % (11.5-14.5); RDW Standard Deviation 52.7 fL (36.4-46.3); Red Blood Count 2.85 M/uL (4.70-6.10); White Blood Count 3.19 K/ul (4.8-10.8)
[2023-08-27] MEDS: PANTOprazole 40 MG in DEXTROSE 5% MINI-B 100 ML IV SCH (13:41)
[2023-08-27 13:55] LABS: Albumin Globulin Ratio 1.5 (0.9-2); Albumin Level 3.8 gm/dl (3.4-5.0); BUN Creatinine Ratio 24.2 (10-20); Bilirubin,Total 0.2 mg/dl (0.2-1.0); Calcium 8.4 mg/dl (8.6-10.3); Creatinine Clr Calc Pharmacy 84.1 ml/min; Est GFR (African American) 111.1 ml/min; Est GFR (Non-African American) 95.9 ml/min; Globulin 2.5 gm/dl (2.5-4.0); Potassium 5.2 mmol/L (3.5-5.1); Total Protein 6.3 gm/dl (6.0-8.3)
--- NOTE | 2023-08-27 13:58 | Communication Note ---
Date of Service: August 27, 2023 Psychiatry consults team arrived at patient's room. He declined visit with the team. Pt did not clarify why he would not meet with psychiatrist and nurse kanchan [place] and presented aggressive tone. Reassured him and asked to request us when he is ready to discuss his care. Will revisit tomorrow.
[2023-08-27 14:39] LABS: Basophils # (auto) 0.04 K/uL (0.00-0.20); Basophils % (auto) 1.3 %; Eosinophils % (auto) 3.2 %; Lymphocytes # (auto) 1.19 K/uL (1.20-3.40); Lymphocytes % (auto) 37.5 %; Monocytes # (auto) 0.37 K/uL (0.11-0.59); Monocytes % (auto) 11.7 %; Neutrophils # (auto) 1.47 K/uL (1.40-6.50); Neutrophils % (auto) 46.3 %
[2023-08-27] MEDS: SODIUM CHLORIDE 0.9% 1,000 ML IV SCH (14:39)
[2023-08-27] MEDS: ACETAMINOPHEN 1,000 MG/100 ML VIAL IV PRN (14:46)
--- NOTE | 2023-08-27 14:52 | Gastrointestinal Consultation ---
<Statement entered by Anastacio Elise MD - 08/27/23 15:11> Patient seen and examined. Case discussed with VAN Ding. Patient has worsening anemia with some hematemesis and intermittent melena. Although he had a recent EGD (Jun, 2023) there was some retained food seen which precluded an ideal exam. Therefore, reasonable to repeat an EGD. The EGD procedure, alternatives including no work up or treatment, risks and benefits were discussed. Among the risks discussed included cardiorespiratory suppression, aspiration, bleeding, failure to diagnose cancer or other pathology and perforation requiring surgery. In addition we discussed that if specimens are obtained it may be deemed beneficial to send these for genetic/DNA testing. The patient claimed to understand all that was discussed, consented to all and all of his questions were answered. Date of Consultation August 27, 2023 Assessment & Plan (1) Acute upper gastrointestinal bleeding: (2) Anemia: Plan Patient with reported episodes of hematemesis and dark stools. hgb was 7.1 on admission. This has come up to 7.5 today. - EGD was discussed with the patient. risks/benefits discussed. He was agreeable to having done. Will plan to have this done tomorrow 08/27. - continue with protonix drip. - follow hgb/hct and transfuse as needed. History of Present Illness Reason for Consultation: GIB Requesting Physician: Sherman De Leon MD Attending Physician: Sherman De Leon MD History of Present Illness Patient is a 53 year old male who presented to the ED on 08/23 with complaints of suicidal ideation. Patient has a history of chronic alcoholism. He was found to have a hgb of 7.1. He was in the ED on 08/13 with complaints of melena and increased ibuprofen use. Hgb was 7.7 at that time. He had left AMA at that time. A 302 petition was filed and he was admitted. Since he has been here he has been refusing labs, vitals, medications, and evaluation by other providers. He has been combative with several staff members and has thrown drinks as well as taken swings at other members. Hgb 08/26 is 7.5. He was agreeable to speak with myself and Dr. Elise. He reports episodic vomiting of blood. stools have been dark from time to time. He admits to alcohol use and periodic drug use. Spoke with nursing and patient has reported that he vomited blood though no staff have seen this. GI consulted. He was admitted In June 2023 with complaints of hematemesis in the setting of nsaid use for dental pain and alcohol abuse. EGD 07/04/23 normal esophagus, large amount of food in the stomach, normal duodenum. EGD 2019 regular z line, esophageal ulcer with no bleeding and no stigmata of recent bleeding. billroth I gastroduodenostomy was found characterized by erythema. no gross lesions in the entire examined duodenum. Colonoscopy 2019 Stool in the sigmoid colon. Allergies Allergy/AdvReac Type Severity Reaction Status Date / Time Iodinated Contrast Media Allergy Severe throat Verified 08/26/23 19:43 swelling haloperidol Allergy Unknown Hives Verified 08/26/23 07:52 metoclopramide Allergy Unknown Hives Verified 08/26/23 07:52 morphine Allergy Unknown Hives Verified 08/26/23 07:52 prochlorperazine Allergy Unknown Hives Verified 08/26/23 07:52 promethazine Allergy Unknown Hives Verified 08/26/23 07:52 Home Medications Medication Instructions Recorded Confirmed Type divalproex 500 mg tablet,delayed 750 mg (1.5 x 500 mg) PO DAILY #60 07/06/23 08/14/23 Rx release (Depakote) tabs pantoprazole 40 mg tablet,delayed 40 mg PO BID #180 tabs 07/06/23 08/14/23 Rx release methylphenidate HCl 20 mg tablet 20 mg PO UD 08/14/23 08/14/23 History venlafaxine 75 mg capsule,extended 150 mg PO QAM 08/14/23 08/14/23 History release 24 hr divalproex 250 mg tablet,delayed 750 mg PO 1XD 08/24/23 08/24/23 History release (Depakote) methylphenidate HCl 54 mg 54 mg PO DAILY 08/24/23 08/24/23 History tablet,extended release 24 hr (Concerta) pantoprazole 40 mg tablet,delayed 40 mg PO DAILY 08/24/23 08/24/23 History release (Protonix) venlafaxine 150 mg 150 mg PO DAILY 08/24/23 08/24/23 History capsule,extended release 24 hr (Effexor XR) zolpidem 10 mg tablet (Ambien) 10 mg PO HS PRN Insomnia 08/24/23 08/24/23 History Patient History Medical History (Updated 08/26/23 @ 07:52 by Jennifer Freedman) Encounter for pre-operative examination Cirrhosis Varices, esophageal Hematemesis Acute alcoholism Anemia Acute upper gastrointestinal hemorrhage Seizures Alcoholism Non-Hodgkin lymphoma Surgical History (Updated 08/26/23 @ 07:52 by Jennifer Freedman) Hx of oral surgery (07/06/23) Extraction Multiple Teeth x 13 and Drainage of Infection(Not Applicable) - Jame Del Rosario, DMD Hx of esophagogastroduodenoscopy Social History (System 08/26/23 @ 07:52 by Jennifer Freedman) Smoking Status: Current every day smoker Tobacco Type: Cigarettes Second Hand Exposure: No; Do You Dip or Chew Tobacco: No; Preferred Language: [place]an Communication Ability: Effective 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 Required: No Beliefs That Will Affect Care: None Current Living Situation: Alone Current Living Situation Comment: pt refused to answer Other Information That Helps Us Care for You: No Feels Safe at Home: Declines to Answer Gender Identity: Male Assistive Devices: None Review of Systems Review of Systems: All systems reviewed & are unremarkable except as noted in HPI & below Physical Exam Constitutional: WD/WN, vitals as above Respiratory: normal respiratory effort, lungs clear to auscultation Cardiovascular: RRR, no murmur, no edema Gastrointestinal (Abdomen): normal bowel sounds, soft, nontender, no hepatosp lenomegaly Psychiatric: Orientation: alert and oriented x 3 Results & Data Vital Signs (Past 12 Hours) Vital Signs Temp Pulse Resp BP Pulse Ox O2 Del Method 08/27/23 14:41 98.2 F 78 16 108/53 L 95 Room Air 08/27/23 07:42 98.1 F 70 16 99/59 L 96 Room Air Coding Level of Care Code 67764 IN/OBS CONSULT LVL 4,60M Diagnoses Acute upper gastrointestinal bleeding K92.2 Anemia D64.9
[2023-08-27 15:26] LABS: Hypochromasia Present; Ovalocytes 1+
[2023-08-27] MEDS: MoRPHine SULFATE 2 MG/ML CARP IV PRN (16:29)
--- NOTE | 2023-08-27 17:25 | Hospitalist Progress Note ---
Date of Service August 27, 2023 Assessment & Plan (1) Suicidal ideation: Plan: Suicidality ADHD Anxiety/mood disorder, personality disorder Uncooperative with medical care Initially refused blood work, medications, vitals Suicidal precautions Psychiatry on board Has been refusing care on multiple occasions Management will be deferred to psychiatry Hematemesis H/O peptic ulcer disease/esophageal varices Blood consent obtained Monitor H&H and transfuse as needed GI consulted Plan for EGD tomorrow Continue Protonix drip Clear liquid diet for now Normocytic anemia Iron deficiency Normal B12, folate levels Received IV Venofer today Other medical problems HCV seizure disorder NHL as per records H/O DVT ongoing tobacco/alcohol abuse Substance abuse Monitor for withdrawal DVT pX: SCDs Re:Anemia CODE STATUS full code Disposition Cannot leave AGAINST MEDICAL ADVICE Admission and Anticipated Discharge Date Admission Date: August 25, 2023 Subjective Patient is seen and examined at bedside Reports having hematemesis overnight Also reports abdominal pain, headache Has been refusing medications intermittently Despite need for EGD, patient requesting regular diet per staff Denies any chest pain, dyspnea Review of Systems Review of Systems: All systems reviewed & are unremarkable except as noted in Subjective Physical Exam Physical Exam: Physical Exam: Vitals signs as noted above General Appearance: Thin, frail, no apparent distress Head: normocephalic, Atraumatic Eyes: normal inspection, EOMI Neck: supple, Trachea midline Respiratory/Chest: Normal breath sounds, CTA, No accessory muscle use Cardiovascular: S1, S2, No murmur Abdomen/GI:Soft, epigastric tender, Bowel sounds present Extremities/Musculoskeletal:normal inspection, no edema Neurologic/Psych:AAOX3, grossly no focal neurological deficits Skin: normal color, warm Results & Data Results & Data Vital Signs (Past 12 Hours) Vital Signs Temp Pulse Resp BP Pulse Ox O2 Del Method 08/27/23 14:41 36.8 C 78 16 108/53 L 95 Room Air 08/27/23 07:42 36.7 C 70 16 99/59 L 96 Room Air Laboratory Results Short CBC 08/27/23 Range/Units 13:15 WBC 3.19 L (4.8-10.8) K/ul Hgb 7.5 L (14.0-18.0) g/dl Hct 24.9 L (42.0-52.0) % Plt Count 280 (130-400) K/uL BMP 08/27/23 13:15 Sodium 137 Potassium 5.2 H Chloride 105 Carbon Dioxide 29 BUN 22 Creatinine 0.91 Glucose 90 Calcium 8.4 L Liver Function 08/27/23 Range/Units 13:15 Total Bilirubin 0.2 (0.2-1.0) mg/dl AST 26 (13-39) U/L ALT 15 (7-52) U/L Alkaline Phosphatase 106 H (34-104) U/L Albumin 3.8 (3.4-5.0) gm/dl
--- NOTE | 2023-08-27 20:00 | Communication Note ---
Date of Service: August 27, 2023
[2023-08-27] MEDS: SODIUM CHLORIDE 0.9% 1,000 ML IV ONE (21:59)
[2023-08-27] MEDS ORDERED: METOCLOPRAMIDE HCL INJ 5 MG/ML 2 ML VIAL IV PRN (22:22)
[2023-08-27] MEDS: diphenhydrAMINE 50 MG/ML VIAL IV PRN (23:31)
[2023-08-27 23:37] LABS: Hematocrit (blood only) 24.5 % (42.0-52.0); Hemoglobin 7.4 g/dl (14.0-18.0)
[2023-08-28] MEDS: diphenhydrAMINE 50 MG/ML VIAL IV PRN (06:07)
[2023-08-28 08:23] LABS: Hemoglobin 6.9 g/dl (14.0-18.0); Mean Corpuscular Hemoglobin 25.7 pg (25.0-34.0); Mean Corpuscular Volume 85.8 fL (80.0-100.0); Mean Platelet Volume 9.2 fL (9.4-12.4); Platelet Count 237 K/uL (130-400); RDW Coefficient of Variation 16.4 % (11.5-14.5); RDW Standard Deviation 51.7 fL (36.4-46.3); Red Blood Count 2.68 M/uL (4.70-6.10); White Blood Count 2.69 K/ul (4.8-10.8)
[2023-08-28 08:27] LABS: BUN Creatinine Ratio 21.7 (10-20); Calcium 8.1 mg/dl (8.6-10.3); Creatinine Clr Calc Pharmacy 92.2 ml/min; Est GFR (African American) 116.4 ml/min; Est GFR (Non-African American) 100.5 ml/min; Potassium 4.2 mmol/L (3.5-5.1)
[2023-08-28] MEDS ORDERED: SODIUM CHLORIDE 0.9% 250 ML IV PRN (09:34)
--- NOTE | 2023-08-28 09:45 | Anesthesiology Consultation ---
Date of Service August 28, 2023 Assessment & Plan Chart Review Chart Review: Acceptable Risk for Surgery and Patient NOT seen in Pre Admission Testing Consults Requested none ASA ASA4 Proposed Anesthesia Anesthesia Type: MAC History Surgery Operation Date: 08/28/23 16:30 Proposed Procedures p Esophagogastroduodenoscopy Gosia Elise MD Height/Weight Height: 5 ft 7 in Weight: 63.3 kg Allergies Allergy/AdvReac Type Severity Reaction Status Date / Time Iodinated Contrast Media Allergy Severe throat Verified 08/26/23 19:43 swelling haloperidol Allergy Unknown Hives Verified 08/26/23 07:52 metoclopramide Allergy Unknown Hives Verified 08/26/23 07:52 morphine Allergy Unknown Hives Verified 08/26/23 07:52 prochlorperazine Allergy Unknown Hives Verified 08/26/23 07:52 promethazine Allergy Unknown Hives Verified 08/26/23 07:52 Medications Home Medications Medication Instructions Recorded Confirmed Last Taken divalproex 500 mg tablet,delayed 750 mg (1.5 x 500 mg) PO DAILY #60 07/06/23 08/14/23 Unknown release (Depakote) tabs pantoprazole 40 mg tablet,delayed 40 mg PO BID #180 tabs 07/06/23 08/14/23 Unknown release methylphenidate HCl 20 mg tablet 20 mg PO UD 08/14/23 08/14/23 Unknown venlafaxine 75 mg capsule,extended 150 mg PO QAM 08/14/23 08/14/23 Unknown release 24 hr divalproex 250 mg tablet,delayed 750 mg PO 1XD 08/24/23 08/24/23 Unknown release (Depakote) methylphenidate HCl 54 mg 54 mg PO DAILY 08/24/23 08/24/23 Unknown tablet,extended release 24 hr (Concerta) pantoprazole 40 mg tablet,delayed 40 mg PO DAILY 08/24/23 08/24/23 Unknown release (Protonix) venlafaxine 150 mg 150 mg PO DAILY 08/24/23 08/24/23 Unknown capsule,extended release 24 hr (Effexor XR) zolpidem 10 mg tablet (Ambien) 10 mg PO HS PRN Insomnia 08/24/23 08/24/23 Unknown Active Medications Generic Name Dose Route Start Last Admin Trade Name Freq PRN Reason Stop Dose Admin Acetaminophen 650 mg 08/25/23 02:48 08/27/23 07:32 Acetaminophen 325 Mg Tab PO 09/24/23 02:47 650 mg QID PRN Administration pain/fever Diphenhydramine HCl 25 mg 08/28/23 05:49 08/28/23 06:07 Diphenhydramine 50 Mg/Ml Vial IV 09/26/23 22:22 25 mg Q6H PRN Administration Nausea And Vomiting Divalproex Sodium 750 mg 08/25/23 09:00 08/27/23 08:39 Divalproex Extended Release 250 Mg Tabcr PO 09/24/23 08:59 750 mg DAILY LACY Administration Folic Acid 1 mg 08/25/23 09:00 08/27/23 08:40 Folic Acid 1 Mg Tab PO 09/24/23 08:59 1 mg QAM LACY Administration Hydrocortisone 1 appln 08/26/23 23:02 08/27/23 00:04 Hydrocortisone Hc 2.5% Crm 30gm Tube EXT 09/25/23 23:01 1 appln BID PRN Administration Hemorrhoid pain Pantoprazole Sodium 40 mg/ 100 mls @ 20 mls/hr 08/27/23 12:15 08/28/23 04:52 Dextrose IV 09/26/23 12:14 8 mg/hr Q5H LACY 20 mls/hr Administration 8 MG/HR Acetaminophen 1,000 mg in 100 mls @ 400 mls/hr 08/27/23 11:54 08/27/23 15:06 Ofirmev IV 08/30/23 11:53 Infused Q8H PRN Infusion Pain or Fever Lorazepam 0.5 mg 08/26/23 21:42 08/28/23 05:49 Lorazepam 0.5 Mg Tab PO 09/25/23 21:41 0.5 mg TID PRN Administration Anxiety Morphine Sulfate 1 mg 08/27/23 16:16 08/28/23 05:50 Morphine Sulfate 2 Mg/Ml Carp IV 08/28/23 16:15 1 mg Q6H PRN Administration Severe Pain (Scale 7, 8, 9,10) Multivitamins 1 tab 08/25/23 09:00 08/27/23 08:39 Multivitamin Tab PO 09/24/23 08:59 1 tab QAM LACY Administration Oxycodone HCl 5 mg 08/25/23 02:49 08/28/23 03:02 Oxycodone Hcl Ir 5 Mg Tab (Immediate Release) PO 09/08/23 02:48 5 mg Q4H PRN Administration Pain Pantoprazole Sodium 40 mg 08/25/23 09:00 08/27/23 08:39 Pantoprazole 40 Mg Tab PO 09/24/23 08:59 40 mg DAILY LACY Administration Thiamine HCl 100 mg 08/25/23 09:00 08/27/23 08:39 Thiamine Hcl 100 Mg Tab PO 09/24/23 08:59 100 mg QAM LACY Administration Venlafaxine HCl 150 mg 08/25/23 09:00 08/27/23 08:41 Venlafaxine Hcl Xr 150 Mg Capxr PO 09/24/23 08:59 150 mg QAM LACY Administration Zolpidem Tartrate 10 mg 08/26/23 21:09 08/27/23 21:51 Zolpidem Tartrate 5 Mg Tab PO 09/25/23 21:08 10 mg HS PRN Administration Insomnia Past Medical History Medical History Encounter for pre-operative examination Cirrhosis Varices, esophageal Hematemesis Acute alcoholism Anemia Acute upper gastrointestinal hemorrhage Seizures Alcoholism Non-Hodgkin lymphoma Exercise / Class Metabolic Activity II 4-5 Yardwork/Stairs/Walk up hill Past Surgical History Surgical History Hx of oral surgery (07/06/23) Extraction Multiple Teeth x 13 and Drainage of Infection(Not Applicable) - Jame Del Rosario, DMD Hx of esophagogastroduodenoscopy Past Anesthesia History No Hx of Anesthesia Complications and No Family Hx of Anesthesia Complications History of PONV No Hx of PONV and No Hx of Motion Sickness Social History Smoking Status: Unknown if ever smoked Do You Dip or Chew Tobacco: No Hx Alcohol Use: Yes (pt refused to answer) Hx Substance Use: No (pt refused to answer) substance use type: does not use Substance Use Type Other:: pt refused to answer Physical Exam Vital Signs Last Vital Signs Temp 36.6 C 08/27/23 21:17 Pulse 64 08/27/23 21:17 Resp 16 08/27/23 21:17 BP 104/58 L 08/27/23 21:17 Pulse Ox 96 08/27/23 21:17 O2 Del Method Room Air 08/27/23 21:17 Testing Laboratory Results 08/28/23 07:37 08/28/23 07:37 Urine Color Yellow 08/24/23 20:39 Urine Appearance Clear (Clear) 08/24/23 20:39 Urine pH 5.5 (4.5-7.5) 08/24/23 20:39 Ur Specific [place] 1.021 (1.000-1.030) 08/24/23 20:39 Urine Protein Negative (Negative) 08/24/23 20:39 Urine Glucose (UA) Negative (Negative) 08/24/23 20:39 Urine Ketones Negative (Negative) 08/24/23 20:39 Urine Nitrite Negative (Negative) 08/24/23 20:39 Ur Leukocyte Esterase Negative (Negative) 08/24/23 20:39 Blood Type O Negative 08/27/23 13:15 Antibody Screen NEGATIVE 08/27/23 13:15 Electrocardiogram Date: 08/14/23 Findings: + NSR @ (@ 98;? anterior infarct,age ?) Chest X-Ray Date: 08/14/23 Findings: + NAD
[2023-08-28] MEDS: diphenhydrAMINE 50 MG/ML VIAL IV STA (09:46)
--- NOTE | 2023-08-28 10:02 | History & Physical Bridge Note ---
Date of Service August 28, 2023 History & Physical Bridge Note I have examined the patient, reviewed the History & Physical and in the interval since the performance of the History & Physical I have noted the following changes of clinical significance: no changes noted. Patient resting in bed comfortably. He has been NPO. 08/27 hgb 6.9. (previously 7.4) He admits to some abdominal discomfort this morning - he points to mid abdomen. He also admits to nausea and reports an episode of emesis last evening with some streaks of blood in it. no chest pain, sob. - patient is agreeable to proceed with EGD but only if he gets 50mg of IV benadryl ahead of time. I reached out to primary team to address. would also rec ommend he have transfusion prior to EGD given hgb of 6.9 - reached out to the primary team. will plan to proceed with EGD today. - continue with protonix drip for now.
[2023-08-28] MEDS ORDERED: ATROPINE SULFATE 0.1 MG/ML 10ML SYR IV PRN (10:35)
[2023-08-28] MEDS ORDERED: ePHEDrine sulfate 50 MG/ML AMP IV PRN (10:35)
[2023-08-28] MEDS ORDERED: MEPERIDINE HCL 25 MG/ML CARP/VIAL ONE (10:59)
--- NOTE | 2023-08-28 11:14 | GI REPORT ---
[facility] Patient: LYNDA DIALLO : 1970 Sex at : Male Age: 53 Years Procedure: Upper GI endoscopy Date: 08/28/2023 Attending Physician: Anastacio Elise MD Referring MD: Referred Self; Jerel Yepez Md Indications: - Hematemesis by history and anemia Medications: - Monitored Anesthesia Care Complications: - No immediate complications. Estimated Blood Loss: - Estimated blood loss: None. Procedure: - ASA Grade Assessment: IV - A patient with severe systemic disease that is a constant threat to life. - The egd scope was introduced through the mouth and advanced to the second part of the duodenum. - The upper GI endoscopy was accomplished without difficulty. - The patient tolerated the procedure well. Findings: - The examined esophagus was normal. - The entire examined stomach was normal. Status post surgery ? antrectomy vs V&P - The examined duodenum was normal. Impression: - Normal esophagus. - Normal stomach. - Status post surgery ? antrectomy vs V&P - Normal examined duodenum. - No specimens collected. Recommendation: - Colonoscopy Procedure Code(s): - 31502, Esophagogastroduodenoscopy, flexible, transoral; diagnostic, including collection of specimen(s) by brushing or washing, when performed (separate procedure) CPT(R) - 2023 copyright [employer]. All Rights Reserved. The CPT codes, CCI edits and ICD codes generated are intended as suggestions and were generated based on input data. These codes are preliminary and upon key account manager review may be revised to meet current compliance and payer requirements. The provider is responsible for the final determination of appropriate codes, and modifiers. Anastacio Elise MD This document has been electronically signed. Note Initiated:08/28/2023 Note Completed:08/28/2023 11:13 AM \\[id number]
--- NOTE | 2023-08-28 11:17 | Communication Note ---
Date of Service: August 28, 2023 POST PROCEDURE NOTE: See Provation note for complete report. Summary: Post surgical changes - antrectomy S/P BI otherwise no abnormalities. Rec: Colonoscopy. This procedure, the alternatives including no work up or treatment, risks and benefits were discussed. Among the risks discussed included cardiorespiratory suppression, aspiration, bleeding, failure to diagnose cancer or other pathology and perforation requiring surgery. In addition we discussed that if specimens are obtained it may be deemed beneficial to send these for genetic/DNA testing. The patient claimed to understand all that was discussed, consented to all and all of his questions were answered. If bleeds acutely consider CTA or nuclear med bleeding scan.
--- NOTE | 2023-08-28 11:31 | Anesthesiology Progress Note ---
Date of Service August 28, 2023 Anesthesia Post Procedure Vital Signs Vital Signs: Temp Pulse Pulse Resp BP BP Pulse Ox 08/28/23 11:18 64 16 95/55 L 95 08/28/23 10:43 36.8 C 68 16 115/73 100 08/28/23 10:17 36.8 C 75 16 125/80 97 08/28/23 10:02 36.8 C 75 16 125/80 97 08/27/23 21:17 36.6 C 64 16 104/58 L 96 08/27/23 14:41 36.8 C 78 16 108/53 L 95 O2 Del Method 08/28/23 11:18 Room Air 08/28/23 10:43 08/28/23 10:17 Room Air 08/28/23 10:02 08/27/23 21:17 Room Air 08/27/23 14:41 Room Air Transfer of Care Handoff Completed per policy Notes Mental Status: alert / awake / arousable Patient Amnestic to Procedure: Yes Nausea / Vomiting: adequately controlled Pain: adequately controlled Airway Patency, RR, SpO2: stable & adequate BP & HR: stable & adequate Hydration State: stable & adequate Anesthetic Complications: no major complications apparent
[2023-08-28] MEDS: SODIUM CHLORIDE 0.9% 500 ML IV SCH ×2 (13:06)
[2023-08-28] MEDS: LIDOCAINE 2% 2 ML VIAL/AMP(20MG/ML) INFIL ONE (13:08)
[2023-08-28] MEDS: diphenhydrAMINE 50 MG/ML VIAL ONE (13:20)
[2023-08-28] MEDS: PROPOFOL IV EMULSION 10 MG/ML 20 ML VIAL IV ONE (13:21)
--- NOTE | 2023-08-28 13:45 | Communication Note ---
Date of Service: August 28, 2023 Notified that patient refused colonoscopy. I went to discuss again with the patient. I again discussed the procedure, alternatives including no work up or treatment, risks and benefits were discussed. Among the risks discussed included cardiorespiratory suppression, aspiration, bleeding, failure to diagnose cancer or other pathology and perforation requiring surgery. In addition we discussed that if specimens are obtained it may be deemed beneficial to send these for genetic/DNA testing. The patient claimed to understand all that was discussed and all of his questions were answered. He declines the exam stating he "cannot do this here" and will "look into" getting it done as an OP. We discussed that among other things we would be looking for cancer during the colonoscopy. He again understands and still declines the exam. IP GI Service will sign off.
--- NOTE | 2023-08-28 13:54 | Psychiatric Consultation ---
Date of Consultation August 28, 2023 Impression / Recommendations Impression Patient was open to the interview today. He denies suicidal ideation, is future oriented, had a plan for abstinence, and wants to follow up with community programs for substance abuse. No evidence of psychosis. He presents intact reality testing understanding the consequences to his life. He does not warrant further involuntary hospitalization and is appropriate for discharge from a psychiatric perspective. He requested a prescription for psychiatric medications which I agree are appropriate for him: methylphenidate er 54mg daily, venlafaxine er 150mg daily, Depakote er 750mg hs, and ambien 10mg hs prn. He is interested in following up outpatient regarding his anemia. Overall, I spent a total of 35 minutes with this case including review of chart records, nursing report, review of lab work, direct evaluation of the patient at bedside, counseling the patient, discussion of the patient with the hospitalist provider, discussion with the psychiatric liaison during clinical rounds, and documentation in the electronic health record. (1) Impulse control disorder: (2) Alcohol abuse: (3) Depression: Psych History Identifying Data 53-year-old male initially presenting with suicidal ideation with plan to overdose on heroin. Found to have severe anemia. Placed on 302 petition. Initially uncooperative speaking with psychiatry. EGD investigation found no active bleeding. Psychiatry consulted for risk assessment and recommendations. Chief Complaint "I am my own worst enemy". History of Present Illness Patient open to talking to psychiatry today. Apologizes for his "out of control" behavior. Reports wanting to leave the hospital. Denies suicidal or homicidal ideation. Wants to get a cab downtown and reports living there in an apartment. Wants to get resources for Alcoholics Anonymous. He reports past success taking his current psychiatric medications and additionally methylphenidate ER 54 mg for anxiety and anger control. Reports this additionally helps him stay focused and he feels calmer with this medication. Denies history of TBI. No further concerns presented. Past Psychiatric History Current Psychiatric Diagnosis: "I don't know" History of Previous Suicide Attempt: No Allergies Allergy/AdvReac Type Severity Reaction Status Date / Time Iodinated Contrast Media Allergy Severe throat Verified 08/28/23 10:21 swelling haloperidol Allergy Unknown Hives Verified 08/28/23 10:21 metoclopramide Allergy Unknown Hives Verified 08/28/23 10:21 morphine Allergy Unknown Hives Verified 08/28/23 10:21 prochlorperazine Allergy Unknown Hives Verified 08/28/23 10:21 promethazine Allergy Unknown Hives Verified 08/28/23 10:21 Home Medications Medication Instructions Recorded Confirmed Type pantoprazole 40 mg tablet,delayed 40 mg PO BID #180 tabs 07/06/23 08/14/23 Rx release methylphenidate HCl 20 mg tablet 20 mg PO UD 08/14/23 08/14/23 History divalproex 500 mg tablet,extended 750 mg (1.5 x 500 mg) PO DAILY #90 08/28/23 Rx release 24 hr tabs methylphenidate HCl 54 mg 54 mg PO DAILY 30 days #30 tabs 08/28/23 Rx tablet,extended release 24 hr (Concerta) venlafaxine 150 mg 150 mg PO DAILY #30 caps 08/28/23 Rx capsule,extended release 24 hr (Effexor XR) venlafaxine 75 mg capsule,extended 150 mg (2 x 75 mg) PO QAM #30 caps 08/28/23 08/14/23 Rx release 24 hr zolpidem 10 mg tablet (Ambien) 10 mg PO HS PRN Insomnia #10 tabs 08/28/23 Rx Patient History Medical History Encounter for pre-operative examination Cirrhosis Varices, esophageal Hematemesis Acute alcoholism Anemia Acute upper gastrointestinal hemorrhage Seizures Alcoholism Non-Hodgkin lymphoma Surgical History Hx of oral surgery (07/06/23) Extraction Multiple Teeth x 13 and Drainage of Infection(Not Applicable) - Jame Del Rosario DMD Hx of esophagogastroduodenoscopy Social History (System 08/26/23 @ 07:52 by Jennifer Freedman) Smoking Status: Unknown if ever smoked Tobacco Type: Cigarettes Second Hand Exposure: No; Do You Dip or Chew Tobacco: No; Hx Alcohol Use: Yes (pt refused to answer) Hx Substance Use: No (pt refused to answer) Preferred Language: [place] Communication Ability: Effective 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 Beliefs That Will Affect Care: None Current Living Situation: Alone Current Living Situation Comment: pt refused to answer Feels Safe at Home: Yes and Declines to Answer Gender Identity: Male Assistive Devices: None Physical Exam Mental Examination: Appearance: Disheveled Eye Contact: Maintains Eye Contact Motor Behavior: Restless Speech: Normal and Slurred Mood: Euthymic Affect: Congruent Thought Process: Intact and Linear Thought Content: Intact Hallucinations: None Insight: Poor (improved) Judgement: Poor Vital Signs (Past 24 Hours): Last Vital Signs Temp 36.4 C L 08/28/23 11:46 Pulse 64 08/28/23 11:47 Resp 16 08/28/23 11:47 BP 114/68 08/28/23 11:47 Pulse Ox 99 08/28/23 11:47 O2 Del Method Room Air 08/28/23 11:47 Results & Data (PSY) Medications Administered Acetaminophen (Acetaminophen 325 Mg Tab) 650 mg PO QID PRN PRN Reason: pain/fever Stop: 09/24/23 02:47 Last Admin: 08/27/23 07:32 Dose: 650 mg Documented By: Admin: 08/26/23 21:37 Dose: 650 mg Documented By: Admin: 08/26/23 08:20 Dose: 650 mg Documented By: CHAPIN Diphenhydramine HCl (Diphenhydramine 50 Mg/Ml Vial) 25 mg IV Q6H PRN PRN Reason: Nausea And Vomiting Stop: 09/26/23 22:22 Last Admin: 08/28/23 06:07 Dose: 25 mg Documented By: DENISHA Divalproex Sodium (Divalproex Extended Release 250 Mg Tabcr) 750 mg PO DAILY [facility] Stop: 09/24/23 08:59 Last Admin: 08/28/23 13:07 Dose: Not Given Documented By: Admin: 08/27/23 08:39 Dose: 750 mg Documented By: Admin: 08/26/23 08:11 Dose: Not Given Documented By: Admin: 08/25/23 08:09 Dose: 750 mg Documented By: NICOLE Folic Acid (Folic Acid 1 Mg Tab) 1 mg PO QAM [facility] Stop: 09/24/23 08:59 Last Admin: 08/28/23 13:08 Dose: Not Given Documented By: Admin: 08/27/23 08:40 Dose: 1 mg Documented By: Admin: 08/26/23 08:11 Dose: Not Given Documented By: Admin: 08/25/23 08:09 Dose: 1 mg Documented By: NICOLE Hydrocortisone (Hydrocortisone Hc 2.5% Crm 30gm Tube) 1 appln EXT BID PRN PRN Reason: Hemorrhoid pain Stop: 09/25/23 23:01 Last Admin: 08/27/23 00:04 Dose: 1 appln Documented By: RODNEY Pantoprazole Sodium 40 mg/ (Dextrose) 100 mls @ 20 mls/hr IV Q5H [facility] Stop: 09/26/23 12:14 Last Infusion: 08/28/23 13:21 Dose: Infused Documented By: Admin: 08/28/23 13:07 Dose: Not Given Documented By: Infusion: 08/28/23 09:20 Dose: 0 mg/hr, 0 mls/hr Documented By: Admin: 08/28/23 04:52 Dose: 8 mg/hr, 20 mls/hr Documented By: Infusion: 08/28/23 04:52 Dose: Infused Documented By: Admin: 08/28/23 00:18 Dose: 8 mg/hr, 20 mls/hr Documented By: Infusion: 08/28/23 00:13 Dose: Infused Documented By: Infusion: 08/27/23 21:52 Dose: 8 mg/hr, 20 mls/hr Documented By: Infusion: 08/27/23 18:01 Dose: 0 mg/hr, 0 mls/hr Documented By: Admin: 08/27/23 17:59 Dose: Not Given Documented By: [facility] Admin: 08/27/23 13:41 Dose: 8 mg/hr, 20 mls/hr Documented By: FLOR Acetaminophen (Ofirmev) 1,000 mg in 100 mls @ 400 mls/hr IV Q8H PRN PRN Reason: Pain or Fever Stop: 08/30/23 11:53 Last Infusion: 08/27/23 15:06 Dose: Infused Documented By: [facility] Admin: 08/27/23 14:46 Dose: 400 mls/hr Documented By: FLOR Sodium Chloride (Nss) 500 mls @ 15 mls/hr IV .Q24H [facility] Stop: 08/29/23 07:29 Last Admin: 08/28/23 13:06 Dose: Not Given Documented By: VINNY Sodium Chloride (Nss) 500 mls @ 15 mls/hr IV .Q24H [facility] Stop: 08/29/23 07:29 Last Admin: 08/28/23 13:06 Dose: Not Given Documented By: VINNY Lorazepam (Lorazepam 0.5 Mg Tab) 0.5 mg PO TID PRN PRN Reason: Anxiety Stop: 09/25/23 21:41 Last Admin: 08/28/23 05:49 Dose: 0.5 mg Documented By: Admin: 08/27/23 21:50 Dose: 0.5 mg Documented By: Admin: 08/27/23 08:37 Dose: 0.5 mg Documented By: Admin: 08/26/23 23:23 Dose: 0.5 mg Documented By: RODNEY Multivitamins (Multivitamin Tab) [facility] Stop: 09/24/23 08:59 Last Admin: 08/28/23 13:08 Dose: Not Given Documented By: Admin: 08/27/23 08:39 Dose: 1 tab Documented By: Admin: 08/26/23 08:11 Dose: Not Given Documented By: Admin: 08/25/23 08:09 Dose: 1 tab Documented By: NICOLE Pantoprazole Sodium (Pantoprazole 40 Mg Tab) 40 mg PO DAILY [facility] Stop: 09/24/23 08:59 Last Admin: 08/27/23 08:39 Dose: 40 mg Documented By: Admin: 08/26/23 08:12 Dose: Not Given Documented By: Admin: 08/25/23 09:50 Dose: Not Given Documented By: AMINAH Thiamine HCl (Thiamine Hcl 100 Mg Tab) [facility] Stop: 09/24/23 08:59 Last Admin: 08/28/23 13:08 Dose: Not Given Documented By: Admin: 08/27/23 08:39 Dose: 100 mg Documented By: Admin: 08/26/23 08:12 Dose: Not Given Documented By: Admin: 08/25/23 08:09 Dose: 100 mg Documented By: NICOLE Venlafaxine HCl (Venlafaxine Hcl Xr 150 Mg Capxr) 150 mg PO QAM [facility] Stop: 09/24/23 08:59 Last Admin: 08/28/23 13:08 Dose: Not Given Documented By: Admin: 08/27/23 08:41 Dose: 150 mg Documented By: Admin: 08/26/23 08:12 Dose: Not Given Documented By: Admin: 08/25/23 08:08 Dose: 150 mg Documented By: NICOLE Zolpidem Tartrate (Zolpidem Tartrate 5 Mg Tab) 10 mg PO HS PRN PRN Reason: Insomnia Stop: 09/25/23 21:08 Last Admin: 08/27/23 21:51 Dose: 10 mg Documented By: Admin: 08/26/23 21:37 Dose: 10 mg Documented By: RODNEY [place] [address] IN/OBS CONSULT LVL 2,35M Patient Type New History Problem Focused Exam Problem Focused Medical Decision Making Low Complexity Diagnoses Impulse control disorder F63.9 Alcohol abuse F10.10 Depression F32.A
--- NOTE | 2023-08-28 14:16 | Discharge Summary ---
Date of Service August 28, 2023 Admission HPI Per Admitting Provider PARTIAL CHART found under History obtained from ED staff and records. Patient on unreliable historian due to non-cooperation. Medical history significant for PUD status post surgery, esophageal varices as per records, HCV, seizure disorder, NHL as per records, history of DVT as per records, chronic anemia (baseline hemoglobin 8-9), ADHD, anxiety/mood disorder, personality disorder, substance abuse, ongoing tobacco/alcohol abuse. Recent [facility] confinement June 2023 for UGIB. No varices on EGD. Recent [facility] ER visit last 08/14/2023 for acute UGIB. Hemoglobin noted to be 7.7 Patient refused confinement. Subsequent [facility] admission 08/15-08/19 as per records. Patient trying to get to alcohol rehab following [facility] discharge. Patient woke up yesterday morning feeling so depressed and wanting to end his life. Patient consulted [facility] ER. Patient adamantly refuses to talk to providers currently. Medical History as above Surgical History : Billroth procedure, bowel resection, hip surgery, lymphadenectomy Family History : Mood disorder Personal/Social history : Half pack daily, alcohol abuse Admission Exam Per Admitting Provider GENERAL: Unkempt, withdrawn, covering face with pillow, no respiratory distress SKIN: Pallor, warm HEENT: Pale palpebral conjunctivae, no ptosis, dry buccal mucosa NECK : Supple, no tenderness CHEST : CTA, no tenderness HEART : RRR, no obvious murmurs ABDOMEN: Some distention, nontender EXTREMITIES : No LE swelling/tenderness, no other conspicuous deformities noted NEUROLOGIC : incoherent, no facial asymmetry, gait and stance not assessed Principal Diagnosis Anemia Alcohol use disorder Discharge Exam He was aggressive and verbally abusive. He did not allow for physical examination. Discharge Data Allergies Allergy/AdvReac Type Severity Reaction Status Date / Time Iodinated Contrast Media Allergy Severe throat Verified 08/28/23 10:21 swelling haloperidol Allergy Unknown Hives Verified 08/28/23 10:21 metoclopramide Allergy Unknown Hives Verified 08/28/23 10:21 morphine Allergy Unknown Hives Verified 08/28/23 10:21 prochlorperazine Allergy Unknown Hives Verified 08/28/23 10:21 promethazine Allergy Unknown Hives Verified 08/28/23 10:21 Consultations 08/25/23 02:16 ED Decision to Admit Stat 08/25/23 04:55 Consult Psychiatry Routine 08/27/23 11:52 Consult Gastroenterology Routine Procedures Performed Operation Date: 08/29/23 16:30 <No data on this case meets the specified criteria> Hospital Course (1) Alcohol dependence: (2) Anemia: Plan Patient is a 53-year-old male who presented to the hospital with suicidal ideation. He was found to have anemia with hemoglobin of around 7; was admitted under medical service for further workup. Psychiatry was consulted for comanagement. Suicide precautions and one-to-one observation was done. Throughout the hospitalization, patient was aggressive and verbally abusive to healthcare providers. He repeatedly denied physical examination, lab work and would not follow-up on treatment recommendation. He refused to see psychiatry on August 24 and August 25. After multiple attempts, he agreed on undergoing endoscopy on August 28, 2023 for work up on Anemia. No source of bleeding was identified. Patient gave consent for blood transfusion. However, he pulled out his IV mid transfusion as he was upset on August. Patient was evaluated by psychiatry on August 27, he denied any suicidal ideation. He was cleared from psychiatric perspective for discharge. Patient was planned to undergo colonoscopy on August 29, 2023 by GI. He refused colonoscopy preparation and did not want to undergo colonoscopy. He was alert oriented x 3; he understood risks of foregoing colonoscopy. Discussed was done that progression of anemia could to heart failure, syncope and . Patient was prescribed medication recommended by psychiatric which include divalproex, methylphenidate, venlafaxine and Ambien. Discussed with GI; patient to be set up with outpatient colonoscopy. Outpatient follow-up with PCP also to be set up Patient left the hospital AGAINST MEDICAL ADVICE. Please note the above document was generated using voice recognition software. It may contain grammatical, syntax or spelling errors. Any formal questions or concerns about the content, text or information contained within the body of this dictation should be directly addressed to the provider for clarification Total Time Total Time Spent Total Time Spent (In Minutes): 45 Total Time Includes: Examination of the Patient, Discharge Planning, Medication Reconciliation, Communication With Other Providers and Other Discharge Plan Discharge Items Patient Disposition: Against Medical Advice Reason For Visit: SUICIDALITY, ANEMIA Activity: Resume your previous activity Non-emergency contact: Primary Care Provider Follow-up/Referrals: Kenny Gonzales MD [Outside Practitioners] - (Date & Time 09/03/2023 11:00 AM Provider Kenny Gonzales MD Department Family Practice [facility] ) PCP,NO [Primary Care Provider] - Pending Studies at Discharge: No Stand-Alone Forms: My [facility] [employer] [place], Smoking Cessation Medications and DC Order Prescriptions: New divalproex 500 mg tablet extended release 24 hr 750 mg PO DAILY Qty: 90 0RF Continued venlafaxine 75 mg capsule,extended release 24hr 150 mg PO QAM Qty: 30 0RF venlafaxine [Effexor XR] 150 mg Capsule,Extended Release 24hr 150 mg PO DAILY Qty: 30 0RF methylphenidate HCl [Concerta] 54 mg Tablet Extended Release 24hr 54 mg PO DAILY 30 Days Qty: 30 0RF zolpidem [Ambien] 10 mg Tablet 10 mg PO HS PRN (Reason: Insomnia) Qty: 10 0RF pantoprazole 40 mg Tablet,Delayed Release (Dr/Ec) 40 mg PO BID Qty: 180 0RF methylphenidate HCl 20 mg tablet 20 mg PO UD Rx Instructions: per pt takes 40 mg in the morning and 20 mg in afternoon Discontinued divalproex [Depakote] 250 mg Tablet,Delayed Release (Dr/Ec) 750 mg PO 1XD pantoprazole [Protonix] 40 mg Tablet,Delayed Release (Dr/Ec) 40 mg PO DAILY divalproex [Depakote] 500 mg Tablet,Delayed Release (Dr/Ec) 750 mg PO DAILY Qty: 60 0RF Discharge Orders: Left Against Medical Advice (Routine); Ordered 08/28/23 Ordered By: Jerel Pinto/Other Patient Handouts: Anemia Admission Data Admit Date/Time: 08/25/23 02:44 Attending Provider: Jerel Yepez Admit Provider: Sherman De Leon Primary Care Provider: PCP,NO Other Providers: Nikhil Scott; Emelia Sotomayor; Ean Whitley; Dennis Mejía Jr; Krupa Taylor; Alvina Nunez; Lamont Price; Ivan Melgoza; Steven Aleman; Maricarmen Del Real; Arlette Payne; Kya Alanis; Maria Fernanda Chavez; Cheryl Bae; Nilton Ascencio; Garth Choi; Juvenal Mclain; Beck Giraldo; Silvana Conklin; Kristy Rubio; Keyana Mead; Kezia Adames; Blair Strickland; Christopher Ding; Sumanth Dupree; Viri Keys; Nidia Caballero Jr; Sha Hartley.; Mike Bahena; Abdoul Miranda; Anastacio Elise; Alia Schafer; Apollo Lennon I
[2023-08-28] MEDS ORDERED: LAVAGE SOLUTION 4000ML PO SCH (16:00)
[2023-08-28] MEDS ORDERED: GABAPENTIN 600 MG TAB PO SCH (20:00)
[2023-08-29 17:23] LABS: Amobarbital, Urine Conf NEGATIVE ng/mL (<100); Amphetamine Urine, Confirm 2240 ng/mL (<250); Butalbital, Urine NEGATIVE ng/mL (<100); MDA negative; MDEA negative; MDMA (Ecstasy) Urine, Confirm negative; Methamphetamine, Ur Confirm 1100 ng/mL (<250); Pentobarbital, Urine Conf NEGATIVE ng/mL (<100); Phenobarbital, Urine >5000 ng/mL (<100); Secobarbital, Urine Conf NEGATIVE ng/mL (<100)
[2023-08-30] MEDS ORDERED: GABAPENTIN 600 MG TAB PO SCH (08:00)
== END 2023-08-28 15:33 | disposition left against medical advice (07) | DRG 886 ==
LOC: EDINP 19:55 → ED 19:55 → OBSVTOIN 08-25 02:44 → SUATTDRO 08-25 02:44 → 3W 08-26 04:55

== ENCOUNTER 2023-08-30 19:19 | Inpatient (IN) ==
[2023-08-30] MEDS ORDERED: SODIUM CHLORIDE 0.9% 250 ML IV PRN (20:05)
--- NOTE | 2023-08-30 20:10 | Emergency Department Note ---
Impression & Plan GI bleed, Alcohol abuse, Anemia, Medical non-compliance, Threatening suicide ED Provider Note NAME: LYNDA DIALLO AGE: 53 SEX: M : 1970 ARRIVES VIA: Walk-In INFORMANT: [Patient] ED PROVIDER(S): [Torres Montelongo MD] CHIEF COMPLAINT: Bleeding HISTORY OF PRESENT ILLNESS: The patient is a 53-year-old male who left our hospital about 2 days ago. He had been in for presumed GI bleeding as well as suicidality. The patient presents back today at the advice of his GI doctor. He has been a bit dizzy and he has noticed increasing maroon-colored stools in the last 24 hours. He has a history of a low hemoglobin and he is concerned that the hemoglobin is drifting even lower. The patient is adamant that he is willing to stay in the hospital for help. He needs a colonoscopy. During his last hospitalization, an EGD was done, this did not show any source for bleeding. PMHx/PSHx/Social Hx: See Below PHYSICAL EXAM: GENERAL: Patient is in no acute distress. Very loud and vocal during our conversation. HEENT: No acute trauma, normocephalic atraumatic, mucous membranes moist, no nasal congestion. NECK: No stridor, no adenopathy, no meningismus, trachea is midline. LUNGS: Clear to auscultation bilaterally, no wheeze, no rhonchi, breath sounds equal. HEART: Without murmurs gallops or rubs, regular rate and rhythm. ABDOMEN: Soft, nontender, no peritonitis. No distention. EXTREMITIES: No cyanosis, full range of motion of all the joints without pain or difficulty. NEUROLOGIC: Awake and alert, no acute motor or sensory deficits, no focal weakness. SKIN: No jaundice, no diaphoresis. Somewhat pale. Psychiatric: Cooperative, voluntary. DIFFERENTIAL DIAGNOSIS: Lower GI bleeding, upper GI bleeding, anemia, electrolyte imbalance, alcohol abuse, among others. EMERGENCY DEPARTMENT PROCEDURES: MEDICAL DECISION MAKING: There is no leukocytosis, in fact, the white count is slightly low. The patient is anemic with a hemoglobin of 9.1 however, this is over 2 points higher than when he left the hospital a few days ago. There was a normal platelet count. No coagulopathy. No significant electrolyte abnormality or renal failure. Liver enzyme elevation was noted, likely from his alcohol abuse/use. ECG showed a normal sinus rhythm, no ischemia. Cardiac enzyme testing x 1 was not consistent with acute cardiac injury. Urinalysis did not show findings of infection. Urine tox was positive for barbiturates. Aspirin and Tylenol levels were undetectable. Alcohol level was elevated at 133. The patient presented complaining of some dark maroon stool. He had left the hospital AGAINST MEDICAL ADVICE about 2 days ago. He had returned stating that he was now in favor of having the colonoscopy to further look for a source for GI bleeding. The patient was initially very cooperative. Patient asked for some pain and nausea medication. This was ordered. When the nursing staff went to give the medication, the patient was quite somnolent. I went to check on him at their request and he was arousable to loud voice and touch. He was able to answer some simple questions. The medications of for pain and nausea were held. Patient was ordered for a 500 cc saline bolus. He was ordered for IV thiamine and folate mixed with multivitamins and saline. Eventually, the patient awoke and became quite aggressive and uncooperative here in the ED. He was asking to leave stating that he did not feel we were helping him. This was quite a change from his initial presentation. I did speak with him, security was already at the bedside. The patient was adamant that he was leaving. He asked if his hemoglobin had improved or decreased. I did tell him that it had improved. The patient was preparing to leave. I talked with him about the reasons to stay and the risks of going home, he was unwilling to stay in the hospital for any further testing. At this point, he was told that he could leave AGAINST MEDICAL ADVICE. Security approached me and stated that they heard him talk about going home and overdosing on heroin in order to end his life. With this information, I did contact psychiatry case management. Ultimately, it was decided that the patient was a threat to himself and that he was at risk with discharge. A 302 petition was initiated. The patient was escorted to the psychiatric portion of the ED, restraints and restraint orders were instituted. The patient was given IM Zyprexa, 5 mg. I did talk at length with psychiatry case management, the patient is not someone who, at this time, can be hospitalized on the psychiatric floors. I spoke with the on-call hospitalist from the medical service. They agreed to see the patient in the ED and admit him medically. He can be seen by psychiatry in consult. At this point, we await to see the results from the IM Zyprexa. The Case has been signed out to Dr. Miranda at the change of shift. Prior/Outside records/notes reviewed: Discharge summary note from 08/28/2023 discussing his presentation, care and unwillingness to cooperate. ECG per my interpretation: Indication was GI bleed. The ECG shows a normal sinus rhythm with a rate of 69. There is a possible old anterior infarct versus poor R wave progression. There is no acute ST elevation, no PVCs. The QTc is 480. Continuous Cardiac Monitoring per my interpretation: An order was placed for continuous cardiac monitoring. The monitor shows a rate of 78 with normal sinus rhythm. Imaging/x-ray results per my interpretation: Chronic Medical/Social conditions affecting care: History of alcohol dependence and impulse control disorder. Care/Management discussed with: Case management, the on-call hospitalist. Psychiatry case management. Level of care consideration(s): After review of the information above and other included data: --I believe the patient requires escalation of care to admission Critical Care Note: I have personally spent 55 minutes of critical care time in the direct management of this patient. This includes bedside care, interpretation of diagnostic studies, and testing, discussion with consultants, patient, and family members, and other required patient management activities. This 55 minutes is in excess of all separately billable procedures. DISPOSITION: Admission Past Med/Surg History Problem List (Updated 08/31/23 @ 11:39 by Torres Montelongo MD) Threatening suicide (Acute) Medical non-compliance (Acute) Anemia (Acute) Alcohol abuse (Acute) GI bleed (Acute) Depression Alcohol abuse Impulse control disorder ADHD Alcohol dependence Irregular alveolar process of jaw Pain due to dental caries Teeth decayed Fracture of multiple teeth Dental abrasion, generalized Anemia (Acute) Alcohol use disorder (Acute) Suicidal ideation (Acute) Medical History Encounter for pre-operative examination Cirrhosis Varices, esophageal Hematemesis Acute alcoholism Anemia Acute upper gastrointestinal hemorrhage Seizures Alcoholism Non-Hodgkin lymphoma Surgical History Hx of oral surgery (07/06/23) Extraction Multiple Teeth x 13 and Drainage of Infection(Not Applicable) - Jame Del Rosario, DMD Hx of esophagogastroduodenoscopy Social History Smoking Status: Current every day smoker Tobacco Type: Cigarettes Second Hand Exposure: No; Do You Dip or Chew Tobacco: No; Preferred Language: [place] Communication Ability: Effective Social Services Designee Required: No Beliefs That Will Affect Care: None Current Living Situation: Alone Current Living Situation Comment: pt refused to answer Other Information That Helps Us Care for You: No Feels Safe at Home: Declines to Answer Gender Identity: Male Assistive Devices: None Allergies Allergies Allergy/AdvReac Type Severity Reaction Status Date / Time Iodinated Contrast Media Allergy Severe throat Verified 08/28/23 10:21 swelling haloperidol Allergy Unknown Hives Verified 08/28/23 10:21 metoclopramide Allergy Unknown Hives Verified 08/28/23 10:21 morphine Allergy Unknown Hives Verified 08/28/23 10:21 prochlorperazine Allergy Unknown Hives Verified 08/28/23 10:21 promethazine Allergy Unknown Hives Verified 08/28/23 10:21 Home Meds Home Medications Medication Instructions Recorded Confirmed methylphenidate HCl 20 mg tablet 20 mg PO UD 08/14/23 08/30/23 Previous Rx's Medication Instructions Recorded pantoprazole 40 mg tablet,delayed 40 mg PO BID #180 tabs 07/06/23 release divalproex 500 mg tablet,extended 750 mg (1.5 x 500 mg) PO DAILY #90 08/28/23 release 24 hr tabs methylphenidate HCl 54 mg 54 mg PO DAILY 30 days #30 tabs 08/28/23 tablet,extended release 24 hr (Concerta) venlafaxine 75 mg capsule,extended 150 mg (2 x 75 mg) PO QAM #30 caps 08/28/23 release 24 hr zolpidem 10 mg tablet (Ambien) 10 mg PO HS PRN Insomnia #10 tabs 08/28/23 Results & Data (ED) Vital Signs Vital Signs - 24 hr 08/30/23 19:37 08/30/23 20:20 08/30/23 20:43 Temperature 36.4 C L Temperature Source Temporal Artery Scan Pulse Rate 101 H 82 Pulse Rate [Apical] Pulse Rhythm [Apical] Pulse Strength [Apical] Respiratory Rate 20 Respiratory Effort / Characteristics Respiratory Depth Respiratory Pattern Blood Pressure 111/73 Blood Pressure Mean 85 Pulse Oximetry 99 97 Oxygen Delivery Method Room Air Room Air Sepsis Recent Fever Within 48 Hours No Sepsis New/Unexplained Change in Mental Status No Sepsis Action Taken by Nursing No Action Required 08/30/23 20:43 08/30/23 23:18 Temperature Temperature Source Pulse Rate Pulse Rate [Apical] 67 Pulse Rhythm [Apical] Regular Pulse Strength [Apical] Normal Respiratory Rate 18 Respiratory Effort / Characteristics Non-Labored Spontaneous Respiratory Depth Normal Respiratory Pattern Regular Blood Pressure Blood Pressure Mean Pulse Oximetry 97 100 Oxygen Delivery Method Room Air Room Air Sepsis Recent Fever Within 48 Hours Sepsis New/Unexplained Change in Mental Status Sepsis Action Taken by Skilled Nursing Medications Current Medication List: was personally reviewed by me Laboratory Data Attestation: I reviewed the patient's lab results. 08/30/23 20:36 08/31/23 05:57 Lab Results 08/30/23 08/30/23 08/30/23 Range/Units 20:36 20:37 21:00 WBC 3.96 L (4.8-10.8) K/ul RBC 3.40 L (4.70-6.10) M/uL Hgb 9.1 L (14.0-18.0) g/dl Hct 29.2 L (42.0-52.0) % MCV 85.9 (80.0-100.0) fL MCH 26.8 (25.0-34.0) pg MCHC 31.2 L (32.0-36.0) g/dL RDW Std Deviation 50.1 H (36.4-46.3) fL RDW Coeff of Yeimy 16.4 H (11.5-14.5) % Plt Count 266 (130-400) K/uL MPV 9.0 L (9.4-12.4) fL Immature Gran % (Auto) 0.3 % Neut % (Auto) 54.4 % Lymph % (Auto) 31.1 % [place] % (Auto) 10.4 % Eos % (Auto) 2.5 % Baso % (Auto) 1.3 % Neut # (Auto) 2.16 (1.40-6.50) K/uL Lymph # (Auto) 1.23 (1.20-3.40) K/uL [place] # (Auto) 0.41 (0.11-0.59) K/uL Eos # (Auto) 0.10 (0.00-0.50) K/uL Baso # (Auto) 0.05 (0.00-0.20) K/uL Immature Gran # (Auto) 0.01 (0.01-0.20) K/uL PT 10.8 (9.0-12.0) Seconds INR 1.0 (0.9-1.1) APTT 28 (21-31) Seconds PTT Ratio 1.0 Sodium 139 (136-145) mmol/L Potassium 3.7 (3.5-5.1) mmol/L Chloride 106 (98-107) mmol/L Carbon Dioxide 21 (21-32) mmol/L Anion Gap 12 H (3-11) BUN 32 H (6-23) mg/dl Creatinine 0.94 (0.6-1.4) mg/dl Est Cr Clr Drug Dosing 75.5 ml/min Est GFR ( Amer) 106.9 ml/min Est GFR (Non-Af Amer) 92.2 ml/min BUN/Creatinine Ratio 34.0 H (10-20) Glucose 94 (70-99(Fasting)) mg/dl Calcium 9.6 (8.6-10.3) mg/dl Magnesium 2.2 (1.7-2.4) mg/dl Total Bilirubin 0.4 (0.2-1.0) mg/dl AST 79 H (13-39) U/L ALT 31 (7-52) U/L Alkaline Phosphatase 119 H (34-104) U/L Troponin I High Sens 4.9 (0-20) pg/ml Total Protein 7.7 (6.0-8.3) gm/dl Albumin 4.9 (3.4-5.0) gm/dl Globulin 2.8 (2.5-4.0) gm/dl Albumin/Globulin Ratio 1.8 (0.9-2) Salicylates < 3.0 L (3.0-30) mg/dl Acetaminophen < 3 L (10-30) ug/ml Ethyl Alcohol mg/dL 133.9 H (<10.0) mg/dl Blood Type O Negative Antibody Screen NEGATIVE Crossmatch See Detail Administered Medications Divalproex Sodium (Divalproex Extended Release 250 Mg Tabcr) 750 mg PO DAILY COUNT INCLUDES THE [facility] Stop: 09/30/23 08:59 Last Admin: 08/31/23 10:59 Dose: Not Given Documented By: SRL Lorazepam 1 mg/ Syringe 1 mls @ 2 mls/min IV Q4H PRN PRN Reason: Anxiety/Agitation Stop: 09/30/23 02:15 Last Admin: 08/31/23 07:38 Dose: 2 mls/min Documented By: Admin: 08/31/23 02:38 Dose: 2 mls/min Documented By: IDD Thiamine HCl 100 mg/ Syringe 10 mls @ 2 mls/min IV QAM COUNT INCLUDES THE [facility] Stop: 09/30/23 08:59 Last Admin: 08/31/23 09:34 Dose: 2 mls/min Documented By: SRL Folic Acid 1 mg/ Syringe 10 mls @ 5 mls/min IV QAM COUNT INCLUDES THE [facility] Stop: 09/30/23 08:59 Last Admin: 08/31/23 09:34 Dose: 5 mls/min Documented By: SRL Pantoprazole Sodium 40 mg/ (Syringe) 10 mls @ 5 mls/min IV BID LACY Stop: 09/30/23 08:59 Last Admin: 08/31/23 09:34 Dose: 5 mls/min Documented By: SRL Venlafaxine HCl (Venlafaxine Hcl Xr 150 Mg Capxr) 150 mg PO QAM COUNT INCLUDES THE [facility] Stop: 09/30/23 08:59 Last Admin: 08/31/23 11:00 Dose: Not Given Documented By: SRL Discontinued Medications Diphenhydramine HCl (Diphenhydramine 50 Mg/Ml Vial) 25 mg IV NOW STA Stop: 08/30/23 20:07 Last Admin: 08/30/23 21:05 Dose: Not Given Documented By: AY Diphenhydramine HCl (Diphenhydramine 50 Mg/Ml Vial) 25 mg IV NOW STA Stop: 08/30/23 22:01 Last Admin: 08/30/23 23:03 Dose: Not Given Documented By: IDD Hydromorphone HCl (Hydromorphone Inj 0.5 Mg/0.5 Ml Syr) 0.5 mg IV NOW STA Stop: 08/30/23 20:06 Last Admin: 08/30/23 21:05 Dose: Not Given Documented By: MIKAELA Hydromorphone HCl (Hydromorphone Inj 0.5 Mg/0.5 Ml Syr) 0.25 mg IV NOW STA Stop: 08/30/23 22:01 Last Admin: 08/30/23 23:04 Dose: Not Given Documented By: IDD Sodium Chloride (Nss) 500 mls @ 999 mls/hr IV .Q31M LACY Stop: 08/30/23 20:45 Last Infusion: 08/30/23 23:04 Dose: Infused Documented By: Admin: 08/30/23 21:05 Dose: 999 mls/hr Documented By: MIKAELA Multivitamins 10 ml/ Thiamine HCl 100 mg/ Folic Acid 1 mg/Sodium Chloride 1,011.2 mls @ 500 mls/hr IV .Q2H2M ONE Stop: 08/30/23 23:49 Last Infusion: 08/31/23 02:00 Dose: Infused Documented By: Admin: 08/30/23 23:54 Dose: 500 mls/hr Documented By: IDD Sodium Chloride (Nss) 1,000 mls @ 100 mls/hr IV .Q10H LACY Stop: 09/30/23 02:15 Last Infusion: 08/31/23 08:30 Dose: Infused Documented By: Admin: 08/31/23 02:47 Dose: 100 mls/hr Documented By: IDD Pantoprazole Sodium 40 mg/ (Dextrose) 100 mls @ 20 mls/hr IV Q5H LACY Stop: 09/30/23 02:15 Last Admin: 08/31/23 09:15 Dose: Not Given Documented By: Infusion: 08/31/23 08:10 Dose: Infused Documented By: Admin: 08/31/23 03:10 Dose: 8 mg/hr, 20 mls/hr Documented By: IDD Pantoprazole Sodium 80 mg/ (Dextrose) 120 mls @ 480 mls/hr IV NOW ONE Stop: 08/31/23 02:30 Last Infusion: 08/31/23 03:09 Dose: Infused Documented By: Admin: 08/31/23 02:46 Dose: 480 mls/hr Documented By: IDD Thiamine HCl 100 mg/ Syringe 10 mls @ 2 mls/min IV NOW STA Stop: 08/31/23 02:23 Last Admin: 08/31/23 02:39 Dose: 2 mls/min Documented By: SAKSHI Lorazepam (Lorazepam 1 Mg/1 Ml Syr Ed Inj Use) 1 mg IV ONE STA Stop: 08/30/23 23:48 Last Admin: 08/30/23 23:51 Dose: 1 mg Documented By: SAKSHI Lorazepam (Lorazepam 1 Mg/1 Ml Syr Ed Inj Use) Confirm Administered Dose 1 mg .ROUTE .STK-MED ONE Stop: 08/31/23 07:28 Last Admin: 08/31/23 07:39 Dose: Not Given Documented By: REJI Olanzapine (Olanzapine 10 Mg/2.1 Ml Sdv) 5 mg IM NOW STA Stop: 08/30/23 22:38 Last Admin: 08/30/23 23:08 Dose: 5 mg Documented By: MEREDITH Olanzapine (Olanzapine 10 Mg/2.1 Ml Sdv) 5 mg IM NOW STA Stop: 08/30/23 23:46 Last Admin: 08/30/23 23:47 Dose: Not Given Documented By: IDBrittny Discharge Plan Visit Data Chief Complaint: Bleeding Stated Complaint: RECTAL BLEEDING, VERTIGO ED Provider: Hema Miranda Discharge Problem: GI bleed, Alcohol abuse, Anemia, Medical non-compliance, Threatening suicide Patient Disposition: Admitted As Inpatient Condition: Fair Discharge Instructions Interventions: ED Discharge Assessment Last Done: 08/31/23 02:17 Discharge Problem: GI bleed Qualifiers: GI bleed type/associated pathology: unspecified gastrointestinal hemorrhage type Qualified Code(s): K92.2 - Gastrointestinal hemorrhage, unspecified Anemia Qualifiers: Anemia type: unspecified type Qualified Code(s): D64.9 - Anemia, unspecified
[2023-08-30] MEDS: SODIUM CHLORIDE 0.9% 500 ML IV SCH (21:05)
[2023-08-30] MEDS: HYDROmorphone INJ 0.5 MG/0.5 ML SYR IV STA ×2 (21:05→23:04)
[2023-08-30] MEDS: diphenhydrAMINE 50 MG/ML VIAL IV STA ×2 (21:05→23:03)
[2023-08-30 21:13] LABS: Basophils # (auto) 0.05 K/uL (0.00-0.20); Basophils % (auto) 1.3 %; Eosinophils % (auto) 2.5 %; Hematocrit (blood only) 29.2 % (42.0-52.0); Hemoglobin 9.1 g/dl (14.0-18.0); Immature Granulocytes # (auto) 0.01 K/uL (0.01-0.20); Immature Granulocytes % (auto) 0.3 %; Lymphocytes # (auto) 1.23 K/uL (1.20-3.40); Lymphocytes % (auto) 31.1 %; Mean Corpuscular Hemoglobin 26.8 pg (25.0-34.0); Mean Corpuscular Hgb Conc 31.2 g/dL (32.0-36.0); Mean Corpuscular Volume 85.9 fL (80.0-100.0); Monocytes # (auto) 0.41 K/uL (0.11-0.59); Monocytes % (auto) 10.4 %; Neutrophils # (auto) 2.16 K/uL (1.40-6.50); Neutrophils % (auto) 54.4 %; Platelet Count 266 K/uL (130-400); RDW Coefficient of Variation 16.4 % (11.5-14.5); RDW Standard Deviation 50.1 fL (36.4-46.3); White Blood Count 3.96 K/ul (4.8-10.8)
[2023-08-30 21:15] LABS: Albumin Globulin Ratio 1.8 (0.9-2); Albumin Level 4.9 gm/dl (3.4-5.0); Bilirubin,Total 0.4 mg/dl (0.2-1.0); Calcium 9.6 mg/dl (8.6-10.3); Creatinine Clr Calc Pharmacy 75.5 ml/min; Est GFR (African American) 106.9 ml/min; Est GFR (Non-African American) 92.2 ml/min; Globulin 2.8 gm/dl (2.5-4.0); Magnesium 2.2 mg/dl (1.7-2.4); Potassium 3.7 mmol/L (3.5-5.1); Total Protein 7.7 gm/dl (6.0-8.3)
[2023-08-30 21:21] LABS: Troponin I High Sensitivity 4.9 pg/ml (0-20)
[2023-08-30 21:35] LABS: Partial Thromboplastin Time 28 Seconds (21-31); Prothrombin Time 10.8 Seconds (9.0-12.0)
--- NOTE | 2023-08-30 23:07 | Emergency Department Note ---
ED Visit Note ED Physician Sign Out Note: Signed out to me by Dr Montelongo pending evaluation by Hospitalist service. Patient arrived with request for hospitalization due to gi bleed. Intoxicated on arrival. Had just left AMA 2 days earlier. As stay in ED progressed patient stating he was leaving AMA, but then patient stated he planned to kill himself by overdosing on heroin and staff felt he is high risk of harming self. Patient was restrained with Zyprexa IM. IV Team placing IV access. Medicine team will plan to admit to their service. Discussed with nursing staff plan to slowly remove restraints while awaiting hospitalist evaluation. Hema Miranda MD
[2023-08-30] MEDS: OLANZapine 10 MG/2.1 ML SDV IM STA ×2 (23:08→23:47)
[2023-08-30 23:38] LABS: Acetaminophen < 3 ug/ml (10-30); Salicylate < 3.0 mg/dl (3.0-30)
[2023-08-30] MEDS: LORazepam 1 MG/1 ML SYR ED Inj Use IV STA (23:51)
[2023-08-30] MEDS: MULTI-VITAMIN INFUSION 10 ML, THIAMINE HCL 100 MG, FOLIC ACID 1 MG in SODIUM CHLORIDE 0... IV ONE (23:54)
--- NOTE | 2023-08-31 00:02 | History & Physical Report ---
Date of Service August 30, 2023 Assessment & Plan (1) GI bleed: Plan: 53-year-old male with past medical history significant for hepatitis C, GI bleed due to an NSAID, chronic arthralgias, history of Hodgkin's lymphoma, history of COVID, history of alcoholism, depression, methamphetamine use disorder, ADHD, drug-seeking behavior, history of DVT, history of peptic ulcer disease, history of cluster B personality disorder,History of oesophageal varices per records, history of seizures disorder, history of chronic anemia presents with GI bleed. Patient recently in the hospital for GI bleed status post EGD which was okay and planned for colonoscopy. However patient refused colonoscopy preparation .Patient was also aggressive and verbally abusive to healthcare providers as per discharge summary and patient initially refused to see psychiatry and but eventually evaluated by psychiatry in August 27 . He was cleared from psychiatric perspective for discharge. But patient left AGAINST MEDICAL ADVICE on August 27. Comes back today because of complaining some maroon- colored stools. Seemed to talk to his GI doctor and was advised to come to the hospital. He did notify the ER that he was felt dizzy and noticed maroon colored stools.Seems drinking alochol. Initially patient agreed to stay in the hospital for help and colonoscopy. Then patient wanted to leave AMA but he stated to staff that he wanted to kill himself by overdosing on heroin and it was felt unsafe to discharge him. He was physically restrained and IM Zyprexa was given. Patient currently shouting that to take off the restraints as it is hurting. He said IM Zyprexa does not work for him. He is okay with IV Ativan. Initially refused to answer. When told him that going to get IV Ativan and if he is calms down will take off restraints he answered some simple questions. When told not to take off iv line he seems to agree.Denies any headache. Denies any chest pain. Denies Shortness of breath. Denies abdominal pain. Normal bowel and bladder movements. Patient states it was misunderstanding and there was no Gi bleed. GI bleed hemoglobin stable at 9.1. iron-deficiency. Received IV Venofer last admit? we will follow stool for Hemoccult n.p.o., Protonix drip, IV fluids GI consult in a.m. agitation suicidal ideation IV Ativan as needed physical restraints if needed one-on-one suicide precautions psychiatry consult alcoholism IV thiamine and folic acid Ativan as needed close monitor history of HCV history of seizure disorder history of DVT non-Hodgkin's lymphoma as per records ongoing tobacco abuse and alcohol abuse DVT prophylaxis SCDs for now disposition telemetry full code. History of Present Illness Chief Complaint: GI bleed and suicidal ideation Primary Care Provider: NO PCP 53-year-old male with past medical history significant for hepatitis C, GI bleed due to an NSAID, chronic arthralgias, history of Hodgkin's lymphoma, history of COVID, history of alcoholism, depression, methamphetamine use disorder, ADHD, drug-seeking behavior, history of DVT, history of peptic ulcer disease, history of cluster B personality disorder,History of oesophageal varices per records, history of seizures disorder, history of chronic anemia presents with GI bleed. Patient recently in the hospital for GI bleed status post EGD which was okay and planned for colonoscopy. However patient refused colonoscopy preparation .Patient was also aggressive and verbally abusive to healthcare providers as per discharge summary and patient initially refused to see psychiatry and but eventually evaluated by psychiatry in August 27 . He was cleared from psychiatric perspective for discharge. But patient left AGAINST MEDICAL ADVICE on August 27. Comes back today because of complaining some maroon- colored stools. Seemed to talk to his GI doctor and was advised to come to the hospital. He did notify the ER that he was felt dizzy and noticed maroon colored stools.Seems drinking alochol. Initially patient agreed to stay in the hospital for help and colonoscopy. Then patient wanted to leave A but he stated to staff that he wanted to kill himself by overdosing on heroin and it was felt unsafe to discharge him. He was physically restrained and IM Zyprexa was given. Patient currently shouting that to take off the restraints as it is hurting. He said IM Zyprexa does not work for him. He is okay with IV Ativan. Initially refused to answer. When told him that going to get IV Ativan and if he is calms down will take off restraints he answered some simple questions. When told not to take off iv line he seems to agree.Denies any headache. Denies any chest pain. Denies Shortness of breath. Denies abdominal pain. Normal bowel and bladder movements. Patient states it was misunderstanding and there was no Gi bleed. Past medical history. As mentioned above Past surgical history. Billroth procedure. Bowel resection. Hip surgery. Lymphadenectomy. Left partial hip replacement. Social history. Seems drink alcohol. Smokes half pack daily. Family history. Mood disorder. Allergies Allergy/AdvReac Type Severity Reaction Status Date / Time Iodinated Contrast Media Allergy Severe throat Verified 08/28/23 10:21 swelling haloperidol Allergy Unknown Hives Verified 08/28/23 10:21 metoclopramide Allergy Unknown Hives Verified 08/28/23 10:21 morphine Allergy Unknown Hives Verified 08/28/23 10:21 prochlorperazine Allergy Unknown Hives Verified 08/28/23 10:21 promethazine Allergy Unknown Hives Verified 08/28/23 10:21 Home Medications Medication Instructions Recorded Confirmed Type pantoprazole 40 mg tablet,delayed 40 mg PO BID #180 tabs 07/06/23 08/30/23 Rx release methylphenidate HCl 20 mg tablet 20 mg PO UD 08/14/23 08/30/23 History divalproex 500 mg tablet,extended 750 mg (1.5 x 500 mg) PO DAILY #90 08/28/23 08/30/23 Rx release 24 hr tabs methylphenidate HCl 54 mg 54 mg PO DAILY 30 days #30 tabs 08/28/23 08/30/23 Rx tablet,extended release 24 hr (Concerta) venlafaxine 75 mg capsule,extended 150 mg (2 x 75 mg) PO QAM #30 caps 08/28/23 08/30/23 Rx release 24 hr zolpidem 10 mg tablet (Ambien) 10 mg PO HS PRN Insomnia #10 tabs 08/28/23 08/30/23 Rx Past Med/Surg History Problem List (Updated 08/30/23 @ 21:48 by Torres Montelongo MD) Medical non-compliance (Acute) Anemia (Acute) Alcohol abuse (Acute) GI bleed (Acute) Depression Alcohol abuse Impulse control disorder ADHD Alcohol dependence Irregular alveolar process of jaw Pain due to dental caries Teeth decayed Fracture of multiple teeth Dental abrasion, generalized Anemia (Acute) Alcohol use disorder (Acute) Suicidal ideation (Acute) Medical History Encounter for pre-operative examination Cirrhosis Varices, esophageal Hematemesis Acute alcoholism Anemia Acute upper gastrointestinal hemorrhage Seizures Alcoholism Non-Hodgkin lymphoma Surgical History Hx of oral surgery (07/06/23) Extraction Multiple Teeth x 13 and Drainage of Infection(Not Applicable) - Jame Del Rosario, DMD Hx of esophagogastroduodenoscopy Social History (System 08/26/23 @ 07:52 by Jennifer Freedman) Smoking Status: Current every day smoker Tobacco Type: Cigarettes Second Hand Exposure: No; Do You Dip or Chew Tobacco: No; Preferred Language: Irish Communication Ability: Effective Motor Analyst Required: No Beliefs That Will Affect Care: None Current Living Situation: Alone Current Living Situation Comment: pt refused to answer Other Information That Helps Us Care for You: No Feels Safe at Home: Declines to Answer Gender Identity: Male Assistive Devices: None Review of Systems Review of Systems: Unobtainable due to mental health condition Physical Exam Physical Exam: General- agitated Head- atraumatic ENT- oropharynx clear. No teeth seen Lungs- clear to auscultation no wheezing or crackles Heart- regular rhythm; no murmur, no gallop. Abdomen- normal bowel sounds, soft, nontender, no distension. Extremities- no pretibial edema, no erythema seen. Neuro- alert, oriented , agitated ; no facial palsy; no dysarthria; in restraints Results & Data Results & Data Vital Signs (Past 12 Hours) Vital Signs Temp Pulse Pulse Resp BP Pulse Ox O2 Del Method 08/30/23 23:18 67 18 100 Room Air 08/30/23 20:43 97 Room Air 08/30/23 20:43 97 Room Air 08/30/23 20:20 82 08/30/23 19:37 36.4 C L 101 H 20 111/73 99 Room Air Diagnostic Findings Laboratory Results WBC 3.96 K/ul (4.8-10.8) L 08/30/23 20:36 RBC 3.40 M/uL (4.70-6.10) L 08/30/23 20:36 Hgb 9.1 g/dl (14.0-18.0) L 08/30/23 20:36 Hct 29.2 % (42.0-52.0) L 08/30/23 20:36 MCV 85.9 fL (80.0-100.0) 08/30/23 20:36 MCH 26.8 pg (25.0-34.0) 08/30/23 20:36 MCHC 31.2 g/dL (32.0-36.0) L 08/30/23 20:36 RDW Std Deviation 50.1 fL (36.4-46.3) H 08/30/23 20:36 RDW Coeff of Yeimy 16.4 % (11.5-14.5) H 08/30/23 20:36 Plt Count 266 K/uL (130-400) 08/30/23 20:36 MPV 9.0 fL (9.4-12.4) L 08/30/23 20:36 Immature Gran % (Auto) 0.3 % 08/30/23 20:36 Neut % (Auto) 54.4 % 08/30/23 20:36 Lymph % (Auto) 31.1 % 08/30/23 20:36 [place] % (Auto) 10.4 % 08/30/23 20:36 Eos % (Auto) 2.5 % 08/30/23 20:36 Baso % (Auto) 1.3 % 08/30/23 20:36 Neut # (Auto) 2.16 K/uL (1.40-6.50) 08/30/23 20:36 Lymph # (Auto) 1.23 K/uL (1.20-3.40) 08/30/23 20:36 [place] # (Auto) 0.41 K/uL (0.11-0.59) 08/30/23 20:36 Eos # (Auto) 0.10 K/uL (0.00-0.50) 08/30/23 20:36 Baso # (Auto) 0.05 K/uL (0.00-0.20) 08/30/23 20:36 Immature Gran # (Auto) 0.01 K/uL (0.01-0.20) 08/30/23 20:36 PT 10.8 Seconds (9.0-12.0) 08/30/23 20:36 INR 1.0 (0.9-1.1) 08/30/23 20:36 APTT 28 Seconds (21-31) 08/30/23 20:36 PTT Ratio 1.0 08/30/23 20:36 Sodium 139 mmol/L (136-145) 08/30/23 20:36 Potassium 3.7 mmol/L (3.5-5.1) 08/30/23 20:36 Chloride 106 mmol/L (98-107) 08/30/23 20:36 Carbon Dioxide 21 mmol/L (21-32) 08/30/23 20:36 Anion Gap 12 (3-11) H 08/30/23 20:36 BUN 32 mg/dl (6-23) H 08/30/23 20:36 Creatinine 0.94 mg/dl (0.6-1.4) 08/30/23 20:36 Est Cr Clr Drug Dosing 75.5 ml/min 08/30/23 20:36 Est GFR ( Amer) 106.9 ml/min 08/30/23 20:36 Est GFR (Non-Af Amer) 92.2 ml/min 08/30/23 20:36 BUN/Creatinine Ratio 34.0 (10-20) H 08/30/23 20:36 Glucose 94 mg/dl (70-99(Fasting)) 08/30/23 20:36 Calcium 9.6 mg/dl (8.6-10.3) 08/30/23 20:36 Magnesium 2.2 mg/dl (1.7-2.4) 08/30/23 20:36 Total Bilirubin 0.4 mg/dl (0.2-1.0) 08/30/23 20:36 AST 79 U/L (13-39) H 08/30/23 20:36 ALT 31 U/L (7-52) 08/30/23 20:36 Alkaline Phosphatase 119 U/L (34-104) H 08/30/23 20:36 Troponin I High Sens 4.9 pg/ml (0-20) 08/30/23 20:36 Total Protein 7.7 gm/dl (6.0-8.3) 08/30/23 20:36 Albumin 4.9 gm/dl (3.4-5.0) 08/30/23 20:36 Globulin 2.8 gm/dl (2.5-4.0) 08/30/23 20:36 Albumin/Globulin Ratio 1.8 (0.9-2) 08/30/23 20:36 Salicylates < 3.0 mg/dl (3.0-30) L 08/30/23 20:37 Acetaminophen < 3 ug/ml (10-30) L 08/30/23 20:37 Ethyl Alcohol mg/dL 133.9 mg/dl (<10.0) H 08/30/23 21:00 Blood Type O Negative 08/30/23 20:36 Antibody Screen NEGATIVE 08/30/23 20:36 Crossmatch See Detail 08/30/23 20:36 Code Status & VTE Plan VTE Prophylaxis Plan VTE Prophylaxis will be ordered: Yes (1) GI bleed GI bleed type/associated pathology: unspecified gastrointestinal hemorrhage type Qualified Code(s): K92.2 - Gastrointestinal hemorrhage, unspecified
[2023-08-31] MEDS ORDERED: PANTOPRAZOLE BOLUS/DRIP IV STA (02:16)
[2023-08-31] MEDS ORDERED: METHYLPHENIDATE HCL 10 MG TABLET PO SCH (02:16)
[2023-08-31] MEDS ORDERED: NITROGLYCERIN SL 0.4 MG/TAB TAB SL PRN (02:16)
[2023-08-31] MEDS: LORazepam 1 MG in SYRINGE 0.5 ML IV PRN (02:38)
[2023-08-31] MEDS: THIAMINE HCL 100 MG in SYRINGE 9 ML IV STA (02:39)
[2023-08-31] MEDS: PANTOprazole 80 MG in DEXTROSE 5% 100 ML IV ONE (02:46)
[2023-08-31] MEDS: SODIUM CHLORIDE 0.9% 1,000 ML IV SCH (02:47)
[2023-08-31] MEDS: PANTOprazole 40 MG in DEXTROSE 5% MINI-B 100 ML IV SCH (03:10)
[2023-08-31 04:59] LABS: Appearance Urine Clear (Clear); Bilirubin Urine Negative (Negative); Blood Urine Negative (Negative); Color Urine Yellow; Glucose Urine UA Negative (Negative); Ketones Urine Negative (Negative); Leukocyte Esterase Urine Negative (Negative); Nitrite Urine Negative (Negative); Protein Urine Negative (Negative); Specific Gravity Urine 1.012 (1.000-1.030); Urobilinogen Urine Negative (Negative)
[2023-08-31 05:20] LABS: Amphetamines+Metham, Urine Neg (Neg); Barbiturates, Urine Pos (Neg); Benzodiazepine, Urine Neg (Neg); Cocaine, Urine Neg (Neg); Fentanyl, Urine Neg (Neg); MDMA (Ecstacy), Urine Neg (Neg); Marijuana, Urine Neg (Neg); Methadone, Urine Neg (Neg); Opiate, Urine Neg (Neg); Phencyclidine, Urine Neg (Neg)
[2023-08-31 07:06] LABS: BUN Creatinine Ratio 35.7 (10-20); Calcium 8.7 mg/dl (8.6-10.3); Creatinine Clr Calc Pharmacy 101.3 ml/min; Est GFR (African American) 124.9 ml/min; Est GFR (Non-African American) 107.7 ml/min; Magnesium 2.1 mg/dl (1.7-2.4); Potassium 4.1 mmol/L (3.5-5.1)
[2023-08-31] MEDS: LORazepam 1 MG/1 ML SYR ED Inj Use ONE (07:39)
[2023-08-31] MEDS ORDERED: METHYLPHENIDATE HCL 54 MG PO SCH (09:00)
[2023-08-31] MEDS: THIAMINE HCL 100 MG in SYRINGE 9 ML IV SCH (09:34)
[2023-08-31] MEDS: PANTOprazole 40 MG in SYRINGE 0 ML IV SCH (09:34)
[2023-08-31] MEDS: FOLIC ACID 1 MG in SYRINGE 9.8 ML IV SCH (09:34)
--- NOTE | 2023-08-31 10:20 | Gastroenterology Progress Note ---
Date of Service August 31, 2023 Assessment & Plan (1) GI bleed: Plan: His bleeding has stopped from all information I can get. He is not cooperative with me on my visit with him. Since no bleeding and no drop in H/H he can have colonoscopy done as an outpatient. I have no plans to try to force him to do colonoscopy now as he is not cooperative. He should be stable for inpatient psychiatric treatment on psychiatric floor. Admission and Anticipated Discharge Date Admission Date: August 30, 2023 Subjective Patient recently seen by GI and had EGD for bleeding. That was negative. Colonoscopy planned, patient refused and signed out AMA. Apparently told security he was going to go home and hurt himself so he was brought back to ER. There is report of maroon blood. Patient refuses to acknowledge me or answer questions other than to tell me he passed gas. Nurses report no bleeding today and none reported from security shift manager. Physical Exam Physical Exam: Eyes closed, won't respond to my questioning or presence in room Results & Data Vital Signs (Past 12 Hours) Vital Signs Temp Pulse Pulse Resp BP Pulse Ox Pulse Ox 08/31/23 08:50 66 16 121/83 99 08/31/23 07:00 61 16 121/87 99 08/31/23 06:58 67 08/31/23 05:04 36.8 C 61 18 110/76 100 08/31/23 03:01 100 08/31/23 03:01 64 16 94/54 L 100 08/31/23 01:00 63 18 121/81 100 08/31/23 00:25 70 08/30/23 23:18 67 18 100 O2 Del Method O2 Del Method 08/31/23 08:50 Room Air 08/31/23 07:00 Room Air 08/31/23 06:58 08/31/23 05:04 Room Air 08/31/23 03:01 Room Air 08/31/23 03:01 Room Air 08/31/23 01:00 Room Air 08/31/23 00:25 08/30/23 23:18 Room Air Laboratory Results 08/31/23 08/31/23 08/30/23 Range/Units 05:57 04:31 21:00 WBC (4.8-10.8) K/ul RBC (4.70-6.10) M/uL Hgb (14.0-18.0) g/dl Hct (42.0-52.0) % MCV (80.0-100.0) fL MCH (25.0-34.0) pg MCHC (32.0-36.0) g/dL RDW Std Deviation (36.4-46.3) fL RDW Coeff of Yeimy (11.5-14.5) % Plt Count (130-400) K/uL MPV (9.4-12.4) fL Immature Gran % (Auto) % Neut % (Auto) % Lymph % (Auto) % [place] % (Auto) % Eos % (Auto) % Baso % (Auto) % Neut # (Auto) (1.40-6.50) K/uL Lymph # (Auto) (1.20-3.40) K/uL [place] # (Auto) (0.11-0.59) K/uL Eos # (Auto) (0.00-0.50) K/uL Baso # (Auto) (0.00-0.20) K/uL Immature Gran # (Auto) (0.01-0.20) K/uL PT (9.0-12.0) Seconds INR (0.9-1.1) APTT (21-31) Seconds PTT Ratio Sodium 144 (136-145) mmol/L Potassium 4.1 (3.5-5.1) mmol/L Chloride 112 H (98-107) mmol/L Carbon Dioxide 25 (21-32) mmol/L Anion Gap 7 (3-11) BUN 25 H (6-23) mg/dl Creatinine 0.70 (0.6-1.4) mg/dl Est Cr Clr Drug Dosing 101.3 ml/min Est GFR ( Amer) 124.9 ml/min Est GFR (Non-Af Amer) 107.7 ml/min BUN/Creatinine Ratio 35.7 H (10-20) Glucose 77 (70-99(Fasting)) mg/dl Calcium 8.7 (8.6-10.3) mg/dl Magnesium 2.1 (1.7-2.4) mg/dl Total Bilirubin (0.2-1.0) mg/dl AST (13-39) U/L ALT (7-52) U/L Alkaline Phosphatase (34-104) U/L Troponin I High Sens (0-20) pg/ml Total Protein (6.0-8.3) gm/dl Albumin (3.4-5.0) gm/dl Globulin (2.5-4.0) gm/dl Albumin/Globulin Ratio (0.9-2) Urine Color Yellow Urine Appearance Clear (Clear) Urine pH 6.0 (4.5-7.5) Ur Specific [place] 1.012 (1.000-1.030) Urine Protein Negative (Negative) Urine Glucose (UA) Negative (Negative) Urine Ketones Negative (Negative) Urine Blood Negative (Negative) Urine Nitrite Negative (Negative) Urine Bilirubin Negative (Negative) Urine Urobilinogen Negative (Negative) Ur Leukocyte Esterase Negative (Negative) Urine Butalbital Pending Salicylates (3.0-30) mg/dl Urine Opiates Screen Neg (Neg) Ur Methadone, Qual Neg (Neg) Urine Fentanyl Screen Neg (Neg) Acetaminophen (10-30) ug/ml Urine Barbiturates Pos H (Neg) Ur Phencyclidine (PCP) Neg (Neg) U Amphetamin/Meth Scrn Neg (Neg) MDMA (Ecstasy) Screen Neg (Neg) Urine Amobarbital Pending Urine Pentobarbital Pending Urine Phenobarbital Pending Urine Secobarbital Pending U Benzodiazepines Scrn Neg (Neg) Ur Cocaine Metabolite Neg (Neg) U Marijuana (THC) Screen Neg (Neg) Drug Screen Comment Pending Ethyl Alcohol mg/dL 133.9 H (<10.0) mg/dl Blood Type Antibody Screen Crossmatch 08/30/23 08/30/23 Range/Units 20:37 20:36 WBC 3.96 L (4.8-10.8) K/ul RBC 3.40 L (4.70-6.10) M/uL Hgb 9.1 L (14.0-18.0) g/dl Hct 29.2 L (42.0-52.0) % MCV 85.9 (80.0-100.0) fL MCH 26.8 (25.0-34.0) pg MCHC 31.2 L (32.0-36.0) g/dL RDW Std Deviation 50.1 H (36.4-46.3) fL RDW Coeff of Yeimy 16.4 H (11.5-14.5) % Plt Count 266 (130-400) K/uL MPV 9.0 L (9.4-12.4) fL Immature Gran % (Auto) 0.3 % Neut % (Auto) 54.4 % Lymph % (Auto) 31.1 % [place] % (Auto) 10.4 % Eos % (Auto) 2.5 % Baso % (Auto) 1.3 % Neut # (Auto) 2.16 (1.40-6.50) K/uL Lymph # (Auto) 1.23 (1.20-3.40) K/uL [place] # (Auto) 0.41 (0.11-0.59) K/uL Eos # (Auto) 0.10 (0.00-0.50) K/uL Baso # (Auto) 0.05 (0.00-0.20) K/uL Immature Gran # (Auto) 0.01 (0.01-0.20) K/uL PT 10.8 (9.0-12.0) Seconds INR 1.0 (0.9-1.1) APTT 28 (21-31) Seconds PTT Ratio 1.0 Sodium 139 (136-145) mmol/L Potassium 3.7 (3.5-5.1) mmol/L Chloride 106 (98-107) mmol/L Carbon Dioxide 21 (21-32) mmol/L Anion Gap 12 H (3-11) BUN 32 H (6-23) mg/dl Creatinine 0.94 (0.6-1.4) mg/dl Est Cr Clr Drug Dosing 75.5 ml/min Est GFR ( Amer) 106.9 ml/min Est GFR (Non-Af Amer) 92.2 ml/min BUN/Creatinine Ratio 34.0 H (10-20) Glucose 94 (70-99(Fasting)) mg/dl Calcium 9.6 (8.6-10.3) mg/dl Magnesium 2.2 (1.7-2.4) mg/dl Total Bilirubin 0.4 (0.2-1.0) mg/dl AST 79 H (13-39) U/L ALT 31 (7-52) U/L Alkaline Phosphatase 119 H (34-104) U/L Troponin I High Sens 4.9 (0-20) pg/ml Total Protein 7.7 (6.0-8.3) gm/dl Albumin 4.9 (3.4-5.0) gm/dl Globulin 2.8 (2.5-4.0) gm/dl Albumin/Globulin Ratio 1.8 (0.9-2) Urine Color Urine Appearance (Clear) Urine pH (4.5-7.5) Ur Specific [place] (1.000-1.030) Urine Protein (Negative) Urine Glucose (UA) (Negative) Urine Ketones (Negative) Urine Blood (Negative) Urine Nitrite (Negative) Urine Bilirubin (Negative) Urine Urobilinogen (Negative) Ur Leukocyte Esterase (Negative) Urine Butalbital Salicylates < 3.0 L (3.0-30) mg/dl Urine Opiates Screen (Neg) Ur Methadone, Qual (Neg) Urine Fentanyl Screen (Neg) Acetaminophen < 3 L (10-30) ug/ml Urine Barbiturates (Neg) Ur Phencyclidine (PCP) (Neg) U Amphetamin/Meth Scrn (Neg) MDMA (Ecstasy) Screen (Neg) Urine Amobarbital Urine Pentobarbital Urine Phenobarbital Urine Secobarbital U Benzodiazepines Scrn (Neg) Ur Cocaine Metabolite (Neg) U Marijuana (THC) Screen (Neg) Drug Screen Comment Ethyl Alcohol mg/dL (<10.0) mg/dl Blood Type O Negative Antibody Screen NEGATIVE Crossmatch See Detail (1) GI bleed GI bleed type/associated pathology: unspecified gastrointestinal hemorrhage type Qualified Code(s): K92.2 - Gastrointestinal hemorrhage, unspecified
[2023-08-31] MEDS: DIVALPROEX EXTENDED RELEASE 250 MG TABCR PO SCH (10:59)
[2023-08-31] MEDS: VENLAFAXINE HCL XR 150 MG CAPXR PO SCH (11:00)
--- NOTE | 2023-08-31 12:22 | Psychiatric Consultation ---
Date of Consultation August 31, 2023 Impression / Recommendations Impression Diagnostically consistent with antisocial personality disorder and polysubstance use disorder. Possible he may also have unspecified depression-likely adjustment disorder with depressed mood and substance-induced leading to statements of SI versus statements due to secondary gain of medication seeking. Acute risk of self-harm is low given denial of SI and future-oriented and no longer with intoxication. Chronic risk is moderate given history of substance use however also with no known history of any prior suicide attempts. His acute and chronic risk of violence is elevated given history of past legal charges, past aggression with charges in 2021 to healthcare workers at a [facility] facility, antisocial personality disorder, and history of recent aggression and emotional reactivity. However, his acute and chronic risk of self-harm is not felt to be due to an underlying primary psychiatric condition that can be modified, as no evidence for mookie/psychosis/major depression for which he would meet 302 criteria. Rather it seems that he utilizes hospital settings to meet his needs for acquiring stimulant medications, benzodiazepines and opioid pain medications. Given his recent UDS from 08/24/2023 had a confirmed positive result for methamphetamine, I would discourage further use of any stimulant medications. In the future, after outside acute withdrawal period, could consider use of Wellbutrin for harm reduction strategy for some stimulant effect in place of Effexor XR as this has dopaminergic effects. Would also discourage use of Ambien given high potential for misuse and potential for respiratory depression in combination with alcohol. The patients 302 warrant has been dispositioned as on exam, the patient is not in need of emergency treatment because he is no longer intoxicated and denies SI. They are no longer requiring 1-on-1 for psychiatric hold. The most significant modifiable risk factor for reducing risk of harm to self and others is substance use treatment. Unfortunately he has not been receptive to dual diagnosis nor residential substance use treatment which remains the recommendation. If/when he becomes receptive to engaging with providers then would encourage exploring his motivation for outpatient substance use resources or consideration for medications including naltrexone to help with avoidance of alcohol. At this time I suspect he may have re-emergence of SI when limits are set regarding his access to controlled medications, specifically stimulants, as this seems to be his means of communicating his frustration when aggression and v erbal threats of violence are not effective. Should this occur, efforts should be made to engage with him around safety planning, utilizing alternative coping skills, offering additional resources and seeking his motivation for substance use or dual diagnosis treatment. Involuntary psychiatric treatment for this type of reactive/contingent SI is not recommended as it can worsen maladaptive coping skills, splitting, and disrupt outpatient treatment plans additionally individuals cannot be committed in [place] for involuntary treatment due to a primary diagnosis of substance use disorders through the healthcare system (can occur through the legal system via mandated treatment). Overall, I spent a total of 45 minutes with this case including review of chart records, review of labwork, direct evaluation of the patient at bedside, counseling the patient, discussion of the patient with the Nurse and with the hospitalist provider, discussion with the psychiatric liason during clinical rounds, completion of 302 warrant paperwork and documentation in the electronic health record. (1) Polysubstance use disorder: (2) Antisocial personality disorder in adult: (3) Medical non-compliance: (4) Impulse control disorder: (5) H/O violence: Plan -No longer on 302 commitment -He can leave AMA -Continue AWSS, thiamine, folic acid; consider use of phenobarbital or gabapentin for withdrawal if concern for benzodiazepine seeking behaviors -Discontinue Ritalin, Concerta and Ambien Psych History Identifying Data 53 yo man with history of polysubstance use, aggression including prior charge of violence toward [facility] healthcare workers, multiple prior legal charges as well as hepatitis C, GI bleed due to an NSAID, chronic arthralgias, history of Hodgkin's lymphoma, history of COVID, history of alcoholism, depression, methamphetamine use disorder, ADHD, drug-seeking behavior, history of DVT, history of peptic ulcer disease, history of cluster B personality disorder,History of oesophageal varices per records, history of seizures disorder, history of chronic anemia admitted for GI bleed. Psychiatry consulted for 302 warrant/risk assessment. Chief Complaint "I'm more focused on eating". History of Present Illness Fuad was admitted medically for concern for GI bleed and placed on 302 warrant due to intoxication and making statements of SI with plan using heroin. He has been seen by the consult service in the past. He was admitted from 08/25/2023 -08/28/2023 for anemia and alcohol use disorder. During that admission he was seen by psychiatry consult after making statements of SI with plan to overdose on heroin. He was noted to be hostile, aggressive at times and demanding during that admission. He was on a 302 commitment but ultimately was felt that his symptoms were due to antisocial personality traits and mood effects from alcohol use/intoxication. During that admission he frequently refused blood work, certain medications and the recommendation for a colonoscopy. He was focused on desire to have stimulants prescribed on discharge. Filled this script right after discharge. He was also seen in June 2023 at which time he was also focused on desire for stimulant medication and made statements of passive SI noted to be contingent when his requests were not granted. At times with high emotional reactivity when desiring increases of opioid pain medication. On this admission he presented with elevated MANOLO and required restraints after making statements of SI and then attempting to leave AMA. This morning he is no longer showing signs of intoxication and oriented. Per discussion with RN had not received any prn benzodiazepines within 3 hours of my assessment and participating in normal conversations with nursing staff. On my assessment he states his mood is "not good" due to having to wait for lunch to arrive. Declines to answer many of my questions as he states his focus is on eating lunch. Denies SI. Acknowledges he reported SI yesterday. At times pretends to loudly snore to avoid answering questions. Allergies Allergy/AdvReac Type Severity Reaction Status Date / Time Iodinated Contrast Media Allergy Severe throat Verified 08/28/23 10:21 swelling haloperidol Allergy Unknown Hives Verified 08/28/23 10:21 metoclopramide Allergy Unknown Hives Verified 08/28/23 10:21 morphine Allergy Unknown Hives Verified 08/28/23 10:21 prochlorperazine Allergy Unknown Hives Verified 08/28/23 10:21 promethazine Allergy Unknown Hives Verified 08/28/23 10:21 Home Medications Medication Instructions Recorded Confirmed Type pantoprazole 40 mg tablet,delayed 40 mg PO BID #180 tabs 07/06/23 08/30/23 Rx release methylphenidate HCl 20 mg tablet 20 mg PO UD 08/14/23 08/30/23 History divalproex 500 mg tablet,extended 750 mg (1.5 x 500 mg) PO DAILY #90 08/28/23 Rx release 24 hr tabs methylphenidate HCl 54 mg 54 mg PO DAILY 30 days #30 tabs 08/28/23 08/30/23 Rx tablet,extended release 24 hr (Concerta) venlafaxine 75 mg capsule,extended 150 mg (2 x 75 mg) PO QAM #30 caps 08/28/23 08/30/23 Rx release 24 hr zolpidem 10 mg tablet (Ambien) 10 mg PO HS PRN Insomnia #10 tabs 08/28/23 08/30/23 Rx Patient History Medical History (Updated 08/31/23 @ 16:59 by Emelia Sotomayor MD) H/O violence toward healthcare workers at [facility] in 2021 Encounter for pre-operative examination Cirrhosis Varices, esophageal Hematemesis Acute alcoholism Anemia Acute upper gastrointestinal hemorrhage Seizures Alcoholism Non-Hodgkin lymphoma Surgical History Hx of oral surgery (07/06/23) Extraction Multiple Teeth x 13 and Drainage of Infection(Not Applicable) - Jame Del Rosario DMD Hx of esophagogastroduodenoscopy Social History Smoking Status: Current every day smoker Tobacco Type: Cigarettes Second Hand Exposure: No; Do You Dip or Chew Tobacco: No; Preferred Language: Armenian Communication Ability: Effective [employer] Required: No Beliefs That Will Affect Care: None Current Living Situation: Alone Current Living Situation Comment: pt refused to answer Other Information That Helps Us Care for You: No Feels Safe at Home: Declines to Answer Gender Identity: Male Assistive Devices: None Physical Exam Psychiatric: Orientation: alert and oriented x 3 Eye Contact: + fair eye contact Motor Behavior: no abnormal motor movements Speech: normal rate/rhythm/volume of speech Affect: + constricted affect Mood: + irritable mood Thought Process: goal directed thought process Thought Content: reality based without delusions Suicidal Thoughts: denies suicidal thoughts Homicidal Thoughts: denies homicidal thoughts Hallucinations: no auditory hallucinations and no visual hallucinations Insight: + fair insight Judgment: + limited judgement Vital Signs (Past 24 Hours): Last Vital Signs Temp 36.8 C 08/31/23 05:04 Pulse 66 08/31/23 08:50 Resp 16 08/31/23 08:50 BP 121/83 08/31/23 08:50 Pulse Ox 99 08/31/23 08:50 O2 Del Method Room Air 08/31/23 08:50 Results & Data (PSY) Laboratory Results UDS from 08/24/2023 positive for amphetamines and methamphetamines. Elevated MANOLO on admission Medications Administered Divalproex Sodium (Divalproex Extended Release 250 Mg Tabcr) 750 mg PO DAILY [facility] Stop: 09/30/23 08:59 Last Admin: 08/31/23 10:59 Dose: Not Given Documented By: SRL Lorazepam 1 mg/ Syringe 1 mls @ 2 mls/min IV Q4H PRN PRN Reason: Anxiety/Agitation Stop: 09/30/23 02:15 Last Admin: 08/31/23 07:38 Dose: 2 mls/min Documented By: Admin: 08/31/23 02:38 Dose: 2 mls/min Documented By: IDD Thiamine HCl 100 mg/ Syringe 10 mls @ 2 mls/min IV QAM [facility] Stop: 09/30/23 08:59 Last Admin: 08/31/23 09:34 Dose: 2 mls/min Documented By: SRL Folic Acid 1 mg/ Syringe 10 mls @ 5 mls/min IV QAM [facility] Stop: 09/30/23 08:59 Last Admin: 08/31/23 09:34 Dose: 5 mls/min Documented By: SRL Pantoprazole Sodium 40 mg/ (Syringe) 10 mls @ 5 mls/min IV BID [facility] Stop: 09/30/23 08:59 Last Admin: 08/31/23 09:34 Dose: 5 mls/min Documented By: SRL Venlafaxine HCl (Venlafaxine Hcl Xr 150 Mg Capxr) 150 mg PO QAM [facility] Stop: 09/30/23 08:59 Last Admin: 08/31/23 11:00 Dose: Not Given Documented By: SRL Coding Level of Care Code 46847 IN/OBS CONSULT LVL 3,45M Diagnoses Polysubstance use disorder F19.90 Antisocial personality disorder in adult F60.2 Medical non-compliance Z91.199 Impulse control disorder F63.9 H/O violence Z87.898
--- NOTE | 2023-08-31 14:55 | Hospitalist Progress Note ---
Date of Service August 31, 2023 Assessment & Plan (1) GI bleed: Plan: Patient is a 53-year-old male with history of alcohol use disorder presented after he reported maroon-colored stools. Hemoglobin done at admission was 9.1 which was improved from his hemoglobin of 6.9 from his discharge of 08/28/2023. Patient had undergone EGD at that time which was unremarkable. He refused colonoscopy and left AMA. Possible GI bleed Presented with self-reported maroon-colored stools Hemoglobin done at admission was 9.1 which was improved from his hemoglobin of 6.9 from his discharge of 08/28/2023. Patient had undergone EGD at that time which was unremarkable. He refused colonoscopy and left AMA. Declined GI workup when evaluated by GI. Currently on Protonix twice daily. He has been denying lab works, physical exam and has been verbally aggressive to healthcare providers. Suicidal ideation He reported that he planned to kill himself by overdosing on heroin to the ED staff Admitted; needed to be on restraint Evaluated by psychiatry; no longer on 302 commitment Alcohol use disorder Alcohol withdrawal On thiamine, folic acid Ativan as needed DVT prophylaxis SCDs for now disposition telemetry full code. Time spent evaluating patient, direct bedside care, chart review, placing orders, interpretation of diagnostic studies, discussion with consultants, patient, and family members, as well as other required patient management a ctivities is 50 minutes Please note the above document was generated using voice recognition software. It may contain grammatical, syntax or spelling errors. Any formal questions or concerns about the content, text or information contained within the body of this dictation should be directly addressed to the provider for clarification Admission and Anticipated Discharge Date Admission Date: August 30, 2023 Subjective Patient seen and examined at bedside. He refused blood work and was verbally aggressive to healthcare providers He did not agree with physical examination Review of Systems Review of Systems: Unobtainable as patient does not want to answer any questions Physical Exam Physical Exam: Patient declined physical examination Results & Data Results & Data Vital Signs (Past 12 Hours) Vital Signs Temp Pulse Pulse Resp BP Pulse Ox Pulse Ox 08/31/23 08:50 66 16 121/83 99 08/31/23 07:00 61 16 121/87 99 08/31/23 06:58 67 08/31/23 05:04 36.8 C 61 18 110/76 100 08/31/23 03:01 100 08/31/23 03:01 64 16 94/54 L 100 O2 Del Method O2 Del Method 08/31/23 08:50 Room Air 08/31/23 07:00 Room Air 08/31/23 06:58 08/31/23 05:04 Room Air 08/31/23 03:01 Room Air 08/31/23 03:01 Room Air (1) GI bleed GI bleed type/associated pathology: unspecified gastrointestinal hemorrhage type Qualified Code(s): K92.2 - Gastrointestinal hemorrhage, unspecified
[2023-09-01] MEDS: LORazepam 1 MG/1 ML SYR ED Inj Use ONE (05:47)
[2023-09-01] MEDS: diazePAM 5 MG TABLET PO SCH (12:41)
[2023-09-01] MEDS ORDERED: diazePAM 5 MG TABLET PO SCH (14:00)
--- NOTE | 2023-09-01 15:40 | Hospitalist Progress Note ---
Date of Service September 01, 2023 Assessment & Plan (1) GI bleed: Plan: Patient is a 53-year-old male with history of alcohol use disorder presented after he reported maroon-colored stools. Hemoglobin done at admission was 9.1 which was improved from his hemoglobin of 6.9 from his discharge of 08/28/2023. Patient had undergone EGD at that time which was unremarkable. He refused colonoscopy and left AMA. Possible GI bleed Presented with self-reported maroon-colored stools Hemoglobin done at admission was 9.1 which was improved from his hemoglobin of 6.9 from his discharge of 08/28/2023. Patient had undergone EGD at that time which was unremarkable. He refused colonoscopy and left AMA. Declined GI workup when evaluated by GI. Currently on Protonix twice daily. He has been denying lab works, physical exam and has been verbally aggressive to healthcare providers. Suicidal ideation He reported that he planned to kill himself by overdosing on heroin to the ED staff Admitted; needed to be on restraint Evaluated by psychiatry; no longer on 302 commitment Alcohol use disorder Alcohol withdrawal On thiamine, folic acid Ativan as needed started on valium DVT prophylaxis SCDs for now disposition telemetry full code. Time spent evaluating patient, direct bedside care, chart review, placing orders, interpretation of diagnostic studies, discussion with consultants, patient, and family members, as well as other required patient management activities is 50 minutes Please note the above document was generated using voice recognition software. It may contain grammatical, syntax or spelling errors. Any formal questions or concerns about the content, text or information contained within the body of this dictation should be directly addressed to the provider for clarification Admission and Anticipated Discharge Date Admission Date: August 30, 2023 Subjective Patient seen and examined at bedside. He reports tremors in bilateral upper extremity Review of Systems Review of Systems: All systems reviewed & are unremarkable except as noted in Subjective Physical Exam Physical Exam: Constitutional: Alert oriented x 3; not in distress. Respiratory: normal respiratory effort, lungs clear to auscultation, no wheeze, rales, rhonchi. Normal insp/exp effort, no accessory muscle use Cardiovascular: RRR, no murmur, no edema Vessels: no JVD or carotid bruit Chest: normal inspection of chest Abdomen: normal bowel sounds, soft, nontender, no hepatosplenomegaly Musculoskeletal: no cyanosis or clubbing, extremities motor strength 5/5 Skin: no rashes, warm and dry normal turgor Neurologic: PERRL, EOMI, accommodation nl, no face palsy, no dysarthria CN's II- XI intact bilaterally and moves all extremities Psychiatric: A+Ox3, euthymic affect Results & Data Results & Data Vital Signs (Past 12 Hours) Vital Signs Temp Pulse Resp BP Pulse Ox Pulse Ox O2 Del Method 09/01/23 14:00 67 16 120/83 98 Room Air 09/01/23 09:03 36.4 C L 72 16 116/64 97 Room Air 09/01/23 05:43 100 09/01/23 05:41 57 L 16 124/71 100 Room Air O2 Del Method 09/01/23 14:00 09/01/23 09:03 09/01/23 05:43 Room Air 09/01/23 05:41 (1) GI bleed GI bleed type/associated pathology: unspecified gastrointestinal hemorrhage type Qualified Code(s): K92.2 - Gastrointestinal hemorrhage, unspecified
[2023-09-01 16:08] LABS: Amobarbital, Urine Conf NEGATIVE ng/mL (<100); Butalbital, Urine NEGATIVE ng/mL (<100); Pentobarbital, Urine Conf NEGATIVE ng/mL (<100); Phenobarbital, Urine 2680 ng/mL (<100); Secobarbital, Urine Conf NEGATIVE ng/mL (<100)
[2023-09-01] MEDS: ACETAMINOPHEN 325 MG TAB PO STA (22:25)
[2023-09-01] MEDS: ZOLPIDEM TARTRATE 5 MG TAB PO PRN (22:25)
[2023-09-02] MEDS: LORazepam 1 MG/1 ML SYR ED Inj Use ONE (11:09)
[2023-09-02] MEDS: LORazepam 2 MG in SYRINGE 1 ML IV PRN (11:09)
--- NOTE | 2023-09-02 11:41 | Electrocardiogram Report ---
Test Reason : Blood Pressure : / mmHG Vent. Rate : 069 BPM Atrial Rate : 069 BPM P-R Int : 182 ms QRS Dur : 100 ms QT Int : 448 ms P-R-T Axes : 046 053 062 degrees QTc Int : 480 ms Normal sinus rhythm Possible Anterior infarct , age undetermined Abnormal ECG When compared with ECG of 09-AUG-2002 23:57, Vent. rate has decreased BY 41 BPM Borderline criteria for Anterior infarct are now Present Confirmed by Dimitri Snowden ([id number]) on 09/02/2023 11:40:54 AM Referred By: REFERRED SELF Confirmed By:Dimitri Snowden
--- NOTE | 2023-09-02 16:14 | Discharge Summary ---
Date of Service September 02, 2023 Admission HPI Per Admitting Provider 53-year-old male with past medical history significant for hepatitis C, GI bleed due to an NSAID, chronic arthralgias, history of Hodgkin's lymphoma, history of COVID, history of alcoholism, depression, methamphetamine use disorder, ADHD, drug-seeking behavior, history of DVT, history of peptic ulcer disease, history of cluster B personality disorder,History of oesophageal varices per records, history of seizures disorder, history of chronic anemia presents with GI bleed. Patient recently in the hospital for GI bleed status post EGD which was okay and planned for colonoscopy. However patient refused colonoscopy preparation .Patient was also aggressive and verbally abusive to healthcare providers as per discharge summary and patient initially refused to see psychiatry and but eventually evaluated by psychiatry in August 27 . He was cleared from psychiatric perspective for discharge. But patient left AGAINST MEDICAL ADVICE on August 27. Comes back today because of complaining some maroon- colored stools. Seemed to talk to his GI doctor and was advised to come to the hospital. He did notify the ER that he was felt dizzy and noticed maroon colored stools.Seems drinking alochol. Initially patient agreed to stay in the hospital for help and colonoscopy. Then patient wanted to leave AMA but he stated to staff that he wanted to kill himself by overdosing on heroin and it was felt unsafe to discharge him. He was physically restrained and IM Zyprexa was given. Patient currently shouting that to take off the restraints as it is hurting. He said IM Zyprexa does not work for him. He is okay with IV Ativan. Initially refused to answer. When told him that going to get IV Ativan and if he is calms down will take off restraints he answered some simple questions. When told not to take off iv line he seems to agree.Denies any headache. Denies any chest pain. Denies Shortness of breath. Denies abdominal pain. Normal bowel and bladder movements. Patient states it was misunderstanding and there was no Gi bleed. Past medical history. As mentioned above Past surgical history. Billroth procedure. Bowel resection. Hip surgery. Lymphadenectomy. Left partial hip replacement. Social history. Seems drink alcohol. Smokes half pack daily. Family history. Mood disorder. Admission Exam Per Admitting Provider General- agitated Head- atraumatic ENT- oropharynx clear. No teeth seen Lungs- clear to auscultation no wheezing or crackles Heart- regular rhythm; no murmur, no gallop. Abdomen- normal bowel sounds, soft, nontender, no distension. Extremities- no pretibial edema, no erythema seen. Neuro- alert, oriented , agitated ; no facial palsy; no dysarthria; in restraints Principal Diagnosis Possible GI bleed Suicidal ideation Discharge Exam Constitutional: Alert oriented x 3; not in distress. Respiratory: normal respiratory effort, lungs clear to auscultation, no wheeze, rales, rhonchi. Normal insp/exp effort, no accessory muscle use Cardiovascular: RRR, no murmur, no edema Vessels: no JVD or carotid bruit Chest: normal inspection of chest Abdomen: normal bowel sounds, soft, nontender, no hepatosplenomegaly Musculoskeletal: no cyanosis or clubbing, extremities motor strength 5/5 Skin: no rashes, warm and dry normal turgor Neurologic: PERRL, EOMI, accommodation nl, no face palsy, no dysarthria CN's II- XI intact bilaterally and moves all extremities Psychiatric: A+Ox3, euthymic affect Discharge Data Allergies Allergy/AdvReac Type Severity Reaction Status Date / Time Iodinated Contrast Media Allergy Severe throat Verified 08/28/23 10:21 swelling haloperidol Allergy Unknown Hives Verified 08/28/23 10:21 metoclopramide Allergy Unknown Hives Verified 08/28/23 10:21 morphine Allergy Unknown Hives Verified 08/28/23 10:21 prochlorperazine Allergy Unknown Hives Verified 08/28/23 10:21 promethazine Allergy Unknown Hives Verified 08/28/23 10:21 Consultations 08/30/23 21:45 ED Decision to Admit Stat 08/31/23 02:16 Consult Psychiatry Routine 08/31/23 05:00 Consult Gastroenterology Routine Hospital Course (1) GI bleed: Patient is a 53-year-old male with history of alcohol use disorder presented after he reported maroon-colored stools. Patient had undergone EGD during his previous hospitalization which was unremarkable. He refused colonoscopy and left AMA. Patient presented to the hospital with self-reported maroon color stools CBC done during hospitalization showed improvement of hemoglobin to 9.1. Patient reported suicidal ideation to the ED providers for which he was admitted under 302 commitment. During the hospitalization, GI was consulted for further workup. Patient declined lab works, physical examination and was not cooperative with GI physician. He was monitored for alcohol withdrawal; was treated with as needed Ativan and Valium. Psychiatry was consulted; patient was cleared of 302 commitment. Discussion was done with patient regarding continued hospitalization monitoring withdrawal symptoms, GI bleed and possible placement to alcohol rehab with the help of the field nurse case manager. However, patient wanted to leave the hospital AGAINST MEDICAL ADVICE. He was alert, oriented x 3; was not suffering from any hallucination or delusions. I explained to him the risks of leaving the hospital AGAINST MEDICAL ADVICE which could include life-threatening bleed, hemorrhagic shock, severe withdrawal including seizure and . He verbalized understanding of the risks involved but still decided to leave AGAINST MEDICAL ADVICE. Please note the above document was generated using voice recognition software. It may contain grammatical, syntax or spelling errors. Any formal questions or concerns about the content, text or information contained within the body of this dictation should be directly addressed to the provider for clarification Total Time Total Time Spent Total Time Spent (In Minutes): 35 Total Time Includes: Examination of the Patient, Discharge Planning, Medication Reconciliation, Communication With Other Providers and Other Discharge Plan Discharge Items Patient Disposition: Against Medical Advice Reason For Visit: GI BLEED, SI Condition on Discharge: Fair Activity: Resume your previous activity Non-emergency contact: Primary Care Provider Follow-up/Referrals: Kenny Gonzales MD [Outside Practitioners] - (Date & Time 09/03/2023 11:00 AM Provider Kenny Gonzales MD Department Family [facility] ) Pending Studies at Discharge: No Stand-Alone Forms: My [facility] Rapid RMS, Smoking Cessation Medications and DC Order Prescriptions: Continued divalproex 500 mg tablet extended release 24 hr 750 mg PO DAILY Qty: 90 0RF venlafaxine 75 mg capsule,extended release 24hr 150 mg PO QAM Qty: 30 0RF pantoprazole 40 mg Tablet,Delayed Release (Dr/Ec) 40 mg PO BID Qty: 180 0RF Discontinued methylphenidate HCl [Concerta] 54 mg Tablet Extended Release 24hr 54 mg PO DAILY 30 Days Qty: 30 0RF zolpidem [Ambien] 10 mg Tablet 10 mg PO HS PRN (Reason: Insomnia) Qty: 10 0RF methylphenidate HCl 20 mg tablet 20 mg PO UD Rx Instructions: per pt takes 40 mg in the morning and 20 mg in afternoon Discharge Orders: Left Against Medical Advice (Routine); Ordered 09/02/23 Ordered By: Jerel Yepez Admission Data Admit Date/Time: 08/30/23 23:58 Attending Provider: Jerel Yepez Admit Provider: Usman Garcia Primary Care Provider: PCP,NO Other Providers: Usman Garcia; Emelia Sotomayor; Ean Whitley; Dennis Mejía Jr; Krupa Taylor; Alvina Nunez; Lamont Price; Nidia Caballero Jr
[2023-09-03] MEDS ORDERED: diazePAM 5 MG TABLET PO SCH (09:00)
== END 2023-09-02 12:42 | disposition left against medical advice (07) | DRG 378 ==
LOC: ED 19:19 → EDINP 23:58

== ENCOUNTER 2024-02-28 02:35 | Inpatient (IN) ==
--- OUTSIDE RECORDS SUMMARY | 2024-02-28 02:38 | External Medical Summary ---
Author Name Unknown Address Unknown Organization [facility] [employer] Chemistry:[facility] [employer] [facility] [address] [place] [address] Laboratory Report Ordering Provider Test Date Status DylanDanielleZuleyma 02/11/2024 20:50:00 Final Observation Date Value Abnormality Reference (Units ) Status Glucose [Mass/volume] in Serum or Plasma 02/11/2024 21:29:35 97 74-109 (mg/dL) Final Urea nitrogen [Mass/volume] in Serum or Plasma 02/11/2024 21:29:36 18 6-23 (mg/dL) Final Creatinine [Mass/volume] in Serum or Plasma 02/11/2024 21:29:35 1.14 0.70-1.30 (mg/dL) Final GLOMERULAR FILTRATION RATE/1.73 SQ M.PREDICTED:ARVRAT:PT:SER /PLAS/BLD:QN:CREATININE AND CYSTATIN C-BASED FORMULA (CKD-EPI 2020) 02/11/2024 21:29:35 77 >=60 (mL/min/1.73 m2) Final Sodium [Moles/volume] in Serum or Plasma 02/11/2024 21:29:35 135 Below low normal 136-145 (mmol/L) Final Potassium [Moles/volume] in Serum or Plasma 02/11/2024 21:29:35 4.2 3.5-5.1 (mmol/L) Final Chloride [Moles/volume] in Serum or Plasma 02/11/2024 21:29:36 97 Below low normal 98-107 (mmol/L) Final Carbon dioxide, total [Moles/volume] in Serum or Plasma 02/11/2024 21:29:35 22 22-29 (mmol/L) Final Anion gap 3 in Serum or Plasma 02/11/2024 21:29:36 16 Above high normal 5-14 (mmol/L) Final Calcium [Mass/volume] in Serum or Plasma 02/11/2024 21:29:36 9.0 8.4-10.2 (mg/dL) Final Protein [Mass/volume] in Serum or Plasma 02/11/2024 21:29:35 7.4 6.4-8.3 (g/dL) Final Albumin [Mass/volume] in Serum or Plasma by Bromocresol green (BCG) dye binding method 02/11/2024 21:29:35 4.7 3.5-5.2 (g/dL) Final Bilirubin.total [Mass/volume] in Serum or Plasma 02/11/2024 21:29:35 0.2 0.0-1.2 (mg/dL) Final Aspartate aminotransferase [Enzymatic activity/volume] in Serum or Plasma 02/11/2024 21:29:36 32 0-40 (unit/L) Final Alanine aminotransferase [Enzymatic activity/volume] in Serum or Plasma 02/11/2024 21:29:36 18 0-41 (unit/L) Final Alkaline phosphatase [Enzymatic activity/volume] in Serum or Plasma 02/11/2024 21:29:36 141 Above high normal 40-130 (unit/L) Final Performing Location [facility] [employer] [address] [address]
--- OUTSIDE RECORDS SUMMARY | 2024-02-28 02:38 | External Medical Summary ---
Author Name Unknown Address Unknown Organization [facility] [employer] Hematology:[facility] [employer] [facility]emat[facility] [address] [place] [address] Laboratory Report Ordering Provider Test Date Status DylanZuleyma 02/11/2024 20:50:00 Final Observation Date Value Abnormality Reference (Units ) Status Leukocytes [#/volume] in Blood by Automated count 02/11/2024 20:52:58 4.80 4.00-10.40 (K/uL) Final Erythrocytes [#/volume] in Blood by Automated count 02/11/2024 20:52:58 3.48 Below low normal 4.40-5.60 (M/uL) Final Hemoglobin [Mass/volume] in Blood 02/11/2024 20:52:58 9.2 Below low normal 13.0-17.0 (g/dL) Final Hematocrit [Volume Fraction] of Blood by Automated count 02/11/2024 20:52:58 31.4 Below low normal 35.0-44.0 (%) Final MCV [Entitic volume] by Automated count 02/11/2024 20:52:58 90.2 81.0-96.0 (fL) Final MCH [Entitic mass] by Automated count 02/11/2024 20:52:58 26.4 Below low normal 28.0-33.0 (pg) Final MCHC [Mass/volume] by Automated count 02/11/2024 20:52:58 29.3 Below low normal 32.0-36.0 (g/dL) Final Erythrocyte distribution width [Ratio] by Automated count 02/11/2024 20:52:58 17.2 Above high normal 11.5-14.2 (%) Final Erythrocyte distribution width [Entitic volume] by Automated count 02/11/2024 20:52:58 56 Final Platelets [#/volume] in Blood by Automated count 02/11/2024 20:52:58 305 150-350 (K/uL) Final Platelet mean volume [Entitic volume] in Blood by Automated count 02/11/2024 20:52:58 9.3 9.0-12.2 (fL) Final Nucleated erythrocytes/100 cells in Bone marrow by Manual count 02/11/2024 20:52:58 0 (/100 WBCs) Final Nucleated erythrocytes [#/volume] in Blood by Manual count 02/11/2024 20:52:58 0.00 (K/uL) Final Performing Location [facility] [employer] [facility] [address] [address]
--- OUTSIDE RECORDS SUMMARY | 2024-02-28 02:38 | External Medical Summary ---
Author Name Unknown Address Unknown Organization R1WR:[facility] [address] [place] [address] Laboratory Report Ordering Provider Test Date Status ZARIA LONDONO 02/26/2024 21:11:00 Janessa l Observation Date Value Abnormality Reference (Units ) Status Amphetamine/Methamph, Urine 02/26/2024 21:36 Negative NEGAT Final (Cutoff limit : 1000 ng/mL) Barbiturates, Urine 02/26/2024 21:36 Negative NEG AT Final (Cutoff limit : 200 ng/mL) Benzodiazepine, Urine 02/26/2024 21:36 Negative N EGAT Final (Cutoff limit : 200 ng/mL) Cannabinoids, Urine 02/26/2024 21:36 Negative NEG AT Final (Cutoff limit: 100 ng/mL) Cocaine, Urine 02/26/2024 21:36 Negative NEGAT Final (Cutoff limit : 300 ng/mL) Opiates, Urine 02/26/2024 21:36 Negative NEGAT Final (Cutoff limit : 300 ng/mL) Methadone, Urine 02/26/2024 21:36 Negative NEGAT Final (Cutoff limit : 300 ng/mL) Oxycodone Qual Urine 02/26/2024 21:36 Negative NE GAT Final (Cutoff limit: 100 ng/mL) Buprenorphine, Urine 02/26/2024 21:36 Negative NE GAT Final Detection Limit = 5 ng/mL Fentanyl, Urine 02/26/2024 21:36 Negative NEGAT Final (Cutoff limit: 1 ng/mL) Note: 02/26/2024 21:01 Unconfirmed uri ne drug screen results are to be used for medical treatment only. Final Do not use for non medical p urposes. Confirmation of the urine screens are required to verify the presence or absence of the drug of abuse. A confirmation order is required. All urine specimens will be held for 5 days. Performing Location [facility] [address] [place] [address]
--- OUTSIDE RECORDS SUMMARY | 2024-02-28 02:38 | External Medical Summary ---
Author Name Unknown Address Unknown Organization [facility] [employer] Chemistry:[facility] [employer] [facility] [address] [place] [address] Laboratory Report Ordering Provider Test Date Status Elly Romero 02/04/2024 19:10:00 Final Observation Date Value Abnormality Reference (Units) Status Amphetamine [Presence] in Urine by Screen method 02/04/2024 19:40:44 Presumptive Pos^Presumptive Pos Abnormal Not Detected Final Benzodiazepines [Presence] in Urine by Screen method 02/04/2024 19:40:44 Presumptive Pos^Presumptive Pos Abnormal Not Detected Final Cannabinoids [Presence] in Urine by Screen method 02/04/2024 19:40:44 Not Detected^Not Detected Not Detected Final Benzoylecgonine [Presence] in Urine 02/04/2024 19:40:44 Not Detected^Not Detected Not Detected Final HYDROcodone [Presence] in Urine by Screen method 02/04/2024 19:40:44 Not Detected^Not Detected Not Detected Final Drug Level
Amphetamines 500 ng/mL
Benzodiazepines 100 ng/mL
Cannabinoids 50 ng/mL
Cocain Metabolite 150 ng/mL
Hydrocodone 100 ng/mL
Methadone Metabolite 100 ng/mL
Morphine/ Codeine 300 ng/mL
Oxycodone 100 ng/mL

The above screening results are presumptive and can only be used for medical purposes. Confirmatory testing is available upon request.
Intended for medical treatment only. U Fentanyl Scr 02/04/2024 19:40:44 Not Detected^Not Detected Final Fentanyl Assay Cutoff >=5 ng /mL
The above screening results are presumptive and can only be used for medical purposes. Confirmatory testing is available upon request. Intended for medical treatment only. Methadone [Presence] in Urine 02/04/2024 19:40:44 Not Detected^Not Detected Not Detected Final Opiates [Presence] in Urine by Screen method 02/04/2024 19:40:44 Not Detected^Not Detected Not Detected Final oxyCODONE [Presence] in Urine 02/04/2024 19:40:44 Not Detected^Not Detected Not Detected Final Performing Location [facility] [employer] [address] [address]
--- OUTSIDE RECORDS SUMMARY | 2024-02-28 02:38 | External Medical Summary ---
Author Name Unknown Address Unknown Organization [facility] [employer] Hemat[facility] [employer] [facility] [address] [place] [address] Laboratory Report Ordering Provider Test Date Status Brodie Hollingsworth 02/12/2024 14:31:00 Final Observation Date Value Abnormality Reference (Units ) Status Leukocytes [#/volume] in Blood by Automated count 02/12/2024 14:41:27 4.08 4.00-10.40 (K/uL) Final Erythrocytes [#/volume] in Blood by Automated count 02/12/2024 14:41:27 3.73 Below low normal 4.40-5.60 (M/uL) Final Hemoglobin [Mass/volume] in Blood 02/12/2024 14:41:27 10.0 Below low normal 13.0-17.0 (g/dL) Final Hematocrit [Volume Fraction] of Blood by Automated count 02/12/2024 14:41:27 33.8 Below low normal 35.0-44.0 (%) Final MCV [Entitic volume] by Automated count 02/12/2024 14:41:27 90.6 81.0-96.0 (fL) Final MCH [Entitic mass] by Automated count 02/12/2024 14:41:27 26.8 Below low normal 28.0-33.0 (pg) Final MCHC [Mass/volume] by Automated count 02/12/2024 14:41:27 29.6 Below low normal 32.0-36.0 (g/dL) Final Erythrocyte distribution width [Ratio] by Automated count 02/12/2024 14:41:27 17.0 Above high normal 11.5-14.2 (%) Final Erythrocyte distribution width [Entitic volume] by Automated count 02/12/2024 14:41:27 56 Final Platelets [#/volume] in Blood by Automated count 02/12/2024 14:41:27 293 150-350 (K/uL) Final Platelet mean volume [Entitic volume] in Blood by Automated count 02/12/2024 14:41:27 8.8 Below low normal 9.0-12.2 (fL) Final Nucleated erythrocytes/100 cells in Bone marrow by Manual count 02/12/2024 14:41:27 0 (/100 WBCs) Final Nucleated erythrocytes [#/volume] in Blood by Manual count 02/12/2024 14:41:27 0.00 (K/uL) Final Performing Location [facility] [employer] [facility] [address] [address]
--- OUTSIDE RECORDS SUMMARY | 2024-02-28 02:38 | External Medical Summary ---
Author Name Unknown Address Unknown Organization R1WR:[facility] [address] [facility] [place] [address] Laboratory Report Ordering Provider Test Date Status ALMA GARDUNO 02/26/2024 21:11:00 Final Observation Date Value Abnormality Reference (Units ) Status UA Culture Screen 02/26/2024 21:22 Negative screen. Culture not indicated. Final Urine Clarity 02/26/2024 21:22 Clear CLER Final Urine Color 02/26/2024 21:22 Yellow YELL Final Specific [place], Urine 02/26/2024 21:22 1.022 1.000-1.025 Final Urine pH 02/26/2024 21:22 5.0 5.0-8.0 Final Urine Leukocyte Esterase 02/26/2024 21:22 Negative NEGAT Final Urine Nitrites 02/26/2024 21:22 Negative NEGAT Final Protein, Urine 02/26/2024 21:22 Negative NEGAT (mg/dL) Final Glucose, Urine 02/26/2024 21:22 Negative NEGAT (mg/dL) Final Urine Ketones 02/26/2024 21:22 Trace Abnormal NEGAT Final Urine Urobilinogen 02/26/2024 21:22 0.2 0.0-1.0 (mg/dL) Final The total absence of urobili nogen cannot be detected. Values up to 1 mg/dL are usually considered normal. Urine Bilirubin 02/26/2024 21:22 Negative NEGAT Final Blood, Urine 02/26/2024 21:22 Negative NEGAT Final Urine Source 02/26/2024 21:10 Clean Catch Urine Final Performing Location [facility] [address] [place] [address]
--- OUTSIDE RECORDS SUMMARY | 2024-02-28 02:38 | External Medical Summary ---
Author Name Unknown Address Unknown Organization [facility] [employer] Urinal[facility] [employer] Urinal[facility] [address] [place] [address] Laboratory Report Ordering Provider Test Date Status Elly Romero 02/04/2024 19:10:00 Final Observation Date Value Abnormality Reference (Units ) Status Color of Urine by Auto 02/04/2024 19:20:45 Yellow^Yellow Final Appearance of Urine 02/04/2024 19:20:45 Clear^Clear Final Specific gravity of Urine by Automated test strip 02/04/2024 19:20:45 1.024 1.003-1.030 Final pH of Urine by Automated test strip 02/04/2024 19:20:45 6.0 5.0-8.0 Final Protein [Presence] in Urine by Automated test strip 02/04/2024 19:20:45 Negative^Negat garrett Negative (mg/dL) Final Glucose [Presence] in Urine by Automated test strip 02/04/2024 19:20:45 Negative^Negat garrett Negative (mg/dL) Final Ketones [Presence] in Urine by Automated test strip 02/04/2024 19:20:45 20^20 Abnormal Negative (mg/dL) Final Bilirubin.total [Presence] in Urine by Automated test strip 02/04/2024 19:20:45 Negative^Negat garrett Negative Final Erythrocytes [Presence] in Urine by Automated 02/04/2024 19:20:45 Negative^Negat garrett Negative Final Urobilinogen [Presence] in Urine by Automated test strip 02/04/2024 19:20:45 Normal^Normal Normal (mg/dL) Final Nitrite [Presence] in Urine by Automated test strip 02/04/2024 19:20:45 Negative^Negat garrett Negative Final Leukocyte esterase [Presence] in Urine by Automated test strip 02/04/2024 19:20:45 Negative^Negat garrett Negative Final Ascorbate [Presence] in Urine 02/04/2024 19:20:45 Detected^Detec ofelia Abnormal Negative Final UA Micro Comp? 02/04/2024 19:20:45 Done^Done Final Erythrocytes [#/area] in Urine sediment by Automated count 02/04/2024 19:20:45 0-2^0-2 (/HPF) Final Leukocytes [#/area] in Urine sediment by Microscopy high power field 02/04/2024 19:20:45 0-2^0-2 None (/HPF) Final Performing Location [facility] [employer] [facility] [address] [place] [address]
--- OUTSIDE RECORDS SUMMARY | 2024-02-28 02:38 | External Medical Summary ---
Author Name Unknown Address Unknown Organization [facility] [employer]GL:[facility] [employer] [address] [place] [address] Laboratory Report Ordering Provider Test Date Status Zuleyma Richardson 02/12/2024 00:28:00 Final Observation Date Value Abnormality Reference (Units ) Status Specimen source identified 02/12/2024 01:41:19 Nasal Swab^Nasal Swab Final SARS-CoV-2 (COVID-19) RNA [Presence] in Nasopharynx by MILADY with probe detection 02/12/2024 01:41:19 Not Detected^Not Detected Not Detected Final This assay has been granted an Emergency Use Authorization (EUA) by the U.S. Food and drug Administration. The performance of the assay ([employer]) has been verified by the [facility] laboratory. Reported to [place] Department of Health Influenza virus A RNA [Presence] in Upper respiratory specimen by MILADY with probe detection 02/12/2024 01:41:19 Negative^Negative Negative Final No Influenza A Detected. A n egative result does not rule out the possibility of influenza infection as the sensitivity of this test is approximately 98%. Patients being admitted to [facility] should have the RVP assay ordered. Haemophilus influenzae B DNA [Presence] in Specimen by MILADY with probe detection 02/12/2024 01:41:19 Negative^Negative Negative Final Respiratory syncytial virus RNA [Presence] in Respiratory specimen by MILADY with probe detection 02/12/2024 01:41:19 Negative^Negative Negative Fin al Performing Location [facility] [employer] L [address] [place] [address]
--- OUTSIDE RECORDS SUMMARY | 2024-02-28 02:38 | External Medical Summary | Continuity of Care Document ---
Author Name Unknown Organization [facility] Address [address] [place] [id number] Care Team Providers Care Nursing Home Administrator Name Role Phone Merlene Lima Primary Care Physician [phone] Encounter [facility] [id number] Date(s): 02/11/24 - 02/13/24 [facility] [address] [place] [id number] [place] Encounter Diagnosis Psychosis(Discharge Diagnosis) - 02/12/24 Disorganized thinking(Discharge Diagnosis) - 02/12/24 Discharge Disposition: Psychiatric Facility/Unit Attending Physician: MD Amor Jed Samuel Allergies, Adverse Reactions, Alerts Substance Criticality Severity Reaction Reaction Severity Status amoxicillin Swelling Active morphine 1 Other (See Comm ents) Dermatitis Urticaria na Active ondansetron Unknown Active propofol 2 Rash/Dermatitis rash Active Reglan na Active OLANZapine 3 Other Active NSAIDs 4 Other Active promethazine Other Active Haldol na Active Compazine na Active 1Outside Source Comment: Dystonia 2Outside Source Comment: Chest rash 3Outside Source Comment: Dystonia (jaw) 4Outside Source Comment: Multiple GI bleeds. Functional Status 02/11/24 History of Fall in Last 3 Months Robles N o Presence of Secondary Diagnosis Robles No Use of Ambulatory Aid Robles None/bedrest /nurse assist IV/Heparin Lock Fall Risk Robles No Gait/Transferring Fall Risk Robles Normal /bedrest/immobile Mental Status Fall Risk Robles Oriented t o own ability Robles Fall Risk Score 0 Robles Fall Risk No Risk Medications cholecalciferol 25 mcg (1000 intl units) oral capsule Start: 06/24/23 3:52:00 PM EDT, 2 cap, PO, Daily, Disp# 60 cap, Refills: 2, Pharmacy: [facility] Start Date: 06/24/23 Status: Ordered Depakote ER 250 mg oral tablet, extended release Start: 06/24/23 3:47:00 PM EDT, 3 tab, PO, qhs Start Date: 06/24/23 Status: Ordered folic acid 1 mg oral tablet Start: 03/25/23 2:21:00 PM EST, 1 tab, PO, Daily, Disp# 30 tab, Refills: 0, Pharmacy: [facility] Start Date: 03/25/23 Status: Ordered mirtazapine [...] Daily, Disp# 30 tab, Refills: 0, Pharmacy: [facility] Start Date: 03/25/23 Status: Ordered thiamine 100 mg oral tablet Start: 03/25/23 2:21:00 PM EST, 1 tab, PO, Daily, Disp# 30 tab, Pharmacy: [facility] Start Date: 03/25/23 Status: Ordered Tylenol 325 mg oral tablet Start: 05/24/22 10:29:00 AM EDT, 2 tab, PO, q6h, Disp# 60 tab, Refills: 0, PRN: fever/mild pain (1-3), Pharmacy: [id number] Start Date: 05/24/22 Status: Ordered venlafaxine 150 mg oral capsule, extended release Start: 03/25/23 2:22:00 PM EST, 1 cap, PO, Daily, Disp# 30 cap, Pharmacy: [facility] Start Date: 03/25/23 Stop Date: 04/24/23 [...] Effective Dates Health Status Clinical Service Informant Psychosis Discharge Diagnosis 02/12/24 Non-Specified Disorganized thinking Discharge Diagnosis 02/12/24 Non-Specified Procedures Procedure Date Related Diagnosis Body Site Status Esophagogastroduodenoscopy 1 05/21/22 Completed Esophagogastroduodenoscopy 2 02/13/22 Completed REVISE HIP JOINT REPLACEMENT Completed 1auto-populated from documented surgical case 2auto-populated from documented surgical case Results Laboratory List Name Date Automated Differential. 02/12/24 CBC w/ Diff. 02/12/24 Drug Screen Urine.(HSM) 02/12/24 SARS-CoV2/FLU A/B and RSV by PCR. 02/12/24 Alcohol Level. (Ethanol Level, ETOH Leve l.) 02/11/24 Automated Differential. 02/11/24 CBC w/ Diff. 02/11/24 Comprehensive Metabolic Panel. (CMP.) Most recent to oldest [Reference Range]: 1 2 eGFR CKD-EPI [>=60 mL/min/1.73 m2] 77 mL /min/1.73 m2 (02/11/24 8:50 PM) U Hydrocodone Scr [Not Detected] Not Det ected 1 (02/12/24 12:28 AM) Methadone (u) [Not Detected] Not Detecte d (02/12/24 12:28 AM) U Fentanyl Scr Not Detected 2 (02/12/24 12:28 AM) Estimated CrCl 62.54 mL/min (02/11/24 9:29 PM) RDW-CV [11.5-14.2 %] 17.0 % *HI* (02/12/24 2:31 PM) 17.2 % *HI* (02/11/24 8:50 PM) RDW-SD 56 *NA* (02/12/24 2:31 PM) 56 *NA* (02/11/24 8:50 PM) Nuc RBC Relative Count 0 /100 WBCs *NA* (02/12/24 2:31 PM) 0 /100 WBCs *NA* (02/11/24 8:50 PM) Nuc RBC Abs Count 0.00 K/uL *NA* (02/12/24 2:31 PM) 0.00 K/uL *NA* (02/11/24 8:50 PM) Oxycodone (u) [Not Detected] Not Detecte d (02/12/24 12:28 AM) U THC Screen [Not Detected] Not Detected (02/12/24 12:28 AM) CO2 [22-29 mmol/L] 22 mmol/L (02/11/24 8:50 PM) Ethanol Level. [<=10.1 mg/dL] 40.0 mg/dL *HI* (02/11/24 8:50 PM) MPV [9.0-12.2 fL] 8.8 fL *LOW* (02/12/24 2:31 PM) 9.3 fL (02/11/24 8:50 PM) Immature Gran% 0.0 % *NA* (02/12/24 2:31 PM) 0.2 % *NA* (02/11/24 8:50 PM) Neut% 53.5 % *NA* (02/12/24 2:31 PM) 60.2 % *NA* (02/11/24 8:50 PM) Lymph% 27.9 % *NA* (02/12/24 2:31 PM) 24.0 % *NA* (02/11/24 8:50 PM) [place]% 10.5 % *NA* (02/12/24 2:31 PM) 10.8 % *NA* (02/11/24 8:50 PM) Baso% 1.0 % *NA* (02/12/24 2:31 PM) 1.5 % *NA* (02/11/24 8:50 PM) Eos% 7.1 % *NA* (02/12/24 2:31 PM) 3.3 % *NA* (02/11/24 8:50 PM) Immat Gran, Abs [0.00-0.40 K/uL] 0.00 K/ uL (02/12/24 2:31 PM) 0.01 K/uL (02/11/24 8:50 PM) Neut, Abs [2.00-7.70 K/uL] 2.18 K/uL (02/12/24 2:31 PM) 2.89 K/uL (02/11/24 8:50 PM) Lymph, Abs [1.00-3.40 K/uL] 1.14 K/uL (02/12/24 2:31 PM) 1.15 K/uL (02/11/24 8:50 PM) [place], Abs [0.00-1.00 K/uL] 0.43 K/uL (02/12/24 2:31 PM) 0.52 K/uL (02/11/24 8:50 PM) Baso, Abs [0.00-0.10 K/uL] 0.04 K/uL (02/12/24 2:31 PM) 0.07 K/uL (02/11/24 8:50 PM) Eos, Abs [0.00-0.50 K/uL] 0.29 K/uL (02/12/24 2:31 PM) 0.16 K/uL (02/11/24 8:50 PM) Anion Gap [5-14 mmol/L] 16 mmol/L *HI* (02/11/24 8:50 PM) Alb [3.5-5.2 g/dL] 4.7 g/dL (02/11/24 8:50 PM) Alk Phos [40-130 unit/L] 141 unit/L *HI* (02/11/24 8:50 PM) ALT [0-41 unit/L] 18 unit/L (02/11/24 8:50 PM) Amphetamines(u) [Not Detected] Presumpti ve Pos *Abnormal* (02/12/24 12:28 AM) AST [0-40 unit/L] 32 unit/L (02/11/24 8:50 PM) Benzodiazepines(u) [Not Detected] Presum ptive Pos *Abnormal* (02/12/24 12:28 AM) BUN [6-23 mg/dL] 18 mg/dL (02/11/24 8:50 PM) Ca [8.4-10.2 mg/dL] 9.0 mg/dL (02/11/24 8:50 PM) Cl- [98-107 mmol/L] 97 mmol/L *LOW* (02/11/24 8:50 PM) Cocaine(u) [Not Detected] Not Detected (02/12/24 12:28 AM) Cret [0.70-1.30 mg/dL] 1.14 mg/dL (02/11/24 8:50 PM) Glu [74-109 mg/dL] 97 mg/dL (02/11/24 8:50 PM) Hct [35.0-44.0 %] 33.8 % *LOW* (02/12/24 2:31 PM) 31.4 % *LOW* (02/11/24 8:50 PM) Hgb [13.0-17.0 g/dL] 10.0 g/dL *LOW* (02/12/24 2:31 PM) 9.2 g/dL *LOW* (02/11/24 8:50 PM) RSV, Rapid Antigen [Negative] Negative (02/12/24 12:28 AM) Influenza Type A, Rapid Antigen [Negativ e] Negative 3 (02/12/24 12:28 AM) Influenza Type B, Rapid Antigen [Negativ e] Negative (02/12/24 12:28 AM) K [3.5-5.1 mmol/L] 4.2 mmol/L (02/11/24 8:50 PM) MCH [28.0-33.0 pg] 26.8 pg *LOW* (02/12/24 2:31 PM) 26.4 pg *LOW* (02/11/24 8:50 PM) MCHC [32.0-36.0 g/dL] 29.6 g/dL *LOW* (02/12/24 2:31 PM) 29.3 g/dL *LOW* (02/11/24 8:50 PM) MCV [81.0-96.0 fL] 90.6 fL (02/12/24 2:31 PM) 90.2 fL (02/11/24 8:50 PM) Na [136-145 mmol/L] 135 mmol/L *LOW* (02/11/24 8:50 PM) Opiates(u) [Not Detected] Not Detected (02/12/24 12:28 AM) Plts [150-350 K/uL] 293 K/uL (02/12/24 2:31 PM) 305 K/uL (02/11/24 8:50 PM) RBC [4.40-5.60 M/uL] 3.73 M/uL *LOW* (02/12/24 2:31 PM) 3.48 M/uL *LOW* (02/11/24 8:50 PM) COVID-19 Coronavirus PCR [Not Detected] Not Detected 4 (02/12/24 12:28 AM) COVID-19 Source Nasal Swab (02/12/24 12:28 AM) T Bili [0.0-1.2 mg/dL] 0.2 mg/dL (02/11/24 8:50 PM) Prot [6.4-8.3 g/dL] 7.4 g/dL (02/11/24 8:50 PM) WBC [4.00-10.40 K/uL] 4.08 K/uL (02/12/24 2:31 PM) 4.80 K/uL (02/11/24 8:50 PM) 1Interpretive Data: Drug Level Amphetamines 500 [...] is approximately 98%. Patients being admitted to [facility] should have the RVP assay ordered. 4Interpretive Data: This assay has been granted an Emergency Use Authorization (EUA) by the U.S. Food and drug Administration. The performance of the assay ([place]) has been verified by the [facility] laboratory. Reported to [place] Department of Health Vital Signs Most recent to oldest [Reference Range]: 1 2 3 Height 172 cm (02/11/24 8:01 PM) Patient Weight 59 kg (02/11/24 8:01 PM) Body Mass Index 19.94 kg/m2 (02/11/24 8:01 PM) Temperature [36.5-37.9 DegC] 36.7 DegC (02/11/24 8:01 PM) Heart Rate 89 bpm (02/13/24 5:16 AM) 88 bpm (02/13/24 12:30 AM) 93 bpm (02/12/24 12:30 PM) Respiratory Rate 16 br/min (02/13/24 5:30 PM) 20 br/min (02/13/24 5:16 AM) 18 br/min (02/13/24 12:30 AM) Blood Pressure 115/82mmHg (02/13/24 5:16 AM) 126/82mmHg (02/13/24 12:30 AM) 131/75mmHg (02/12/24 12:30 PM) Mean Blood Pressure 102 mmHg (02/11/24 8:01 PM) Social History Social History Type Response Smoking Status Never smoked cigaret anyi Sex Male Sex Representation Male (finding) Note * MD [place], [facility]: PERFORM Event Display: Psychiatry Consult Authored Date: TelePsych Consult Telehealth Attestation: I have confirmed the patients name and date of . [x_] The provider initiated this visit after explaining the need for this visit to the patient, whohas consented to this virtual visit. This visit was conducted via [x_] live audio/video technology[ _ ] Telephone, and was not related to a visit or procedure that occurred within the past 7 days. Source of Information:Patient Reason for consultation: _ Worsening of depressionparanoid delusions History of Present illness: As per ed physician note: Patient is here with altered mental state. He states he drinks daily vodka. He states he drank earlier this afternoon. Patient has very scattered speech and is difficult to follow. States he is currently staying with a friend although he does not think this will work out. States he is concerned about people watching him. He believes he may have had a seizure when I ask why he thinks as he states he was sleeping and woke up and he had urinated himself. Patient will not directly answer me when I ask if he is having thoughts of harming himself. 53 Yearsyears oldMalepresented to hospital due to depressive and psychotic symptoms. Patient has history of diagnosis ofMajor depressive disorder, Anxiety disorder, Substance use disorder, Alcohol use disorderOver the pastfew months , patient's depressive and psychoticsymptoms has been worsening. Depressive symptoms includesdepressed mood most of the time, feeling of hopelessness, low energy and motivation level, increase appetite, decrease sleep.He reportshaving on/off suicidal ideation to plan to overdose on drugs. He denied any recent attempt. He reports having increase delusional thinking with paranoid delusion and believes that people aretrying to kill him. He has been abusing cocain/methamphatime and alcohol. Psych ROS: Sleep changes: yes Appetite changes: yes AH/VH: No Elyssa: No Past Psychiatric History: Current Outpatient Psychiatric treatment/provider:_ none Psychiatric Hospitalization:multiple inpatient admissions Suicide Attempts: yes History of violence: None reported Na:135 mmol/LLow (02/11/24 20:50:00) K: 4.2 mmol/L (02/11/24 20:50:00) Cl-:97 mmol/LLow (02/11/24 20:50:00) CO2: 22 mmol/L (02/11/24 20:50:00) Anion Gap:16 mmol/LHigh (02/11/24 20:50:00) BUN: 18 mg/dL (02/11/24 20:50:00) Cret: 1.14 mg/dL (02/11/24 20:50:00) Estimated CrCl: 62.54 mL/min (02/11/24 21:29:36) eGFR CKD-EPI: 77 mL/min/1.73 m2 (02/11/24 20:50:00) Glu: 97 mg/dL (02/11/24 20:50:00) Ca: 9 mg/dL (02/11/24 20:50:00) WBC: 4.8 K/uL (02/11/24 20:50:00) Hgb:9.2 g/dLLow (02/11/24 20:50:00) Hct:31.4 %Low (02/11/24 20:50:00) RBC:3.48 M/uLLow (02/11/24 20:50:00) MCV: 90.2 fL (02/11/24 20:50:00) MCHC:29.3 g/dLLow (02/11/24 20:50:00) MCH:26.4 pgLow (02/11/24 20:50:00) RDW-CV:17.2 %High (02/11/24 20:50:00) RDW-SD: 56 (02/11/24 20:50:00) Plts: 305 K/uL (02/11/24 20:50:00) Nuc RBC Relative Count: 0 /100 WBCs (02/11/24 20:50:00) Nuc RBC Abs Count: 0 K/uL (02/11/24 20:50:00) MPV: 9.3 fL (02/11/24 20:50:00) Immature Gran%: 0.2 % (02/11/24 20:50:00) Neut%: 60.2 % (02/11/24 20:50:00) Lymph%: 24 % (02/11/24 20:50:00) [place]air%: 10.8 % (02/11/24 20:50:00) Baso%: 1.5 % (02/11/24 20:50:00) Eos%: 3.3 % (02/11/24 20:50:00) Immat Gran, Abs: 0.01 K/uL (02/11/24 20:50:00) Neut, Abs: 2.89 K/uL (02/11/24 20:50:00) Lymph, Abs: 1.15 K/uL (02/11/24 20:50:00) [place], Abs: 0.52 K/uL (02/11/24 20:50:00) Baso, Abs: 0.07 K/uL (02/11/24 20:50:00) Eos, Abs: 0.16 K/uL (02/11/24 20:50:00) ALT: 18 unit/L (02/11/24 20:50:00) T Bili: 0.2 mg/dL (02/11/24 20:50:00) Alk Phos:141 unit/LHigh (02/11/24 20:50:00) AST: 32 unit/L (02/11/24 20:50:00) Alb: 4.7 g/dL (02/11/24 20:50:00) Prot: 7.4 g/dL (02/11/24 20:50:00) Influenza Type A, Rapid Antigen: Negative GenExp (02/12/24 00:28:00) Influenza Type B, Rapid Antigen: Negative GenExp (02/12/24 00:28:00) COVID-19 Source: Nasal Swab (02/12/24 00:28:00) COVID-19 Coronavirus PCR: NEGATIVE GenExpert (02/12/24 00:28:00) RSV, Rapid Antigen: Negative GenExp (02/12/24 00:28:00) Ethanol Level.:40 mg/dLHigh (02/11/24 20:50:00) Amphetamines(u): HPD Abnormal (02/12/24 00:28:00) Benzodiazepines(u): HPD Abnormal (02/12/24 00:28:00) Cocaine(u): ND (02/12/24 00:28:00) Opiates(u): ND (02/12/24 00:28:00) Oxycodone (u): ND (02/12/24 00:28:00) U Fentanyl Scr: ND (02/12/24 00:28:00) Methadone (u): ND (02/12/24 00:28:00) U THC Screen: ND (02/12/24 00:28:00) U Hydrocodone Scr: ND (02/12/24 00:28:00) Active Inpt Meds:None Active PRN Meds:None One Time Meds:(Completed) LORazepam (Ativan) 1 mg w/ PO ONCE(Completed) LORazepam (Ativan) 1 mg w/ PO ONCE(Completed) diphenhydrAMINE (Benadryl) 50 mg w/ PO ONCE(Completed) ocular lubricant (Refresh ophthalmic solution) 1 drop w/ left eye ONCE Active IV Meds:None Allergies (10) ActiveReaction amoxicillinSwelling Compazinena Haldolna morphineUrticaria NSAIDsOther OLANZapineOther ondansetronUnknown promethazineOther propofolrash Reglanna Mental Status Examination: Appearance:disheveled, Eye contact:good, Psychomotor activity:normal, Behavior:cooperative, Speech:clear, Affect:full, Mood:depressed, Thought process:linear, Thought content:normal, Suicidal: no Homicidal: no Orientation: x4 Cognition/level of alertness:alert Insight:intact Judgement:intact Attention span:intact Vitals:Last Updated 02/11/24 20:01 Weights:Last Updated 02/11/24 20:01 Date Temp Pulse BP RR SpO2 FIO2 Date Wt(kg) Wt(lb) 02/10 20: 36.7 67 115/100 20 95 02/10 20: 59.0 130 02/10 20: 59.0 130 24 Hr Tmax:36.7 at 02/10 20: Initial Wt:02/10 59.0 kg 130 lb Vital Signs (last 24 hrs) Last Charted Resp Rate20 br/min (FEB 10:) QKB965 mmHg (FEB 10:) HJP610 mmHg (FEB 10:) XqJ233 % (FEB 10:) BMI19.94 (FEB 10:) Problems: Alcohol withdrawal Anxiety GI bleed Epilepsy Hodgkin lymphoma Depression ADHD Clinical Screens/Measuring Tools: Event Name Event Result Date/Time Audit C Total Score 10 02/11/24 20:14:00 CIWA Alcohol Score 11 02/12/24 11:23:00 Event Name Event Result Date/Time Pain scale used primary Numeric Rating Scale (NRS) 02/11/24 20:01:00 Pain Score 8 02/11/24 20:01:00 Suicide Risk Screening ([place]/asQ): C-SSRS - Screen 1. In the last month have you wished you were or wished you could go to sleep and not wake up?yes 2. In the last month, have you actually had thoughts about killing yourself? yes If Yes to question 2, ask questions 3,4,5, and 6. If No to question 2, skip to question 6 3. Have you been thinking about how you might do this? yes a. If Yes - describe frequency, intensity and duration:_ 4. Have you had these thoughts and had some intention of acting on them? yes 5. Have you started to work out or worked out the details of how to kill yourself? Did you intend to carry out this plan?yes 6. Have you done anything, started to do anything, or prepared to do anything to end your life in the last 3 months? yes a. What about in your lifetime?yes Suicide Risk:High TelepPsych Plan: Primary Psychiatric Diagnosis: Depressive disorder unspecified, Psychotic disorder unspecified Disposition: Recommend to admit patient to inpatient Psychiatric facility with Voluntary - 201 status after medical stabilization. Legal Status Recommendation: Patient is willing to remain in the hospital for voluntary treatment; should patient change their mind or attempt to leave please follow hospital policy to place on involuntary hold. Treatment Plan: 1. Medication Management: _x informed consent for psychotropic medication obtained including discussion of risks, benefits, and alternatives:yes Multiple antipsychotic review:N/A 2. Psychotherapy/Patient Education:Inpatient psychotherapy 3.Caregiver/Family Education: None 4. Follow up:Follow up withinpatient Psychiatrist Report of the above treatment plan was provided to: Nurse : Electronic Signature on File Electronically Reviewed/Signed by: Chantal Shook Author Signature Dt/Tm:02/12/2024 01:12 PM Psychiatry [place] Emergency department Summary note * MD Lu Paul W: PERFORM, VERIFY, MODIFY, SIGN Event Display: ED Summary Authored Date: Patient: LYNDA DIALLO IV Age: 53 years Sex: Male : 1970 Associated Diagnoses: None Author: MD Lu Paul W Basic Information Addendum: Time of addendum:: 02/13/2024 01:28:00 , Assumed care from: MD Zuleyma, Dylan Euceda, Time02/12/2024 22:00:00, Pertinent history: Patient awaiting transport, 53-year-old male initially voluntary 201 became agitated trying to rescind required 302 accepted awaiting transport. Reexamination/ Reevaluation Time: 02/13/2024 06:25:00 . Notes: No events brought to my attention overnight patient accepted to [facility] awaiting transport this morning at 9 AM. Impression and Plan Diagnosis Disorganized thinking (LHR26-PV R41.89) Psychosis (NGG15-NU F29) Plan Condition: Stable. Disposition: Patient care transitioned to: Time: 02/13/2024 06:25:00, MD Melvi, Sarahy. Electronic Signature on File Electronically Reviewed/Signed by: Jeb Lu MD Author Signature Dt/Tm:02/13/2024 06:25 AM Department of Emergency Medicine [facility] Polo Lu MD, Paul W: PERFORM, SIGN, VERIFY Event Display: ED Summary Authored Date: [id number] Patient: LYNDA DIALLO IV Age: 53 years Sex: Male : 1970 Associated Diagnoses: None Author: MD Lu Paul W Basic Information Addendum: Time of addendum:: 02/12/2024 07:25:00 , Assumed care from: MD Zuleyma, Dylan Euceda, Time02/12/2024 01:00:00, Pertinent history: Patient awaiting transfer, 53-year-old male history of alcohol use disorganized thought process voluntary 201 bed search in progress. Reexamination/ Reevaluation Time: 02/12/2024 07:25:00 . Notes: No events brought to my attention overnight signed out to the a.m. provider pending final disposition and bed search. Impression and Plan Diagnosis Disorganized thinking (FQF38-RF R41.89) Psychosis (PVS04-GH F29) Plan Condition: Stable. Disposition: Patient care transitioned to: Time: 02/12/2024 01:00:00, MD [facility] Electronic Signature on File Electronically Reviewed/Signed by: Jeb Lu MD Author Signature Dt/Tm:02/12/2024 07:26 AM Department of Emergency Medicine [facility] * MD Zuleyma, Dylan Euceda: MODIFY, SIGN, VERIFY, PERFORM Event Display: ED Summary Authored Date: [id number] Patient: LYNDA DIALLO IV Age: 53 years Sex: Male : 1970 Associated Diagnoses: None Author: MD Amor Jed Samuel Basic Information History source: Patient. History of Present Illness Additional history: Patient is here with altered mental state. He states he drinks daily vodka. He states he drank earlier this afternoon. Patient has very scattered speech and is difficult to follow. States he is currently staying with a friend although he does not think this will work out. Stateshe is concerned about people watching him. He believes he may have had a seizure when I ask why he thinks as he states he was sleeping and woke up and he had urinated himself. Patient will not directly answer me when I ask if he is having thoughts of harming himself. Review of Systems Constitutional symptoms: Negative except as documented in HPI. Skin symptoms: Negative except as documented in HPI. Eye symptoms: Negative except as documented in HPI. ENMT symptoms: Negative except as documented in HPI. Respiratory symptoms: Negative except as documented in HPI. Cardiovascular symptoms: Negative except as documented in HPI. Gastrointestinal symptoms: Negative except as documented in HPI. Genitourinary symptoms: Negative except as documented in HPI. Musculoskeletal symptoms: Negative except as documented in HPI. Neurologic symptoms: Negative except as documented in HPI. Psychiatric symptoms: Negative except as documented in HPI. Endocrine symptoms: Negative except as documented in HPI. Hematologic/Lymphatic symptoms: Negative except as documented in HPI. Allergy/immunologic symptoms: Negative except as documented in HPI. Health Status Allergies: Allergic Reactions (Selected) Severity Not Documented Amoxicillin- Swelling. Compazine- Na. Haldol- Na. Morphine- Other (see comments), dermatitis, urticaria and na. NSAIDs- Other. OLANZapine- Other. Ondansetron- Unknown. Promethazine- Other. Propofol- Rash/dermatitis and rash. Reglan- Na.. Medications: (Selected) Prescriptions Prescribed Tylenol 325 mg oral tablet: 2 tab, PO, q6h, PRN: fever/mild pain (1-3), 60 tab, 0 Refill(s) cholecalciferol 25 mcg (1000 intl units) oral capsule: 2 cap, PO, Daily, 60 cap, 2 Refill(s) folic acid 1 mg oral tablet: 1 tab, PO, Daily, 30 tab, 0 Refill(s) pantoprazole 40 mg oral delayed release tablet: 1 tab, PO, Daily, 30 tab, 0 Refill(s) thiamine 100 mg oral tablet: 1 tab, PO, Daily, 30 tab venlafaxine 150 mg oral capsule, extended release: 1 cap, PO, Daily, for 30 day, 30 cap Documented Medications Documented Depakote ER 250 mg oral tablet, extended release: 3 tab, PO, qhs ZyrTEC 10 mg oral tablet: 1 tab, PO, Daily mirtazapine 15 mg oral tablet: 30 each, 0 Refill(s), take 1 tablet by mouth nightly -INDICATIONS: MAJOR DEPRESSIVE DISORDER naloxone 4 mg/0.1 mL nasal spray: intranasal, 1 Unknown, 1 Refill(s), Administer 1 spray into affected nostril(s) as needed (opiod reversal, may repeat every 2 to 3 | minutes alternate nostrils).. Past Medical/ Family/ Social History Medical history Reviewed as documented in chart. Problem list: Active Problems (7) ADHD Alcohol withdrawal Anxiety Depression Epilepsy GI bleed Hodgkin lymphoma . Physical Examination Vital Signs Vital Signs 02/11/2024 21:37 EST Temperature Central Warm 02/11/2024 20:10 EST MEWS Score 1 02/11/2024 20:01 EST Temperature 36.7 DegC Heart Rate 67 bpm Respiratory Rate 20 br/min Systolic Blood Pressure 115 mmHg Diastolic Blood Pressure 100 mmHg Mean Blood Pressure 102 mmHg Oxygen Therapy Room Air SpO2 95 % . Per nurse's notes. Measurements 02/11/2024 20:14 EST Osteoporosis Screening Tool 1.20 02/11/2024 20:01 EST Height 172 cm Height Method Patient stated Patient Weight 59 kg Weight 59.000 kg Weight Method Standing Scale Body Mass Index 19.94 kg/m2 [place] Body Weight 67.7 kg . General: Alert, no acute distress, Disheveled appearing. Skin: Warm, dry. Head: Normocephalic. Neck: Supple. Ears, nose, mouth and throat: Oral mucosa moist, Small amount of dried blood in left nare. Cardiovascular: Normal peripheral perfusion. Respiratory: Respirations are non-labored. Chest wall: No tenderness. Back: Normal range of motion. Musculoskeletal: No deformity. Gastrointestinal: Non distended. Genitourinary Neurological: No focal neurological deficit observed, normal speech observed. Lymphatics Psychiatric: Mood and affect: Paranoid, Abnormal / Psychotic thoughts: Tangential. Additional physical exam information. Medical Decision Making Differential Diagnosis: Impression: Scattered thought process, paranoia, drug and alcohol abuse Plan: Medical screening, crisis evaluation. Documents reviewed: Emergency department nurses' notes, emergency department records. Results review: Lab results 02/11/2024 21:29 EST Estimated CrCl 62.54 mL/min 02/11/2024 20:50 EST Na 135 mmol/L LOW K 4.2 mmol/L Cl- 97 mmol/L LOW CO2 22 mmol/L Anion Gap 16 mmol/L HI BUN 18 mg/dL Cret 1.14 mg/dL eGFR CKD-EPI 77 mL/min/1.73 m2 Glu 97 mg/dL Ca 9.0 mg/dL WBC 4.80 K/uL Hgb 9.2 g/dL LOW Hct 31.4 % LOW RBC 3.48 M/uL LOW MCV 90.2 fL MCHC 29.3 g/dL LOW MCH 26.4 pg LOW RDW-CV 17.2 % HI RDW-SD 56 NA Plts 305 K/uL Nuc RBC Relative Count 0 /100 WBCs NA Nuc RBC Abs Count 0.00 K/uL NA MPV 9.3 fL Immature Gran% 0.2 % NA Neut% 60.2 % NA Lymph% 24.0 % NA [place]% 10.8 % NA Baso% 1.5 % NA Eos% 3.3 % NA Immat Gran, Abs 0.01 K/uL Neut, Abs 2.89 K/uL Lymph, Abs 1.15 K/uL [place], Abs 0.52 K/uL Baso, Abs 0.07 K/uL Eos, Abs 0.16 K/uL ALT 18 unit/L T Bili 0.2 mg/dL Alk Phos 141 unit/L HI AST 32 unit/L Alb 4.7 g/dL Prot 7.4 g/dL Ethanol Level. 40.0 mg/dL HI . Notes: Patient is medically cleared. Discussed the case with the crisis team. They have evaluated the patient at bedside. He is amenable to voluntary admission under 201. 201 has been signed. Bed search is in progress. Impression and Plan Diagnosis Disorganized thinking ([id number] R41.89) Psychosis ([id number] F29) Plan Disposition: Patient care transitioned to: Dr. Lu . Electronic Signature on File Electronically Reviewed/Signed by: Dylan Amor MD Author Signature Dt/Tm:02/12/2024 12:10 AM Emergency Medicine JSZ Patient Care team information Care Team Personnel Name: HEBERT Lima Ana M Position: Referring DIRECT Member Role: Primary Care Provider Address: [address] [place] [address] Name: Paddy Dempsey Amy E Position: Pharmacist Member Role: Pharmacy - Lifetime Address: [address] [address] [place] Name: Paddy Larry, Felipe Serrano Position: Pharmacist Member Role: Pharmacy - Lifetime Name: Paddy Hyde, Lila Position: Pharmacist Member Role: Pharmacy - Lifetime Name: Paddy Mcdonough Ann Position: Pharmacist Member Role: Pharmacy - Lifetime Name: Paddy Mckeon, Jude Position: Pharmacist Member Role: Pharmacy - Lifetime Address: [address] [place] [address] [place] Name: MD Joshua, Bay Mejia Position: Physician - [facility] Address: [address] [place] [address] [place] Name: KRYSTINA Adamson, Shon Escamilla Position: RN - C Member Role: Registered Nurse Name: MD Zuleyma, Dylan Euceda Position: Physician - [facility] Member Role: * Quality Review (1 day after created) [facility] [facility] [place] [address] Care Team Related Persons Name: LYNDA DIALLO III"
--- OUTSIDE RECORDS SUMMARY | 2024-02-28 02:38 | External Medical Summary ---
Author Name Unknown Address Unknown Organization [facility] [employer] [facility] [employer] [facility] [address] [place] [id number] Laboratory Report Ordering Provider Test Date Status Danielle Richardsoner 02/12/2024 00:28:00 Final Observation Date Value Abnormality Reference (Units) Status Amphetamine [Presence] in Urine by Screen method 02/12/2024 01:15:36 Presumptive Pos^Presumptive Pos Abnormal Not Detected Final Benzodiazepines [Presence] in Urine by Screen method 02/12/2024 01:15:36 Presumptive Pos^Presumptive Pos Abnormal Not Detected Final Cannabinoids [Presence] in Urine by Screen method 02/12/2024 01:15:36 Not Detected^Not Detected Not Detected Final Benzoylecgonine [Presence] in Urine 02/12/2024 01:15:36 Not Detected^Not Detected Not Detected Final HYDROcodone [Presence] in Urine by Screen method 02/12/2024 01:15:36 Not Detected^Not Detected Not Detected Final Drug Level
Amphetamines 500 ng/mL
Benzodiazepines 100 ng/mL
Cannabinoids 50 ng/mL
Cocain Metabolite 150 ng/mL
Hydrocodone 100 ng/mL
Methadone Metabolite 100 ng/mL
Morphine/ Codeine 300 ng/mL
Oxycodone 100 ng/mL

The above screening results are presumptive and can only be used for medical purposes. Confirmatory testing is available upon request.
Intended for medical treatment only. U Fentanyl Scr 02/12/2024 01:15:36 Not Detected^Not Detected Final Fentanyl Assay Cutoff >=5 ng /mL
The above screening results are presumptive and can only be used for medical purposes. Confirmatory testing is available upon request. Intended for medical treatment only. Methadone [Presence] in Urine 02/12/2024 01:15:36 Not Detected^Not Detected Not Detected Final Opiates [Presence] in Urine by Screen method 02/12/2024 01:15:36 Not Detected^Not Detected Not Detected Final oxyCODONE [Presence] in Urine 02/12/2024 01:15:36 Not Detected^Not Detected Not Detected Final Performing Location [facility] [employer] Floor Steward/Stewardess ry [address] [place] [address]
--- OUTSIDE RECORDS SUMMARY | 2024-02-28 02:38 | External Medical Summary ---
Author Name Unknown Address Unknown Organization [facility] [facility] [employer] [facility] [address] [place] [address] Laboratory Report Ordering Provider Test Date Status Zuleyma Richardson 02/11/2024 20:50:00 Final Observation Date Value Abnormality Reference (Units ) Status Ethanol [Mass/volume] in Serum or Plasma 02/11/2024 21:29:35 40.0 Above high normal <=10.1 (mg/dL) Final Performing Location [facility] Jewel Gauger ry [address] [place] [address]
--- OUTSIDE RECORDS SUMMARY | 2024-02-28 02:38 | External Medical Summary ---
Author Name Unknown Address Unknown Organization [facility] [address] [place] [address] Laboratory Report Ordering Provider Test Date Status DylanDanielleZuleyma 02/11/2024 20:50:00 Final Observation Date Value Abnormality Reference (Units ) Status Neutrophils/100 leukocytes in Blood by Automated count 02/11/2024 20:52:58 60.2 (%) Final Lymphocytes/100 leukocytes in Blood by Automated count 02/11/2024 20:52:58 24.0 (%) Final Monocytes/100 leukocytes in Blood by Automated count 02/11/2024 20:52:58 10.8 (%) Final Eosinophils/100 leukocytes in Blood by Automated count 02/11/2024 20:52:58 3.3 (%) Final Basophils/100 leukocytes in Blood by Automated count 02/11/2024 20:52:58 1.5 (%) Final Immature granulocytes/100 leukocytes in Blood 02/11/2024 20:52:58 0.2 (%) Final Neutrophils [#/volume] in Blood by Automated count 02/11/2024 20:52:58 2.89 2.00-7.70 (K/uL) Final Lymphocytes [#/volume] in Blood by Automated count 02/11/2024 20:52:58 1.15 1.00-3.40 (K/uL) Final Monocytes [#/volume] in Blood by Automated count 02/11/2024 20:52:58 0.52 0.00-1.00 (K/uL) Final Eosinophils [#/volume] in Blood by Automated count 02/11/2024 20:52:58 0.16 0.00-0.50 (K/uL) Final Basophils [#/volume] in Blood by Automated count 02/11/2024 20:52:58 0.07 0.00-0.10 (K/uL) Final Immature granulocytes [#/volume] in Blood by Automated count 02/11/2024 20:52:58 0.01 0.00-0.40 (K/uL) Final Performing Location [facility] [address] [address]
--- OUTSIDE RECORDS SUMMARY | 2024-02-28 02:38 | External Medical Summary | Summary of Care ---
Author Name Unknown Organization [facility] Address [address] [place] [address] Phone [phone] Care Team Providers Care Director Business Intelligence Name Role Phone Unavailable Primary Care Provider Unavailabl e Encounter Details Date Type Department Care Team (Late st Contact Info) Description 02/24/2024 Population Health External Data Unspecified Department Allergies Active Allergy Reactions Criticality Noted Date Comments Prochlorperazine Edisylate 7 Famotidine Dystonia 01/22/2019 Haloperidol 01/19/2017 Hydroxyzine Medium 06/30/2019 Other reaction(s): Throat Swelling, Throat Swelling Propofol Rash 01/21/2017 Quetiapine Dystonia,Other (Please comment) Low 10/12/2016 Metoclopramide Hcl 01/19/2017 documented as of this encounter (statuses as of 02/24/2024) Medications Vitamin B-12 1000 MCG Oral Tablet Take 1 Tab by mouth daily. 60 Tab 2 0 Active Additional Information Patient not taking.Reported on 05/19/2020 Multi-Vitamins Oral Tablet Take 1 Tab by mouth daily at noon. 30 Tab 2 0 Active Additional Information Patient not taking.Reported on 05/19/2020 Omeprazole 40 MG Oral Capsule Delayed Release (PriLOSEC) Take 1 Cap by mouth daily. 30 Cap 5 0 Active Additional Information Patient not taking.Reported on 05/19/2020 Xarelto Starter Pack 15 & 20 MG Oral Tablet Therapy Pack (Rivaroxaban) Take one 15 mg tab by mouth twice daily with meals for 21 days, then one 20 mg tab daily at dinner 1 Each 1 Active Zolpidem Tartrate 10 MG Oral Tablet (Ambien) Take 1 Tab by mouth at bedtime as needed for Sleep. 30 Tab 1 Active buPROPion HCl ER (SR) 150 MG Oral Tablet Extended Release 12 Hour (Wellbutrin SR) Take 1 Tab by mouth 2 times a day. (take morning and afternoon; help depression, focus and concentration) 60 Tab 1 Active Amoxicillin 500 MG Oral Capsule (Amoxil) Take 1 Cap by mouth 2 times a day. (10 day course to treat possible tooth infection.) 20 Cap 1 Active documented as of this encounter (statuses as of 02/24/2024) Active Problems Problem Noted Date Diagnosed Date Major depressive disorder, r ecurrent severe without psychotic features 05/20/2020 Methamphetamine use disorder, moderate 1 History of DVT (deep vein thrombosis) 12/04/2019 Hodgkin lymphoma 12/04/2019 Cluster B personality disorder 06/22/2019 Alcohol use disorder, moderate, dependence 01/15 History of peptic ulcer disease 11/04/2018 History of hepatitis C 09/11/2017 Overview (05/20/2020): Viral load nondetected in May 2017. Cleared infection without treatment. Attention deficit disorder (ADD) in adult 2016 Drug-seeking behavior documented as of this encounter (statuses as of 02/24/2024) Resolved Problems Problem Noted Date Diagnosed Date Resolved Date COVID-19 05/26/2020 09/02/2023 Stimulant use disorder 10/04/201909/01 Overview (05/20/2020): Hx crushing and snorting ritalin and other stimulants. Acute blood loss anemia 06/24/2019 04/0 10/2020 Overview (12/04/2019): Last Assessment & Plan: Recent hospitalization at [facility] for melenic stools and coffee ground vomitus Reported having taken [id number] mg of ibuprofen per day for 5 [...] with PCP on discharge. Duodenitis 06/24/2019 05/20/2020 Overview (12/04/2019): Last Assessment & Plan: Patient reports a history of this during his last scope back in September. Reports that this was secondary to Ibuprofen misuse EGD: Shows diffuse gastritis, normal duodenum Plan 1. As outlined above Chronic arthralgias of knees and hips 06/20/2019 09/02/2023 Overview (12/04/2019): Last Assessment & Plan: He follows with [...] of any chronic kidney disease or ulcers. Cocaine abuse, continuous 06/20/2019 Overview (12/04/2019): Last Assessment & Plan: Cocaine positive and UDS patient was counseled Last Assessment & Plan: As per psych Brachiocephalic vein obstruc tion with collaterals 01/23/2019 05/20/2020 Overview (12/04/2019): Last Assessment & Plan: Incidental finding noted on imaging. Suspect this is chronic. Patient denies any symptoms per Cocaine use disorder, moderate, dependence 01/15/2019 11/04/2019 Normocytic anemia due to blood loss 01/11/2019 05/20/2020 Overview (12/04/2019): Last Assessment & Plan: Self reports his hemoglobin remained at 10 when hospitalized. Hb on admission 10.7 and is hemodynamically stable. No further episodes of bleeding while being observed. -check anemia panel. See plan for GI bleed. - Hb has improved since admission Suicide attempt 10/31/2018 05/20/2020 NSAID long-term use 03/11/2017 05/21/19 21 Acute upper gastrointestinal hemorrhage 03/11/2017 05/20/2020 Overview (12/04/2019): Added automatically from request for surgery [id number] Last Assessment & Plan: Recurrent issue; reports small amount hematemesis and BRBPR when wiping. Similar episode when diagnosed with NSAID-induced duodenitis Denies history of esophageal varices Was hospitalized at [facility] for GI bleed; no EGD [...] - PRN zofran for nausea GI bleed due to NSAIDs 02/04/201709/01 Overview (12/04/2019): Last Assessment & Plan: Recurrent issue for hematemesis and BRBPR - treated here and multiple outside facilities for this but leaves AMA. Underwent EGD 01/12 which showed mild gastritis. No active bleed or varices. Billroth-I noted. Pt had another EGD at [facility] on 12/2018 CTA showed was [...] diet Discharge plan Prilosec 40 mg daily GI bleed 01/20/2017 05/20/2020 Seizure disorder 01/20/2017 05/20/2020 Major depressive disorder, r ecurrent severe without psychotic features 01/20/2017 11/04/2019 Insomnia 01/20/2017 01/14/2019 Iron deficiency 10/18/2016 05/20/2020 NSAID induced gastritis 10/13 NSAID overdose, intentional self-harm, subsequent encounter 11/04/2019 documented as of this encounter (statuses as of 02/24/2024) Immunizations Name Administration Dates Next Due Seasonal [...] Recorded Sex Assigned at Not on file Legal Sex Male 5:51 AM EST Gender Identity Not on file Sexual Orientation Not on file documented as of this encounter Functional Status * Are you deaf or do you have serious difficulty hearing? Answer Date of Assessment Author No 12/04/2019 2:40 AM Zach Banks RN * Are you blind or do you have serious difficulty seeing, even when wearing glasses? Answer Date of Assessment Author Yes 12/04/2019 2:40 AM Zach Banks RN * Do you have serious difficulty walking or climbing stairs? (5 years old or older) Answer Date of Assessment Author No 12/04/2019 2:40 AM Zach Banks RN * Do you have difficulty dressing or bathing? (5 years old or older) Answer Date of Assessment Author No 11/02/2019 10:17 PM Sarah Santiago RN * Because of a physical, mental, or emotional condition, do you have difficulty doing errands alone such as visiting a doctors office or shopping? (15 years old or older) Answer Date of Assessment Author No 12/04/2019 2:40 AM Zach Banks RN documented as of this encounter Mental Status * Because of a physical, mental, or emotional condition, do you have serious difficulty concentrating, remembering, or making decisions? (5 years old or older) Answer Entry Date Author No 12/04/2019 2:40 AM Zach Banks RN documented in this encounter Plan of Treatment Health Maintenance Due Date Last Done Comments Depression Monitoring 1982 DTap/Tdap Vaccines (1 - Tdap) 1989 Hepatitis B Vaccine (1 of 3 - 19+ 3-dose series) 1989 Zoster Vaccines (1 of 2) 1989 Cologuard 05/29/2015 Fecal Occult Blood Test 09/19/2022 09/20/19, 09/08/2021, 03/03/2018, Additional history exists COVID-19 Vaccine (2 - Pfizer risk series) 02/06/2023 01/16/2023 Sigmoidoscopy 03/22/2023 03/22/2018 Lipid Panel 12/13/2025 12/13/2020, 12/13, 08/20/2019 Colonoscopy 11/03/2029 11/04/2019, 10/13, 01/21/2017, Additional history exists Colorectal Cancer Screening 11/03/2029 HIV Screening Completed 05/18/2022 Pneumococcal Vaccine: 50+ Years Completed 01/16/2023, 12/29/2019 Pneumococcal Vaccine: Pediatrics (0 to 5 Years) and At-Risk Patients (6 to 18 Years and 19+ Years) Completed 01/16/2023, 12/29/2019 Influenza Vaccine (FLU shot) Completed , 11/23/2020, 11/23/2020, Additional history exists HPV (Gardasil) Vaccine Aged Out No lo [...]
--- OUTSIDE RECORDS SUMMARY | 2024-02-28 02:38 | External Medical Summary ---
Author Name Unknown Address Unknown Organization [facility] [address] [place] [address] Laboratory Report Ordering Provider Test Date Status Brodie Hollingsworth 02/12/2024 14:31:00 Final Observation Date Value Abnormality Reference (Units ) Status Neutrophils/100 leukocytes in Blood by Automated count 02/12/2024 14:41:27 53.5 (%) Final Lymphocytes/100 leukocytes in Blood by Automated count 02/12/2024 14:41:27 27.9 (%) Final Monocytes/100 leukocytes in Blood by Automated count 02/12/2024 14:41:27 10.5 (%) Final Eosinophils/100 leukocytes in Blood by Automated count 02/12/2024 14:41:27 7.1 (%) Final Basophils/100 leukocytes in Blood by Automated count 02/12/2024 14:41:27 1.0 (%) Final Immature granulocytes/100 leukocytes in Blood 02/12/2024 14:41:27 0.0 (%) Final Neutrophils [#/volume] in Blood by Automated count 02/12/2024 14:41:27 2.18 2.00-7.70 (K/uL) Final Lymphocytes [#/volume] in Blood by Automated count 02/12/2024 14:41:27 1.14 1.00-3.40 (K/uL) Final Monocytes [#/volume] in Blood by Automated count 02/12/2024 14:41:27 0.43 0.00-1.00 (K/uL) Final Eosinophils [#/volume] in Blood by Automated count 02/12/2024 14:41:27 0.29 0.00-0.50 (K/uL) Final Basophils [#/volume] in Blood by Automated count 02/12/2024 14:41:27 0.04 0.00-0.10 (K/uL) Final Immature granulocytes [#/volume] in Blood by Automated count 02/12/2024 14:41:27 0.00 0.00-0.40 (K/uL) Final Performing Location [facility] [address] [address]
--- OUTSIDE RECORDS SUMMARY | 2024-02-28 02:38 | External Medical Summary | Continuity of Care Document ---
Author Name Unknown Organization [facility] Address [address] [place] [address] Care Team Providers Care Script Reader Name Role Phone Merlene Lima Primary Care Physician [phone] Encounter [facility] [id number] Date(s): 02/04/24 - 02/04/24 [facility] [address] [place] [id number] [place] Encounter Diagnosis Alcohol abuse(Discharge Diagnosis) - 02/05/24 Discharge Disposition: Home or Self Care Attending Physician: DO Heard Tamra A Allergies, Adverse Reactions, Alerts Substance Criticality Severity Reaction Reaction Severity Status Reglan na Active Compazine na Active promethazine Other Active Haldol na Active Functional Status 02/04/24 History of Fall in Last 3 Months Robles Y es Presence of Secondary Diagnosis Robles Ye s Use of Ambulatory Aid Robles None/bedrest /nurse assist IV/Heparin Lock Fall Risk Robles No Gait/Transferring Fall Risk Robles Normal /bedrest/immobile Mental Status Fall Risk Robles Oriented t o own ability Robles Fall Risk Score 40 Robles Fall Risk Low Risk Medications cholecalciferol 25 mcg (1000 intl units) oral capsule Start: 06/24/23 3:52:00 PM EDT, 2 cap, PO, Daily, Disp# 60 cap, Refills: 2, Pharmacy: [facility] Start Date: 06/24/23 Status: Ordered Depakote ER 250 mg oral tablet, extended release Start: 06/24/23 3:47:00 PM EDT, 3 tab, PO, qhs Start Date: 06/24/23 Status: Ordered folic acid 1 mg oral tablet Start: 03/25/23 2:21:00 PM EST, 1 tab, PO, Daily, Disp# 30 tab, Refills: 0, Pharmacy: [facility] Start Date: 03/25/23 Status: Ordered mirtazapine [...] Daily, Disp# 30 tab, Refills: 0, Pharmacy: [facility] Start Date: 03/25/23 Status: Ordered thiamine 100 mg oral tablet Start: 03/25/23 2:21:00 PM EST, 1 tab, PO, Daily, Disp# 30 tab, Pharmacy: [facility] Start Date: 03/25/23 Status: Ordered Tylenol 325 mg oral tablet Start: 05/24/22 10:29:00 AM EDT, 2 tab, PO, q6h, Disp# 60 tab, Refills: 0, PRN: fever/mild pain (1-3), [id number] Start Date: 05/24/22 Status: Ordered venlafaxine 150 mg oral capsule, extended release Start: 03/25/23 2:22:00 PM EST, 1 cap, PO, Daily, Disp# 30 cap, Pharmacy: [facility] Start Date: 03/25/23 Stop Date: 04/24/23 [...] Effective Dates Health Status inical Service Informant Alcohol abuse Discharge Diagnosis 02/05/24 Non-Specified Procedures Procedure Date Related Diagnosis Body Site Status Esophagogastroduodenoscopy 1 05/21/22 Completed Esophagogastroduodenoscopy 2 02/13/22 Completed REVISE HIP JOINT REPLACEMENT Completed 1auto-populated from documented surgical case 2auto-populated from documented surgical case Results Laboratory List Name Date Drug Screen Urine.(HSM) 02/04/24 Urinalysis with Reflex to Culture. 02/03 Alcohol Level. 02/04/24 Automated Differential. 02/04/24 CBC w/ Diff. 02/04/24 Comprehensive Metabolic Panel. (CMP.) Magnesium Level. 02/04/24 Valproic Acid Level. 02/04/24 SARS-CoV2/FLU A/B and RSV by PCR. (COVID -19/FluAB/RSV.) 02/04/24 Most recent to oldest [Reference Range]: 1 eGFR CKD-EPI [>=60 mL/min/1.73 m2] >90 m L/min/1.73 m2 (02/04/24 6:24 PM) U Hydrocodone Scr [Not Detected] Not Det ected 1 (02/04/24 7:10 PM) Methadone (u) [Not Detected] Not Detecte d (02/04/24 7:10 PM) U Fentanyl Scr Not Detected 2 (02/04/24 7:10 PM) Estimated CrCl 76.48 mL/min (02/04/24 7:02 PM) RDW-CV [11.5-14.2 %] 16.4 % *HI* (02/04/24 6:24 PM) RDW-SD 51 *NA* (02/04/24 6:24 PM) Nuc RBC Relative Count 0 /100 WBCs *NA* (02/04/24 6:24 PM) Nuc RBC Abs Count 0.00 K/uL *NA* (02/04/24 6:24 PM) Oxycodone (u) [Not Detected] Not Detecte d (02/04/24 7:10 PM) U THC Screen [Not Detected] Not Detected (02/04/24 7:10 PM) Ascorbic Acid (u) [Negative] Detected *Abnormal* (02/04/24 7:10 PM) CO2 [22-29 mmol/L] 21 mmol/L *LOW* (02/04/24 6:24 PM) Ethanol Level. [<=10.1 mg/dL] <10.0 mg/d L (02/04/24 6:24 PM) MPV [9.0-12.2 fL] 8.7 fL *LOW* (02/04/24 6:24 PM) Immature Gran% 0.2 % *NA* (02/04/24 6:24 PM) Neut% 66.2 % *NA* (02/04/24 6:24 PM) Lymph% 22.4 % *NA* (02/04/24 6:24 PM) [place]% 7.9 % *NA* (02/04/24 6:24 PM) Baso% 0.8 % *NA* (02/04/24 6:24 PM) Eos% 2.5 % *NA* (02/04/24 6:24 PM) Immat Gran, Abs [0.00-0.40 K/uL] 0.01 K/ uL (02/04/24 6:24 PM) Neut, Abs [2.00-7.70 K/uL] 3.44 K/uL (02/04/24 6:24 PM) Lymph, Abs [1.00-3.40 K/uL] 1.16 K/uL (02/04/24 6:24 PM) [place], Abs [0.00-1.00 K/uL] 0.41 K/uL (02/04/24 6:24 PM) Baso, Abs [0.00-0.10 K/uL] 0.04 K/uL (02/04/24 6:24 PM) Eos, Abs [0.00-0.50 K/uL] 0.13 K/uL (02/04/24 6:24 PM) Anion Gap [5-14 mmol/L] 17 mmol/L *HI* (02/04/24 6:24 PM) Alb [3.5-5.2 g/dL] 4.3 g/dL (02/04/24 6:24 PM) Alk Phos [40-130 unit/L] 142 unit/L *HI* (02/04/24 6:24 PM) ALT [0-41 unit/L] 20 unit/L (02/04/24 6:24 PM) Amphetamines(u) [Not Detected] Presumpti ve Pos *Abnormal* (02/04/24 7:10 PM) Appear (u) Clear (02/04/24 7:10 PM) AST [0-40 unit/L] 32 unit/L (02/04/24 6:24 PM) Benzodiazepines(u) [Not Detected] Presum ptive Pos *Abnormal* (02/04/24 7:10 PM) Bili (u) [Negative] Negative (02/04/24 7:10 PM) BUN [6-23 mg/dL] 27 mg/dL *HI* (02/04/24 6:24 PM) Ca [8.4-10.2 mg/dL] 8.8 mg/dL (02/04/24 6:24 PM) Cl- [98-107 mmol/L] 104 mmol/L (02/04/24 6:24 PM) Cocaine(u) [Not Detected] Not Detected (02/04/24 7:10 PM) Cret [0.70-1.30 mg/dL] 0.91 mg/dL (02/04/24 6:24 PM) Glu [74-109 mg/dL] 81 mg/dL (02/04/24 6:24 PM) Hct [35.0-44.0 %] 27.1 % *LOW* (02/04/24 6:24 PM) Hgb [13.0-17.0 g/dL] 8.5 g/dL *LOW* (02/04/24 6:24 PM) RSV, Rapid Antigen [Negative] Negative (02/04/24 6:06 PM) Influenza Type A, Rapid Antigen [Negativ e] Negative 3 (02/04/24 6:06 PM) Influenza Type B, Rapid Antigen [Negativ e] Negative (02/04/24 6:06 PM) K [3.5-5.1 mmol/L] 4.0 mmol/L (02/04/24 6:24 PM) Ketones [Negative mg/dL] 20 mg/dL *Abnormal* (02/04/24 7:10 PM) Leuk Est [Negative] Negative (02/04/24 7:10 PM) MCH [28.0-33.0 pg] 27.0 pg *LOW* (02/04/24 6:24 PM) MCHC [32.0-36.0 g/dL] 31.4 g/dL *LOW* (02/04/24 6:24 PM) MCV [81.0-96.0 fL] 86.0 fL (02/04/24 6:24 PM) Mg [1.6-2.6 mg/dL] 2.1 mg/dL (02/04/24 6:24 PM) Na [136-145 mmol/L] 142 mmol/L (02/04/24 6:24 PM) Nitrite (u) [Negative] Negative (02/04/24 7:10 PM) Opiates(u) [Not Detected] Not Detected (02/04/24 7:10 PM) Plts [150-350 K/uL] 276 K/uL (02/04/24 6:24 PM) RBC [4.40-5.60 M/uL] 3.15 M/uL *LOW* (02/04/24 6:24 PM) COVID-19 Coronavirus PCR [Not Detected] Not Detected 4 (02/04/24 6:06 PM) COVID-19 Source Nasal Swab (02/04/24 6:06 PM) T Bili [0.0-1.2 mg/dL] 0.2 mg/dL (02/04/24 6:24 PM) Prot [6.4-8.3 g/dL] 6.9 g/dL (02/04/24 6:24 PM) Color (u) Yellow (02/04/24 7:10 PM) Glu (u) [Negative mg/dL] Negative mg/dL (02/04/24 7:10 PM) Hgb (u) [Negative] Negative (02/04/24 7:10 PM) pH (u) [5.0-8.0] 6.0 (02/04/24 7:10 PM) Prot (u) [Negative mg/dL] Negative mg/dL (02/04/24 7:10 PM) RBC (u) 0-2 /HPF *NA* (02/04/24 7:10 PM) Urobili [Normal mg/dL] Normal mg/dL (02/04/24 7:10 PM) SG [1.003-1.030] 1.024 (02/04/24 7:10 PM) WBC (u) [None /HPF] 0-2 /HPF (02/04/24 7:10 PM) Valproate [50-120 ug/mL] 5 ug/mL *LOW* (02/04/24 6:24 PM) WBC [4.00-10.40 K/uL] 5.19 K/uL (02/04/24 6:24 PM) 1Interpretive Data: Drug Level Amphetamines 500 [...] is approximately 98%. Patients being admitted to [facility] should have the RVP assay ordered. 4Interpretive Data: This assay has been granted an Emergency Use Authorization (EUA) by the U.S. Food and drug Administration. The performance of the assay (TapTap) has been verified by the [facility] laboratory. Reported to [place] Department of Health Radiology Reports * Exam Date Time Procedure Performing Provider Status 02/04/24 6:14 PM XR Chest 2 Views Renetta Bejarano; Final Notes: (XR Chest 2 Views) Reason For Exam: seizure Report EXAM: XR Chest 2 Views HISTORY: seizure; Technologist Notes: patent c/o seizure the around noon pt states just 12 hours of drinking. COMPARISON: X-ray from March 22, 2023 FINDINGS: The cardiomediastinal silhouette is within normal limits. Mild pulmonary scarring without evidence of focal infiltrate, pleural effusion or congestive heart failure. The bony structures and overlyingsoft tissues are normal for age. IMPRESSION: There is no radiographic evidence of acute cardiopulmonary abnormality Workstation ID: [id number] Dictated by:MD Chu Tibor Dictated DT/TM:02/04/2024 6:55 Signed by:MD Chu Tibor Signed (Electronic Signature):02/04/2024 6:53 p Vital Signs Most recent to oldest [Reference Range]: 1 2 3 Height 170.18 cm (02/04/24 4:42 PM) Patient Weight 57.6 kg (02/04/24 4:42 PM) Body Mass Index 19.89 kg/m2 (02/04/24 4:42 PM) Temperature [36.5-37.9 DegC] 37.5 DegC (02/04/24 4:42 PM) Heart Rate 93 bpm (02/04/24 8:00 PM) 96 bpm (02/04/24 6:00 PM) 105 bpm (02/04/24 5:00 PM) Respiratory Rate 18 br/min (02/04/24 8:00 PM) 16 br/min (02/04/24 6:00 PM) 18 br/min (02/04/24 5:00 PM) Blood Pressure 137/96mmHg (02/04/24 8:00 PM) 139/87mmHg (02/04/24 6:00 PM) 149/97mmHg (02/04/24 5:00 PM) Mean Blood Pressure 115 mmHg (02/04/24 4:42 PM) Cuff Pulse Pressure 41 mmHg (02/04/24 8:00 PM) 52 mmHg (02/04/24 6:00 PM) 52 mmHg (02/04/24 5:00 PM) Social History Social History Type Response Smoking Status Current every day li ght smoker Sex Male Sex Representation Male (finding) Emergency department Summary note * DO Heard Tamra A: MODIFY DO Heard Tamra A: MODIFY, PERFORM, MODIFY Event Display: ED Summary Authored Date: [id number] Basic Information Time Seen: JORGE Sanabria, Nick Adler 02/04/2024 17:02 Chief Complaint came to ER POV. patent c/o seizure the around noon pt states just 12 hours of drinking. patient states interested in programs for detox. History of Present Illness Patient is a 53-year-old malewith past medical history of epilepsy, anxiety, depression, alcohol use disorder, presenting to the emergency departmenthoping to establishinpatientalcohol use rehabilitation. Patient states he was discharged froma rehab facility 5 days agobut within hours of dischargehe found himselfdrinking again. During this time he was noncompliant with his medications diamodn combination with his alcohol use he saynafisa has hadalmost a seizureeach day sincedischarge. He states when he is compliant with his medicationshe has less than 2 seizures a year. He reports his last seizure occurred around noon todayand was witnessed by sisterwho virgiliesany headtrauma associated with this fall. The patient states his last drink was at 0300today. Patientstates he is feelinganxiousbut would very much like toget established with inpatientmanagement for hisalcohol use disorder. He spoke with his psychiatrist earlier today whotold himtocome to the emergency department for additional resources. The patient states after his seizure occurredtoday he tookthree 750 mg Depakotetablets. He states his typical daily dose is one 750 mg tablet. He states he did this in an attempt to preventfurther seizures. Currently the patient endorses onlyheadacheand some cramping abdominal painwhich she believes is associated with diarrhea he has had the last 2 days. Patient states he typically has headaches andsome lingering confusionafter his seizures. Patient endorses photophobia andphonophobia. Patient denies fever, chills, vision change, numbness, weakness, chest pain, shortness of breath, vomiting. Review of Systems Pertinent positives are as documented in the HPI. Otherwise, a 14 point ROS is negative. Physical Exam Vitals & Measurements T:37.5C HR:106(Monitored) RR:20 BP:161/99 SpO2:98% Oxygen Therapy:Room Air HT:170.18cm WT:57.600kg(Dosing) WT:57.6kg BMI:19.89 General:Well-appearingmale. Appears anxious andin no acute distress HEENT:Normocephalic and atraumatic.Pupils equal, round, light reactive and accommodating bilaterally.Extraocular movements intact. Non-bulging tympanic membranes with clear landmarks bilaterally.Turbinates non- erythematous and non-edematous bilaterally. Neck: Supple and non-tender. No lymphadenopathy noted. Back:No midline or paraspinal tenderness. No deformity or step-off. Respiratory: Lungs clear to auscultation bilaterally in all posterior vizcarra.No wheezing, no increased work of breathing. Cardiovascular:Tachycardic rate and rhythm. No extra clicks, rubs, gallops or murmurs. Abdominal: Normal bowel sounds.Abdomen soft non-distended and non-tender to palpation diffusely. No masses or organomegaly noted. Musculoskeletal/Extremities:Full range of motion of all extremities. 5/5 strength in all extremities. Neuro:Alert and oriented to person, place and event. Cranial nerves II through XII grossly intact. Sensation intact to light touch in distal extremities. No ataxia on finger-nose or [id number]. Normal gait. Psychiatric: Pleasant and cooperative. Answers all questions appropriately. Normal judgement.Appropriate mood and affect.Patient denies SI or HI. Skin:[place], warm and dry. Medical Decision Making Will obtain urinalysis andlabs to assess forsignificantelectrolyte derangements,Depakote levels,alcohol level.Providing Tylenol forheadache. Assumingreassuring lab workwill havev[facility] handoff team come downto provide patient with appropriate inpatientresources and discharge. Initial CIWA 2. Patient on presentation denied anysuicidal or homicidal ideation. Patient developed worsening agitationand hadCIWA of 17. 2 mg ofp.o. Ativan was provided. Warm handoffstated thatcrisis will need to be consultedfor placement in a dual role facilitygiven the patient'smedical conditions. Crisis states thatpatientendorsedpassive suicidal ideation without a planor desire to end their life. They states that patient will require apsychiatric consult as they believehe does not meet criteria for inpatient psychiatricmanagementat this time. They state that placement in adual role facilitywill require this psychiatric evaluation. Patient states that he would sign a 201to complete this process.Anemia on CBCis improved from previous studies on record. Chest x-ray unremarkable. No alcoholon lab work. Urinalysis unremarkable. Reexamination/Reevaluation When security came to have patient change intoscrubsherefused to do this. After lengthy conversation explaining hospital protocoland that he will need to do thisfor us to continuehis managementhe states he wouldrather leave. As the patient has had recurrent seizuresand there is concern forrepeated seizuresin the futureI would have the patient leave AGAINST MEDICAL ADVICE. I discussed with the patient the risks of leaving which includedeathand/or disabilitydueto uncontrolled seizuresand the patient verbalized understandingof these risksand demonstrated capacity to make decisions for himself. He again denies any suicidal ideation to peter stateshe feels safe going hometo family. We discussed the need foradherence to his antiseizure medication regimen,need for close follow-up with his primary care provider.The patient states he does have adequatesupply of his antiseizure medicationat home. AMA formcompleted by patientand patient was discharged from the emergency department. Assessment/Plan 1.Alcohol abuse Medication Reconciliation Unchanged acetaminophen (Tylenol 325 mg oral tablet)2 tab(s) by mouth every 6 hours as needed fever/mild pain(1-3). Refills: 0. cetirizine (ZyrTEC 10 mg oral tablet)1 tab(s) by mouth once daily. cholecalciferol (cholecalciferol 25 mcg (1000 intl units) oral capsule)2 cap by mouth once daily. Refills: 2. divalproex sodium (Depakote ER 250 mg oral tablet, extended release)3 tab(s) by mouth at bedtime. folic acid (folic acid 1 mg oral tablet)1 tab(s) by mouth once daily. Refills: 0. mirtazapine (mirtazapine 15 mg oral tablet)30 each, 0 Refill(s), take 1 tablet by mouth nightly -INDICATIONS: MAJOR DEPRESSIVE DISORDER. naloxone (naloxone 4 mg/0.1 mL nasal spray)in [...] daily for 30 Days. Refills: 0. Attestation The patient's history, exam findings, diagnostics, and a summary of any interventions or procedureswere reviewed in detail with the IRENE. I confirm the diagnosisas documented by the IRENE and I agree with the care planarticulated in the disposition section with regards to our discussion of the patient's case. ~Natalia Heard, DO Problem List/Past Medical History Ongoing ADHD Alcohol withdrawal Anxiety Depression Epilepsy GI bleed Hodgkin lymphoma Procedure/Surgical History REVISE HIP JOINT REPLACEMENT| Laterality: Left Allergies Compazinena Haldolna Reglanna promethazineOther Lab Results Chemistry LATEST RESULTS HISTORICAL RESULTS Na 02/04/24 18:24 142 08/20/23 138 mmol/L K 02/04/24 18:24 4.0 08/20/23 4.3 mmol/L Cl- 02/04/24 18:24 104 08/20/23 103 mmol/L CO2 02/04/24 18:24 21 Low 08/02/23 26 Anion Gap 02/04/24 18:24 17 High 08/20/23 8 mmol/L BUN 02/04/24 18:24 27 High 08/20/23 15 mg/dL Cret 02/04/24 18:24 0.91 08/20/23 0.77 mg/dL Estimated CrCl 02/04/24 19:02 76.48 08/20/23 92.27 eGFR CKD-EPI 02/04/24 18:24 >90 08/20/23 >90 mL/min/1.73 m2 Glu 02/04/24 18:24 81 08/20/23 110 mg/dL High Ca 02/04/24 18:24 8.8 08/20/23 8.3 mg/dL Low Mg 02/04/24 18:24 2.1 08/01/23 1.9 CBC LATEST RESULTS HISTORICAL RESULTS WBC 02/04/24 18:24 5.19 08/20/23 REQUEST CREDITED K/uL Hgb 02/04/24 18:24 8.5 Low 08/20/23 REQUEST CREDITED g/dL Hct 02/04/24 18:24 27.1 Low 08/20/23 REQUEST CREDITED % RBC 02/04/24 18:24 3.15 Low 08/20/23 REQUEST CREDITED M/uL MCV 02/04/24 18:24 86.0 08/20/23 REQUEST CREDITED fL MCHC 02/04/24 18:24 31.4 Low 08/20/23 REQUEST CREDITED g/dL MCH 02/04/24 18:24 27.0 Low 08/20/23 REQUEST CREDITED pg RDW-CV 02/04/24 18:24 16.4 High 08/03/23 17.6 High RDW-SD 02/04/24 18:24 51 08/03/23 58 Plts 02/04/24 18:24 276 08/20/23 REQUEST CREDITED K/uL Nuc RBC Relative Count 02/04/24 18:24 0 08/03/23 0 Nuc RBC Abs Count 02/04/24 18:24 0.00 08/03/23 0.00 MPV 02/04/24 18:24 8.7 Low 08/20/23 REQUEST CREDITED fL Immature Gran% 02/04/24 18:24 0.2 08/20/23 REQUEST CREDITED % Neut% 02/04/24 18:24 66.2 08/20/23 REQUEST CREDITED % Lymph% 02/04/24 18:24 22.4 08/20/23 REQUEST CREDITED % [place]% 02/04/24 18:24 7.9 08/20/23 REQUEST CREDITED % Baso% 02/04/24 18:24 0.8 08/20/23 REQUEST CREDITED % Eos% 02/04/24 18:24 2.5 08/20/23 REQUEST CREDITED % Immat Gran, Abs 02/04/24 18:24 0.01 08/20/23 REQUEST CREDITED K/uL Neut, Abs 02/04/24 18:24 3.44 08/20/23 REQUEST CREDITED K/uL Lymph, Abs 02/04/24 18:24 1.16 08/20/23 REQUEST CREDITED K/uL [place], Abs 02/04/24 18:24 0.41 08/20/23 REQUEST CREDITED K/uL Baso, Abs 02/04/24 18:24 0.04 08/20/23 REQUEST CREDITED K/uL Eos, Abs 02/04/24 18:24 0.13 08/20/23 REQUEST CREDITED K/uL Drug Monitor LATEST RESULTS HISTORICAL RESULTS Valproate 02/04/24 18:24 5 Low 08/16/23 <3 ug/mL Low Liver/GI LATEST RESULTS HISTORICAL RESULTS ALT 02/04/24 18:24 20 08/20/23 21 unit/L T Bili 02/04/24 18:24 0.2 08/20/23 0.1 mg/dL Alk Phos 02/04/24 18:24 142 High 08/20/23 109 unit/L AST 02/04/24 18:24 32 08/20/23 26 unit/L Nutrition LATEST RESULTS HISTORICAL RESULTS Alb 02/04/24 18:24 4.3 08/20/23 3.7 g/dL Prot 02/04/24 18:24 6.9 08/20/23 5.9 g/dL Low Immunology LATEST RESULTS HISTORICAL RESULTS Influenza Type A, Rapid Antigen 02/04/24 18:06 Negative 07/31/23 Negative Influenza Type B, Rapid Antigen 02/04/24 18:06 Negative 07/31/23 Negative COVID-19 Source 02/04/24 18:06 Nasal Swab 07/31/23 Nasopharyngeal COVID-19 Coronavirus PCR 02/04/24 18:06 Not Detected 07/31/23 Not Detected RSV, Rapid Antigen 02/04/24 18:06 Negative 07/31/23 Negative Toxicology LATEST RESULTS HISTORICAL RESULTS Ethanol Level. 02/04/24 18:24 <10.0 07/31/23 54.0 High Amphetamines(u) 02/04/24 19:10 Presumptive Pos Abnormal 08/17/23 PRESUMPTIVE POSITIVE DRUG RESULT Benzodiazepines(u) 02/04/24 19:10 Presumptive Pos Abnormal 08/17/23 NONE DETECTED Cocaine(u) 02/04/24 19:10 Not Detected 08/17/23 PRESUMPTIVE POSITIVE DRUG RESULT Opiates(u) 02/04/24 19:10 Not Detected 08/17/23 NONE DETECTED Oxycodone (u) 02/04/24 19:10 Not Detected 08/17/23 NONE DETECTED U Fentanyl Scr 02/04/24 19:10 Not Detected 08/17/23 NONE DETECTED Methadone (u) 02/04/24 19:10 Not Detected 08/17/23 NONE DETECTED U THC Screen 02/04/24 19:10 Not Detected 07/31/23 Not Detected U Hydrocodone Scr 02/04/24 19:10 Not Detected 07/31/23 Not Detected Urine LATEST RESULTS HISTORICAL RESULTS Color (u) 02/04/24 19:10 Yellow 08/17/23 YELLOW Appear (u) 02/04/24 19:10 Clear 02/14/23 Clear Glu (u) 02/04/24 19:10 Negative 08/17/23 NEGATIVE mg/dL Bili (u) 02/04/24 19:10 Negative 08/17/23 NEGATIVE Ketones 02/04/24 19:10 20 Abnormal 08/17/23 NEGATIVE mg/dL SG 02/04/24 19:10 1.024 08/17/23 1.008 Hgb (u) 02/04/24 19:10 Negative 08/17/23 NEGATIVE pH (u) 02/04/24 19:10 6.0 08/17/23 6.0 unit Prot (u) 02/04/24 19:10 Negative 08/17/23 NEGATIVE mg/dL Urobili 02/04/24 19:10 Normal 08/17/23 0.1-1.0 EU/dL Nitrite (u) 02/04/24 19:10 Negative 08/17/23 NEGATIVE Leuk Est 02/04/24 19:10 Negative 08/17/23 NEGATIVE Ascorbic Acid (u) 02/04/24 19:10 Detected Abnormal 02/14/23 Negative WBC (u) 02/04/24 19:10 0-2 02/14/23 0-2 RBC (u) 02/04/24 19:10 0-2 02/14/23 0-2 Diagnostic Results (02/04/2024 18:14 EST XR Chest 2 Views) EXAM: XR Chest 2 Views HISTORY: seizure; Technologist Notes: patent c/o seizure the around noon pt states just 12 hours of drinking. COMPARISON: X-ray from March 22, 2023 FINDINGS: The cardiomediastinal silhouette is within normal limits. Mild pulmonary scarring without evidence of focal infiltrate, pleural effusion or congestive heart failure. The bony structures and overlying soft tissues are normal for age. IMPRESSION: There is no radiographic evidence of acute cardiopulmonary abnormality [1] [1]XR Chest 2 Views; MD Kimberley, Keith 02/04/2024 18:14 EST Electronic Signature on File Electronically Reviewed/Signed by: Nick Sanabria Author Signature Dt/Tm:02/04/2024 11:11 PM Emergency Medicine Electronically Reviewed/Signed by: DO Munir Markigner Signature Dt/Tm: 02/06/2024 12:50 AM Emergency Medicine JBF Patient Care team information Care Team Personnel Name: HEBERT Lima Ana M Position: Referring DIRECT Member Role: Primary Care Provider Address: [facility] [address] [place] [address] Avenue [address] [facility] [place] [address] [place] Name: ABDULAZIZ DempseyAnjali Position: Pharmacist Member Role: Pharmacy - Lifetime Address: [address] [address] [place] Name: ABDULAZIZ Larry, Felipe Serrano Position: Pharmacist Member Role: Pharmacy - Lifetime Name: [facility], Lila Position: Pharmacist Member Role: Pharmacy - Lifetime Name: [facility], Alejandra Position: Pharmacist Member Role: Pharmacy - Lifetime [facility]: Pharmacist Member Role: Pharmacy - Lifetime Address: [address] [place] [id number] [place] Name: KRYSTINA Herrera, Marilyn Desir Position: RN - C Member Role: Direct Care Nurse Name: JORGE Sanabria, Nick Adler Position: Physician Header Operator - Emerg Med Member Role: * Quality Review (1 day after created) Address: [address] [place] [id number] [place] Name: DO Heard Tamra A Position: Physician - Emerg Med SA Member Role: Covering (3 days after created) Address: [address] [facility] [place] [address] [place] Care Team Related Persons Name: LYNDA DIALLO III"
--- OUTSIDE RECORDS SUMMARY | 2024-02-28 02:39 | External Medical Summary ---
Author Name Unknown Address Unknown Organization [facility] [employer] [facility] [employer] [facility] [address] [place] [id number] Laboratory Report Ordering Provider Test Date Status NickYesseniasima 02/04/2024 18:24:00 Final Observation Date Value Abnormality Reference (Units ) Status Ethanol [Mass/volume] in Serum or Plasma 02/04/2024 19:02:26 <10.0 <=10.1 (mg/dL) Final Performing Location [facility] [employer] [facility] [address] [place] [id number]
--- OUTSIDE RECORDS SUMMARY | 2024-02-28 02:39 | External Medical Summary | Summary of Care ---
Author Name Unknown Organization [facility] Address [address] [place] [address] Phone [phone] Care Team Providers Care Boiler Operators Supervisor Name Role Phone Kenny Gonzales MD Primary Care Provider [phone] [phone] Encounter Details Date Type Department Care Team (Late st Contact Info) Description 10/23/2023 Population Health External Data Unspecified Department Allergies Active Allergy Reactions Criticality Noted Date Comments Prochlorperazine Edisylate 7 Famotidine Dystonia 01/22/2019 Haloperidol 01/19/2017 Hydroxyzine Medium 06/30/2019 Other reaction(s): Throat Swelling, Throat Swelling Propofol Rash 01/21/2017 Quetiapine Dystonia,Other (Please comment) Low 10/12/2016 Metoclopramide Hcl 01/19/2017 documented as of this encounter (statuses as of 10/23/2023) Medications Medication Sig Dispensed Refills Start Date [...] as of this encounter (statuses as of 10/23/2023) Active Problems Problem Noted Date Diagnosed Date Major depressive disorder, r ecurrent severe without psychotic features 05/20/2020 Methamphetamine use disorder, moderate History of DVT (deep vein thrombosis) 12/04/2019 Hodgkin lymphoma 12/04/2019 Cluster B personality disorder 06/22/2019 Alcohol use disorder, moderate, dependence 01/15 History of peptic ulcer disease 11/04/2018 History of hepatitis C 09/11/2017 Overview: Viral load nondetected in May 2017. Cleared infection without treatment. Attention deficit disorder (ADD) in adult 2016 Drug-seeking behavior documented as of this encounter (statuses as of 10/23/2023) Resolved Problems Problem Noted Date Diagnosed Date Resolved Date COVID-19 05/26/2020 09/02/2023 Stimulant use disorder 10/04/201909/01 Overview: Hx crushing and snorting ritalin and other stimulants. Acute blood loss anemia 06/24/2019 04/0 10/2020 Overview: Last Assessment & Plan: Recent hospitalization at [place] for melenic stools and coffee ground vomitus Reported having taken 9273-5830 mg of ibuprofen per day for 5 [...] arthralgias of knees and hips 06/20/2019 09/02/2023 Overview: Last Assessment & Plan: He follows [...] disease or ulcers. Cocaine abuse, continuous 06/20/2019 Overview: Last Assessment [...] Overview: Added automatically from request for surgery [id number] Last Assessment & Plan: Recurrent issue; reports [...] nausea GI bleed due to NSAIDs 02/04/201709/01 Overview: Last Assessment & Plan: Recurrent issue for hematemesis and BRBPR - treated here and multiple outside facilities for this but leaves AMA. Underwent EGD 01/12 which showed mild gastritis. No active bleed or varices. Billroth-I noted. Pt had another EGD at [facility] on 12/2018 CTA showed was negative for [...] as of this encounter (statuses as of 10/23/2023) Immunizations Name Administration Dates Next Due Seasonal [...] 11/03/2029 HIV Screening Completed 05/18/2022 Pneumococcal Vaccine: Pediatrics [...] 7:01 PM 05/26/2020 7:45 PM This order r eflects the patients wishes and were consensually agreed [...] Advance Directives occurred with: Patient Care Teams Boiler Operators Supervisor Relationship Specialty Start Date End Date Kenny Gonzales MD [address] [place] [address] PCP - General Family Medicine 09/04/23 documented as of this encounter
--- OUTSIDE RECORDS SUMMARY | 2024-02-28 02:39 | External Medical Summary | Summary of Care ---
Author Name Unknown Organization [facility] Address [address] [place] [address] Phone [phone] Care Team Providers Care Delinquent Tax Collection Assistant Name Role Phone Farooq Rodriguez MD Primary Care Provide r Encounter Details Date Type Department Care Team (Late st Contact Info) Description 09/02/2023 Population Health External Data Unspecified Department Allergies Active Allergy Reactions Criticality Noted Date Comments Prochlorperazine Edisylate 7 Famotidine Dystonia 01/22/2019 Haloperidol 01/19/2017 Hydroxyzine Medium 06/30/2019 Other reaction(s): Throat Swelling, Throat Swelling Propofol Rash 01/21/2017 Quetiapine Dystonia,Other (Please comment) Low 10/12/2016 Metoclopramide Hcl 01/19/2017 documented as of this encounter (statuses as of 09/02/2023) Medications Medication Sig Dispensed Refills Start Date [...] as of this encounter (statuses as of 09/02/2023) Active Problems Problem Noted Date Diagnosed Date [...] Billroth-I noted. Pt had another EGD at [facility] on 12/2018 CTA showed was negative for [...] as of this encounter (statuses as of 09/02/2023) Resolved Problems Problem Noted Date Diagnosed Date Resolved Date Acute blood loss anemia 06/24/2019 04/10/2020 Overview: Last Assessment & Plan: Recent hospitalization at [place] for melenic stools and coffee ground vomitus Reported having taken 2084-0568 mg of ibuprofen per day for 5 [...] Overview: Added automatically from request for surgery [id number] Last Assessment & Plan: Recurrent issue; reports small amount hematemesis and BRBPR when wiping. Similar episode when diagnosed with NSAID-induced duodenitis Denies history of esophageal varices Was hospitalized at [facility] for GI bleed; no EGD done [...] as of this encounter (statuses as of 09/02/2023) Immunizations Name Administration Dates Next Due Seasonal [...] as of this encounter Plan of Treatment Upcoming Encounters Date Type Department Care Team (Late st Contact Info) Description 09/03/2023 11:00 AM EDT Office Visit Family [facility] [address] [place] [id number] Kenny Gonzales MD [address] [place] [address] Health Maintenance Due Date Last Done Comments [...] Advance Directives occurred with: Patient Care Teams Delinquent Tax Collection Assistant Relationship Specialty Start Date End Date Farooq Rodriguez MD [address] [place] [address] PCP - General Family Medicine 12/03/19 documented as of this encounter
--- OUTSIDE RECORDS SUMMARY | 2024-02-28 02:39 | External Medical Summary ---
Author Name Unknown Address Unknown Organization [facility] [employer] [facility] [facility] [address] [place] [address] Laboratory Report Ordering Provider Test Date Status Elly Romero 02/04/2024 18:24:00 Final Observation Date Value Abnormality Reference (Units ) Status Glucose [Mass/volume] in Serum or Plasma 02/04/2024 19:02:24 81 74-109 (mg/dL) Final Urea nitrogen [Mass/volume] in Serum or Plasma 02/04/2024 19:02:24 27 Above high normal 6-23 (mg/dL) Final Creatinine [Mass/volume] in Serum or Plasma 02/04/2024 19:02:24 0.91 0.70-1.30 (mg/dL) Final GLOMERULAR FILTRATION RATE/1.73 SQ M.PREDICTED:ARVRAT:PT:SER /PLAS/BLD:QN:CREATININE AND CYSTATIN C-BASED FORMULA (CKD-EPI 2020) 02/04/2024 19:02:26 >90 >=60 (mL/min/1.73 m2) Final Sodium [Moles/volume] in Serum or Plasma 02/04/2024 19:02:24 142 136-145 (mmol/L) Final Potassium [Moles/volume] in Serum or Plasma 02/04/2024 19:02:24 4.0 3.5-5.1 (mmol/L) Final Chloride [Moles/volume] in Serum or Plasma 02/04/2024 19:02:24 104 98-107 (mmol/L) Final Carbon dioxide, total [Moles/volume] in Serum or Plasma 02/04/2024 19:02:24 21 Below low normal 22-29 (mmol/L) Final Anion gap 3 in Serum or Plasma 02/04/2024 19:02:26 17 Above high normal 5-14 (mmol/L) Final Calcium [Mass/volume] in Serum or Plasma 02/04/2024 19:02:24 8.8 8.4-10.2 (mg/dL) Final Protein [Mass/volume] in Serum or Plasma 02/04/2024 19:02:24 6.9 6.4-8.3 (g/dL) Final Albumin [Mass/volume] in Serum or Plasma by Bromocresol green (BCG) dye binding method 02/04/2024 19:02:24 4.3 3.5-5.2 (g/dL) Final Bilirubin.total [Mass/volume] in Serum or Plasma 02/04/2024 19:02:24 0.2 0.0-1.2 (mg/dL) Final Aspartate aminotransferase [Enzymatic activity/volume] in Serum or Plasma 02/04/2024 19:02:24 32 0-40 (unit/L) Final Alanine aminotransferase [Enzymatic activity/volume] in Serum or Plasma 02/04/2024 19:02:24 20 0-41 (unit/L) Final Alkaline phosphatase [Enzymatic activity/volume] in Serum or Plasma 02/04/2024 19:02:24 142 Above high normal 40-130 (unit/L) Final Performing Location [facility] [employer] Supervisor ry [address] [address]
--- OUTSIDE RECORDS SUMMARY | 2024-02-28 02:39 | External Medical Summary ---
Author Name Unknown Address Unknown Organization [facility] [address] [place] [address] Laboratory Report Ordering Provider Test Date Status Elly Romero 02/04/2024 18:24:00 Final Observation Date Value Abnormality Reference (Units ) Status Leukocytes [#/volume] in Blood by Automated count 02/04/2024 18:30:25 5.19 4.00-10.40 (K/uL) Final Erythrocytes [#/volume] in Blood by Automated count 02/04/2024 18:30:25 3.15 Below low normal 4.40-5.60 (M/uL) Final Hemoglobin [Mass/volume] in Blood 02/04/2024 18:30:25 8.5 Below low normal 13.0-17.0 (g/dL) Final Hematocrit [Volume Fraction] of Blood by Automated count 02/04/2024 18:30:25 27.1 Below low normal 35.0-44.0 (%) Final MCV [Entitic volume] by Automated count 02/04/2024 18:30:25 86.0 81.0-96.0 (fL) Final MCH [Entitic mass] by Automated count 02/04/2024 18:30:25 27.0 Below low normal 28.0-33.0 (pg) Final MCHC [Mass/volume] by Automated count 02/04/2024 18:30:25 31.4 Below low normal 32.0-36.0 (g/dL) Final Erythrocyte distribution width [Ratio] by Automated count 02/04/2024 18:30:25 16.4 Above high normal 11.5-14.2 (%) Final Erythrocyte distribution width [Entitic volume] by Automated count 02/04/2024 18:30:25 51 Final Platelets [#/volume] in Blood by Automated count 02/04/2024 18:30:25 276 150-350 (K/uL) Final Platelet mean volume [Entitic volume] in Blood by Automated count 02/04/2024 18:30:25 8.7 Below low normal 9.0-12.2 (fL) Final Nucleated erythrocytes/100 cells in Bone marrow by Manual count 02/04/2024 18:30:25 0 (/100 WBCs) Final Nucleated erythrocytes [#/volume] in Blood by Manual count 02/04/2024 18:30:25 0.00 (K/uL) Final Performing Location [facility] [address] [address]
--- OUTSIDE RECORDS SUMMARY | 2024-02-28 02:39 | External Medical Summary | Summary of Care ---
Author Name Unknown Organization [facility] Address [address] [place] [address] Phone [phone] Care Team Providers Care Scrap Yard Worker Name Role Phone Kenny Gonzales MD Primary Care Provider [phone] [phone] Encounter Details Date Type Department Care Team (Late st Contact Info) Description 12/23/2023 Population Health External Data Unspecified Department Allergies Active Allergy Reactions Criticality Noted Date Comments Prochlorperazine Edisylate 7 Famotidine Dystonia 01/22/2019 Haloperidol 01/19/2017 Hydroxyzine Medium 06/30/2019 Other reaction(s): Throat Swelling, Throat Swelling Propofol Rash 01/21/2017 Quetiapine Dystonia,Other (Please comment) Low 10/12/2016 Metoclopramide Hcl 01/19/2017 documented as of this encounter (statuses as of 12/23/2023) Medications Vitamin B-12 1000 MCG Oral Tablet [...] as of this encounter (statuses as of 12/23/2023) Active Problems Problem Noted Date Diagnosed Date [...] as of this encounter (statuses as of 12/23/2023) Resolved Problems Problem Noted Date Diagnosed Date Resolved Date COVID-19 05/26/2020 09/02/2023 Stimulant use disorder 10/04/201909/01 Overview (05/20/2020): Hx crushing and snorting ritalin and other stimulants. Acute blood loss anemia 06/24/2019 04/0 10/2020 Overview (12/04/2019): Last Assessment & Plan: Recent hospitalization at [place] for melenic stools and coffee ground vomitus Reported having taken 7266-8918 mg of ibuprofen per day for 5 [...] (12/04/2019): Added automatically from request for surgery [id number] Last Assessment & Plan: Recurrent issue; reports small amount hematemesis and BRBPR when wiping. Similar episode when diagnosed with NSAID-induced duodenitis Denies history of esophageal varices Was hospitalized at [facility] for GI bleed; no EGD done as [...] Billroth-I noted. Pt had another EGD at [facility] on 12/2018 CTA showed was negative for [...] as of this encounter (statuses as of 12/23/2023) Immunizations Name Administration Dates Next Due Seasonal [...] (6 to 64 Years) Completed 01/16/2023, 12/29/2019 Influenza Vaccine (FLU [...] Advance Directives occurred with: Patient Care Teams Scrap Yard Worker Relationship Specialty Start Date End Date Kenny Gonzales MD [address] [place] [address] PCP - General Family Medicine 09/04/23 documented as of this encounter
--- OUTSIDE RECORDS SUMMARY | 2024-02-28 02:39 | External Medical Summary ---
Author Name Unknown Address Unknown Organization [facility] [employer] [employer] [address] [place] [address] Laboratory Report Ordering Provider Test Date Status Elly Romero 02/04/2024 18:06:00 Final Observation Date Value Abnormality Reference (Units ) Status Specimen source identified 02/04/2024 19:12:18 Nasal Swab^Nasal Swab Final SARS-CoV-2 (COVID-19) RNA [Presence] in Nasopharynx by [facility]ADY with probe detection 02/04/2024 19:12:18 Not Detected^Not Detected Not Detected Final This assay has been granted an Emergency Use Authorization (EUA) by the U.S. Food and drug Administration. The performance of the assay ([employer])) has been verified by the [facility] laboratory. Reported to [place] Department of Health Influenza virus A RNA [Presence] in Upper respiratory specimen by MILADY with probe detection 02/04/2024 19:12:18 Negative^Negative Negative Final No Influenza A Detected. A n egative result does not rule out the possibility of influenza infection as the sensitivity of this test is approximately 98%. Patients being admitted to [facility] should have the RVP assay ordered. Haemophilus influenzae B DNA [Presence] in Specimen by MILADY with probe detection 02/04/2024 19:12:18 Negative^Negative Negative Final Respiratory syncytial virus RNA [Presence] in Respiratory specimen by MILADY with probe detection 02/04/2024 19:12:18 Negative^Negative Negative Fin al Performing Location [facility] [employer] [facility] [address] [place] [address]
--- OUTSIDE RECORDS SUMMARY | 2024-02-28 02:39 | External Medical Summary | Summary of Care ---
Author Name Unknown Organization [facility] Address [address] [place] [address] Phone [phone] Care Team Providers Care Testing Shaking Shipping Name Role Phone Kenny Gonzales MD Primary Care Provider +1 [phone] Encounter Details Date Type Department Care Team (Late st Contact Info) Description 01/24/2024 Population Health External Data Unspecified Department Allergies Active Allergy Reactions Criticality Noted Date Comments Prochlorperazine Edisylate 7 Famotidine Dystonia 01/22/2019 Haloperidol 01/19/2017 Hydroxyzine Medium 06/30/2019 Other reaction(s): Throat Swelling, Throat Swelling Propofol Rash 01/21/2017 Quetiapine Dystonia,Other (Please comment) Low 10/12/2016 Metoclopramide Hcl 01/19/2017 documented as of this encounter (statuses as of 01/24/2024) Medications Vitamin B-12 1000 MCG Oral Tablet [...] as of this encounter (statuses as of 01/24/2024) Active Problems Problem Noted Date Diagnosed Date [...] as of this encounter (statuses as of 01/24/2024) Resolved Problems Problem Noted Date Diagnosed Date Resolved Date COVID-19 05/26/2020 09/02/2023 Stimulant use disorder 10/04/201909/01 Overview (05/20/2020): Hx crushing and snorting ritalin and other stimulants. Acute blood loss anemia 06/24/2019 04/0 10/2020 Overview (12/04/2019): Last Assessment & Plan: Recent hospitalization at [place] for melenic stools and coffee ground vomitus Reported having taken 8970-1374 mg of ibuprofen per day for 5 [...] (12/04/2019): Added automatically from request for surgery [id number] Last Assessment & Plan: Recurrent issue; reports small amount hematemesis and BRBPR when wiping. Similar episode when diagnosed with NSAID-induced duodenitis Denies history of esophageal varices Was hospitalized at [facility] for GI bleed; no EGD done [...] Billroth-I noted. Pt had another EGD at [facility] on 12/2018 CTA showed was negative for [...] as of this encounter (statuses as of 01/24/2024) Immunizations Name Administration Dates Next Due Seasonal [...] Advance Directives occurred with: Patient Care Teams Testing Shaking Shipping Relationship Specialty Start Date End Date Kenny Gonzales MD [address] [place] [address] PCP - General Family Medicine 09/04/23 documented as of this encounter
--- OUTSIDE RECORDS SUMMARY | 2024-02-28 02:39 | External Medical Summary ---
Author Name Unknown Address Unknown Organization [facility] [employer] [facility] [address] [place] [address] [place] [address] Laboratory Report Ordering Provider Test Date Status NickYesseniasima 02/04/2024 18:24:00 Final Observation Date Value Abnormality Reference (Units ) Status Valproate [Mass/volume] in Serum or Plasma 02/04/2024 19:02:24 5 Below low normal 50-120 (ug/mL) Final Performing Location [facility] [employer] Knife Operator ry [address] [place] [address]
--- OUTSIDE RECORDS SUMMARY | 2024-02-28 02:39 | External Medical Summary ---
Author Name Unknown Address Unknown Organization [facility] [employer] [facility] [employer] [facility] [address] [place] [address] Laboratory Report Ordering Provider Test Date Status NickYesseniasima 02/04/2024 18:24:00 Final Observation Date Value Abnormality Reference (Units ) Status Magnesium [Mass/volume] in Serum or Plasma 02/04/2024 19:02:24 2.1 1.6-2.6 (mg/dL) Final Performing Location [facility] [employer] Surgical Resident ry [address] [place] [address]
--- OUTSIDE RECORDS SUMMARY | 2024-02-28 02:39 | External Medical Summary | Summary of Care ---
Author Name Unknown Organization [facility] Address [address] [place] [address] Phone [phone] Care Team Providers Care Dryer Operator Name Role Phone Kenny Gonzales MD Primary Care Provider +1 [phone] Encounter Details Date Type Department Care Team (Late st Contact Info) Description 11/14/2023 Population Health External Data Unspecified Department Allergies Active Allergy Reactions Criticality Noted Date Comments Prochlorperazine Edisylate 7 Famotidine Dystonia 01/22/2019 Haloperidol 01/19/2017 Hydroxyzine Medium 06/30/2019 Other reaction(s): Throat Swelling, Throat Swelling Propofol Rash 01/21/2017 Quetiapine Dystonia,Other (Please comment) Low 10/12/2016 Metoclopramide Hcl 01/19/2017 documented as of this encounter (statuses as of 11/14/2023) Medications Medication Sig Dispensed Refills Start Date [...] as of this encounter (statuses as of 11/14/2023) Active Problems Problem Noted Date Diagnosed Date [...] as of this encounter (statuses as of 11/14/2023) Resolved Problems Problem Noted Date Diagnosed Date Resolved Date COVID-19 05/26/2020 09/02/2023 Stimulant use disorder 10/04/201909/01 Overview: Hx crushing and snorting ritalin and other stimulants. Acute blood loss anemia 06/24/2019 04/0 10/2020 Overview: Last Assessment & Plan: Recent hospitalization at [place] for melenic stools and coffee ground vomitus Reported having taken 1143-6340 mg of ibuprofen per day for 5 [...] Overview: Added automatically from request for surgery [id number] Last Assessment & Plan: Recurrent issue; reports [...] Billroth-I noted. Pt had another EGD at [facility] on 12/2018 CTA showed was negative for [...] as of this encounter (statuses as of 11/14/2023) Immunizations Name Administration Dates Next Due Seasonal [...] Advance Directives occurred with: Patient Care Teams Dryer Operator Relationship Specialty Start Date End Date Kenny Gonzales MD [address] [facility] [place] [address] PCP - General Family Medicine 09/04/23 documented as of this encounter
--- OUTSIDE RECORDS SUMMARY | 2024-02-28 02:39 | External Medical Summary ---
Author Name Unknown Address Unknown Organization [facility] [address] [place] [address] Laboratory Report Ordering Provider Test Date Status Elly Romero 02/04/2024 18:24:00 Final Observation Date Value Abnormality Reference (Units ) Status Neutrophils/100 leukocytes in Blood by Automated count 02/04/2024 18:30:25 66.2 (%) Final Lymphocytes/100 leukocytes in Blood by Automated count 02/04/2024 18:30:25 22.4 (%) Final Monocytes/100 leukocytes in Blood by Automated count 02/04/2024 18:30:25 7.9 (%) Final Eosinophils/100 leukocytes in Blood by Automated count 02/04/2024 18:30:25 2.5 (%) Final Basophils/100 leukocytes in Blood by Automated count 02/04/2024 18:30:25 0.8 (%) Final Immature granulocytes/100 leukocytes in Blood 02/04/2024 18:30:25 0.2 (%) Final Neutrophils [#/volume] in Blood by Automated count 02/04/2024 18:30:25 3.44 2.00-7.70 (K/uL) Final Lymphocytes [#/volume] in Blood by Automated count 02/04/2024 18:30:25 1.16 1.00-3.40 (K/uL) Final Monocytes [#/volume] in Blood by Automated count 02/04/2024 18:30:25 0.41 0.00-1.00 (K/uL) Final Eosinophils [#/volume] in Blood by Automated count 02/04/2024 18:30:25 0.13 0.00-0.50 (K/uL) Final Basophils [#/volume] in Blood by Automated count 02/04/2024 18:30:25 0.04 0.00-0.10 (K/uL) Final Immature granulocytes [#/volume] in Blood by Automated count 02/04/2024 18:30:25 0.01 0.00-0.40 (K/uL) Final Performing Location [facility] [address] [address]
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
[2024-02-28] MEDS: diphenhydrAMINE 50 MG/ML VIAL IV STA ×2 (04:04→09:05)
[2024-02-28 04:06] LABS: Basophils # (auto) 0.03 K/uL (0.00-0.20); Basophils % (auto) 0.8 %; Eosinophils # (auto) 0.16 K/uL (0.00-0.50); Hematocrit (blood only) 26.4 % (42.0-52.0); Hemoglobin 7.7 g/dl (14.0-18.0); Immature Granulocytes # (auto) 0.02 K/uL (0.01-0.20); Immature Granulocytes % (auto) 0.5 %; Lymphocytes # (auto) 1.59 K/uL (1.20-3.40); Lymphocytes % (auto) 40.1 %; Mean Corpuscular Hemoglobin 25.2 pg (25.0-34.0); Mean Corpuscular Hgb Conc 29.2 g/dL (32.0-36.0); Mean Corpuscular Volume 86.6 fL (80.0-100.0); Mean Platelet Volume 9.1 fL (9.4-12.4); Monocytes # (auto) 0.46 K/uL (0.11-0.59); Monocytes % (auto) 11.6 %; Neutrophils # (auto) 1.71 K/uL (1.40-6.50); Platelet Count 215 K/uL (130-400); Red Blood Count 3.05 M/uL (4.70-6.10); White Blood Count 3.97 K/ul (4.8-10.8)
[2024-02-28] MEDS: ONDANSETRON INJ 2 MG/ML 2 ML VIAL IV STA (04:10)
[2024-02-28 04:14] LABS: Albumin Globulin Ratio 1.7 (0.9-2); BUN Creatinine Ratio 31.8 (10-20); Bilirubin,Total 0.2 mg/dl (0.2-1.0); Calcium 8.5 mg/dl (8.6-10.3); Creatinine Clr Calc Pharmacy 90.8 ml/min; Globulin 2.4 gm/dl (2.5-4.0); Potassium 3.6 mmol/L (3.5-5.1); Total Protein 6.4 gm/dl (6.0-8.3)
[2024-02-28] MEDS: LORazepam 2 MG/1 ML VIAL IV STA (04:20)
[2024-02-28] MEDS: SODIUM CHLORIDE 0.9% 500 ML IV ONE (04:22)
[2024-02-28] MEDS: PANTOprazole 80 MG in DEXTROSE 5% 100 ML IV ONE (04:22)
[2024-02-28] MEDS: OCTREOTIDE ACETATE 100 MCG in SYRINGE 9 ML IV STA (04:22)
[2024-02-28 04:23] LABS: Appearance Urine Clear (Clear); Bilirubin Urine Negative (Negative); Blood Urine Negative (Negative); Color Urine Yellow; Glucose Urine UA Negative (Negative); Ketones Urine Negative (Negative); Leukocyte Esterase Urine Negative (Negative); Nitrite Urine Negative (Negative); Protein Urine Negative (Negative); Urobilinogen Urine Negative (Negative); pH Urine 5.5 (4.5-7.5)
[2024-02-28 04:24] LABS: INR 0.9 (0.9-1.1); Partial Thromboplastin Time 26 Seconds (21-31); Prothrombin Time 10.3 Seconds (9.0-12.0)
[2024-02-28] MEDS: STAT IV/IM STA (04:26)
[2024-02-28] MEDS: PANTOPRAZOLE BOLUS/DRIP IV STA (04:27)
[2024-02-28 04:29] LABS: Acetaminophen < 3 ug/ml (10-30); Salicylate < 3.0 mg/dl (3.0-30); Valproic Acid < 10 mcg/ml (50-100)
[2024-02-28 04:33] LABS: Hypochromasia Present
[2024-02-28] MEDS: PANTOprazole 40 MG in DEXTROSE 5% MINI-B 100 ML IV SCH (04:46)
[2024-02-28 05:30] LABS: Amphetamines+Metham, Urine Neg (Neg); Barbiturates, Urine Neg (Neg); Benzodiazepine, Urine Neg (Neg); Cocaine, Urine Neg (Neg); Fentanyl, Urine Neg (Neg); MDMA (Ecstacy), Urine Neg (Neg); Marijuana, Urine Neg (Neg); Methadone, Urine Neg (Neg); Opiate, Urine Neg (Neg); Phencyclidine, Urine Neg (Neg)
[2024-02-28] MEDS: HYDROmorphone INJ 0.5 MG/0.5 ML SYR IV STA (07:04)
[2024-02-28] MEDS: THIAMINE HCL 100 MG in SYRINGE 9 ML IV STA (07:12)
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
[2024-02-28] MEDS ORDERED: ONDANSETRON INJ 2 MG/ML 2 ML VIAL IV PRN (08:45)
[2024-02-28] MEDS ORDERED: SODIUM CHLORIDE 0.9% 1,000 ML IV SCH (08:45)
[2024-02-28] MEDS ORDERED: PANTOprazole 40 MG in DEXTROSE 5% MINI-B 100 ML IV SCH (08:45)
[2024-02-28] MEDS ORDERED: STAT IV/IM STA (08:45)
[2024-02-28] MEDS ORDERED: Ativan IV Alcohol Withdrawal--Active Protocol IV PRN (08:45)
[2024-02-28] MEDS ORDERED: NITROGLYCERIN SL 0.4 MG/TAB TAB SL PRN (08:45)
[2024-02-28] MEDS ORDERED: LORazepam 2 MG/1 ML VIAL IV PRN ×3 (08:45→09:34)
[2024-02-28] MEDS ORDERED: DIVALPROEX EXTENDED RELEASE 250 MG TABCR PO SCH (09:00)
[2024-02-28 09:07] VITALS: BP 119/72; PULSE 87; RESP 16; TEMP 98.2; O2SAT 98
--- OUTSIDE RECORDS SUMMARY | 2024-02-28 09:26 | External Medical Summary | Summary of Care ---
Author Name Unknown Organization [facility] Address [address] [place] [address] Phone [phone] Care Team Providers Care Cash Posting Clerk Name Role Phone Unavailable Primary Care Provider Unavailabl e Encounter Details Date Type Department Care Team (Late st Contact Info) Description 02/28/2024 Population Health External Data Unspecified Department Allergies Active Allergy Reactions Criticality Noted Date Comments Prochlorperazine Edisylate 7 Famotidine Dystonia 01/22/2019 Haloperidol 01/19/2017 Hydroxyzine Medium 06/30/2019 Other reaction(s): Throat Swelling, Throat Swelling Propofol Rash 01/21/2017 Quetiapine Dystonia,Other (Please comment) Low 10/12/2016 Metoclopramide Hcl 01/19/2017 documented as of this encounter (statuses as of 02/28/2024) Medications Vitamin B-12 1000 MCG Oral Tablet [...] as of this encounter (statuses as of 02/28/2024) Active Problems Problem Noted Date Diagnosed Date [...] as of this encounter (statuses as of 02/28/2024) Resolved Problems Problem Noted Date Diagnosed Date Resolved Date COVID-19 05/26/2020 09/02/2023 Stimulant use disorder 10/04/201909/01 Overview (05/20/2020): Hx crushing and snorting ritalin and other stimulants. Acute blood loss anemia 06/24/2019 04/0 10/2020 Overview (12/04/2019): Last Assessment & Plan: Recent hospitalization at [place] for melenic stools and coffee ground vomitus Reported having taken [id number] mg of ibuprofen per day for 5 [...] (12/04/2019): Added automatically from request for surgery [id number] Last Assessment & Plan: Recurrent issue; reports small amount hematemesis and BRBPR when wiping. Similar episode when diagnosed with NSAID-induced duodenitis Denies history of esophageal varices Was hospitalized at [facility] for GI bleed; no EGD done [...] Billroth-I noted. Pt had another EGD at [facility] on 12/2018 CTA showed was negative for [...] as of this encounter (statuses as of 02/28/2024) Immunizations Name Administration Dates Next Due Seasonal [...] Pneumococcal Vaccine: 50+ Years Completed 01/16/2023, 12/29/2019 Influenza Vaccine (FLU shot) [...]
[2024-02-28 10:31] LABS: Calcium 8.4 mg/dl (8.6-10.3); Magnesium 1.9 mg/dl (1.7-2.4); Potassium 4.1 mmol/L (3.5-5.1)
[2024-02-28 10:33] LABS: Basophils # (auto) 0.03 K/uL (0.00-0.20); Basophils % (auto) 1.1 %; Eosinophils # (auto) 0.13 K/uL (0.00-0.50); Eosinophils % (auto) 4.9 %; Hematocrit (blood only) 25.6 % (42.0-52.0); Hemoglobin 7.8 g/dl (14.0-18.0); Immature Granulocytes # (auto) 0.01 K/uL (0.01-0.20); Immature Granulocytes % (auto) 0.4 %; Lymphocytes # (auto) 1.01 K/uL (1.20-3.40); Mean Corpuscular Hemoglobin 26.1 pg (25.0-34.0); Mean Corpuscular Hgb Conc 30.5 g/dL (32.0-36.0); Mean Corpuscular Volume 85.6 fL (80.0-100.0); Mean Platelet Volume 9.2 fL (9.4-12.4); Monocytes # (auto) 0.35 K/uL (0.11-0.59); Monocytes % (auto) 13.2 %; Neutrophils # (auto) 1.13 K/uL (1.40-6.50); Neutrophils % (auto) 42.4 %; Platelet Count 225 K/uL (130-400); RDW Coefficient of Variation 17.1 % (11.5-14.5); RDW Standard Deviation 51.8 fL (36.4-46.3); Red Blood Count 2.99 M/uL (4.70-6.10); White Blood Count 2.66 K/ul (4.8-10.8)
[2024-02-28 10:37] LABS: BUN Creatinine Ratio 29.9 (10-20); Creatinine Clr Calc Pharmacy 103.7 ml/min
[2024-02-28] MEDS: LORazepam 2 MG/1 ML VIAL IV PRN (10:37)
[2024-02-28] MEDS: cefTRIAXone SODIUM 2,000 MG/50 ML BAG IV SCH (10:38)
[2024-02-28] MEDS: FOLIC ACID 1 MG in SYRINGE 9.8 ML IV SCH (10:38)
[2024-02-28] MEDS: THIAMINE HCL 100 MG in SYRINGE 9 ML IV SCH (10:38)
[2024-02-28] MEDS: OCTREOTIDE ACETATE 500 MCG in SODIUM CHLORIDE 0.9% 100 ML IV SCH (10:39)
[2024-02-28] MEDS: ACETAMINOPHEN 325 MG TAB PO PRN (10:40)
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
[2024-02-28 10:56] LABS: Polychromasia 1+
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
--- NOTE | 2024-02-28 12:19 | Discharge Summary ---
Date of Service February 28, 2024 Admission HPI Per Admitting Provider 53-year-old male with past medical history significant for hepatitis C, GI bleed due to an NSAID, chronic arthralgias, history of Hodgkin's lymphoma, history of COVID, history of alcoholism, depression, methamphetamine use disorder, ADHD, drug-seeking behavior, history of DVT, history of peptic ulcer disease, history of cluster B personality disorder,History of oesophageal varices per records, history of seizures disorder, history of chronic anemia presents with GI bleed. Patient states since last night is having blood per rectum. Seems he also had some hematemesis. Complaining of abdominal pain and headache. Asking for pain medication. Has nausea. States abdominal pain coming to chest. Denies shortness of breath. Micturating okay. Afebrile. Hemodynamics are okay. Patient states he is drinking about 2 shots of alcohol daily. Says he smokes 1 pack daily. Says he also does once a week cocaine or methamphetamine. Patient has history of signing out AMA. Today also he was saying he may not stay but then agreed to stay and signed the blood consent. Says he tried to quit alcohol then he had a seizure and then started to drink again since last Saturday. Past medical history. As mentioned above Past surgical history. Billroth procedure. Bowel resection. Hip surgery. Lymphadenectomy. Left partial hip replacement. Social history. Seems drink alcohol. Smokes half pack daily. Family history. Mood disorder. Admission Exam Per Admitting Provider General- Not in distress Head- atraumatic Eyes- PERRL. ENT- oropharynx clear Neck- supple, no JVD. Lungs- clear to auscultation no wheezing or crackles Heart- regular rhythm; no murmur, no gallop. Abdomen- normal bowel sounds, soft, nontender, no distension Extremities- no pretibial edema, no erythema seen Neuro- alert, oriented PERRL, no facial palsy; no dysarthria; moves extremities Principal Diagnosis Possible GI bleed Discharge Data Allergies Allergy/AdvReac Type Severity Reaction Status Date / Time Iodinated Contrast Media Allergy Severe throat Verified 08/28/23 10:21 swelling haloperidol Allergy Unknown Hives Verified 08/28/23 10:21 metoclopramide Allergy Unknown Hives Verified 08/28/23 10:21 morphine Allergy Unknown Hives Verified 08/28/23 10:21 prochlorperazine Allergy Unknown Hives Verified 08/28/23 10:21 promethazine Allergy Unknown Hives Verified 08/28/23 10:21 Consultations 02/28/24 04:33 ED Decision to Admit Stat 02/28/24 07:36 Consult Gastroenterology Routine 02/28/24 08:50 Consult Neurology Routine Consult Psychiatry Routine Hospital Course (1) GI bleed: 53-year-old male with past medical history significant for hepatitis C, GI bleed due to an NSAID, chronic arthralgias, history of Hodgkin's lymphoma, history of COVID, history of alcoholism, depression, methamphetamine use disorder, ADHD, drug-seeking behavior, history of DVT, history of peptic ulcer disease, history of cluster B personality disorder,History of oesophageal varices per records, history of seizures disorder, history of chronic anemia presents with reported history of bright blood per rectum. Hemoglobin was found to be 7.7 on admission. GI was consulted for comanagement. Patient also has history of alcohol use disorder and had alcohol level of 153 on admission; was put on alcohol withdrawal protocol. Patient was admitted to medical floor; GI was consulted for comanagement. Neurology was also consulted for comanagement; as he reported history of seizure recently. Patient was evaluated by GI; he did not want to undergo any evaluation for GI bleed. Patient refused neurology evaluation. Patient also became agitated with nursing staff and IV team. I recommended him to stay in the hospital; undergo close monitoring, evaluation for possible GI bleed. I also encouraged him to be evaluated by neurology. He was alert oriented x 3; did not have any hallucination/delusion. He verbalized and understood my recommendations. He wanted to leave the hospital against my advice. Discussed with him that he is at high risks of multiorgan failure, and , injury to body parts/disability if he foregoes monitoring/ treatment in the hospital. He verbalized understanding but left the hospital AGAINST MEDICAL ADVICE. I encouraged him to follow-up with his PCP. Please note the above document was generated using voice recognition software. It may contain grammatical, syntax or spelling errors. Any formal questions or concerns about the content, text or information contained within the body of this dictation should be directly addressed to the provider for clarification Total Time Total Time Spent Total Time Spent (In Minutes): 60 Total Time Includes: Examination of the Patient, Discharge Planning, Medication Reconciliation, Communication With Other Providers and Other Discharge Plan Discharge Items Patient Disposition: Against Medical Advice Reason For Visit: GI BLEED, ANEMIA, ALCOHOLISM Follow-up/Referrals: PCP,NO [Primary Care Provider] - Stand-Alone Forms: My [facility] [employer], Smoking Cessation Medications and DC Order Prescriptions: No Action divalproex 500 mg tablet extended release 24 hr 750 mg PO DAILY Qty: 90 0RF Rx Instructions: last filled 08/28/23 60 day supply Discharge Orders: Left Against Medical Advice (Routine); Ordered 02/28/24 Ordered By: Jerel Yepez Admission Data Admit Date/Time: 02/28/24 06:51 Attending Provider: Usman Garcia Admit Provider: Usman Garcia Primary Care Provider: PCP,JIN Other Providers: Steven Aleman; Usman Garcia; Silvana Gomez; Emelia Sotomayor; Ean Whitley; Krupa Taylor; Alvina Nunez; Lamont Price Katrina; Xiao Mcfarland
--- NOTE | 2024-02-28 18:23 | Electrocardiogram Report ---
Test Reason : Blood Pressure : */* mmHG Vent. Rate : 88 BPM Atrial Rate : 88 BPM P-R Int : 166 ms QRS Dur : 102 ms QT Int : 384 ms P-R-T Axes : 35 34 56 degrees QTcB Int : 464 ms Normal sinus rhythm Normal ECG When compared with ECG of 30-Aug-2023 21:32, No significant change was found Confirmed by Jose J Nazario ([id number]) on 02/28/2024 6:22:54 PM Referred By: REFERRED SELF Confirmed By: Jose J Nazario
--- OUTSIDE RECORDS SUMMARY | 2024-03-10 23:48 | External Medical Summary ---
Author Name Unknown Address Unknown Organization [facility] [employer] Chemistry:[facility] [employer] [facility] [address] [place] [address] Laboratory Report Ordering Provider Test Date Status Aly Russ 03/07/2024 23:13:00 Final Observation Date Value Abnormality Reference (Units ) Status Glucose [Mass/volume] in Serum or Plasma 03/08/2024 00:01:44 85 74-109 (mg/dL) Final Urea nitrogen [Mass/volume] in Serum or Plasma 03/08/2024 00:01:44 36 Above high normal 6-23 (mg/dL) Final Creatinine [Mass/volume] in Serum or Plasma 03/08/2024 00:01:44 1.10 0.70-1.30 (mg/dL) Final GLOMERULAR FILTRATION RATE/1.73 SQ M.PREDICTED:ARVRAT:PT:SER /PLAS/BLD:QN:CREATININE AND CYSTATIN C-BASED FORMULA (CKD-EPI 2020) 03/08/2024 00:01:46 80 >=60 (mL/min/1.73 m2) Final Sodium [Moles/volume] in Serum or Plasma 03/08/2024 00:01:44 139 136-145 (mmol/L) Final Potassium [Moles/volume] in Serum or Plasma 03/08/2024 00:01:44 3.8 3.5-5.1 (mmol/L) Final Chloride [Moles/volume] in Serum or Plasma 03/08/2024 00:01:44 100 98-107 (mmol/L) Final Carbon dioxide, total [Moles/volume] in Serum or Plasma 03/08/2024 00:01:44 21 Below low normal 22-29 (mmol/L) Final Anion gap 3 in Serum or Plasma 03/08/2024 00:01:46 18 Above high normal 5-14 (mmol/L) Final Calcium [Mass/volume] in Serum or Plasma 03/08/2024 00:01:44 9.6 8.4-10.2 (mg/dL) Final Protein [Mass/volume] in Serum or Plasma 03/08/2024 00:01:44 8.1 6.4-8.3 (g/dL) Final Albumin [Mass/volume] in Serum or Plasma by Bromocresol green (BCG) dye binding method 03/08/2024 00:01:44 4.8 3.5-5.2 (g/dL) Final Bilirubin.total [Mass/volume] in Serum or Plasma 03/08/2024 00:01:44 0.5 0.0-1.2 (mg/dL) Final Aspartate aminotransferase [Enzymatic activity/volume] in Serum or Plasma 03/08/2024 00:01:44 43 Above high normal 0-40 (unit/L) Final Alanine aminotransferase [Enzymatic activity/volume] in Serum or Plasma 03/08/2024 00:01:44 20 0-41 (unit/L) Final Alkaline phosphatase [Enzymatic activity/volume] in Serum or Plasma 03/08/2024 00:01:44 144 Above high normal 40-130 (unit/L) Final Performing Location [facility] [employer] Accounting File Clerk ry [address] [address]
--- OUTSIDE RECORDS SUMMARY | 2024-03-10 23:48 | External Medical Summary ---
Author Name Unknown Address Unknown Organization [facility] [address] [place] [address] Laboratory Report Ordering Provider Test Date Status Aly Russ 03/07/2024 23:13:00 Final Observation Date Value Abnormality Reference (Units ) Status Neutrophils/100 leukocytes in Blood by Automated count 03/07/2024 23:26:18 60.6 (%) Final Lymphocytes/100 leukocytes in Blood by Automated count 03/07/2024 23:26:18 26.2 (%) Final Monocytes/100 leukocytes in Blood by Automated count 03/07/2024 23:26:18 9.9 (%) Final Eosinophils/100 leukocytes in Blood by Automated count 03/07/2024 23:26:18 1.8 (%) Final Basophils/100 leukocytes in Blood by Automated count 03/07/2024 23:26:18 1.3 (%) Final Immature granulocytes/100 leukocytes in Blood 03/07/2024 23:26:18 0.2 (%) Final Neutrophils [#/volume] in Blood by Automated count 03/07/2024 23:26:18 2.75 2.00-7.70 (K/uL) Final Lymphocytes [#/volume] in Blood by Automated count 03/07/2024 23:26:18 1.19 1.00-3.40 (K/uL) Final Monocytes [#/volume] in Blood by Automated count 03/07/2024 23:26:18 0.45 0.00-1.00 (K/uL) Final Eosinophils [#/volume] in Blood by Automated count 03/07/2024 23:26:18 0.08 0.00-0.50 (K/uL) Final Basophils [#/volume] in Blood by Automated count 03/07/2024 23:26:18 0.06 0.00-0.10 (K/uL) Final Immature granulocytes [#/volume] in Blood by Automated count 03/07/2024 23:26:18 0.01 0.00-0.40 (K/uL) Final Performing Location [facility] [address] [address]
--- OUTSIDE RECORDS SUMMARY | 2024-03-10 23:48 | External Medical Summary ---
Author Name Unknown Address Unknown Organization [facility] [employer] Chemistry:[facility] [employer] [facility] [address] [place] [address] Laboratory Report Ordering Provider Test Date Status Aly Russ 03/07/2024 23:17:00 Final Observation Date Value Abnormality Reference (Units) Status Amphetamine [Presence] in Urine by Screen method 03/07/2024 23:35:33 Presumptive Pos^Presumptive Pos Abnormal Not Detected Final Benzodiazepines [Presence] in Urine by Screen method 03/07/2024 23:35:33 Not Detected^Not Detected Not Detected Final Cannabinoids [Presence] in Urine by Screen method 03/07/2024 23:35:33 Not Detected^Not Detected Not Detected Final Benzoylecgonine [Presence] in Urine 03/07/2024 23:35:33 Presumptive Pos^Presumptive Pos Abnormal Not Detected Final HYDROcodone [Presence] in Urine by Screen method 03/07/2024 23:35:33 Not Detected^Not Detected Not Detected Final Drug Level
Amphetamines 500 ng/mL
Benzodiazepines 100 ng/mL
Cannabinoids 50 ng/mL
Cocain Metabolite 150 ng/mL
Hydrocodone 100 ng/mL
Methadone Metabolite 100 ng/mL
Morphine/ Codeine 300 ng/mL
Oxycodone 100 ng/mL

The above screening results are presumptive and can only be used for medical purposes. Confirmatory testing is available upon request.
Intended for medical treatment only. U Fentanyl Scr 03/07/2024 23:35:33 Not Detected^Not Detected Final Fentanyl Assay Cutoff >=5 ng /mL
The above screening results are presumptive and can only be used for medical purposes. Confirmatory testing is available upon request. Intended for medical treatment only. Methadone [Presence] in Urine 03/07/2024 23:35:33 Not Detected^Not Detected Not Detected Final Opiates [Presence] in Urine by Screen method 03/07/2024 23:35:33 Not Detected^Not Detected Not Detected Final oxyCODONE [Presence] in Urine 03/07/2024 23:35:33 Not Detected^Not Detected Not Detected Final Performing Location [facility] [employer] General Manager ry [address] [place] [address]
--- OUTSIDE RECORDS SUMMARY | 2024-03-10 23:48 | External Medical Summary ---
Author Name Unknown Address Unknown Organization [facility] [employer] [facility] [employer] [facility] [address] [place] [address] Laboratory Report Ordering Provider Test Date Status Aly Russ 03/07/2024 23:13:00 Final Observation Date Value Abnormality Reference (Units ) Status Leukocytes [#/volume] in Blood by Automated count 03/07/2024 23:26:18 4.54 4.00-10.40 (K/uL) Final Erythrocytes [#/volume] in Blood by Automated count 03/07/2024 23:26:18 3.54 Below low normal 4.40-5.60 (M/uL) Final Hemoglobin [Mass/volume] in Blood 03/07/2024 23:26:18 9.5 Below low normal 13.0-17.0 (g/dL) Final Hematocrit [Volume Fraction] of Blood by Automated count 03/07/2024 23:26:18 31.0 Below low normal 35.0-44.0 (%) Final MCV [Entitic volume] by Automated count 03/07/2024 23:26:18 87.6 81.0-96.0 (fL) Final MCH [Entitic mass] by Automated count 03/07/2024 23:26:18 26.8 Below low normal 28.0-33.0 (pg) Final MCHC [Mass/volume] by Automated count 03/07/2024 23:26:18 30.6 Below low normal 32.0-36.0 (g/dL) Final Erythrocyte distribution width [Ratio] by Automated count 03/07/2024 23:26:18 18.4 Above high normal 11.5-14.2 (%) Final Erythrocyte distribution width [Entitic volume] by Automated count 03/07/2024 23:26:18 57 Final Platelets [#/volume] in Blood by Automated count 03/07/2024 23:26:18 354 Above high normal 150-350 (K/uL) Final Platelet mean volume [Entitic volume] in Blood by Automated count 03/07/2024 23:26:18 8.7 Below low normal 9.0-12.2 (fL) Final Nucleated erythrocytes/100 cells in Bone marrow by Manual count 03/07/2024 23:26:18 0 (/100 WBCs) Final Nucleated erythrocytes [#/volume] in Blood by Manual count 03/07/2024 23:26:18 0.00 (K/uL) Final Performing Location [facility] [employer] [facility] [address] [address]
--- OUTSIDE RECORDS SUMMARY | 2024-03-10 23:48 | External Medical Summary ---
Author Name Unknown Address Unknown Organization [facility] [employer] [facility] [employer] [facility] [address] [place] [address] Laboratory Report Ordering Provider Test Date Status Aly Russ 03/07/2024 23:13:00 Final Observation Date Value Abnormality Reference (Units ) Status Salicylates [Mass/volume] in Serum or Plasma 03/08/2024 03:39:56 <1.0 <=19.9 (mg/dL) Final Performing Location [facility] [employer] Weasand Trimmer ry [address] [place] [address]
--- OUTSIDE RECORDS SUMMARY | 2024-03-10 23:48 | External Medical Summary ---
Author Name Unknown Address Unknown Organization [facility] [employer] Chemistry:[facility] [employer] [facility] [address] [place] [address] Laboratory Report Ordering Provider Test Date Status Aly Russ 03/07/2024 23:13:00 Final Observation Date Value Abnormality Reference (Units ) Status Thyrotropin [Units/volume] in Serum or Plasma 03/08/2024 00:01:44 2.22 0.30-4.20 (uIU/mL) Final Performing Location [facility] [employer] Neon Sign Servicer ry [address] [place] [address]
--- OUTSIDE RECORDS SUMMARY | 2024-03-10 23:48 | External Medical Summary ---
Author Name Unknown Address Unknown Organization [facility] [employer] [facility] [address] [place] [address] Laboratory Report Ordering Provider Test Date Status Aly Russ 03/07/2024 23:13:00 Final Observation Date Value Abnormality Reference (Units ) Status Ethanol [Mass/volume] in Serum or Plasma 03/08/2024 00:01:44 <10.0 <=10.1 (mg/dL) Final Performing Location [facility] [employer] Youth Worker ry [address] [place] [address]
--- OUTSIDE RECORDS SUMMARY | 2024-03-10 23:48 | External Medical Summary ---
Author Name Unknown Address Unknown Organization [facility] [employer] Chemistry:[facility] [employer] [facility] [address] [place] [address] Laboratory Report Ordering Provider Test Date Status Aly Russ 03/07/2024 23:13:00 Final Observation Date Value Abnormality Reference (Units ) Status Acetaminophen [Mass/volume] in Serum or Plasma 03/08/2024 03:39:56 <5.0 Below low normal 10.0-30.0 (ug/mL) Final Performing Location [facility] [employer] Toddler Guide ry [address] [place] [address]
--- OUTSIDE RECORDS SUMMARY | 2024-03-10 23:48 | External Medical Summary ---
Author Name Unknown Address Unknown Organization [facility] [employer] [email or web address] [employer] [address] [place] [address] Laboratory Report Ordering Provider Test Date Status Aly Russ 03/07/2024 22:25:00 Final Observation Date Value Abnormality Reference (Units ) Status Specimen source identified 03/07/2024 23:14:04 Nasopharyngeal^N asopharyngeal Final Whether this is the patient's first test for condition of interest 03/07/2024 23:14:04 Not Given^Not Given Final Whether the patient has symptoms related to condition of interest 03/07/2024 23:14:04 Yes^Yes Final Whether patient is employed in a healthcare setting 03/07/2024 23:14:04 No^No Final Whether patient resides in a congregate care setting 03/07/2024 23:14:04 Not Given^Not Given Final Whether the patient was hospitalized for condition of interest 03/07/2024 23:14:04 Not Given^Not Given Final Whether the patient was admitted to intensive care unit (ICU) for condition of interest 03/07/2024 23:14:04 No^No Final Are you currently [PhenX] 03/07/2024 23:14:04 Not Given^Not Given Final Race 03/07/2024 23:14:04 Not Given^Not Given Final Race or ethnicity 03/07/2024 23:14:04 Not Given^Not Given Final SARS-CoV-2 (COVID-19) RNA [Presence] in Nasopharynx by MILADY with probe detection 03/07/2024 23:14:04 Not Detected^Not Detected Not Detected Final This assay has been granted an Emergency Use Authorization (EUA) by the U.S. Food and drug Administration. The performance of the assay ([employer]) has been verified by the [facility] laboratory. Reported to [place] Department of Health Influenza virus A RNA [Presence] in Upper respiratory specimen by MILADY with probe detection 03/07/2024 23:14:04 Negative^Negative Negative Final No Influenza A Detected. A n egative result does not rule out the possibility of influenza infection as the sensitivity of this test is approximately 98%. Patients being admitted to [facility] should have the RVP assay ordered. Haemophilus influenzae B DNA [Presence] in Specimen by MILADY with probe detection 03/07/2024 23:14:04 Negative^Negative Negative Final Respiratory syncytial virus RNA [Presence] in Respiratory specimen by MILADY with probe detection 03/07/2024 23:14:04 Negative^Negative Negative Fin al Performing Location [facility] [employer] [address] [place] [address]
== END 2024-02-28 12:05 | disposition left against medical advice (07) | DRG 378 ==
LOC: ED 02:35 → 2S 06:51 → INTOOBSV 06:51 → OBSVTOIN 06:51 → 2S 08:10

== ENCOUNTER 2024-02-28 17:45 | Inpatient (IN) ==
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
[2024-02-28] MEDS: OCTREOTIDE ACETATE 50 MCG in SYRINGE 9.5 ML IV STA (19:13)
[2024-02-28] MEDS: diphenhydrAMINE 50 MG/ML VIAL IV STA (19:13)
[2024-02-28] MEDS: OCTREOTIDE ACETATE 500 MCG in SODIUM CHLORIDE 0.9% 100 ML IV SCH (19:13)
[2024-02-28 19:20] LABS: Basophils # (auto) 0.03 K/uL (0.00-0.20); Basophils % (auto) 0.5 %; Eosinophils # (auto) 0.15 K/uL (0.00-0.50); Eosinophils % (auto) 2.6 %; Hematocrit (blood only) 25.5 % (42.0-52.0); Hemoglobin 7.9 g/dl (14.0-18.0); Immature Granulocytes # (auto) 0.03 K/uL (0.01-0.20); Immature Granulocytes % (auto) 0.5 %; Lymphocytes # (auto) 1.73 K/uL (1.20-3.40); Lymphocytes % (auto) 30.1 %; Mean Corpuscular Hemoglobin 26.4 pg (25.0-34.0); Mean Corpuscular Volume 85.3 fL (80.0-100.0); Mean Platelet Volume 8.8 fL (9.4-12.4); Monocytes # (auto) 0.61 K/uL (0.11-0.59); Monocytes % (auto) 10.6 %; Neutrophils % (auto) 55.7 %; Platelet Count 209 K/uL (130-400); Red Blood Count 2.99 M/uL (4.70-6.10); White Blood Count 5.75 K/ul (4.8-10.8)
[2024-02-28] MEDS: fentaNYL citrate PF 100 MCG/2 ML VIAL IV STA (19:22)
[2024-02-28] MEDS: PANTOprazole 80 MG in DEXTROSE 5% 100 ML IV ONE (19:36)
[2024-02-28 19:39] LABS: Albumin Globulin Ratio 1.7 (0.9-2); Albumin Level 4.2 gm/dl (3.4-5.0); BUN Creatinine Ratio 34.7 (10-20); Bilirubin,Total 0.2 mg/dl (0.2-1.0); Calcium 8.7 mg/dl (8.6-10.3); Creatinine Clr Calc Pharmacy 107.8 ml/min; Globulin 2.5 gm/dl (2.5-4.0); Magnesium 2.1 mg/dl (1.7-2.4); Total Protein 6.7 gm/dl (6.0-8.3)
[2024-02-28 19:44] LABS: Troponin I High Sensitivity 3.1 pg/ml (0-20)
[2024-02-28] MEDS: PANTOPRAZOLE BOLUS/DRIP IV STA (19:48)
[2024-02-28 19:54] LABS: RBC Morphology Unremarkable
[2024-02-28 19:56] LABS: INR 0.9 (0.9-1.1); Partial Thromboplastin Time 26 Seconds (21-31); Prothrombin Time 9.8 Seconds (9.0-12.0)
[2024-02-28] MEDS: MoRPHine SULFATE 4 MG/ML 1 ML CARP\\VIAL IV STA (19:58)
[2024-02-28] MEDS: PANTOprazole 40 MG in DEXTROSE 5% MINI-B 100 ML IV SCH (19:59)
[2024-02-28] MEDS ORDERED: METHYLPHENIDATE HCL 10 MG TABLET PO STA (21:25)
[2024-02-28] MEDS: MIRTAZAPINE TAB 15 MG TAB PO ONE (21:45)
[2024-02-28] MEDS: LORazepam 1 MG/1 ML SYR ED Inj Use IV STA (21:45)
[2024-02-28] MEDS: VENLAFAXINE HCL XR 150 MG CAPXR PO STA (21:45)
[2024-02-28] MEDS ORDERED: HYDROmorphone INJ 0.5 MG/0.5 ML SYR IV PRN (23:21)
[2024-02-28] MEDS ORDERED: NITROGLYCERIN SL 0.4 MG/TAB TAB SL PRN (23:21)
[2024-02-28] MEDS ORDERED: LORazepam 2 MG/1 ML VIAL IV PRN ×2 (23:21)
[2024-02-28] MEDS ORDERED: Ativan IV Alcohol Withdrawal--Active Protocol IV PRN (23:21)
[2024-02-28] MEDS: STAT IV/IM STA (23:39)
[2024-02-28] MEDS: SODIUM CHLORIDE 0.9% 1,000 ML IV SCH (23:53)
[2024-02-29] MEDS: METHYLPHENIDATE HCL 10 MG TABLET PO ONE (00:36)
[2024-02-29] MEDS: HYDROmorphone INJ 0.5 MG/0.5 ML SYR IV PRN (00:36)
[2024-02-29] MEDS: LORazepam 2 MG/1 ML VIAL IV PRN ×2 (03:17→19:58)
[2024-02-29] MEDS: ONDANSETRON INJ 2 MG/ML 2 ML VIAL IV PRN (04:01)
[2024-02-29] MEDS: MoRPHine SULFATE 4 MG/ML 1 ML CARP\\VIAL IV PRN (05:54)
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
[2024-02-29 08:18] LABS: Basophils # (auto) 0.04 K/uL (0.00-0.20); Basophils % (auto) 0.8 %; Eosinophils # (auto) 0.17 K/uL (0.00-0.50); Eosinophils % (auto) 3.3 %; Hematocrit (blood only) 27.2 % (42.0-52.0); Hemoglobin 8.2 g/dl (14.0-18.0); Immature Granulocytes # (auto) 0.01 K/uL (0.01-0.20); Immature Granulocytes % (auto) 0.2 %; Lymphocytes # (auto) 1.05 K/uL (1.20-3.40); Lymphocytes % (auto) 20.6 %; Mean Corpuscular Hemoglobin 25.7 pg (25.0-34.0); Mean Corpuscular Hgb Conc 30.1 g/dL (32.0-36.0); Mean Corpuscular Volume 85.3 fL (80.0-100.0); Mean Platelet Volume 8.7 fL (9.4-12.4); Monocytes # (auto) 0.34 K/uL (0.11-0.59); Monocytes % (auto) 6.7 %; Neutrophils # (auto) 3.49 K/uL (1.40-6.50); Neutrophils % (auto) 68.4 %; Platelet Count 218 K/uL (130-400); RDW Coefficient of Variation 17.2 % (11.5-14.5); RDW Standard Deviation 50.8 fL (36.4-46.3); Red Blood Count 3.19 M/uL (4.70-6.10)
[2024-02-29 08:37] LABS: BUN Creatinine Ratio 34.6 (10-20); Calcium 8.6 mg/dl (8.6-10.3); Creatinine Clr Calc Pharmacy 96.2 ml/min; Magnesium 2.1 mg/dl (1.7-2.4)
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
[2024-02-29 11:07] LABS: Hematocrit (blood only) 28.5 % (42.0-52.0); Hemoglobin 8.5 g/dl (14.0-18.0)
[2024-02-29] MEDS: MULTIVITAMIN TAB PO SCH (11:31)
[2024-02-29] MEDS: FOLIC ACID 1 MG in SYRINGE 9.8 ML IV SCH (11:31)
[2024-02-29] MEDS: THIAMINE HCL 100 MG in SYRINGE 9 ML IV SCH (11:31)
--- NOTE | 2024-02-29 13:37 | Gastroenterology Progress Note ---
Date of Service February 29, 2024 Assessment & Plan (1) GI bleed: Plan See recent GI consultation from yesterday by Christopher Ding, patient signed out AMA though returned fairly promptly. Those notes are unchanged. Patient agreeable to EGD to evaluate source of bleeding. Facilitate diagnosis intervention and discharge. Admission and Anticipated Discharge Date Admission Date: February 28, 2024 Subjective Hematemesis Review of Systems Review of Systems: Notes mid epigastric discomfort Physical Exam Physical Exam: Tender epigastric area. However abdomen benign. Results & Data Results & Data Vital Signs (Past 12 Hours) Vital Signs Temp Pulse Resp BP Pulse Ox O2 Del Method 02/29/24 11:34 36.6 C 78 18 142/85 H 94 Room Air 02/29/24 08:06 36.6 C 77 18 135/73 95 Room Air 02/29/24 03:05 100 H 18 149/83 H 98 Room Air Laboratory Results Hemoglobin 8.5 which is up from recent visit. BUN elevated to creatinine level. Could be consistent with upper GI bleeding PG Care Time/CCT Total # of Minutes Spent Total Time Spent with Patient: Total time spent is greater than 50% in coordination of care (as documented) at patient's floor/unit and/or counseling patient: Coding Level of Care Code 09151 SUB INP/OBS CARE 03/07MIN Diagnoses GI bleed K92.2 GI bleed type/associated pathology: unspecified gastrointestinal hemorrhage type (1) GI bleed GI bleed type/associated pathology: unspecified gastrointestinal hemorrhage type Qualified Code(s): K92.2 - Gastrointestinal hemorrhage, unspecified
--- NOTE | 2024-02-29 13:59 | Hospitalist Progress Note ---
Date of Service February 29, 2024 Assessment & Plan (1) GI bleed: (2) 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 He has been hospitalized multiple times with complaints of bright red blood per rectum and hematemesis. He has history of being verbally aggressive towards the medical staff; has left AMA multiple times in the past. He was hospitalized on 02/27 for evaluation of bright red blood per rectum; left AMA and came back on the same day. Hemoglobin stable since discharge around 7-8. He reports that he does not want transfusions. He is again admitted to the hospital for concern of hematemesis as per his history. He has refused Protonix drip, octreotide. I discussed the importance of compliance with medical treatment. I discussed the result of foregoing treatment could result in excessive bleeding, multiorgan failure, hemorrhagic shock and . He is alert oriented x 3; understands complications and risks but continues to refuse medications. His alcohol level on admission was 145 Mg per DL; he does not have any withdrawal symptoms. He frequently asked for iv Benadryl for no particular reason. He also asks for opioids multiple times for no particular reason; he doesn't appear to be in any pain or discomfort. He is evaluated by GI; plan for EGD today. patient has refused protonix drip, ocreotide drips despite multiple attempts. he also doesn't want transfusion. Evaluated by neurology; Depakote increased to 100 mg once a day Evaluated by psychiatry; no safety concerns, patient denies suicidal ideation. Recommend to continue Effexor XR for 150 mg once a day, mirtazapine 15 mg at bedtime. Admission and Anticipated Discharge Date Admission Date: February 28, 2024 Subjective Patient was seen at bedside. He he was sleeping but awake able by voice. He did not answer my questions and went back to sleep. He started shouting aggressively and asked me to leave the room. Review of Systems Review of Systems: Other Not available to be obtained due to patient's aggressive nature Physical Exam Physical Exam: Patient did not allow physical examination. Results & Data Results & Data Vital Signs (Past 12 Hours) Vital Signs Temp Pulse Resp BP Pulse Ox O2 Del Method 02/29/24 11:34 36.6 C 78 18 142/85 H 94 Room Air 02/29/24 08:06 36.6 C 77 18 135/73 95 Room Air 02/29/24 03:05 100 H 18 149/83 H 98 Room Air (1) GI bleed GI bleed type/associated pathology: unspecified gastrointestinal hemorrhage type Qualified Code(s): K92.2 - Gastrointestinal hemorrhage, unspecified
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
[2024-02-29] MEDS: DIVALPROEX EXTENDED RELEASE 500 MG TAB PO SCH (17:03)
[2024-02-29] MEDS: DIVALPROEX EXTENDED RELEASE 250 MG TABCR PO SCH (19:41)
[2024-02-29] MEDS: MIRTAZAPINE TAB 15 MG TAB PO SCH (21:55)
--- NOTE | 2024-03-01 06:14 | Communication Note ---
Date of Service: March 01, 2024 notified by OR patient refusing NPO and care, case cancelled
[2024-03-01] MEDS ORDERED: LIDOCAINE 2% 2 ML VIAL/AMP(20MG/ML) INFIL ONE (06:56)
[2024-03-01] MEDS ORDERED: PROPOFOL IV EMULSION 10 MG/ML 20 ML VIAL IV ONE (06:56)
[2024-03-01] MEDS ORDERED: MIDAZOLAM HCL 1 MG/ML 2ML VIAL ONE (06:56)
[2024-03-01] MEDS ORDERED: fentaNYL citrate PF 100 MCG/2 ML VIAL ONE (06:56)
[2024-03-01] MEDS ORDERED: ONDANSETRON INJ 2 MG/ML 2 ML VIAL ONE (06:57)
[2024-03-01] MEDS ORDERED: KETAMINE HCL 10MG/ML SYR ONE (06:57)
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
[2024-03-01] MEDS ORDERED: SUCCINYLCHOLINE 100MG/5ML SYR IV ONE (07:40)
[2024-03-01] MEDS ORDERED: ATROPINE SULFATE 0.1 MG/ML 10ML SYR IV PRN (07:44)
[2024-03-01] MEDS ORDERED: fentaNYL citrate PF 100 MCG/2 ML VIAL IV PRN (07:44)
[2024-03-01] MEDS ORDERED: LARYING-O-JET KIT (LTA) ONE (07:56)
[2024-03-01] MEDS ORDERED: diphenhydrAMINE 50 MG/ML VIAL ONE (07:58)
--- NOTE | 2024-03-01 08:17 | Communication Note ---
Date of Service: March 01, 2024 EGD note Normal esophagus no varices Bile in the stomach. Patient appears to be a previous surgery pyloroplasty. Bile in the stomach common in this situation. No ulcerations no bleeding source. Duodenum normal. Preprocedure patient states it is more red blood or maroon stool in contrast to his presentation of hematemesis and is epigastric discomfort on palpation. Reviewed previous testing shows that he has had iron deficiency dating back to last year with a very low serum ferritin. At that time his MCV was normal also. Hemoglobin at similar value. Will check a ferritin this time but certainly possible that he is iron deficient accounting for his persistently low hemoglobins in addition for potential ongoing blood loss. In preoperative holding prior to the procedure he did express interest in pursuing a colonoscopy, states " DR I think you are looking at the wrong end " Reviewed with him postop whether he wishes to pursue colonoscopy based on maroon stool history of iron deficiency. Will make it clear that the test is dependent on him being cooperative and taking prep as ordered. I think completing his workup in this admission is preferable to repeated ER visits and hospitalizations.
--- NOTE | 2024-03-01 09:26 | Anesthesiology Progress Note ---
Date of Service March 01, 2024 Anesthesia Post Procedure Vital Signs Vital Signs: Temp Pulse Pulse Resp BP Pulse Ox O2 Del Method 03/01/24 08:40 36.6 C 85 14 106/66 96 Room Air 03/01/24 08:30 79 12 106/72 96 Room Air 03/01/24 08:20 78 12 98/54 L 96 Oxymask 03/01/24 08:10 36.6 C 86 16 88/61 L 94 Oxymask 03/01/24 03:07 37.0 C 74 16 113/68 96 Room Air 02/29/24 23:25 36.8 C 77 20 126/78 97 Room Air 02/29/24 20:00 Room Air 02/29/24 19:04 36.8 C 90 20 121/67 95 Room Air 02/29/24 15:10 36.7 C 69 18 129/76 94 Room Air 02/29/24 11:34 36.6 C 78 18 142/85 H 94 Room Air O2 Flow Rate 03/01/24 08:40 03/01/24 08:30 03/01/24 08:20 4 03/01/24 08:10 4 03/01/24 03:07 02/29/24 23:25 02/29/24 20:00 02/29/24 19:04 02/29/24 15:10 02/29/24 11:34 Pain Intensity Abdomen: Pain Intensity: 6 Transfer of Care Handoff Completed per policy Notes Mental Status: alert / awake / arousable Patient Amnestic to Procedure: Yes Nausea / Vomiting: adequately controlled Pain: adequately controlled Airway Patency, RR, SpO2: stable & adequate BP & HR: stable & adequate Hydration State: stable & adequate Anesthetic Complications: no major complications apparent
[2024-03-01] MEDS: VENLAFAXINE HCL XR 150 MG CAPXR PO SCH (09:43)
--- NOTE | 2024-03-01 11:15 | Hospitalist Progress Note ---
Date of Service March 01, 2024 Assessment & Plan (1) GI bleed: (2) 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 He has been hospitalized multiple times with complaints of bright red blood per rectum and hematemesis. He has history of being verbally aggressive towards the medical staff; has left AMA multiple times in the past. He was hospitalized on 02/27 for evaluation of bright red blood per rectum; left AMA and came back on the same day. Hemoglobin stable since discharge around 7-8. He reports that he does not want transfusions. Upper GI bleed ruled out Iron Deficiency Anemia Alcohol use disorder He admitted to the hospital for concern of hematemesis as per his history. He refused Protonix drip, octreotide. Alcohol level on admission was 145 Mg per DL; does not have any withdrawal symptoms. He frequently asked for iv Benadryl for no particular reason. He also asks for opioids multiple times for no particular reason; he doesn't appear to be in any pain or discomfort. Evaluated by GI; underwent endoscopy on 03/01; normal esophagus, no varices. Patient has refused blood work to monitor his CBC, no signs or symptoms of upper or lower GI bleed while inpatient. GI planning for colonoscopy if patient is compliant given his reported history of bright red blood per rectum. Patient has been encouraged multiple times to be compliant with medical treatment. He has been verbally aggressive towards medical provider. History of seizure disorder- Reported history of seizure disorder; was on Depakote 750 mg once a day; increased to 1000 mg Antisocial personality disorder-Evaluated by psychiatry; on Effexor and mirtazapine. Time spent evaluating patient, direct bedside care, chart review, placing orders, interpretation of diagnostic studies, discussion with consultants, patient, , as well as other required patient management activities is 50 minutes Please note the above document was generated using voice recognition software. It may contain grammatical, syntax or spelling errors. Any formal questions or concerns about the content, text or information contained within the body of this dictation should be directly addressed to the provider for clarification Admission and Anticipated Discharge Date Admission Date: February 28, 2024 Subjective Patient was seen at bedside. He became verbally aggressive; did not answer any questions. He appears to be comfortable and was eating ice cream. He wanted me to order opioids, Benadryl without specifying any reason. He shouted " Get the fuck out". He did not answer any of my questions. Review of Systems Review of Systems: Did not answer any of the review of the system questions Physical Exam Physical Exam: Patient did not allow physical examination. Results & Data Results & Data Vital Signs (Past 12 Hours) Vital Signs Temp Pulse Pulse Resp BP Pulse Ox O2 Del Method 03/01/24 10:40 Room Air 03/01/24 08:40 36.6 C 85 14 106/66 96 Room Air 03/01/24 08:30 79 12 106/72 96 Room Air 03/01/24 08:20 78 12 98/54 L 96 Oxymask 03/01/24 08:10 36.6 C 86 16 88/61 L 94 Oxymask 03/01/24 03:07 37.0 C 74 16 113/68 96 Room Air 02/29/24 23:25 36.8 C 77 20 126/78 97 Room Air O2 Flow Rate 03/01/24 10:40 03/01/24 08:40 03/01/24 08:30 03/01/24 08:20 4 03/01/24 08:10 4 03/01/24 03:07 02/29/24 23:25 (1) GI bleed GI bleed type/associated pathology: unspecified gastrointestinal hemorrhage type Qualified Code(s): K92.2 - Gastrointestinal hemorrhage, unspecified
[2024-03-01] MEDS: LAVAGE SOLUTION 4000ML PO SCH (18:16)
[2024-03-01 19:38] VITALS: RESP 16
[2024-03-01] MEDS: LORazepam 2 MG/1 ML VIAL IV STA (20:28)
[2024-03-01 22:36] VITALS: O2SAT 95
[2024-03-02 02:10] VITALS: BP 109/68; TEMP 97.7
--- NOTE | 2024-03-02 08:56 | Hospitalist Progress Note ---
Date of Service March 02, 2024 Assessment & Plan (1) GI bleed: (2) 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 He has been hospitalized multiple times with complaints of bright red blood per rectum and hematemesis. He has history of being verbally aggressive towards the medical staff; has left AMA multiple times in the past. He was hospitalized on 02/27 for evaluation of bright red blood per rectum; left AMA and came back on the same day. Upper GI bleed, ruled out Iron Deficiency Anemia Alcohol use disorder He admitted to the hospital for concern of hematemesis as per his history. He refused Protonix drip, octreotide. Alcohol level on admission was 145 Mg per DL; does not have any withdrawal symptoms. He frequently asked for iv Benadryl for no particular reason. He also asks for opioids multiple times for no particular reason; he doesn't appear to be in any pain or discomfort. Evaluated by GI; underwent endoscopy on 03/01; normal esophagus, no varices. Initially, patient was being planned for colonoscopy given his reported history of hematochezia. However, he refused preparation; he did not specify any reason behind refusing colonoscopy. He refuses blood work to monitor his hemoglobin level, ferritin level. He was verbally aggressive towards all healthcare providers and supporting staffs. He did not have any episode of hematemesis, melena or hematochezia during the hospitalization. He was evaluated by both psychiatry and neurology during the hospitalization. His Depakote was increased to 1000 mg once a day as per neurology recommendation. He was alert oriented x 4, at the discharge. His vital signs were stable throughout the hospitalization. Patient was discharged home with instructions to follow-up with PCP and GI for workup for the anemia and colonoscopy. Please note the above document was generated using voice recognition software. It may contain grammatical, syntax or spelling errors. Any formal questions or concerns about the content, text or information contained within the body of this dictation should be directly addressed to the provider for clarification Admission and Anticipated Discharge Date Admission Date: February 28, 2024 Subjective After initially wanting to undergo colonoscopy; patient refuses colonoscopy preparation and colonoscopy. He also refused blood work to monitor his hemoglobin level. He did not have any episodes of hematemesis, melena, hematochezia during the hospitalization. Review of Systems Review of Systems: Did not answer any of the review of the system questions Physical Exam Physical Exam: Patient did not allow physical examination. Results & Data Results & Data Vital Signs (Past 12 Hours) Vital Signs Temp Pulse Pulse Resp BP Pulse Ox O2 Del Method 03/02/24 02:06 36.5 C 66 16 109/68 95 Room Air 03/01/24 23:33 96 H 03/01/24 22:15 36.6 C 85 16 108/65 95 Room Air (1) GI bleed GI bleed type/associated pathology: unspecified gastrointestinal hemorrhage t ype Qualified Code(s): K92.2 - Gastrointestinal hemorrhage, unspecified
--- NOTE | 2024-03-02 08:59 | Discharge Summary ---
Date of Service March 02, 2024 Admission HPI Per Admitting Provider 53-year-old male with past medical history significant for hepatitis C, GI bleed due to an NSAID, chronic arthralgias, history of Hodgkin's lymphoma, history of COVID, history of alcoholism, depression, methamphetamine use disorder, ADHD, drug-seeking behavior, history of DVT, history of peptic ulcer disease, history of cluster B personality disorder,History of oesophageal varices per records, history of seizures disorder, history of chronic anemia presents with GI bleed.Patient was in the hospital in the morning with GI bleed but signed out AMA. Comes back again because he was still wiping some blood with bowel movement and also having a lot of nausea vomiting and some blood in the vomitus. In the ER he had some blood in the vomitus. Currently with the Benadryl his nausea improved. Hemodynamics are okay. Hemoglobin is 7.9. Was 7.8 in the morning. Complains of headache. Complains of severe abdominal pain. Denies chest pain or shortness of breath. Afebrile. No runny nose or sore throat or cough. Micturating okay. Ambulating okay. States he smokes about a pack of cigarettes daily. After signing out AMA he says he drank 2 bottles of beer. He says he generally drinks 4-5 shots of vodka 4-5 times a week. He says he also uses cocaine about once a month.Patient states currently is homeless and [place]. Patient states there is a plan for rehab placement. Patient states he had episode of seizure 36 hours ago which he do not remember and after that he says he was [facility] out [facility] the [facility]. Past medical history. As mentioned above Past surgical history. Billroth procedure. Bowel resection. Hip surgery. Lymphadenectomy. Left partial hip replacement. Social history. Seems drink alcohol. Smokes half pack daily. Family history. Mood disorder. Admission Exam Per Admitting Provider General- Not in distress Head- atraumatic Eyes- PERRL. ENT- oropharynx clear Neck- supple, no JVD. Lungs- clear to auscultation no wheezing or crackles Heart- regular rhythm; no murmur, no gallop. Abdomen- normal bowel sounds, soft, nontender, no distension Extremities- no pretibial edema, no erythema seen Neuro- alert, oriented PERRL, no facial palsy; no dysarthria; moves extremities Principal Diagnosis Iron deficiency anemia Discharge Exam Patient did not allow physical examination. Discharge Data Allergies Allergy/AdvReac Type Severity Reaction Status Date / Time Iodinated Contrast Media Allergy Severe throat Verified 08/28/23 10:21 swelling haloperidol Allergy Unknown Hives Verified 08/28/23 10:21 metoclopramide Allergy Unknown Hives Verified 08/28/23 10:21 morphine Allergy Unknown Hives Verified 08/28/23 10:21 prochlorperazine Allergy Unknown Hives Verified 08/28/23 10:21 promethazine Allergy Unknown Hives Verified 08/28/23 10:21 Consultations 02/28/24 20:09 ED Decision to Admit Stat 02/29/24 08:00 Consult Gastroenterology Routine 02/29/24 09:00 Consult Neurology Routine Consult Psychiatry Routine Procedures Performed Operation Date: 03/02/24 16:35 <No data on this case meets the specified criteria> Hospital Course (1) GI bleed: (2) 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 He has been hospitalized multiple times with complaints of bright red blood per rectum and hematemesis. He has history of being verbally aggressive towards the medical staff; has left AMA multiple times in the past. He was hospitalized on 02/27 for evaluation of bright red blood per rectum; left AMA and came back on the same day. Iron Deficiency Anemia Upper GI bleed- ruled out Alcohol use disorder He admitted to the hospital for concern of hematemesis as per his history. He refused Protonix drip, octreotide. Alcohol level on admission was 145 Mg per DL; does not have any withdrawal symptoms. He frequently asked for iv Benadryl for no particular reason. He also asks for opioids multiple times for no particular reason; he doesn't appear to be in any pain or discomfort. Evaluated by GI; underwent endoscopy on 03/01; normal esophagus, no varices. Initially, patient was being planned for colonoscopy given his reported history of hematochezia. However, he refused preparation; he did not specify any reason behind refusing colonoscopy. He refuses blood work to monitor his hemoglobin level, ferritin level. He was verbally aggressive towards all healthcare providers and supporting staffs. He did not have any episode of hematemesis, melena or hematochezia during the hospitalization. He was evaluated by both psychiatry and neurology during the hospitalization. His Depakote was increased to 1000 mg once a day as per neurology recommendation. He was alert oriented x 4, at the discharge. His vital signs were stable throughout the hospitalization. Patient was discharged home with instructions to follow-up with PCP and GI for workup for the anemia and colonoscopy. Please note the above document was generated using voice recognition software. It may contain grammatical, syntax or spelling errors. Any formal questions or concerns about the content, text or information contained within the body of this dictation should be directly addressed to the provider for clarification Total Time Total Time Spent Total Time Spent (In Minutes): 45 Total Time Includes: Examination of the Patient, Discharge Planning, Medication Reconciliation, Communication With Other Providers and Other Discharge Plan Discharge Items Patient Disposition: Home - Self-Care Reason For Visit: GI BLEED Discharge Diagnosis: Iron Deficiency Anemia Activity: Resume your previous activity Non-emergency contact: Primary Care Provider Call non-emergency contact if: you have any medication questions and your sympt oms worsen Follow-up/Referrals: PCP,NO [Primary Care Provider] - Diet: Regular Addtl Attending Provider Instructions: Follow-up with your primary care doctor for evaluation of iron deficiency anemia. Obtain referral for GI if you plan to undergo colonoscopy. Pending Studies at Discharge: No Stand-Alone Forms: My [employer], Smoking Cessation Medications and DC Order Prescriptions: Continued pantoprazole [Protonix] 40 mg Tablet,Delayed Release (Dr/Ec) 40 mg PO UD Rx Instructions: 40 mg po bid. no fill history available venlafaxine 150 mg capsule,extended release 24hr 150 mg PO DAILY methylphenidate HCl [Ritalin] 20 mg Tablet 30 mg PO DAILY Changed divalproex 500 mg tablet extended release 24 hr 1,000 mg PO DAILY Qty: 30 0RF Rx Instructions: last filled 08/28/23 60 day supply mirtazapine [Remeron] 30 mg Tablet 15 mg PO HS Qty: 0 0RF Discharge Orders: Discharge Order (Routine); Ordered 03/02/24 Ordered By: Jerel Yepez Admission Data Admit Date/Time: 02/28/24 21:21 Attending Provider: Jerel Yepez Admit Provider: Usman Garcia Primary Care Provider: PCP,NO Other Providers: Usman Garcia; Enzo Coy; Priti Florian; Fuad Zambrano; Priti Peres; Ean Redmond; Tanner Ho; Mirza Roberts; Kenny Martin; Abril Mario; Brenton Barnes; Apollo Mae; Samantha Phillips; Gio De La Rosa; Raine Mckeon; Jannet Anguiano; Kenny Montalvo; Silvana Gomez; Emelia Sotomayor; Ean Whitley; Krupa Taylor; Alvina Nunez; Lamont Price; Katt Short; Xiao Mcfarland
--- NOTE | 2024-03-02 10:00 | Gastroenterology Progress Note ---
Date of Service March 02, 2024 Assessment & Plan (1) Anemia: Plan: 53 year old male w/ history of HCV, previous GI bleed due related to NSAIDs use, Hodgkin's lymphoma, ETOH abuse, depression, methamphetamine use disorder, ADHD, DVT, seizures disorder, chronic anemia and others below admitted w/ anemia and rectal bleeding. He was to undergo endoscopic evaluation this AM but is no longer agreeable and is requesting diet and discharge. - Recommend prior to DC updating CBC, iron panel and ferritin - IV iron prior to discharge - Recall GI as needed if patient is not discharged Thank you for allowing us to participate in the care of this patient. Please call with any acute changes, questions or concerns. Please see addendum below with additional recommendation from my supervising physician. Admission and Anticipated Discharge Date Admission Date: February 28, 2024 Supervising Physician Co-Signing Physician Notes Fuad unfortunately did not drink his preparation or cooperate with further evaluation investigation. Probable iron deficiency. Can reconsider endoscopic evaluation if Fuad returns or changes his mind Subjective Pt was seen and evaluated, chart reviewed. He tells me he is no longer agreeable to colonoscopy this AM but would consent to lab work. Denies black or bloody stools. Is requesting diet this AM and discharge. EGD 2023: Normal esophagus. - Normal stomach. - Status post surgery ? antrectomy vs V&P - Normal examined duodenum. - No specimens collected. EGD 2023: - Normal esophagus. - A large amount of food (residue) in the stomach. - Normal examined duodenum. - No specimens collected. Review of Systems Review of Systems: All other findings negative except as noted in HPI. Physical Exam Gastrointestinal (Abdomen): normal bowel sounds, soft, nontender, no hepatosplenomegaly Results & Data Results & Data Vital Signs (Past 12 Hours) Vital Signs Temp Pulse Pulse Resp BP Pulse Ox O2 Del Method 03/02/24 07:00 62 03/02/24 02:06 97.7 F 66 16 109/68 95 Room Air 03/01/24 23:33 96 H 03/01/24 22:15 97.9 F 85 16 108/65 95 Room Air PG Care Time/CCT Total # of Minutes Spent Total Time Spent with Patient: Total time spent is greater than 50% in coordination of care (as documented) at patient's floor/unit and/or counseling patient: Coding Level of Care Code None Diagnoses Anemia D64.9 Anemia type: unspecified type (1) Anemia Anemia type: unspecified type Qualified Code(s): D64.9 - Anemia, unspecified
[2024-03-02] MEDS ORDERED: ACETAMINOPHEN 500 MG TAB PO PRN (10:29)
[2024-03-02 10:36] VITALS: PULSE 66
--- NOTE | 2024-03-05 18:26 | GI REPORT ---
[facility] Patient: LYNDA DIALLO : 1970 Sex at : Male Age: 53 Years Procedure: Upper GI endoscopy Date: 03/01/2024 Attending Physician: Enzo Coy MD Referring MD: Indications: - Suspected upper gastrointestinal bleeding Medications: - Monitored Anesthesia Care Complications: - No immediate complications. Estimated Blood Loss: - Estimated blood loss: None. Procedure: - The egd scope was introduced through the mouth and advanced to the second part of the duodenum. - The upper GI endoscopy was accomplished without difficulty. - The patient tolerated the procedure well. Findings: - The examined esophagus was normal. - Bilious fluid was found in the gastric body. - Evidence of a pyloroplasty was found in the gastric antrum. This was characterized by healthy appearing mucosa. - The examined duodenum was normal. Impression: - Normal esophagus. - Bilious gastric fluid. - A pyloroplasty was found, characterized by healthy appearing mucosa. - Normal examined duodenum. - No specimens collected. Recommendation: - Consider colonoscopy for GI bleeding negative EGD for source. Procedure Code(s): - 30282, Esophagogastroduodenoscopy, flexible, transoral; diagnostic, including collection of specimen(s) by brushing or washing, when performed (separate procedure) Diagnosis Code(s): - Z98.890, Other specified postprocedural states CPT(R) - 2023 copyright [employer]. All Rights Reserved. The CPT codes, CCI edits and ICD codes generated are intended as suggestions and were generated based on input data. These codes are preliminary and upon ballpoint pens assembler review may be revised to meet current compliance and payer requirements. The provider is responsible for the final determination of appropriate codes, and modifiers. Enzo Coy MD This document has been electronically signed. Note Initiated:03/01/2024 Note Completed:03/05/2024 6:26 PM \\[email or web address]\Data\Provation\Results\[email or web address]\[id number]
== END 2024-03-02 12:38 | disposition home or self-care (01) | DRG 812 ==
LOC: ED 17:45 → 2E 21:21

== ENCOUNTER 2024-03-04 01:39 | Inpatient (IN) ==
--- OUTSIDE RECORDS SUMMARY | 2024-03-04 02:05 | External Medical Summary | Summary of Care ---
Author Name Unknown Organization [facility] Address [address] [place] [address] Phone [phone] Care Team Providers Care [facility] Overseer Name Role Phone Unavailable Primary Care Provider Unavailabl e Encounter Details Date Type Department Care Team (Late st Contact Info) Description 03/02/2024 Population Health External Data Unspecified Department Allergies Active Allergy Reactions Criticality Noted Date Comments Prochlorperazine Edisylate 7 Famotidine Dystonia 01/22/2019 Haloperidol 01/19/2017 Hydroxyzine Medium 06/30/2019 Other reaction(s): Throat Swelling, Throat Swelling Propofol Rash 01/21/2017 Quetiapine Dystonia,Other (Please comment) Low 10/12/2016 Metoclopramide Hcl 01/19/2017 documented as of this encounter (statuses as of 03/02/2024) Medications Vitamin B-12 1000 MCG Oral Tablet [...] as of this encounter (statuses as of 03/02/2024) Active Problems Problem Noted Date Diagnosed Date [...] as of this encounter (statuses as of 03/02/2024) Resolved Problems Problem Noted Date Diagnosed Date Resolved Date COVID-19 05/26/2020 09/02/2023 Stimulant use disorder 10/04/201909/01 Overview (05/20/2020): Hx crushing and snorting ritalin and other stimulants. Acute blood loss anemia 06/24/2019 04/0 10/2020 Overview (12/04/2019): Last Assessment & Plan: Recent hospitalization at [facility] for melenic stools and coffee ground vomitus Reported having taken [id number] mg of ibuprofen per day for 5 [...] (12/04/2019): Added automatically from request for surgery [id number] Last Assessment & Plan: Recurrent issue; reports small amount hematemesis and BRBPR when wiping. Similar episode when diagnosed with NSAID-induced duodenitis Denies history of esophageal varices Was hospitalized at [facility] for GI bleed; no EGD done [...] Billroth-I noted. Pt had another EGD at [facility] on 12/2018 CTA showed was negative [...] as of this encounter (statuses as of 03/02/2024) Immunizations Name Administration Dates Next Due Seasonal [...]
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
[2024-03-04] MEDS: diphenhydrAMINE 50 MG/ML VIAL IV STA ×2 (02:28→10:30)
[2024-03-04 02:30] LABS: Basophils # (auto) 0.05 K/uL (0.00-0.20); Basophils % (auto) 1.1 %; Eosinophils # (auto) 0.25 K/uL (0.00-0.50); Eosinophils % (auto) 5.5 %; Hematocrit (blood only) 29.6 % (42.0-52.0); Immature Granulocytes # (auto) 0.01 K/uL (0.01-0.20); Immature Granulocytes % (auto) 0.2 %; Lymphocytes # (auto) 1.26 K/uL (1.20-3.40); Lymphocytes % (auto) 27.8 %; Mean Corpuscular Hemoglobin 25.7 pg (25.0-34.0); Mean Corpuscular Hgb Conc 30.4 g/dL (32.0-36.0); Mean Corpuscular Volume 84.6 fL (80.0-100.0); Mean Platelet Volume 9.3 fL (9.4-12.4); Monocytes # (auto) 0.43 K/uL (0.11-0.59); Monocytes % (auto) 9.5 %; Neutrophils # (auto) 2.54 K/uL (1.40-6.50); Neutrophils % (auto) 55.9 %; Platelet Count 279 K/uL (130-400); RDW Coefficient of Variation 18.4 % (11.5-14.5); RDW Standard Deviation 53.6 fL (36.4-46.3); White Blood Count 4.54 K/ul (4.8-10.8)
[2024-03-04] MEDS: FAMOTIDINE 20MG IV PUSH 20 MG/5 ML SYR IV STA (02:36)
[2024-03-04] MEDS: PANTOprazole 80 MG in DEXTROSE 5% 100 ML IV ONE (02:44)
[2024-03-04] MEDS: PANTOPRAZOLE BOLUS/DRIP IV STA (02:44)
[2024-03-04 02:45] LABS: Albumin Globulin Ratio 1.8 (0.9-2); Albumin Level 4.4 gm/dl (3.4-5.0); BUN Creatinine Ratio 18.1 (10-20); Bilirubin,Total 0.3 mg/dl (0.2-1.0); Calcium 9.2 mg/dl (8.6-10.3); Creatinine Clr Calc Pharmacy 96.2 ml/min; Globulin 2.5 gm/dl (2.5-4.0); Magnesium 1.9 mg/dl (1.7-2.4); Total Protein 6.9 gm/dl (6.0-8.3)
[2024-03-04 02:52] LABS: Troponin I High Sensitivity 2.6 pg/ml (0-20)
[2024-03-04 02:59] LABS: Appearance Urine Clear (Clear); Bilirubin Urine Negative (Negative); Blood Urine Negative (Negative); Color Urine Yellow; Glucose Urine UA Negative (Negative); Ketones Urine Negative (Negative); Leukocyte Esterase Urine Negative (Negative); Nitrite Urine Negative (Negative); Protein Urine Negative (Negative); Specific Gravity Urine 1.011 (1.000-1.030); Urobilinogen Urine Negative (Negative)
[2024-03-04 03:04] LABS: INR 0.9 (0.9-1.1); Partial Thromboplastin Time 27 Seconds (21-31)
[2024-03-04] MEDS: fentaNYL citrate PF 100 MCG/2 ML VIAL IV STA (03:12)
[2024-03-04] MEDS: MoRPHine SULFATE 4 MG/ML 1 ML CARP\\VIAL IV STA (03:14)
[2024-03-04 03:53] LABS: Amphetamines+Metham, Urine Neg (Neg); Barbiturates, Urine Neg (Neg); Benzodiazepine, Urine Neg (Neg); Cocaine, Urine Neg (Neg); Fentanyl, Urine Neg (Neg); MDMA (Ecstacy), Urine Neg (Neg); Marijuana, Urine Neg (Neg); Methadone, Urine Neg (Neg); Opiate, Urine Neg (Neg); Phencyclidine, Urine Neg (Neg)
[2024-03-04] MEDS: PANTOprazole 40 MG in DEXTROSE 5% MINI-B 100 ML IV SCH (04:03)
[2024-03-04] MEDS ORDERED: NITROGLYCERIN SL 0.4 MG/TAB TAB SL PRN (06:13)
[2024-03-04] MEDS ORDERED: LORazepam 0.5 MG TAB PO PRN (06:13)
[2024-03-04] MEDS ORDERED: Ativan IV Alcohol Withdrawal--Active Protocol IV PRN (06:13)
[2024-03-04] MEDS ORDERED: ONDANSETRON INJ 2 MG/ML 2 ML VIAL IV PRN (06:13)
[2024-03-04] MEDS ORDERED: LORazepam 2 MG/1 ML VIAL IV PRN ×2 (06:13)
[2024-03-04] MEDS ORDERED: GABAPENTIN 1200MG ALCOHOL WITHDRAWAL LOAD PO STA (06:13)
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
[2024-03-04] MEDS: GABAPENTIN 600 MG TAB PO ONE (07:16)
[2024-03-04] MEDS: MULTIVITAMIN TAB PO SCH (08:42)
[2024-03-04] MEDS: DIVALPROEX EXTENDED RELEASE 500 MG TAB PO SCH (08:42)
[2024-03-04] MEDS: THIAMINE HCL 100 MG TAB PO SCH (08:43)
[2024-03-04] MEDS: FOLIC ACID 1 MG TAB PO SCH (08:43)
[2024-03-04] MEDS: VENLAFAXINE HCL XR 150 MG CAPXR PO SCH (08:43)
[2024-03-04] MEDS: LORazepam 2 MG/1 ML VIAL IV PRN (08:59)
[2024-03-04] MEDS: METHYLPHENIDATE HCL 10 MG TABLET PO SCH (09:46)
--- NOTE | 2024-03-04 10:05 | Hospitalist Progress Note ---
Date of Service March 04, 2024 Assessment & Plan (1) Alcoholism: Plan 53-year-old male with past medical history significant for hepatitis C, GI bleed due to an NSAID, chronic arthralgias, history of Hodgkin's lymphoma, history of COVID, history of alcoholism, depression, methamphetamine use disorder, ADHD, drug-seeking behavior, history of DVT, history of peptic ulcer disease, history of cluster B personality disorder,History of oesophageal varices per records, history of seizures disorder, history of chronic anemia presents with questionable seizure. patient states he would like to detox before going to alcohol rehab in [place]. Alcoholism Alcohol level 97 this admission Alcohol withdrawal protocol with gabapentin and IV Ativan as needed P.o. thiamine, folic acid multivitamins Closely monitor for withdrawals Patient says working on getting into rehab in [place] History of seizures Patient says had seizure prior coming to the hospital Seizure precautions He also had episode of seizure prior to come to hospital last admit and seen by neurology and Depakote was increased to 1000 mg Patient states he was not taking his medication last couple of days Will continue Depakote If any concerns will consult neurology again Chronic Nausea Pt with repeated requests for Benadryl to help with nausea Cautious use given he is on multiple neuropsych meds including- Ativan, gabpentin, remeron, depakote, ritalin, and effexor PRN zofran as needed, has allergy to phenergan Consider reglan or compazine prn Recent GI bleed Currently hemoglobin is stable at 9 Denies any bleeding again Continue po Protonix Follow labs History of hepatitis C Needs follow-up Depression ADD On Effexor, Ritalin,Remeron and Depakote Seen by psych last admit and meds were adjusted Continue same meds for now Has history of DVT and non-Hodgkin's lymphoma as per records Diet: HH DVT prophylaxis: SCDs for now in setting of recent GI bleed Dispo: to alcohol rehab once medically stable Admission and Anticipated Discharge Date Admission Date: March 04, 2024 Subjective patient was seen while still down in the emergency room Stated that he wanted to detox before going to rehab in [place], States they will take him before going Notes that he uses Benadryl to help with nausea, states it works for him states his last drink was 2 days ago however his alcohol level here was elevated Review of Systems Review of Systems: All systems reviewed & are unremarkable except as noted in Subjective Physical Exam Physical Exam: General: Alert, oriented. No acute distress Skin: No noted rashes or bruises Psych:anxious Neuro: no hand tremors noted HEENT: NC/AT CV: RRR Resp: Breath sounds clear bilaterally, no increased effort of breathing Abdomen:Soft, nontender Extremities: No edema in lower extremities bilaterally. Results & Data Results & Data Vital Signs (Past 12 Hours) Vital Signs Temp Pulse Pulse Resp BP BP Pulse Ox 03/04/24 07:00 72 14 112/59 L 98 03/04/24 06:51 77 03/04/24 06:21 37.2 C 70 19 97/57 L 97 03/04/24 06:20 37.2 C 70 20 98 03/04/24 06:17 37.2 C 03/04/24 06:16 37.2 C 63 20 97/57 L 97 03/04/24 06:16 97 03/04/24 06:13 03/04/24 06:10 61 03/04/24 04:08 70 20 97/65 L 96 03/04/24 02:45 73 20 126/77 100 03/04/24 02:14 88 03/04/24 02:13 95 03/04/24 01:59 66 20 129/82 97 03/04/24 01:59 95 03/04/24 01:47 36.9 C 89 18 126/82 98 O2 Del Method 03/04/24 07:00 Room Air 03/04/24 06:51 03/04/24 06:21 Room Air 03/04/24 06:20 Room Air 03/04/24 06:17 03/04/24 06:16 Room Air 03/04/24 06:16 Room Air 03/04/24 06:13 Room Air 03/04/24 06:10 03/04/24 04:08 Room Air 03/04/24 02:45 Room Air 03/04/24 02:14 03/04/24 02:13 Room Air 03/04/24 01:59 Room Air 03/04/24 01:59 Room Air 03/04/24 01:47 Room Air
--- NOTE | 2024-03-04 11:44 | Electrocardiogram Report ---
Test Reason : Blood Pressure : */* mmHG Vent. Rate : 76 BPM Atrial Rate : 76 BPM P-R Int : 174 ms QRS Dur : 96 ms QT Int : 386 ms P-R-T Axes : 24 43 59 degrees QTcB Int : 434 ms Normal sinus rhythm Normal ECG When compared with ECG of 28-Feb-2024 04:10, No significant change was found Confirmed by Yonathan Gonzalez ([id number]) on 03/04/2024 11:43:52 AM Referred By: REFERRED SELF Confirmed By: Yonathan Gonzalez
[2024-03-04] MEDS: GABAPENTIN 600 MG TAB PO SCH (12:49)
[2024-03-04] MEDS: diphenhydrAMINE Capsule 25 MG CAP PO ONE (19:40)
[2024-03-04] MEDS: METHYLPHENIDATE HCL 10 MG TABLET PO STA (20:09)
[2024-03-04] MEDS: MIRTAZAPINE TAB 15 MG TAB PO SCH (22:12)
[2024-03-04 22:17] VITALS: TEMP 98.1
[2024-03-04] MEDS ORDERED: MELATONIN 3 MG TAB PO PRN (22:38)
--- NOTE | 2024-03-04 23:01 | Communication Note ---
Date of Service: March 04, 2024 Patient requested to speak to contact center manager to request reorder of home medications with specific doses. Effexor XR 150 mg p.o. daily Methylphenidate 40 mg p.o. daily Depakote (not ER as per patient) 750 mg p.o. daily Ambien 10 mg p.o. at bedtime. Ambien at bedtime ordered for patient after PDMP query. Last refill given 02/24/[address] vOidio Edgar (Psychiatry). Defer decision regarding other neuropsychotropic medications to AM provider.
[2024-03-04] MEDS: ZOLPIDEM TARTRATE 5 MG TAB PO PRN (23:46)
[2024-03-05 07:14] VITALS: RESP 16; O2SAT 99
[2024-03-05] MEDS: GABAPENTIN 600 MG TAB PO SCH (07:15)
[2024-03-05] MEDS: METHYLPHENIDATE HCL 10 MG TABLET PO SCH (07:24)
[2024-03-05] MEDS: METHYLPHENIDATE HCL 10 MG TABLET ONE (07:24)
[2024-03-05 08:06] LABS: Basophils # (auto) 0.03 K/uL (0.00-0.20); Basophils % (auto) 0.7 %; Hematocrit (blood only) 30.1 % (42.0-52.0); Hemoglobin 9.2 g/dl (14.0-18.0); Immature Granulocytes # (auto) 0.02 K/uL (0.01-0.20); Immature Granulocytes % (auto) 0.5 %; Lymphocytes # (auto) 1.27 K/uL (1.20-3.40); Lymphocytes % (auto) 31.7 %; Mean Corpuscular Hemoglobin 26.7 pg (25.0-34.0); Mean Corpuscular Hgb Conc 30.6 g/dL (32.0-36.0); Mean Corpuscular Volume 87.5 fL (80.0-100.0); Mean Platelet Volume 9.2 fL (9.4-12.4); Monocytes # (auto) 0.36 K/uL (0.11-0.59); Neutrophils # (auto) 2.13 K/uL (1.40-6.50); Neutrophils % (auto) 53.1 %; Platelet Count 247 K/uL (130-400); RDW Coefficient of Variation 18.2 % (11.5-14.5); RDW Standard Deviation 56.6 fL (36.4-46.3); Red Blood Count 3.44 M/uL (4.70-6.10); White Blood Count 4.01 K/ul (4.8-10.8)
[2024-03-05 08:22] LABS: Albumin Globulin Ratio 1.8 (0.9-2); Albumin Level 4.1 gm/dl (3.4-5.0); Bilirubin,Total 0.3 mg/dl (0.2-1.0); Calcium 8.7 mg/dl (8.6-10.3); Creatinine Clr Calc Pharmacy 79.9 ml/min; Globulin 2.3 gm/dl (2.5-4.0); Potassium 4.5 mmol/L (3.5-5.1); Total Protein 6.4 gm/dl (6.0-8.3)
[2024-03-05] MEDS: PANTOprazole 40 MG TAB PO SCH (09:27)
--- NOTE | 2024-03-05 10:03 | Discharge Summary ---
Discharge Summary Date of Service March 05, 2024 Principal Dx & Hospital Course #1 = Principal Diagnosis (1) Alcoholism: Plan 53-year-old male with past medical history significant for hepatitis C, GI bleed due to an NSAID, chronic arthralgias, history of Hodgkin's lymphoma, history of COVID, history of alcoholism, depression, methamphetamine use disorder, ADHD, drug-seeking behavior, history of DVT, history of peptic ulcer disease, history of cluster B personality disorder,History of oesophageal varices per records, history of seizures disorder, history of chronic anemia presents with questionable seizure. patient states he would like to detox before going to alcohol rehab in [place]. Pt remained stable, requiring minimal use of Ativan (1 dose). Alcoholism Alcohol level 97 this admission Alcohol withdrawal protocol with gabapentin and IV Ativan as needed P.o. thiamine, folic acid multivitamins Closely monitor for withdrawal Patient says working on getting into rehab in [place] per case management, rehab states that patient has not been in touch for about 2 weeks. Not they do not currently have beds. On the day of discharge patient opting to be discharged and states he is confident that he will be able to get into this facility at [place]. patient did not appear to be an active withdrawal on the day of discharge. Close PCP follow-up after discharge, encourage cessation History of seizures Patient says had seizure prior coming to the hospital Seizure precautions He also had episode of seizure prior to come to hospital last admit and seen by neurology and Depakote was increased to 1000 mg Patient states he was not taking his medication last couple of days Will continue Depakote, prescription renewed close PCP follow-up after discharge Chronic Nausea Pt with repeated requests for Benadryl to help with nausea Cautious use given he is on multiple neuropsych meds including- Ativan, gabapentin, remeron, depakote, ritalin, and effexor PRN zofran as needed, has allergy to phenergan Consider reglan or compazine prn Recent GI bleed Currently hemoglobin is stable at 9.2 Denies any bleeding again Continue po Protonix PCP follow up History of hepatitis C Needs pcp follow-up Depression ADD On Effexor, Ritalin,Remeron and Depakote Seen by psych last admit and meds were adjusted Renewed prescriptions for his home Depakote, pantoprazole and Effexor on discharge per the PDMP, patient was prescribed a 30-day supply of methylphenidate on February 24 2024 and it was picked up on February 25, 2024. He was advised to continue with this previous prescription at home as it was a 30 day supply. He was advised to closely follow-up with his primary care provider and/or psychiatrist for further refills and continued management. Has history of DVT and non-Hodgkin's lymphoma as per records Notes For Next Care Provider Medication Changes From Visit Renewed prescriptions for his home Depakote, pantoprazole and Effexor per the PDMP, patient was prescribed a 30-day supply of methylphenidate on February 23 and it was picked up on February 25, 2024. He was advised to continue with this previous prescription at home. Admission HPI Per Admitting Provider 53-year-old male with past medical history significant for hepatitis C, GI bleed due to an NSAID, chronic arthralgias, history of Hodgkin's lymphoma, history of COVID, history of alcoholism, depression, methamphetamine use disorder, ADHD, drug-seeking behavior, history of DVT, history of peptic ulcer disease, history of cluster B personality disorder,History of oesophageal varices per records, history of seizures disorder, history of chronic anemia presents with questionable seizure. Patient was recently in the hospital for GI bleed. Did not receive any PRBC. He underwent EGD on 03/01 with normal esophagus and no varices. There is a plan for colonoscopy but patient refused colon prep. And he refused further blood work. He has been verbally aggressive towards all healthcare providers and Supporting staff last admission. During last hospitalization he did not have any more GI bleed. He was also evaluated by both psychiatry and neurology during last hospitalization. And Depakote was increased to 1000 mg once daily per neurology recommendation. He was discharged on 03/02/2024. Patient says since discharge he is drinking alcohol again. He says he did not take his medications last couple couple of days. Says he is working to get into alcohol rehab in [place]. But since he is drinking since discharge he want to get detox before he goes to rehab. Seems he also had a seizure episode prior to come to ER. Currently resting comfortably and hemodynamically stable. Currently denies any headache. Denies abdominal pain. Denies chest pain. No shortness of breath. No cough. No fevers. No nausea or vomiting. No earache or runny nose or sore throat. Says when he stops drinking he gets double vision thinks he has some double vision now.But says he is feeling better now since he got medications in the ER.Hemodynamics are stable. Past medical history. As mentioned above Past surgical history. Billroth procedure. Bowel resection. Hip surgery. Lymphadenectomy. Left partial hip replacement. Social history. Seems drink alcohol. Smokes half pack daily. Admission Exam Per Admitting Provider General- Not in distress Head- atraumatic Eyes- PERRL. ENT- oropharynx clear Neck- supple, no JVD. Lungs- clear to auscultation no wheezing or crackles Heart- regular rate and rhythm; no murmur, no gallop. Abdomen- normal bowel sounds, soft, nontender, no distension Extremities- no pretibial edema, no erythema seen Neuro- alert, oriented PERRL, no facial palsy; no dysarthria; moves extremities Discharge Exam General: Alert, oriented. No acute distress Skin: No noted rashes or bruises Psych:anxious Neuro: no hand tremors noted HEENT: NC/AT CV: RRR Resp: Breath sounds clear bilaterally, no increased effort of breathing Abdomen:Soft, nontender Extremities: No edema in lower extremities bilaterally. Updated Medication List Medication Instructions Recorded Confirmed Type methylphenidate HCl 10 mg tablet 30 mg PO DAILY 03/04/24 03/04/24 History (Ritalin) mirtazapine 15 mg tablet (Remeron) 15 mg PO HS 03/04/24 03/04/24 History divalproex 500 mg tablet,extended 1,000 mg (2 x 500 mg) PO DAILY #60 03/05/24 Rx release 24 hr (Depakote ER) tabs pantoprazole 40 mg tablet,delayed 40 mg PO DAILY #30 tabs 03/05/24 Rx release (Protonix) venlafaxine 150 mg 150 mg PO DAILY #30 caps 03/05/24 Rx capsule,extended release 24 hr (Effexor XR) Hospital Stay Data Consultations 03/04/24 04:57 ED Decision to Admit Stat Discharge Instructions Given to Patient (Per Discharging Provider) Mr. Rm, You are being discharged. We encourage continued alcohol cessation. Your medications were renewed as requested. It appears that your methylphenidate, a controlled medication, was recently prescribed and picked up on February 25, 2024. You were prescribed a 30-day supply at that time, thus this cannot be renewed at this time. We encourage you to use your home prescription for this medication. Please keep close follow up with your primary care provider after discharge for continued medication renewals and for followup. Please do not hesitate to go to the nearest emergency room if your symptoms worsen or return, or you believe you are in active alcohol withdrawal. It was a pleasure taking care of you while you were here. Total Time Total Time Spent Total Time Spent (In Minutes): 60
[2024-03-05 10:39] VITALS: BP 149/99; PULSE 94
[2024-03-06] MEDS ORDERED: GABAPENTIN 600 MG TAB PO SCH (10:00)
[2024-03-07] MEDS ORDERED: GABAPENTIN 600 MG TAB PO SCH (22:00)
== END 2024-03-05 10:39 | disposition home or self-care (01) | DRG 897 ==
LOC: ED 01:39 → EDINP 05:53